=== PATIENT | female | born 1940 | race Caucasian/White ===

== ENCOUNTER → 2017-09-18 15:00 | Outpatient (CLI) | payer MEDICARE, SELFPAY | PROVIDERS: Family Provider Family Medicine Geriatric Medicine; PCP Family Medicine Geriatric Medicine; Visit Provider Family Medicine Geriatric Medicine | DX: N39.0 Urinary tract infection, site not specified (principal) | CPT/HCPCS: 87086; 87088; 87186 ==

== ENCOUNTER → 2017-11-28 08:41 | Outpatient (CLI) | payer MEDICARE, SELFPAY ==
[2017-11-28 12:24] LABS: Absolute Lymphocyte Count 1.97 X10^3/ul (0.83-4.51); Absolute Neutrophil Count 4.3 X10^3/uL (2.0-7.7); Basophil# 0.02 X10^3/uL; Basophil% 0.3 % (0-1); Eosinophil# 0.24 X10^3/uL; Eosinophils% 3.5 % (0-5); Hematocrit 35.9 % (37-47); Lymphocyte # 1.97 X10^3/ul (4.0); Lymphocyte % 28.7 % (19-41); Mean Corp Hgb Conc 33.4 g/gl (32-36); Mean Corpuscular Hgb 30.7 pg (27.0-32.0); Mean Corpuscular Volume 91.8 fL (81-99); Mean Platelet Vol. 10.7 fl (6.2-12.0); Monocyte# 0.36 X10^3/uL; Monocyte% 5.2 % (0-10); Neutrophil # 4.27 X10^3/uL (2.7-7.7); Neutrophil % 62.2 % (47-70); Platelet Count 240 K/mm3 (150-450); RBC Distribution Width CV 13.5 % (11.6-14.6); Red Blood Count 3.91 M/mm3 (4.2-5.4); White Blood Count 6.9 K/mm3 (4.4-11.0)
[2017-11-28 12:26] LABS: POSITIVE COUNT NO; POSITIVE DIFFERENTIAL NO; POSITIVE MORPHOLOGY NO
[2017-11-28 12:43] LABS: Vitamin D,25 Hydroxy 25.8 ng/mL (29.95-100.01)
[2017-11-28 12:46] LABS: AST(SGOT) 25 U/L (15-37); Alanine Aminotransfer ALT/SGPT 23 U/L (13-56); Albumin, Serum 3.7 g/dL (3.2-5.0); Alkaline Phosphatase 77 U/L (45-117); Anion Gap 10 (5-15); BUN 25 mg/dL (7-18); BUN/Creat Ratio 19.7 RATIO (10-20); Calcium,Total 9.1 mg/dL (8.5-10.1); Chloride 102 mmol/L (98-107); Creatinine, Serum 1.27 mg/dL (0.55-1.02); EST Glomerular Filtration Rate 43 mL/min (>60); Est Glom Filt Rate - Afr Amer 52 mL/min (>60); Globulin 3.7 g/dL (2.2-4.2); Glucose 150 mg/dL (74-106); Potassium 4.3 mmol/L (3.5-5.1); Protein, Total 7.4 g/dL (6.4-8.2); Sodium Level 138 mmol/L (136-145); Thyroid Stim Hormone (TSH) 1.52 uIU/mL (0.358-3.74); Uric Acid 6.9 mg/dL (2.6-6.0)
== END ==
PROVIDERS: Family Provider Family Medicine Geriatric Medicine; PCP Family Medicine Geriatric Medicine; Visit Provider Family Medicine Geriatric Medicine
DX: E11.9 Type 2 diabetes mellitus without complications (principal); E55.9 Vitamin D deficiency, unspecified; I10 Essential (primary) hypertension; M10.9 Gout, unspecified
CPT/HCPCS: 36415; 80053; 82306; 84443; 84550; 85025

== ENCOUNTER → 2018-01-12 11:11 | Outpatient (CLI) | payer MEDICARE, SELFPAY ==
[2018-01-12 13:06] LABS: Absolute Lymphocyte Count 2.19 X10^3/ul (0.83-4.51); Absolute Neutrophil Count 7.9 X10^3/uL (2.0-7.7); Basophil# 0.03 X10^3/uL; Basophil% 0.3 % (0-1); Eosinophil# 0.33 X10^3/uL; Lymphocyte # 2.19 X10^3/ul (4.0); Lymphocyte % 19.9 % (19-41); Mean Corp Hgb Conc 32.4 g/gl (32-36); Mean Corpuscular Hgb 29.6 pg (27.0-32.0); Mean Corpuscular Volume 91.1 fL (81-99); Mean Platelet Vol. 10.1 fl (6.2-12.0); Monocyte# 0.58 X10^3/uL; Monocyte% 5.3 % (0-10); Neutrophil # 7.85 X10^3/uL (2.7-7.7); Neutrophil % 71.3 % (47-70); POSITIVE COUNT NO; POSITIVE DIFFERENTIAL NO; POSITIVE MORPHOLOGY NO; Platelet Count 304 K/mm3 (150-450); RBC Distribution Width CV 13.4 % (11.6-14.6); RBC Distribution Width SD 44.1 fl (35.1-43.9); Red Blood Count 4.06 M/mm3 (4.2-5.4)
[2018-01-12 13:16] LABS: Erythrocyte Sedimentation Rate 30 mm/hr (0-30)
[2018-01-12 13:27] LABS: Anion Gap 12 (5-15); BUN 25 mg/dL (7-18); BUN/Creat Ratio 20.5 RATIO (10-20); Calcium,Total 9.6 mg/dL (8.5-10.1); Chloride 101 mmol/L (98-107); Creatinine, Serum 1.22 mg/dL (0.55-1.02); EST Glomerular Filtration Rate 45 mL/min (>60); Est Glom Filt Rate - Afr Amer 55 mL/min (>60); Glucose 199 mg/dL (74-106); Potassium 5.1 mmol/L (3.5-5.1); Sodium Level 140 mmol/L (136-145)
== END ==
PROVIDERS: Family Provider Family Medicine Geriatric Medicine; PCP Family Medicine Geriatric Medicine; Visit Provider Family Medicine Geriatric Medicine
DX: N39.0 Urinary tract infection, site not specified (principal); I10 Essential (primary) hypertension
CPT/HCPCS: 36415; 80048; 85025; 85652; 86140; 87086; 87088

== ENCOUNTER → 2018-02-10 11:54 | Outpatient (CLI) | payer MEDICARE, SELFPAY | PROVIDERS: Family Provider Family Medicine Geriatric Medicine; PCP Family Medicine Geriatric Medicine; Visit Provider Family Medicine Geriatric Medicine | DX: R68.83 Chills (without fever) (principal) | CPT/HCPCS: 87633 ==

== ENCOUNTER → 2018-02-23 12:03 | Outpatient (CLI) | payer MEDICARE, SELFPAY | PROVIDERS: Family Provider Family Medicine Geriatric Medicine; PCP Family Medicine Geriatric Medicine; Visit Provider Family Medicine Geriatric Medicine | DX: N39.0 Urinary tract infection, site not specified (principal) ==

== ENCOUNTER → 2018-02-23 14:18 | Outpatient (CLI) | payer MEDICARE, SELFPAY ==
--- NOTE | 2018-02-23 14:22 | CT_ITS ---
STUDY: CT ABDOMEN AND PELVIS WITH CONTRAST REASON FOR EXAM: Female, 77 years old. Mid and upper abdominal pain and vomiting. RADIATION DOSAGE (If Supplied By Facility): CTDIvol = ( 15.405 ) mGy, DLP = ( 903.59 ) mGycm TECHNIQUE: Transaxial images were obtained from the dome of the diaphragm to the symphysis pubis with oral contrast. 100 ml of Isovue 300 contrast was administered. Sagittal and coronal images were reconstructed. Individualized dose optimization techniques were used for this CT. COMPARISON: None. FINDINGS: Mild degree of increased linear markings at the lung bases suggestive of atelectasis and/or scarring. Coronary artery calcification. There is a 1.4 cm x 1.2 cm cyst in the caudate lobe of the liver. There are multiple small gallstones. Normal spleen. There is diffuse atrophy of the pancreas. Normal bilateral adrenal glands. Normal right kidney. Normal left kidney. There is a small hiatal hernia. There is evidence of a circumferential wall thickening of the distal portion of the body of the stomach extending into the antrum. Increased markings are seen in the surrounding fat. Gastric ulceration or inflammatory changes should be. Small lymph nodes are seen in the surrounding peritoneal fat. Correlation with endoscopy is recommended. Findings suggestive of a 1.1 cm x 1 cm diverticulum in the second portion of the duodenum. Normal small intestine. There are multiple colonic diverticula consistent with diverticulosis. A moderate amount of fecal material is seen throughout the colon. The appendix is visualized and appears normal. There is diffuse atherosclerotic calcification of the abdominal aorta and its major visceral branches, without a demonstrated aneurysm. Normal inferior vena cava. Normal retroperitoneum. Normal urinary bladder. There is absence of the uterus consistent with a prior hysterectomy. Normal abdominal wall. Facet joint osteoarthritis. CT/Abdomen/Pelvis WITH Contrast IMPRESSION: Circumferential wall thickening with increased markings in the surrounding peritoneal fat involving the distal portion of the stomach in the antrum. This may represent ulceration or inflammatory process. Small lymph nodes are seen within the peritoneal fat. Small gallstones. Electronically Signed: Pj Carrillo MD at 15:19 EDT Tel [phone], Service support ,
[2018-02-23 17:47] LABS: Absolute Lymphocyte Count 1.45 X10^3/ul (0.83-4.51); Absolute Neutrophil Count 15.6 X10^3/uL (2.0-7.7); Basophil# 0.01 X10^3/uL; Basophil% 0.1 % (0-1); Eosinophil# 0.05 X10^3/uL; Eosinophils% 0.3 % (0-5); Hematocrit 42.5 % (37-47); Hemoglobin 13.9 g/dl (12.0-15.0); Lymphocyte # 1.45 X10^3/ul (4.0); Lymphocyte % 7.9 % (19-41); Mean Corp Hgb Conc 32.7 g/gl (32-36); Mean Corpuscular Hgb 30.3 pg (27.0-32.0); Mean Corpuscular Volume 92.8 fL (81-99); Mean Platelet Vol. 10.9 fl (6.2-12.0); Monocyte# 1.26 X10^3/uL; Monocyte% 6.8 % (0-10); Neutrophil # 15.59 X10^3/uL (2.7-7.7); Neutrophil % 84.6 % (47-70); POSITIVE COUNT NO; POSITIVE DIFFERENTIAL NO; POSITIVE MORPHOLOGY NO; Platelet Count 225 K/mm3 (150-450); RBC Distribution Width CV 14.7 % (11.6-14.6); RBC Distribution Width SD 49.4 fl (35.1-43.9); Red Blood Count 4.58 M/mm3 (4.2-5.4); White Blood Count 18.4 K/mm3 (4.4-11.0)
[2018-02-23 18:13] LABS: AST(SGOT) 14 U/L (15-37); Alanine Aminotransfer ALT/SGPT 44 U/L (13-56); Albumin, Serum 3.6 g/dL (3.2-5.0); Alkaline Phosphatase 85 U/L (45-117); Anion Gap 11 (5-15); BUN 25 mg/dL (7-18); BUN/Creat Ratio 17.7 RATIO (10-20); Calcium,Total 9.5 mg/dL (8.5-10.1); Chloride 97 mmol/L (98-107); Creatinine, Serum 1.41 mg/dL (0.55-1.02); EST Glomerular Filtration Rate 38 mL/min (>60); Est Glom Filt Rate - Afr Amer 46 mL/min (>60); Globulin 3.7 g/dL (2.2-4.2); Glucose 418 mg/dL (74-106); Protein, Total 7.3 g/dL (6.4-8.2); Sodium Level 136 mmol/L (136-145)
== END ==
PROVIDERS: Family Provider Family Medicine Geriatric Medicine; PCP Family Medicine Geriatric Medicine; Visit Provider Family Medicine Geriatric Medicine
DX: R10.9 Unspecified abdominal pain (principal)
CPT/HCPCS: 36415; 74177; 80053; 85025; 87086; 87088; Q9967

== ENCOUNTER 2018-02-27 12:26 | Inpatient (IN) | payer MEDICARE, SELFPAY ==
[2018-02-27] VITALS (11 sets, daily range): BP systolic 115–170; BP diastolic 52–85; PULSE 63–73; RESP 14–18; TEMP 36.9–37.8; O2SAT 94–100; BMI 25.4; BMI 25.9
--- NOTE | 2018-02-27 | IMM_PTH ---
PATIENT: ANNE CASTAÑEDA LOC: MS3 U#:[id number] AGE/SX: 77/F ROOM: LA317 RE02/27/[address]: Dr. Marques Hatch MD : [id number] BED: 1 DIS: 03/02/2018 SPEC #: [id number] RECD: 03/03/18 11:59 STATUS: SOUWilfredo REQ #: [id number] JOSEPH: 02/27/18 00:[address]: Marques Hatch DEPT: IMMUNOHISTOCHEMISTRY RECD BY: Shara Denny ENTERED: 03/03/18 12:00 SP TYPE: IMMUNO OTHR DR: MD Dr. Rivera Shaw MD Dr. Tai Chi Kwok, MD Tissues: Stomach, NOS Procedures: H Pylori (initial) PHYSICIAN & INSTITUTION [place] [id number] SPECIMEN INFORMATION: Tissue Source: Gastric antrum, biopsy Clinical Info: Abdominal pain, nausea Specimen Number: [id number] CPT code: 20011 METHODOLOGY: Deparaffinized sections of prefer/formalin-fixed tissue or PAP/DQ stained slides are incubated with monoclonal/polyclonal antibodies/oligonucleotide probes. Localization is made via biotin free immunoperoxidase method. Appropriate controls are performed and reacted as expected. Results on target cell population are indicated in the following table: RESULTS: ANTIBODY / CLONE RESULT H Pylori (polyclonal) negative These tests were developed and their performance characteristics determined by [facility]. They may not have been cleared or approved by the U.S. Food and Drug Administration. The FDA has determined that such clearance or approval is not necessary. INTERPRETATION: Gastric antrum, biopsy: Negative for Helicobacter pylori organisms. SJ:rachel 03/04/18
--- NOTE | 2018-02-27 12:36 | EKG12_ITS ---
Test Reason : DYSRHYTHMIA Blood Pressure : / mmHG Vent. Rate : 064 BPM Atrial Rate : 064 BPM P-R Int : 140 ms QRS Dur : 088 ms QT Int : 392 ms P-R-T Axes : 049 016 033 degrees QTc Int : 404 ms Normal sinus rhythm Normal ECG Confirmed by HAKEEM HERRERA, DONAVON ([id number]), editor producer CYNDIE ATKINS ([id number]) on 03/02/2018 3:00:36 PM Referred By: Rere Skinner Confirmed By:DONAVON PALACIO MD
--- NOTE | 2018-02-27 12:41 | ED.DCSUM_ITS ---
- ER Visit Summary Date of Service: 02/27/18 Chief Complaint: Midepigastric abdominal pain History of Present Illness: The patient is a 77 F presents to the emergency department abdominal pain. Patient symptoms began over the weekend. She states that she ate breakfast on Friday morning. On most immediately, she had a burning pain in her midepigastric area that went to her back. She states she was nauseated and had an episode of vomiting. States the pain improved, but then returned on Friday after she ate. She followed up with Dr. Taylor in the office on Friday. She had lab work done and a CT. Her CT demonstrated rather significant gastric edema. The patient was started on antibiotics and a PPI. She states that she was actually doing well until today. States that she had to eat with her morning medications. The pain came back. She states she felt very lightheaded and the pain went into her shoulders. She was nauseated again but does not think that she had vomiting at that time. She denies any systemic symptoms. Physical Examination: Vital signs reviewed General: Well-nourished, well-developed Head: Normocephalic, atraumatic Eyes: Pupils equal and reactive, extraocular muscles intact Neck, supple, no lymphadenopathy Heart: Regular rate and rhythm Respiratory: No distress, clear bilaterally Abdomen: Soft, tender in the midepigastric area with some voluntary guarding, nondistended, no peritoneal signs Back: Nontender Extremities: Nontender, no edema, no cords Skin: Normal color no rash Neuro: Alert and oriented, no focal or lateralizing deficits Test Results: [] Emergency Department Course and Treatment: The patient has rather significant midepigastric pain. I did review her CT a lot of edema in the stomach that is consistent with ulcer versus inflammation. Labs were obtained were unremarkable. She was given fluids, antiemetics, and analgesics. She did have improvement but still had intermittent pain. I am concerned because the patient cannot eat. She states even with drinking, she has worsening pain. Her creatinine was normal, but her lactate was mildly elevated. I did discuss the patient with Dr. Coronado. He is comfortable following the patient consultation for endoscopy. She is given IV Protonix. She was discussed with the hospitalist and will be admitted. Treatment Plan: [] Disposition: Admission Impression: 1. Dehydration 2. Acute gastritis This note was generated with Dragon dictation software. It may contain incorrect words, spelling, and punctuation that were not noted in review of the chart prior to signing ED Disposition - Plan for ED Patient: Disposition: Acute Care Hospital [facility] Chief Complaint: Abd Pain
[2018-02-27] MEDS: Ondansetron 4 MG/2 ML Vial IV (12:48)
[2018-02-27] MEDS: fentaNYL 100 MCG/2 ML Ampul 25 MCG IV (12:48)
[2018-02-27] MEDS: 0.9% Normal Saline 1,000 ML 1000 ML IV (12:49)
[2018-02-27 13:37] LABS: Absolute Lymphocyte Count 1.06 X10^3/ul (0.83-4.51); Absolute Neutrophil Count 8.6 X10^3/uL (2.0-7.7); Basophil# 0.01 X10^3/uL; Basophil% 0.1 % (0-1); Eosinophil# 0.02 X10^3/uL; Eosinophils% 0.2 % (0-5); Hematocrit 35.8 % (37-47); Lymphocyte # 1.06 X10^3/ul (4.0); Lymphocyte % 10.8 % (19-41); Mean Corp Hgb Conc 33.5 g/gl (32-36); Mean Corpuscular Hgb 30.2 pg (27.0-32.0); Mean Corpuscular Volume 90.2 fL (81-99); Mean Platelet Vol. 9.8 fl (6.2-12.0); Monocyte# 0.11 X10^3/uL; Monocyte% 1.1 % (0-10); Neutrophil # 8.62 X10^3/uL (2.7-7.7); Neutrophil % 87.5 % (47-70); POSITIVE COUNT NO; POSITIVE DIFFERENTIAL NO; POSITIVE MORPHOLOGY NO; Platelet Count 172 K/mm3 (150-450); RBC Distribution Width CV 14.2 % (11.6-14.6); RBC Distribution Width SD 47.1 fl (35.1-43.9); Red Blood Count 3.97 M/mm3 (4.2-5.4); White Blood Count 9.9 K/mm3 (4.4-11.0)
[2018-02-27 13:53] LABS: ALB/GLOB Ratio 0.9 RATIO (0.9-2.4); AST(SGOT) 18 U/L (15-37); Alanine Aminotransfer ALT/SGPT 38 U/L (13-56); Alkaline Phosphatase 72 U/L (45-117); Anion Gap 8 (5-15); BUN 19 mg/dL (7-18); BUN/Creat Ratio 16.1 RATIO (10-20); Calcium,Total 8.4 mg/dL (8.5-10.1); Chloride 104 mmol/L (98-107); Creatinine, Serum 1.18 mg/dL (0.55-1.02); EST Glomerular Filtration Rate 47 mL/min (>60); Est Glom Filt Rate - Afr Amer 57 mL/min (>60); Estimated Creatinine Clearance 36.19 ml/min; Globulin 3.5 g/dL (2.2-4.2); Glucose 343 mg/dL (74-106); Lipase 140 U/L (73-393); Potassium 4.1 mmol/L (3.5-5.1); Protein, Total 6.5 g/dL (6.4-8.2); Sodium Level 138 mmol/L (136-145)
--- NOTE | 2018-02-27 14:10 | ED.RN ---
pt lactic 2.0 dr newman
--- NOTE | 2018-02-27 14:19 | PCM.HP.STD ---
History of Present Illness The patient is a 77 year old F [] Past Medical History Allergies Penicillins [PCN] Allergy (Verified 02/27/18 12:30) Hives Home Medications: Ambulatory Orders Medication Instructions Recorded Allopurinol [Zyloprim] 100 mg PO DAILYCM 02/27/18 Ascorbic Acid 500 mg PO DAILY 02/27/18 Aspirin E.C. [Ecotrin] 81 mg PO DAILY 02/27/18 Atenolol [Tenormin] 25 mg PO DAILY 02/27/18 Doxycycline Hyclate 100 mg PO BID 02/27/18 Ergocalciferol [Vitamin D] 50,000 unit PO QMONTH 02/27/18 Furosemide [Lasix] 20 mg PO DAILY 02/27/18 Glimepiride [Amaryl] 2 mg PO DAILY 02/27/18 Ipratropium [place] 2 spray NS DAILY 02/27/18 Lisinopril [Zestril] 5 mg PO DAILY 02/27/18 Methenamine Hippurate 1 gm PO DAILY 02/27/18 Prednisone 5 mg PO BID 02/27/18 Propylene Glycol/Peg 400 [Systane 1 drop EACH EYE PRN PRN 02/27/18 0.3-0.4% Eye Drops] Simvastatin 20 mg PO QHS 02/27/18 Spironolactone 50 mg PO DAILY 02/27/18 Smoking Status: Never smoker - Physical Exam Vital Signs Temp Pulse Resp BP Pulse Ox 98.4 F 63 16 147/71 H 99 02/27/18 12:28 02/27/18 12:28 02/27/18 12:28 02/27/18 12:28 02/27/18 12:28 Oxygen Delivery Method Room Air Weight: 157 lb 10.088 oz Body Mass Index (BMI) 25.4 Laboratory Tests Past 24 Hrs 02/27/18 02/27/18 02/27/18 13:30 13:30 13:30 WBC 9.9 RBC 3.97 L Hgb 12.0 Hct 35.8 L MCV 90.2 MCH 30.2 MCHC 33.5 RDW 14.2 RDW Differential 47.1 H Plt Count 172 MPV 9.8 Immature Gran % (Auto) 0.300 Neut % (Auto) 87.5 H Lymph % (Auto) 10.8 L [place] % (Auto) 1.1 Eos % (Auto) 0.2 Baso % (Auto) 0.1 Absolute Neuts (auto) 8.6 H Absolute Lymphs (auto) 1.06 Total Counted Not Reportable Sodium 138 Potassium 4.1 Chloride 104 Carbon Dioxide 26.0 Anion Gap 8 BUN 19 H Creatinine 1.18 H Estim Creat Clear Calc 36.19 Est GFR (MDRD) Af Amer 57 L Est GFR (MDRD) Non-Af 47 L BUN/Creatinine Ratio 16.1 Glucose 343 H Lactic Acid 2.0 Calcium 8.4 L Total Bilirubin 0.80 AST 18 ALT 38 Alkaline Phosphatase 72 Troponin I 0.023 Total Protein 6.5 Albumin 3.0 L Globulin 3.5 Albumin/Globulin Ratio 0.9 Lipase 140
--- NOTE | 2018-02-27 15:28 | PCM.HP.STD ---
Problem List (1) Abdominal pain Status: Acute History of Present Illness Date of Admission: 02/27/18 Chief Complaint: ABDOMINAL PAIN The patient is a 77 year old F with a PMH of diabetes, hypertension, hyperlipidemia and gout. She was admitted via the ED on 02/27/18 with a complaint of generalised abdominal pain for 3 days prior to presentation. Pain is brought on by eating and last for about 30 minutes. It is very severe about 10 out of 10 and generalized but mainly in the epigastrium, with no relieving factors. Pain is constant and has no relieving factors. She denies any bloating with the pain. Is been going on for the past 3 days and so she went to see her primary care doctor and was given doxycycline presumably for H. pylori. However pain persisted after this so she decided coming to the ED today. She denies any history of ulcer in the past, and denies any weight loss, any symptoms of reflux. She denies any fever, chills, cough, chest pain, or diarrhea but admits to vomiting. In the ED, vitals showed temperature of 98.6 Fahrenheit, blood pressure 170/85, pulse rate of 73 and respiratory rate of 18. CBC was significant for hemoglobin of 12 and platelets of 172 and BMP was significant for creatinine of 1.18. CAT scan done which was ordered by her PCP showed circumferential wall thickening with increased markings in the surrounding peritoneal fat involving the distal portion of the stomach in the antrum, this may represent ulceration or inflammatory process and small lymph nodes are seen within the peritoneal fat. It also showed multiple small gallstones with diffuse atrophy of the pancreas and a 1 cm cyst in the caudate lobe of the liver. She is being admitted to be managed for abdominal pain due to gastritis. [] Past Medical History Allergies Penicillins [PCN] Allergy (Verified 02/27/18 12:30) Hives arthritis medicine Allergy (Uncoded 02/27/18 14:36) Rash Home Medications: Ambulatory Orders Medication Instructions Recorded Allopurinol [Zyloprim] 100 mg PO DAILYCM 02/27/18 Ascorbic Acid 500 mg PO DAILY 02/27/18 Aspirin E.C. [Ecotrin] 81 mg PO DAILY 02/27/18 Atenolol [Tenormin] 25 mg PO DAILY 02/27/18 Doxycycline Hyclate 100 mg PO BID 02/27/18 Ergocalciferol [Vitamin D] 50,000 unit PO QMONTH 02/27/18 Furosemide [Lasix] 20 mg PO DAILY 02/27/18 Glimepiride [Amaryl] 2 mg PO DAILY 02/27/18 Ipratropium [place] 2 spray NS DAILY 02/27/18 Lisinopril [Zestril] 5 mg PO DAILY 02/27/18 Methenamine Hippurate 1 gm PO DAILY 02/27/18 Prednisone 5 mg PO BID 02/27/18 Propylene Glycol/Peg 400 [Systane 1 drop EACH EYE PRN PRN 02/27/18 0.3-0.4% Eye Drops] Simvastatin 20 mg PO QHS 02/27/18 Spironolactone 50 mg PO DAILY 02/27/18 Surgical History: no surgical history Psychiatric History: No pertinent psych hx Lives: Alone Smoking Status: Never smoker Alcohol: None Review of Systems Constitutional: Denies: Chills, Fever, Weight Change Eyes: Denies: Blurred vision HEENT: Denies: Head Aches, Sinus Congestion, Sinus Drainage Cardiovascular: Denies: Chest Pain, Chest Pressure, Edema, Light Headedness, Orthopnea, Palpitations, Paroxysmal Noc. Dyspnea, Syncope Respiratory: Denies: Cough, Pleuritic Pain, Shortness of Breath, Shortness of breath at rest, Sputum production Gastrointestinal: Reports: Abdominal Pain, Nausea, Vomiting. Denies: Constipation, Dyspepsia, Melena Genitourinary: Denies: Dysuria Musculoskeletal: Denies: Joint Pain, Joint Tenderness Skin: Denies: Rash, Wounds Neurological: Denies: Numbness, Tingling, Focal weakness Psychiatric: Denies: Anxiety, Depression, Homicidal Ideations, Suicidal Ideations Hematologic/ Lymphatic: Denies: Easy Bruising, Easy Bleeding VTE Information - Inpt Only VTE Present on Admission: No VTE Mechan Device Prophylaxis: SCD's VTE Pharm Prophylaxis ordered?: Yes Reason prophylaxis not ordered:: Medical Contraindication - severe gastritis Patient Problems: Active and Suspected Problems Abdominal pain (Acute) - Physical Exam General: Alert, Oriented x3, Cooperative HEENT: Atraumatic, PERRLA, EOMI, Normocephalic Oral: Moist Mucosa Neck: Supple, No JVD, Negative Carotid Bruits Lungs: Clear to auscultation, Normal air movement, No rhonchi, No wheeze, No rales Cardiovascular: Regular rate, Regular Rhythm, Normal S1, Normal S2, No murmurs Abdomen: Bowel Sounds Present, Soft, - - moderate generalised tenderness, mainly in the epigastrum, with no guarding or rebound tenderness. Young's sign is negative. Extremities: No clubbing, No cyanosis, No edema, Capillary Refill Less than 3 Seconds Skin: No rashes, No breakdown Musculoskeletal: No Tenderness to Palpation of Joints or Extremities Lymphatic: No Cervical, Supraclavicular, or Inguinal Adenopathy Neurological: Cranial nerves II-XII grossly intact, Neuro grossly intact, Motor Exam 5/5 strength throughout Psych/Mental Status: Normal Affect, Appropriate, Alert and oriented to time, place, person, mood and affect Vital Signs Temp Pulse Resp BP Pulse Ox 98.6 F 73 18 170/85 H 99 02/27/18 15:11 02/27/18 15:11 02/27/18 15:11 02/27/18 15:11 02/27/18 15:11 Oxygen Delivery Method Room Air Weight: 160 lb 14.999 oz Body Mass Index (BMI) 25.9 Laboratory Tests Past 24 Hrs 02/27/18 02/27/18 02/27/18 13:30 13:30 13:30 WBC 9.9 RBC 3.97 L Hgb 12.0 Hct 35.8 L MCV 90.2 MCH 30.2 MCHC 33.5 RDW 14.2 RDW Differential 47.1 H Plt Count 172 MPV 9.8 Immature Gran % (Auto) 0.300 Neut % (Auto) 87.5 H Lymph % (Auto) 10.8 L [place] % (Auto) 1.1 Eos % (Auto) 0.2 Baso % (Auto) 0.1 Absolute Neuts (auto) 8.6 H Absolute Lymphs (auto) 1.06 Total Counted Not Reportable Sodium 138 Potassium 4.1 Chloride 104 Carbon Dioxide 26.0 Anion Gap 8 BUN 19 H Creatinine 1.18 H Estim Creat Clear Calc 36.19 Est GFR (MDRD) Af Amer 57 L Est GFR (MDRD) Non-Af 47 L BUN/Creatinine Ratio 16.1 Glucose 343 H Lactic Acid 2.0 Calcium 8.4 L Total Bilirubin 0.80 AST 18 ALT 38 Alkaline Phosphatase 72 Troponin I 0.023 Total Protein 6.5 Albumin 3.0 L Globulin 3.5 Albumin/Globulin Ratio 0.9 Lipase 140 Assessment/Plan All Active Problems Abdominal pain (Acute) 77 y/o female admitted with a 3 day history of abdominal pain. 1. Abdominal pain likely due to severe gastritis pain brought on by eating, and is constant, lasting for ~ 30 mins after meals denies any weight loss, previous history of ulcer symptoms can be indicative of symptomatic cholelithiasis also, but Young's sign is negative. will get a RUQ USG admit to [facility] Hb is 12; platelets 172 keep NPO; consult general surgery IV pantoprazole 40mg bid IVF NS ~ 125cc/hr 2. Hypertension: poorly controlled. on atenolol and furosemide as well as spironolactone. Continue 3. Diabetes: on glimepiride. WIll hold for now due to NPO status, and start ISS. Accuchecks q6 4. Gout: stable. On allopurinol 5. Hyperlipidemia: on statin. DVT prophylaxis;SCDs GI prophylaxis: on IV PPI Code status; full code. patient counselled about differences between full code, DNRCC and DNRCCA. Total face to face time- 16 mins. Code Visit Inpatient E&M: 67699 Init Hosp L3 Procedures: 44439 Advncd Care Plan 30 Min
--- NOTE | 2018-02-27 15:30 | NURSING ---
Off unit to AC to prepare for ENDO.
--- NOTE | 2018-02-27 15:35 | HP.PCM_ITS ---
Problem List (1) Abdominal pain Status: Acute History of Present Illness Date of Admission: 02/27/18 Chief Complaint: ABDOMINAL PAIN The patient is a 77 year old F with a PMH of diabetes, hypertension, hyperlipidemia and gout. She was admitted via the ED on 02/27/18 with a complaint of generalised abdominal pain for 3 days prior to presentation. Pain is brought on by eating and last for about 30 minutes. It is very severe about 10 out of 10 and generalized but mainly in the epigastrium, with no relieving factors. Pain is constant and has no relieving factors. She denies any bloating with the pain. Is been going on for the past 3 days and so she went to see her primary care doctor and was given doxycycline presumably for H. pylori. However pain persisted after this so she decided coming to the ED today. She denies any history of ulcer in the past, and denies any weight loss, any symptoms of reflux. She denies any fever, chills, cough, chest pain, or diarrhea but admits to vomiting. In the ED, vitals showed temperature of 98.6 Fahrenheit, blood pressure 170/85, pulse rate of 73 and respiratory rate of 18. CBC was significant for hemoglobin of 12 and platelets of 172 and BMP was significant for creatinine of 1.18. CAT scan done which was ordered by her PCP showed circumferential wall thickening with increased markings in the surrounding peritoneal fat involving the distal portion of the stomach in the antrum, this may represent ulceration or inflammatory process and small lymph nodes are seen within the peritoneal fat. It also showed multiple small gallstones with diffuse atrophy of the pancreas and a 1 cm cyst in the caudate lobe of the liver. She is being admitted to be managed for abdominal pain due to gastritis. [] Past Medical History Allergies Penicillins [PCN] Allergy (Verified 02/27/18 12:30) Hives arthritis medicine Allergy (Uncoded 02/27/18 14:36) Rash Home Medications: Ambulatory Orders Medication Instructions Recorded Allopurinol [Zyloprim] 100 mg PO DAILYCM 02/27/18 Ascorbic Acid 500 mg PO DAILY 02/27/18 Aspirin E.C. [Ecotrin] 81 mg PO DAILY 02/27/18 Atenolol [Tenormin] 25 mg PO DAILY 02/27/18 Doxycycline Hyclate 100 mg PO BID 02/27/18 Ergocalciferol [Vitamin D] 50,000 unit PO QMONTH 02/27/18 Furosemide [Lasix] 20 mg PO DAILY 02/27/18 Glimepiride [Amaryl] 2 mg PO DAILY 02/27/18 Ipratropium [place] 2 spray NS DAILY 02/27/18 Lisinopril [Zestril] 5 mg PO DAILY 02/27/18 Methenamine Hippurate 1 gm PO DAILY 02/27/18 Prednisone 5 mg PO BID 02/27/18 Propylene Glycol/Peg 400 [Systane 1 drop EACH EYE PRN PRN 02/27/18 0.3-0.4% Eye Drops] Simvastatin 20 mg PO QHS 02/27/18 Spironolactone 50 mg PO DAILY 02/27/18 Surgical History: no surgical history Psychiatric History: No pertinent psych hx Lives: Alone Smoking Status: Never smoker Alcohol: None Review of Systems Constitutional: Denies: Chills, Fever, Weight Change Eyes: Denies: Blurred vision HEENT: Denies: Head Aches, Sinus Congestion, Sinus Drainage Cardiovascular: Denies: Chest Pain, Chest Pressure, Edema, Light Headedness, Orthopnea, Palpitations, Paroxysmal Noc. Dyspnea, Syncope Respiratory: Denies: Cough, Pleuritic Pain, Shortness of Breath, Shortness of breath at rest, Sputum production Gastrointestinal: Reports: Abdominal Pain, Nausea, Vomiting. Denies: Constipation, Dyspepsia, Melena Genitourinary: Denies: Dysuria Musculoskeletal: Denies: Joint Pain, Joint Tenderness Skin: Denies: Rash, Wounds Neurological: Denies: Numbness, Tingling, Focal weakness Psychiatric: Denies: Anxiety, Depression, Homicidal Ideations, Suicidal Ideations Hematologic/ Lymphatic: Denies: Easy Bruising, Easy Bleeding VTE Information - Inpt Only VTE Present on Admission: No VTE Mechan Device Prophylaxis: SCD's VTE Pharm Prophylaxis ordered?: Yes Reason prophylaxis not ordered:: Medical Contraindication - severe gastritis Patient Problems: Active and Suspected Problems Abdominal pain (Acute) - Physical Exam General: Alert, Oriented x3, Cooperative HEENT: Atraumatic, PERRLA, EOMI, Normocephalic Oral: Moist Mucosa Neck: Supple, No JVD, Negative Carotid Bruits Lungs: Clear to auscultation, Normal air movement, No rhonchi, No wheeze, No rales Cardiovascular: Regular rate, Regular Rhythm, Normal S1, Normal S2, No murmurs Abdomen: Bowel Sounds Present, Soft, - - moderate generalised tenderness, mainly in the epigastrum, with no guarding or rebound tenderness. Young's sign is negative. Extremities: No clubbing, No cyanosis, No edema, Capillary Refill Less than 3 Seconds Skin: No rashes, No breakdown Musculoskeletal: No Tenderness to Palpation of Joints or Extremities Lymphatic: No Cervical, Supraclavicular, or Inguinal Adenopathy Neurological: Cranial nerves II-XII grossly intact, Neuro grossly intact, Motor Exam 5/5 strength throughout Psych/Mental Status: Normal Affect, Appropriate, Alert and oriented to time, place, person, mood and affect Vital Signs Temp Pulse Resp BP Pulse Ox 98.6 F 73 18 170/85 H 99 02/27/18 15:11 02/27/18 15:11 02/27/18 15:11 02/27/18 15:11 02/27/18 15:11 Oxygen Delivery Method Room Air Weight: 160 lb 14.999 oz Body Mass Index (BMI) 25.9 Laboratory Tests Past 24 Hrs 02/27/18 02/27/18 02/27/18 13:30 13:30 13:30 WBC 9.9 RBC 3.97 L Hgb 12.0 Hct 35.8 L MCV 90.2 MCH 30.2 MCHC 33.5 RDW 14.2 RDW Differential 47.1 H Plt Count 172 MPV 9.8 Immature Gran % (Auto) 0.300 Neut % (Auto) 87.5 H Lymph % (Auto) 10.8 L [place] % (Auto) 1.1 Eos % (Auto) 0.2 Baso % (Auto) 0.1 Absolute Neuts (auto) 8.6 H Absolute Lymphs (auto) 1.06 Total Counted Not Reportable Sodium 138 Potassium 4.1 Chloride 104 Carbon Dioxide 26.0 Anion Gap 8 BUN 19 H Creatinine 1.18 H Estim Creat Clear Calc 36.19 Est GFR (MDRD) Af Amer 57 L Est GFR (MDRD) Non-Af 47 L BUN/Creatinine Ratio 16.1 Glucose 343 H Lactic Acid 2.0 Calcium 8.4 L Total Bilirubin 0.80 AST 18 ALT 38 Alkaline Phosphatase 72 Troponin I 0.023 Total Protein 6.5 Albumin 3.0 L Globulin 3.5 Albumin/Globulin Ratio 0.9 Lipase 140 Assessment/Plan All Active Problems Abdominal pain (Acute) 77 y/o female admitted with a 3 day history of abdominal pain. 1. Abdominal pain likely due to severe gastritis * pain brought on by eating, and is constant, lasting for ~ 30 mins after meals * denies any weight loss, previous history of ulcer * symptoms can be indicative of symptomatic cholelithiasis also, but Young's sign is negative. * will get a RUQ USG * admit to [facility] * Hb is 12; platelets 172 * keep NPO; consult general surgery * IV pantoprazole 40mg bid * IVF NS ~ 125cc/hr * 2. Hypertension: * poorly controlled. * on atenolol and furosemide as well as spironolactone. Continue 3. Diabetes: on glimepiride. WIll hold for now due to NPO status, and start ISS. Accuchecks q6 4. Gout: stable. On allopurinol 5. Hyperlipidemia: on statin. DVT prophylaxis;SCDs GI prophylaxis: on IV PPI Code status; full code. * patient counselled about differences between full code, DNRCC and DNRCCA. Total face to face time- 16 mins. Code Visit Inpatient E&M: 72435 Init Hosp L3 Procedures: 06171 Advncd Care Plan 30 Min
--- NOTE | 2018-02-27 16:05 | EGD_PTH ---
PATIENT: ANNE CASTAÑEDA LOC: MS3 U#:[id number] AGE/SX: 77/F ROOM: DE317 RE02/27/[address]: Dr. Marques Hatch MD : 1940 BED: 1 DIS: 03/02/2018 SPEC #: [id number] RECD: 02/27/18 17:02 STATUS: AUGUSTIN REQ #: [id number] JOSEPH: 02/27/18 16:[address]: Rivera Betancourt DEPT: SURGICAL PATHOLOGY RECD BY: Vasyl Palumbo ENTERED: 03/02/18 08:32 SP TYPE: EGD BIOPSY OTHR DR: MD Dr. Marques Shaw MD Dr. Richard Guttman, MD Dr. Tai Chi Kwok, MD Tissues: Gastric mucous membrane Procedures: Surgery Specimen Level IV Comments: @ Ordering doctor for SUIV edited from to DR.RGUTTM Luke by FLOYD at 03/02/18 141 @ Submitting doctor edited from to DR.RGUTTM Ti BARRIENTOS at 03/02/18 1415 HEADER OPERATION[place] [place] DIAGNOSIS: Abdominal pain, nausea TISSUE SUBMITTED: Biopsy gastric antrum MICROSCOPIC DIAGNOSIS Gastric antrum, biopsy: Mild gastritis. See microscopic description and comment. JARED:rachel 03/03/18 COMMENT The results of immunohistochemistry for Helicobacter pylori will be reported separately ([id number]). MICROSCOPIC DESCRIPTION Slides are reviewed. The specimen shows fragments of gastric mucosa with chronic inflammatory cell infiltrates in the lamina propria consisting of lymphocytes and plasma cells, consistent with mild chronic gastritis. GROSS DESCRIPTION Received in fixative is one container labeled with the patient's name and designated biopsy gastric antrum. The specimen consists of one irregular fragment of light hansen soft tissue that measures 0.4 x 0.4 x 0.1 cm. The specimen is totally submitted in one cassette. / JARED:rachel 03/02/18 TC:3 [facility]: [id number]
--- NOTE | 2018-02-27 16:17 | PCM.CONS.GEN ---
Reason for Consult Date of Consultation: 02/27/18 History of Present Illness: The patient is a 77 year old F with a complaint of upper abdominal pain since this weekend. the patient has noted more mild episodes of pain previously. Starting Friday, the patient has noted more sever pain in the epigastrium. She was seen by Dr. Arce and started on doxycycline. She was having presumed gastroenteritis. Today she ate zucchini breast and had severe epigastric pain while eating. She presented to the ER. CT scan demonstrated gastric thickening. patient is also noted to have gallstones. She takes aspirin. She had been on steroids. I understand recently. She does not smoke, drink, or note significant stress. she notes she has diabetes but does not check her blood sugars. She has what she describes as stage III renal failure. Past Medical History Allergies Penicillins [PCN] Allergy (Verified 02/27/18 12:30) Hives arthritis medicine Allergy (Uncoded 02/27/18 14:36) Rash Home Medications: Ambulatory Orders Medication Instructions Recorded Allopurinol [Zyloprim] 100 mg PO DAILYCM 02/27/18 Ascorbic Acid 500 mg PO DAILY 02/27/18 Aspirin E.C. [Ecotrin] 81 mg PO DAILY 02/27/18 Atenolol [Tenormin] 25 mg PO DAILY 02/27/18 Doxycycline Hyclate 100 mg PO BID 02/27/18 Ergocalciferol [Vitamin D] 50,000 unit PO QMONTH 02/27/18 Furosemide [Lasix] 20 mg PO DAILY 02/27/18 Glimepiride [Amaryl] 2 mg PO DAILY 02/27/18 Ipratropium [place] 2 spray NS DAILY 02/27/18 Lisinopril [Zestril] 5 mg PO DAILY 02/27/18 Methenamine Hippurate 1 gm PO DAILY 02/27/18 Prednisone 5 mg PO BID 02/27/18 Propylene Glycol/Peg 400 [Systane 1 drop EACH EYE PRN PRN 02/27/18 0.3-0.4% Eye Drops] Simvastatin 20 mg PO QHS 02/27/18 Spironolactone 50 mg PO DAILY 02/27/18 Surgical History: no surgical history Psychiatric History: No pertinent psych hx Lives: Alone Smoking Status: Never smoker Alcohol: None Review of Systems Constitutional: Denies: Chills, Fever, Weight Change HEENT: Denies: Head Aches, Sinus Congestion, Sinus Drainage Cardiovascular: Denies: Chest Pain, Palpitations Respiratory: Denies: Cough, Shortness of breath at rest, Sputum production Gastrointestinal: Reports: Abdominal Pain. Denies: Nausea, Vomiting Genitourinary: Denies: Dysuria Musculoskeletal: Denies: Joint Pain, Joint Tenderness Skin: Denies: Rash, Wounds Neurological: Denies: Numbness, Tingling, Focal weakness Psychiatric: Denies: Anxiety, Depression, Homicidal Ideations, Suicidal Ideations Hematologic/ Lymphatic: Denies: Easy Bruising, Easy Bleeding Patient Problems: Active and Suspected Problems Abdominal pain (Acute) - Physical Exam General: Alert, Oriented x3, Cooperative HEENT: Atraumatic, PERRLA, EOMI, Normocephalic Neck: Supple, No JVD, Negative Carotid Bruits Lungs: Clear to auscultation, Normal air movement Cardiovascular: Regular rate, No murmurs Abdomen: Bowel Sounds Present, Soft, Hypoactive Bowel Sounds, Tender - in the RUQ and epigastric areas Extremities: No edema, Capillary Refill Less than 3 Seconds Skin: No rashes, No breakdown Musculoskeletal: No Tenderness to Palpation of Joints or Extremities Neurological: Cranial nerves II-XII grossly intact Psych/Mental Status: Normal Affect, Appropriate Vital Signs Temp Pulse Resp BP Pulse Ox 98.6 F 73 18 170/85 H 99 02/27/18 15:11 02/27/18 15:11 02/27/18 15:11 02/27/18 15:11 02/27/18 15:11 Oxygen Delivery Method Room Air Weight: 73 kg Body Mass Index (BMI) 25.9 Laboratory Tests Past 24 Hrs 02/27/18 02/27/18 02/27/18 13:30 13:30 13:30 WBC 9.9 RBC 3.97 L Hgb 12.0 Hct 35.8 L MCV 90.2 MCH 30.2 MCHC 33.5 RDW 14.2 RDW Differential 47.1 H Plt Count 172 MPV 9.8 Immature Gran % (Auto) 0.300 Neut % (Auto) 87.5 H Lymph % (Auto) 10.8 L Riley % (Auto) 1.1 Eos % (Auto) 0.2 Baso % (Auto) 0.1 Absolute Neuts (auto) 8.6 H Absolute Lymphs (auto) 1.06 Total Counted Not Reportable Sodium 138 Potassium 4.1 Chloride 104 Carbon Dioxide 26.0 Anion Gap 8 BUN 19 H Creatinine 1.18 H Estim Creat Clear Calc 36.19 Est GFR (MDRD) Af Amer 57 L Est GFR (MDRD) Non-Af 47 L BUN/Creatinine Ratio 16.1 Glucose 343 H Lactic Acid 2.0 Calcium 8.4 L Total Bilirubin 0.80 AST 18 ALT 38 Alkaline Phosphatase 72 Troponin I 0.023 Total Protein 6.5 Albumin 3.0 L Globulin 3.5 Albumin/Globulin Ratio 0.9 Lipase 140 Assessment/Plan All Active Problems Abdominal pain (Acute) epigastric pain - clinically, likely peptic ulcer disease I plan to perform an EGD. the risks, benefits, complications, and possible alternatives been explained the patient. She's been nothing by mouth for at least a few hours. We will plan for monitored anesthetic care for sedation and upper endoscopy. If endoscopy is unremarkable, then would consider reevaluation for biliary colic./cholecystitis
--- NOTE | 2018-02-27 16:42 | OP.ENDO_ITS ---
Patient Name: Niurka Dorsey Procedure Date: 02/27/2018 4:09 PM Date of : 1940 Age: 77 Procedure: Upper GI endoscopy Indications: Epigastric abdominal pain Providers: Rivera Betancourt MD Referring MD: Rere Skinner Medicines: Monitored Anesthesia Care Patient Profile: This is a 77 year old female. Refer to note in patient chart for documentation of history and physical. Complications: No immediate complications. Procedure: Pre-Anesthesia Assessment: - Prior to the procedure, a History and Physical was performed, and patient medications and allergies were reviewed. The patient is competent. The risks and benefits of the procedure and the sedation options and risks were discussed with the patient. All questions were answered and informed consent was obtained. Patient identification and proposed procedure were verified by the physician, the nurse and the typing checker in the procedure room. Mental Status Examination: alert and oriented. Airway Examination: normal oropharyngeal airway and neck mobility. Respiratory Examination: clear to auscultation. CV Examination: normal. Prophylactic Antibiotics: The patient does not require prophylactic antibiotics. Prior Anticoagulants: The patient has taken aspirin, last dose was 1 day prior to procedure. ASA Grade Assessment: E - Emergency. After reviewing the risks and benefits, the patient was deemed in satisfactory condition to undergo the procedure. The anesthesia plan was to use monitored anesthesia care (MAC). Immediately prior to administration of medications, the patient was re-assessed for adequacy to receive sedatives. The heart rate, respiratory rate, oxygen saturations, blood pressure, adequacy of pulmonary ventilation, and response to care were monitored throughout the procedure. The physical status of the patient was re-assessed after the procedure. After obtaining informed consent, the endoscope was passed under direct vision. Throughout the procedure, the patient's blood pressure, pulse, and oxygen saturations were monitored continuously. The gastroscope was introduced through the mouth, and advanced to the jejunum. The upper GI endoscopy was accomplished without difficulty. The patient tolerated the procedure well. Scope In: 4:27:50 PM Scope Out: 4:32:52 PM Total Procedure Duration Time 0 hours 5 minutes 2 seconds Findings: The examined jejunum was normal. The in the duodenum was normal. One non-bleeding cratered gastric ulcer with a clean ulcer base (Arthur Class III) was found in the prepyloric region of the stomach. The lesion was 10 mm in largest dimension. Segmental moderate inflammation characterized by erosions, erythema and friability was found in the gastric antrum. Biopsies were taken with a cold forceps for Helicobacter pylori testing using PyloriTek test. Biopsies were taken with a cold forceps for histology. A small hiatal hernia was present. Non-severe esophagitis with no bleeding was found. Impression: - Normal examined jejunum. - Normal. - Non-bleeding gastric ulcer with a clean ulcer base (Arthur Class III). - Gastritis. Biopsied. - Small hiatal hernia. - Non-severe reflux esophagitis. Recommendation: - Give Protonix (pantoprazole): initiate therapy with 80 mg IV bolus, then 8 mg/hr IV by continuous infusion. - Continue present medications. Procedure Code(s): --- Professional --- 83892, Esophagogastroduodenoscopy, flexible, transoral; with biopsy, single or multiple CPT copyright 2017 [employer]. All rights reserved. The codes documented in this report are preliminary and upon assembler final review may be revised to meet current compliance requirements. Rivera Betancourt MD 02/27/2018 4:41:26 PM This report has been signed electronically. Number of Addenda: 0 Note Initiated On: 02/27/2018 4:09 PM
[2018-02-27 17:32] LABS: Reflex Lactate? Y
[2018-02-27 17:40] LABS: Bedside Glucose 309 mg/dL (70-110)
[2018-02-27] MEDS: Insulin Lispro 100 UNIT/ML INSULN.PEN SQ ×2 (17:40→23:02)
--- NOTE | 2018-02-27 18:48 | US_ITS ---
STUDY: ABDOMINAL ULTRASOUND - RIGHT UPPER QUADRANT REASON FOR VISIT: Female, 77 years old. Abdominal pain TECHNIQUE: Ultrasound evaluation of the right upper quadrant was performed with real-time and static gaytan-scale imaging. TECHNICAL QUALITY: Adequate. COMPARISON: CT 02.23.18 FINDINGS: Liver: The liver measures 16.6 cm. There is normal echogenicity of the liver. The bile ducts are within normal limits. There is hepatic color flow. The direction of portal flow is hepatopetal. 25 x 16 x 15 mm echogenic mass in the left lobe of the liver. Gallbladder: Normal distended gallbladder. The gallbladder wall measures 3 mm. There is a negative sonographic Young's sign. There is no pericholecystic fluid. There are multiple echogenic structures within the gallbladder, consistent with multiple gallstones. Gallbladder sludge is also visualized. Common Bile Duct (C.B.D.): The common bile duct measures 4 mm. Pancreas: Not visualized due to overlying bowel gas. Right Kidney: Normal size of the right kidney. The right kidney measures 9x4.5x4.1 cm. Normal renal cortex. The right cortex measures 1.1 cm. There is no demonstrated renal mass or cyst. There is no right hydronephrosis. US/Gallbladder IMPRESSION: Pancreas: Not visualized due to overlying bowel gas. Mass in the liver correlates with finding noted on the prior CT scan. Differential includes hepatic adenoma versus hemangioma. MRI with gadolinium can further evaluate. There are multiple echogenic structures within the gallbladder, consistent with multiple gallstones. Gallbladder sludge is also visualized. Electronically Signed: Adrien Barney MD at 20:48 EDT , Service support ,
[2018-02-27 18:49] LABS: Lactic Acid 1.8 mmol/L (0.4-2.0)
[2018-02-27] MEDS: 0.9% Normal Saline 1,000 ML 125 ML IV (22:54)
[2018-02-27 23:11] LABS: Bedside Glucose 256 mg/dL (70-110)
[2018-02-28] VITALS (11 sets, daily range): BP systolic 118–135; BP diastolic 45–62; PULSE 74–92; RESP 14–18; TEMP 36.7–37.8; O2SAT 92–98
[2018-02-28] MEDS: Insulin Lispro 100 UNIT/ML INSULN.PEN SQ ×4 (06:35→21:56)
[2018-02-28 06:50] LABS: Bedside Glucose 231 mg/dL (70-110)
[2018-02-28 07:12] LABS: Absolute Lymphocyte Count 1.52 X10^3/ul (0.83-4.51); Absolute Neutrophil Count 7.9 X10^3/uL (2.0-7.7); Basophil# 0.01 X10^3/uL; Basophil% 0.1 % (0-1); Eosinophil# 0.06 X10^3/uL; Eosinophils% 0.6 % (0-5); Hematocrit 33.5 % (37-47); Hemoglobin 11.1 g/dl (12.0-15.0); Lymphocyte # 1.52 X10^3/ul (4.0); Lymphocyte % 15.7 % (19-41); Mean Corp Hgb Conc 33.1 g/gl (32-36); Mean Corpuscular Hgb 30.1 pg (27.0-32.0); Mean Corpuscular Volume 90.8 fL (81-99); Mean Platelet Vol. 9.9 fl (6.2-12.0); Monocyte# 0.18 X10^3/uL; Monocyte% 1.9 % (0-10); Neutrophil # 7.92 X10^3/uL (2.7-7.7); Neutrophil % 81.5 % (47-70); Platelet Count 170 K/mm3 (150-450); RBC Distribution Width CV 14.8 % (11.6-14.6); RBC Distribution Width SD 48.7 fl (35.1-43.9); Red Blood Count 3.69 M/mm3 (4.2-5.4); White Blood Count 9.7 K/mm3 (4.4-11.0)
[2018-02-28 07:13] LABS: POSITIVE COUNT NO; POSITIVE DIFFERENTIAL NO; POSITIVE MORPHOLOGY NO
[2018-02-28] MEDS: 0.9% Normal Saline 1,000 ML 125 ML IV (07:26)
[2018-02-28 07:39] LABS: Anion Gap 9 (5-15); BUN 15 mg/dL (7-18); BUN/Creat Ratio 16.4 RATIO (10-20); Chloride 108 mmol/L (98-107); Creatinine, Serum 0.91 mg/dL (0.55-1.02); EST Glomerular Filtration Rate 63 mL/min (>60); Est Glom Filt Rate - Afr Amer 76 mL/min (>60); Estimated Creatinine Clearance 46.93 ml/min; Glucose 223 mg/dL (74-106); Potassium 4.3 mmol/L (3.5-5.1); Sodium Level 142 mmol/L (136-145)
[2018-02-28] MEDS: Allopurinol 100 MG Tablet PO (07:56)
[2018-02-28] MEDS: Spironolactone 50 MG Tablet PO (10:28)
[2018-02-28] MEDS: Sucralfate 1 GM Tablet PO ×3 (10:28→21:49)
[2018-02-28] MEDS: Furosemide 20 MG Tablet PO (10:29)
[2018-02-28] MEDS: Ipratropium Bromide 0.06% NASAL SPRAY 2 SPRAY NASAL (10:29)
[2018-02-28] MEDS: Atenolol 25 MG Tablet PO (10:30)
[2018-02-28] MEDS: Lisinopril 5 MG Tablet PO (10:30)
[2018-02-28] MEDS: Ascorbic Acid 500 MG Tablet PO (10:30)
--- NOTE | 2018-02-28 11:11 | PCM.PN.HOSP ---
Patient Problems: Active and Suspected Problems Abdominal pain (Acute) Subjective: Patient seen and examined. She was admitted with a complaint of severe abdominal pain in the epigastrium and is been managed for gastritis. She states pain is improved today but did recur this morning. She has had no vomiting or diarrhea and denies any fever or chills, any chest pain, shortness of breath. 12 point review of systems otherwise negative. General surgery saw her and considering doing EGD by Friday if patient is still in the hospital patient follow-up in a month's time. Labs and vitals reviewed. Vitals/I&O's: Vital Signs Temp Pulse Resp BP Pulse Ox 98.5 F 74 16 118/55 L 96 02/28/18 07:51 02/28/18 07:51 02/28/18 07:51 02/28/18 07:51 02/28/18 07:51 Oxygen Delivery Method Room Air Weight: 160 lb 14.999 oz Body Mass Index (BMI) 25.9 Intake and Output for Last 24 Hours 02/26/18 02/27/18 02/28/18 23:59 23:59 23:59 Intake Total 1251 / 1251 Balance 1251 / 1251 General: Alert, Oriented x3, Cooperative, No apparent distress HEENT: Atraumatic, PERRLA, EOMI, Normocephalic Oral: Moist Mucosa Neck: Supple, No JVD, Negative Carotid Bruits Lungs: Clear to auscultation, Normal air movement, No rhonchi, No wheeze, No rales Cardiovascular: Regular rate, Regular Rhythm, Normal S1, Normal S2, No murmurs Abdomen: Bowel Sounds Present, Soft, Non-Distended, No Hepato-splenomegaly, - - mild epigastric etenderness Extremities: No clubbing, No cyanosis, No edema, Capillary Refill Less than 3 Seconds Skin: No rashes, No breakdown Lymphatic: No Cervical, Supraclavicular, or Inguinal Adenopathy Neurological: Cranial nerves II-XII grossly intact, Neuro grossly intact Psych/Mental Status: Normal Affect, Appropriate, Alert and oriented to time, place, person, mood and affect Laboratory Results 02/27/18 13:30: WBC 9.9, RBC 3.97 L, Hgb 12.0, Hct 35.8 L, MCV 90.2, MCH 30.2, MCHC 33.5, RDW 14.2, RDW Differential 47.1 H, Plt Count 172, MPV 9.8, Immature Gran % (Auto) 0.300, Neut % (Auto) 87.5 H, Lymph % (Auto) 10.8 L, Potter % (Auto) 1.1, Eos % (Auto) 0.2, Baso % (Auto) 0.1, Absolute Neuts (auto) 8.6 H, Absolute Lymphs (auto) 1.06, Total Counted Not Reportable 02/27/18 13:30: Sodium 138, Potassium 4.1, Chloride 104, Carbon Dioxide 26.0, Anion Gap 8, BUN 19 H, Creatinine 1.18 H, Estim Creat Clear Calc 36.19, Est GFR (MDRD) Af Amer 57 L, Est GFR (MDRD) Non-Af 47 L, BUN/Creatinine Ratio 16.1, Glucose 343 H, Calcium 8.4 L, Total Bilirubin 0.80, AST 18, ALT 38, Alkaline Phosphatase 72, Troponin I 0.023, Total Protein 6.5, Albumin 3.0 L, Globulin 3.5, Albumin/Globulin Ratio 0.9, Lipase 140 02/27/18 13:30: Lactic Acid 2.0 02/27/18 17:35: POC Glucose 309 H 02/27/18 18:11: Lactic Acid 1.8 02/27/18 23:01: POC Glucose 256 H 02/28/18 06:18: Sodium 142, Potassium 4.3, Chloride 108 H, Carbon Dioxide 25.0, Anion Gap 9, BUN 15, Creatinine 0.91, Estim Creat Clear Calc 46.93, Est GFR (MDRD) Af Amer 76, Est GFR (MDRD) Non-Af 63, BUN/Creatinine Ratio 16.4, Glucose 223 H, Calcium 8.0 L 02/28/18 06:18: WBC 9.7, RBC 3.69 L, Hgb 11.1 L, Hct 33.5 L, MCV 90.8, MCH 30.1, MCHC 33.1, RDW 14.8 H, RDW Differential 48.7 H, Plt Count 170, MPV 9.9, Immature Gran % (Auto) 0.200, Neut % (Auto) 81.5 H, Lymph % (Auto) 15.7 L, Potter % (Auto) 1.9, Eos % (Auto) 0.6, Baso % (Auto) 0.1, Absolute Neuts (auto) 7.9 H, Absolute Lymphs (auto) 1.52, Total Counted Not Reportable 02/28/18 06:29: POC Glucose 231 H Diagnostic Data Gallbladder Ultrasound 02/27/18 18:48 IMPRESSION: Pancreas: Not visualized due to overlying bowel gas. Mass in the liver correlates with finding noted on the prior CT scan. Differential includes hepatic adenoma versus hemangioma. MRI with gadolinium can further evaluate. There are multiple echogenic structures within the gallbladder, consistent with multiple gallstones. Gallbladder sludge is also visualized. Electronically Signed: Adrien Barney MD at 20:48 EDT , Service support , Current Medications Allopurinol (Zyloprim) 100 mg PO DAILYCM [facility] Last Admin: 02/28/18 07:56 Dose: 100 mg Ascorbic Acid (Vitamin C) 500 mg PO DAILY [facility] Last Admin: 02/28/18 10:30 Dose: 500 mg Atenolol (Tenormin (Beta Kathy)) 25 mg PO DAILY [facility] Last Admin: 02/28/18 10:30 Dose: 25 mg Atorvastatin Calcium (Lipitor) 10 mg PO QHS [facility] Last Admin: 02/27/18 22:54 Dose: Not Given Dextrose (D50w Syringe) 0 gm IV X1 PRN; Protocol PRN Reason: Hypoglycemia Ergocalciferol (Vitamin D) 50,000 unit PO QMONTH [facility] Furosemide (Lasix) 20 mg PO DAILY [facility] Last Admin: 02/28/18 10:29 Dose: 20 mg Glucagon () 1 mg IM .X1 PRN PRN Reason: Hypoglycemia Sodium Chloride () 1,000 mls @ 125 mls/hr IV .Q8H [place] Stop: 02/28/18 15:24 Last Admin: 02/28/18 07:26 Dose: 125 mls/hr Pantoprazole Sodium 40 mg/ (Sodium Chloride) 110 mls @ 330 mls/hr IV Q12 [facility] Last Admin: 02/28/18 10:30 Dose: 330 mls/hr Insulin Human Lispro (Humalog Kwikpen (Bkc)) 0 unit SQ Q6 [facility]; Protocol Last Admin: 02/28/18 06:35 Dose: 2 u Ipratropium [place] (Atrovent Nasal [place] (G)) 2 spray NASAL DAILY [facility] Last Admin: 02/28/18 10:29 Dose: 2 spray Lisinopril (Zestril) 5 mg PO DAILY [facility] Last Admin: 02/28/18 10:30 Dose: 5 mg Magnesium Hydroxide (Milk Of Magnesia) 30 ml PO DAILY PRN PRN PRN Reason: Constipation Nutritional Formula (Lactose Free) (Ensure Clear) 120 ml PO 4X/DAY [facility] Sodium Chloride () 5 - 30 ml IV UD PRN PRN Reason: SALINE FLUSH Spironolactone (Aldactone) 50 mg PO DAILY [facility] Last Admin: 02/28/18 10:28 Dose: 50 mg Sucralfate (Carafate) 1 gm PO 1HR_ACHS [facility] Last Admin: 02/28/18 10:28 Dose: 1 gm Medical Necessity - Tobacco Use Smoking Status: Never smoker Assessment/Plan All Active Problems Abdominal pain (Acute) 77 y/o female admitted with a 3 day history of abdominal pain. 1. Abdominal pain likely due to severe gastritis vs symptomatic cholelithiasis Still had mild abdominal pain overnight. General surgery saw her and according to patient, to do EGD by Friday she is still in the hospital or if she discharged before then to do it in a month's time. Patient still n.p.o. Will transition patient to a clear diet to advance as tolerated. If pain persists or recurs, will keep patient in the hospital until Friday for EGD. Gallbladder ultrasound showed Numerous gallstones in the gallbladder with mild sludge. on IV pantoprazole if she tolerates oral diet, will dc IVF 2. Hypertension: control has improved on atenolol and furosemide as well as spironolactone. 3. Diabetes: on glimepiride. ISS. Resume glimepiride as she is starting oral intake today. Accuchecks ACHS 4. Gout: stable. On allopurinol 5. Hyperlipidemia: on statin. DVT prophylaxis;SCDs GI prophylaxis: on IV PPI Code status; full code. Code Visit Inpatient E&M: 30904 Subs Hosp L3
--- NOTE | 2018-02-28 11:17 | PN_ITS ---
Patient Problems: Active and Suspected Problems Abdominal pain (Acute) Subjective: Patient seen and examined. She was admitted with a complaint of severe abdominal pain in the epigastrium and is been managed for gastritis. She states pain is improved today but did recur this morning. She has had no vomiting or diarrhea and denies any fever or chills, any chest pain, shortness of breath. 12 point review of systems otherwise negative. General surgery saw her and considering doing EGD by Friday if patient is still in the hospital patient follow-up in a month's time. Labs and vitals reviewed. Vitals/I&O's: Vital Signs Temp Pulse Resp BP Pulse Ox 98.5 F 74 16 118/55 L 96 02/28/18 07:51 02/28/18 07:51 02/28/18 07:51 02/28/18 07:51 02/28/18 07:51 Oxygen Delivery Method Room Air Weight: 160 lb 14.999 oz Body Mass Index (BMI) 25.9 Intake and Output for Last 24 Hours 02/26/18 02/27/18 02/28/18 23:59 23:59 23:59 Intake Total 1251 / 1251 Balance 1251 / 1251 General: Alert, Oriented x3, Cooperative, No apparent distress HEENT: Atraumatic, PERRLA, EOMI, Normocephalic Oral: Moist Mucosa Neck: Supple, No JVD, Negative Carotid Bruits Lungs: Clear to auscultation, Normal air movement, No rhonchi, No wheeze, No rales Cardiovascular: Regular rate, Regular Rhythm, Normal S1, Normal S2, No murmurs Abdomen: Bowel Sounds Present, Soft, Non-Distended, No Hepato-splenomegaly, - - mild epigastric etenderness Extremities: No clubbing, No cyanosis, No edema, Capillary Refill Less than 3 Seconds Skin: No rashes, No breakdown Lymphatic: No Cervical, Supraclavicular, or Inguinal Adenopathy Neurological: Cranial nerves II-XII grossly intact, Neuro grossly intact Psych/Mental Status: Normal Affect, Appropriate, Alert and oriented to time, place, person, mood and affect Laboratory Results 02/27/18 13:30: WBC 9.9, RBC 3.97 L, Hgb 12.0, Hct 35.8 L, MCV 90.2, MCH 30.2, MCHC 33.5, RDW 14.2, RDW Differential 47.1 H, Plt Count 172, MPV 9.8, Immature Gran % (Auto) 0.300, Neut % (Auto) 87.5 H, Lymph % (Auto) 10.8 L, [place] % (Auto) 1.1, Eos % (Auto) 0.2, Baso % (Auto) 0.1, Absolute Neuts (auto) 8.6 H, Absolute Lymphs (auto) 1.06, Total Counted Not Reportable 02/27/18 13:30: Sodium 138, Potassium 4.1, Chloride 104, Carbon Dioxide 26.0, Anion Gap 8, BUN 19 H, Creatinine 1.18 H, Estim Creat Clear Calc 36.19, Est GFR (MDRD) Af Amer 57 L, Est GFR (MDRD) Non-Af 47 L, BUN/Creatinine Ratio 16.1, Glucose 343 H, Calcium 8.4 L, Total Bilirubin 0.80, AST 18, ALT 38, Alkaline Phosphatase 72, Troponin I 0.023, Total Protein 6.5, Albumin 3.0 L, Globulin 3.5, Albumin/Globulin Ratio 0.9, Lipase 140 02/27/18 13:30: Lactic Acid 2.0 02/27/18 17:35: POC Glucose 309 H 02/27/18 18:11: Lactic Acid 1.8 02/27/18 23:01: POC Glucose 256 H 02/28/18 06:18: Sodium 142, Potassium 4.3, Chloride 108 H, Carbon Dioxide 25.0, Anion Gap 9, BUN 15, Creatinine 0.91, Estim Creat Clear Calc 46.93, Est GFR (MDRD) Af Amer 76, Est GFR (MDRD) Non-Af 63, BUN/Creatinine Ratio 16.4, Glucose 223 H, Calcium 8.0 L 02/28/18 06:18: WBC 9.7, RBC 3.69 L, Hgb 11.1 L, Hct 33.5 L, MCV 90.8, MCH 30.1, MCHC 33.1, RDW 14.8 H, RDW Differential 48.7 H, Plt Count 170, MPV 9.9, Immature Gran % (Auto) 0.200, Neut % (Auto) 81.5 H, Lymph % (Auto) 15.7 L, [place] % (Auto) 1.9, Eos % (Auto) 0.6, Baso % (Auto) 0.1, Absolute Neuts (auto) 7.9 H, Absolute Lymphs (auto) 1.52, Total Counted Not Reportable 02/28/18 06:29: POC Glucose 231 H Diagnostic Data Gallbladder Ultrasound 02/27/18 18:48 IMPRESSION: Pancreas: Not visualized due to overlying bowel gas. Mass in the liver correlates with finding noted on the prior CT scan. Differential includes hepatic adenoma versus hemangioma. MRI with gadolinium can further evaluate. There are multiple echogenic structures within the gallbladder, consistent with multiple gallstones. Gallbladder sludge is also visualized. Electronically Signed: Adrien Barney MD at 20:48 EDT , Service support , Current Medications Allopurinol (Zyloprim) 100 mg PO DAILYCM [facility] Last Admin: 02/28/18 07:56 Dose: 100 mg Ascorbic Acid (Vitamin C) 500 mg PO DAILY [facility] Last Admin: 02/28/18 10:30 Dose: 500 mg Atenolol (Tenormin (Beta Kathy)) 25 mg PO DAILY [facility] Last Admin: 02/28/18 10:30 Dose: 25 mg Atorvastatin Calcium (Lipitor) 10 mg PO QHS [facility] Last Admin: 02/27/18 22:54 Dose: Not Given Dextrose (D50w Syringe) 0 gm IV X1 PRN; Protocol PRN Reason: Hypoglycemia Ergocalciferol (Vitamin D) 50,000 unit PO QMONTH [facility] Furosemide (Lasix) 20 mg PO DAILY [facility] Last Admin: 02/28/18 10:29 Dose: 20 mg Glucagon () 1 mg IM .X1 PRN PRN Reason: Hypoglycemia Sodium Chloride () 1,000 mls @ 125 mls/hr IV .Q8H [place] Stop: 02/28/18 15:24 Last Admin: 02/28/18 07:26 Dose: 125 mls/hr Pantoprazole Sodium 40 mg/ (Sodium Chloride) 110 mls @ 330 mls/hr IV Q12 [facility] Last Admin: 02/28/18 10:30 Dose: 330 mls/hr Insulin Human Lispro (Humalog Kwikpen (Bkc)) 0 unit SQ Q6 [facility]; Protocol Last Admin: 02/28/18 06:35 Dose: 2 u Ipratropium [place] (Atrovent Nasal [place] (G)) 2 spray NASAL DAILY [facility] Last Admin: 02/28/18 10:29 Dose: 2 spray Lisinopril (Zestril) 5 mg PO DAILY [facility] Last Admin: 02/28/18 10:30 Dose: 5 mg Magnesium Hydroxide (Milk Of Magnesia) 30 ml PO DAILY PRN PRN PRN Reason: Constipation Nutritional Formula (Lactose Free) (Ensure Clear) 120 ml PO 4X/DAY [facility] Sodium Chloride () 5 - 30 ml IV UD PRN PRN Reason: SALINE FLUSH Spironolactone (Aldactone) 50 mg PO DAILY [facility] Last Admin: 02/28/18 10:28 Dose: 50 mg Sucralfate (Carafate) 1 gm PO 1HR_ACHS [facility] Last Admin: 02/28/18 10:28 Dose: 1 gm Medical Necessity - Tobacco Use Smoking Status: Never smoker Assessment/Plan All Active Problems Abdominal pain (Acute) 77 y/o female admitted with a 3 day history of abdominal pain. 1. Abdominal pain likely due to severe gastritis vs symptomatic cholelithiasis * Still had mild abdominal pain overnight. * General surgery saw her and according to patient, to do EGD by Friday she is still in the hospital or if she discharged before then to do it in a month's time. * Patient still n.p.o. Will transition patient to a clear diet to advance as tolerated. If pain persists or recurs, will keep patient in the hospital until Friday for EGD. Gallbladder ultrasound showed Numerous gallstones in the gallbladder with mild sludge. * on IV pantoprazole * if she tolerates oral diet, will dc IVF * * 2. Hypertension: * control has improved * on atenolol and furosemide as well as spironolactone. 3. Diabetes: on glimepiride. ISS. Resume glimepiride as she is starting oral intake today. Accuchecks ACHS 4. Gout: stable. On allopurinol 5. Hyperlipidemia: on statin. DVT prophylaxis;SCDs GI prophylaxis: on IV PPI Code status; full code. Code Visit Inpatient E&M: 37893 Subs Hosp L3
[2018-02-28 13:06] LABS: Bedside Glucose 307 mg/dL (70-110)
[2018-02-28 16:40] LABS: Bedside Glucose 261 mg/dL (70-110)
[2018-02-28 18:50] LABS: Bedside Glucose 215 mg/dL (70-110)
[2018-02-28] MEDS: Atorvastatin Calcium 10 MG Tablet PO (21:50)
[2018-02-28 22:15] LABS: Bedside Glucose 383 mg/dL (70-110)
[2018-03-01] VITALS (7 sets, daily range): BP systolic 98–131; BP diastolic 45–69; PULSE 67–95; RESP 16–18; TEMP 36.9–37.6; O2SAT 93–98; BMI 25.9
[2018-03-01 05:32] LABS: Absolute Lymphocyte Count 0.87 X10^3/ul (0.83-4.51); Absolute Neutrophil Count 7.6 X10^3/uL (2.0-7.7); Basophil# 0.01 X10^3/uL; Basophil% 0.1 % (0-1); Eosinophil# 0.09 X10^3/uL; Hematocrit 30.7 % (37-47); Hemoglobin 10.3 g/dl (12.0-15.0); Lymphocyte # 0.87 X10^3/ul (4.0); Lymphocyte % 9.6 % (19-41); Mean Corp Hgb Conc 33.6 g/gl (32-36); Mean Corpuscular Hgb 30.6 pg (27.0-32.0); Mean Corpuscular Volume 91.1 fL (81-99); Mean Platelet Vol. 9.6 fl (6.2-12.0); Monocyte# 0.44 X10^3/uL; Monocyte% 4.9 % (0-10); Neutrophil # 7.56 X10^3/uL (2.7-7.7); Neutrophil % 83.6 % (47-70); Platelet Count 149 K/mm3 (150-450); RBC Distribution Width CV 14.5 % (11.6-14.6); RBC Distribution Width SD 46.8 fl (35.1-43.9); Red Blood Count 3.37 M/mm3 (4.2-5.4)
[2018-03-01] MEDS: Sucralfate 1 GM Tablet PO ×4 (05:39→22:34)
[2018-03-01 05:42] LABS: POSITIVE COUNT NO; POSITIVE DIFFERENTIAL NO; POSITIVE MORPHOLOGY NO
[2018-03-01 05:52] LABS: Anion Gap 8 (5-15); BUN 12 mg/dL (7-18); BUN/Creat Ratio 12.4 RATIO (10-20); Calcium,Total 8.1 mg/dL (8.5-10.1); Chloride 106 mmol/L (98-107); Creatinine, Serum 0.96 mg/dL (0.55-1.02); EST Glomerular Filtration Rate 59 mL/min (>60); Est Glom Filt Rate - Afr Amer 72 mL/min (>60); Estimated Creatinine Clearance 44.48 ml/min; Glucose 259 mg/dL (74-106); Potassium 3.8 mmol/L (3.5-5.1); Sodium Level 138 mmol/L (136-145)
[2018-03-01] MEDS: Insulin Lispro 100 UNIT/ML INSULN.PEN SQ ×4 (06:47→22:46)
[2018-03-01 06:56] LABS: Bedside Glucose 251 mg/dL (70-110)
[2018-03-01] MEDS: Acetaminophen 325 MG Tablet 650 MG PO ×3 (09:10→22:45)
--- NOTE | 2018-03-01 09:30 | NURSING ---
Pt. stated that doctor told her that diet would be advanced and called dietary with full liquid diet order. Stated that they called her back and notified her that her diet is still clear. This RN spoke with Dr. Skinner this morning and she stated that pt's diet will be advanced. This RN changed order at this time to full liquid per doctor order and pt request. Stephy called in dietary and notified of order change and request for pt's breakfast to be brought. Understanding verbalized.
[2018-03-01] MEDS: Glimepiride 2 MG Tablet PO (09:41)
[2018-03-01] MEDS: Furosemide 20 MG Tablet PO (09:42)
[2018-03-01] MEDS: Spironolactone 50 MG Tablet PO (09:42)
[2018-03-01] MEDS: Allopurinol 100 MG Tablet PO (09:42)
[2018-03-01] MEDS: Ascorbic Acid 500 MG Tablet PO (09:43)
[2018-03-01] MEDS: 0.9% NaCl Peripheral Flush Adult/Peds IV ×3 (09:43→22:34)
[2018-03-01] MEDS: Lisinopril 5 MG Tablet PO (09:43)
[2018-03-01] MEDS: Atenolol 25 MG Tablet PO (09:43)
[2018-03-01] MEDS: Ipratropium Bromide 0.06% NASAL SPRAY 2 SPRAY NASAL (09:44)
--- NOTE | 2018-03-01 11:02 | PCM.PN.HOSP ---
Patient Problems: Active and Suspected Problems Abdominal pain (Acute) Subjective: Patient seen and examined. She had a good night states she had episodic epigastric pain. She denies any nausea, reflux symptoms, any vomiting, any fever or chills, any diarrhea vomiting. 12 point review of systems otherwise negative. She tolerated clear liquids yesterday. Vitals/I&O's: Vital Signs Temp Pulse Resp BP Pulse Ox 99.7 F H 82 18 116/69 97 03/01/18 09:07 03/01/18 09:07 03/01/18 09:07 03/01/18 09:07 03/01/18 09:07 Oxygen Delivery Method Nasal Cannula Weight: 160 lb 14.999 oz Body Mass Index (BMI) 25.9 Intake and Output for Last 24 Hours 02/27/18 02/28/18 03/01/18 23:59 23:59 23:59 Intake Total 2967 / 2967 491 / 491 Balance 2967 / 2967 491 / 491 General: Alert, Oriented x3, Cooperative HEENT: Atraumatic, PERRLA, EOMI, Normocephalic Oral: Moist Mucosa Neck: Supple, No JVD, Negative Carotid Bruits Lungs: Clear to auscultation, Normal air movement, No rhonchi, No wheeze, No rales Cardiovascular: Regular rate, Regular Rhythm, Normal S1, Normal S2, No murmurs Abdomen: Bowel Sounds Present, Soft, No Hepato-splenomegaly, - - Moderate epigastric tenderness on examination with minimal guarding but no rebound tenderness. Extremities: No clubbing, No cyanosis, No edema, Capillary Refill Less than 3 Seconds Skin: No rashes, No breakdown Musculoskeletal: No Tenderness to Palpation of Joints or Extremities Lymphatic: No Cervical, Supraclavicular, or Inguinal Adenopathy Neurological: Cranial nerves II-XII grossly intact, Neuro grossly intact, Motor Exam 5/5 strength throughout Psych/Mental Status: Normal Affect, Appropriate, Alert and oriented to time, place, person, mood and affect Laboratory Results 02/28/18 11:54: POC Glucose 307 H 02/28/18 16:29: POC Glucose 261 H 02/28/18 18:39: POC Glucose 215 H 02/28/18 21:55: POC Glucose 383 H 03/01/18 05:08: WBC 9.0, RBC 3.37 L, Hgb 10.3 L, Hct 30.7 L, MCV 91.1, MCH 30.6, MCHC 33.6, RDW 14.5, RDW Differential 46.8 H, Plt Count 149 L, MPV 9.6, Immature Gran % (Auto) 0.800, Neut % (Auto) 83.6 H, Lymph % (Auto) 9.6 L, [place] % (Auto) 4.9, Eos % (Auto) 1.0, Baso % (Auto) 0.1, Absolute Neuts (auto) 7.6, Absolute Lymphs (auto) 0.87, Total Counted Not Reportable 03/01/18 05:08: Sodium 138, Potassium 3.8, Chloride 106, Carbon Dioxide 24.0, Anion Gap 8, BUN 12, Creatinine 0.96, Estim Creat Clear Calc 44.48, Est GFR (MDRD) Af Amer 72, Est GFR (MDRD) Non-Af 59 L, BUN/Creatinine Ratio 12.4, Glucose 259 H, Calcium 8.1 L 03/01/18 06:45: POC Glucose 251 H Current Medications Acetaminophen (Tylenol) 650 mg PO Q6H PRN PRN PRN Reason: pain Last Admin: 03/01/18 09:10 Dose: 650 mg [facility]) [facility] Last Admin: 03/01/18 09:42 Dose: 100 mg Ascorbic Acid (Vitamin C) 500 mg PO DAILY [facility] Last Admin: 03/01/18 09:43 Dose: 500 mg Atenolol (Tenormin (Beta Kathy)) 25 mg PO DAILY [facility] Last Admin: 03/01/18 09:43 Dose: 25 mg Atorvastatin Calcium (Lipitor) 10 mg PO QHS [facility] Last Admin: 02/28/18 21:50 Dose: 10 mg Dextrose (D50w Syringe) 0 gm IV X1 PRN; Protocol PRN Reason: Hypoglycemia Ergocalciferol (Vitamin D) 50,000 unit PO QMONTH [facility] Furosemide (Lasix) 20 mg PO DAILY [facility] Last Admin: 03/01/18 09:42 Dose: 20 mg Glimepiride (Amaryl) [facility] Last Admin: 03/01/18 09:41 Dose: 2 mg Glucagon () 1 mg IM .X1 PRN PRN Reason: Hypoglycemia Pantoprazole Sodium 40 mg/ (Sodium Chloride) 110 mls @ 330 mls/hr IV Q12 [facility] Last Admin: 02/28/18 21:51 Dose: 330 mls/hr Sodium Chloride () 250 mls @ 15 mls/hr IV .[id number] PRN PRN Reason: SALINE FLUSH Insulin Human Lispro (Humalog Kwikpen (Bkc)) 0 unit SQ ACHS [facility]; Protocol Last Admin: 03/01/18 06:47 Dose: 2 u Ipratropium [place] (Atrovent Nasal [place] (G)) 2 spray NASAL DAILY [facility] Last Admin: 03/01/18 09:44 Dose: 2 spray Lisinopril (Zestril) 5 mg PO DAILY [facility] Last Admin: 03/01/18 09:43 Dose: 5 mg Magnesium Hydroxide (Milk Of Magnesia) 30 ml PO DAILY PRN PRN PRN Reason: Constipation Nutritional Formula (Lactose Free) (Glucerna Shake) 120 ml PO TIDCM [facility] Sodium Chloride () 5 - 30 ml IV UD PRN PRN Reason: SALINE FLUSH Last Admin: 03/01/18 09:43 Dose: 10 ml Spironolactone (Aldactone) 50 mg PO DAILY [facility] Last Admin: 03/01/18 09:42 Dose: 50 mg Sucralfate (Carafate) 1 gm PO 1HR_ACHS [facility] Last Admin: 03/01/18 05:39 Dose: 1 gm Medical Necessity - Tobacco Use Smoking Status: Never smoker Assessment/Plan All Active Problems Abdominal pain (Acute) 77 y/o female admitted with a 3 day history of abdominal pain. 1. Severe gastritis vs symptomatic cholelithiasis Has some abdominal pain overnight and physical examination is significant for moderate epigastric tenderness with minimal guarding. Patient transitioned to clear liquid diet yesterday and tolerated it well. Discussed with general surgery. They are willing to do EGD in about 3-4 weeks in outpatient basis if patient is okay with going home. However I am not comfortable discharging patient home as she still has the symptoms that brought her at all. Abdominal pain has improved a bit. She still did have epigastric tenderness with minimal guarding on examination today. I have counseled patient that I would rather prefer that she stays 1 more day and has the EGD rather than wait 3-4 weeks as I strongly believe that patient will come back to the hospital with the symptoms before she is scheduled to have the EGD. Gallbladder ultrasound showed numerous gallstones in the gallbladder with mild sludge. Liver enzymes were however normal On IV pantoprazole. We will keep n.p.o. past midnight for EGD tomorrow If EGD is negative, may benefit from biliary workup 2. Fever of unknown origin patient has had episodes of fever since admissio PEaked at 100F yesternight, is 99.7 today She denies any cough or shortness of breath or urinary symptoms. I am therefore not very certain what the source of this fever is as she does not really have any symptoms. will get blood cultures and urinalysis tyelenol prn for fever. 3. Hypertension: fairly controlled on atenolol and furosemide as well as spironolactone. 4. Diabetes: on glimepiride. ISS. Accuchecks ACHS 5. Gout: stable. On allopurinol 6. Hyperlipidemia: on statin. DVT prophylaxis;SCDs GI prophylaxis: on IV PPI Code status; full code. Code Visit Inpatient E&M: 33935 Subs Hosp L3
--- NOTE | 2018-03-01 11:11 | PN_ITS ---
Patient Problems: Active and Suspected Problems Abdominal pain (Acute) Subjective: Patient seen and examined. She had a good night states she had episodic epigastric pain. She denies any nausea, reflux symptoms, any vomiting, any fever or chills, any diarrhea vomiting. 12 point review of systems otherwise negative. She tolerated clear liquids yesterday. Vitals/I&O's: Vital Signs Temp Pulse Resp BP Pulse Ox 99.7 F H 82 18 116/69 97 03/01/18 09:07 03/01/18 09:07 03/01/18 09:07 03/01/18 09:07 03/01/18 09:07 Oxygen Delivery Method Nasal Cannula Weight: 160 lb 14.999 oz Body Mass Index (BMI) 25.9 Intake and Output for Last 24 Hours 02/27/18 02/28/18 03/01/18 23:59 23:59 23:59 Intake Total 2967 / 2967 491 / 491 Balance 2967 / 2967 491 / 491 General: Alert, Oriented x3, Cooperative HEENT: Atraumatic, PERRLA, EOMI, Normocephalic Oral: Moist Mucosa Neck: Supple, No JVD, Negative Carotid Bruits Lungs: Clear to auscultation, Normal air movement, No rhonchi, No wheeze, No rales Cardiovascular: Regular rate, Regular Rhythm, Normal S1, Normal S2, No murmurs Abdomen: Bowel Sounds Present, Soft, No Hepato-splenomegaly, - - Moderate epigastric tenderness on examination with minimal guarding but no rebound tenderness. Extremities: No clubbing, No cyanosis, No edema, Capillary Refill Less than 3 Seconds Skin: No rashes, No breakdown Musculoskeletal: No Tenderness to Palpation of Joints or Extremities Lymphatic: No Cervical, Supraclavicular, or Inguinal Adenopathy Neurological: Cranial nerves II-XII grossly intact, Neuro grossly intact, Motor Exam 5/5 strength throughout Psych/Mental Status: Normal Affect, Appropriate, Alert and oriented to time, place, person, mood and affect Laboratory Results 02/28/18 11:54: POC Glucose 307 H 02/28/18 16:29: POC Glucose 261 H 02/28/18 18:39: POC Glucose 215 H 02/28/18 21:55: POC Glucose 383 H 03/01/18 05:08: WBC 9.0, RBC 3.37 L, Hgb 10.3 L, Hct 30.7 L, MCV 91.1, MCH 30.6, MCHC 33.6, RDW 14.5, RDW Differential 46.8 H, Plt Count 149 L, MPV 9.6, Immature Gran % (Auto) 0.800, Neut % (Auto) 83.6 H, Lymph % (Auto) 9.6 L, [place] % (Auto) 4.9, Eos % (Auto) 1.0, Baso % (Auto) 0.1, Absolute Neuts (auto) 7.6, Absolute Lymphs (auto) 0.87, Total Counted Not Reportable 03/01/18 05:08: Sodium 138, Potassium 3.8, Chloride 106, Carbon Dioxide 24.0, Anion Gap 8, BUN 12, Creatinine 0.96, Estim Creat Clear Calc 44.48, Est GFR (MDRD) Af Amer 72, Est GFR (MDRD) Non-Af 59 L, BUN/Creatinine Ratio 12.4, Glucose 259 H, Calcium 8.1 L 03/01/18 06:45: POC Glucose 251 H Current Medications Acetaminophen (Tylenol) 650 mg PO Q6H PRN PRN PRN Reason: pain Last Admin: 03/01/18 09:10 Dose: 650 mg [facility]) [facility] Last Admin: 03/01/18 09:42 Dose: 100 mg Ascorbic Acid (Vitamin C) 500 mg PO DAILY [facility] Last Admin: 03/01/18 09:43 Dose: 500 mg Atenolol (Tenormin (Beta Kathy)) 25 mg PO DAILY [facility] Last Admin: 03/01/18 09:43 Dose: 25 mg Atorvastatin Calcium (Lipitor) 10 mg PO QHS [facility] Last Admin: 02/28/18 21:50 Dose: 10 mg Dextrose (D50w Syringe) 0 gm IV X1 PRN; Protocol PRN Reason: Hypoglycemia Ergocalciferol (Vitamin D) 50,000 unit PO QMONTH [facility] Furosemide (Lasix) 20 mg PO DAILY [facility] Last Admin: 03/01/18 09:42 Dose: 20 mg [facility]imepir[facility] (Amaryl) [facility] Last Admin: 03/01/18 09:41 Dose: 2 mg Glucagon () 1 mg IM .X1 PRN PRN Reason: Hypoglycemia Pantoprazole Sodium 40 mg/ (Sodium Chloride) 110 mls @ 330 mls/hr IV Q12 [facility] Last Admin: 02/28/18 21:51 Dose: 330 mls/hr Sodium Chloride () 250 mls @ 15 mls/hr IV .[id number] PRN PRN Reason: SALINE FLUSH Insulin Human Lispro (Humalog Kwikpen (Bkc)) 0 unit SQ ACHS [facility]; Protocol Last Admin: 03/01/18 06:47 Dose: 2 u Ipratropium [place] (Atrovent Nasal [place] (G)) 2 spray NASAL DAILY [facility] Last Admin: 03/01/18 09:44 Dose: 2 spray Lisinopril (Zestril) 5 mg PO DAILY [facility] Last Admin: 03/01/18 09:43 Dose: 5 mg Magnesium Hydroxide (Milk Of Magnesia) 30 ml PO DAILY PRN PRN PRN Reason: Constipation Nutritional Formula (Lactose Free) (Glucerna Shake) 120 ml PO TIDCM [facility] Sodium Chloride () 5 - 30 ml IV UD PRN PRN Reason: SALINE FLUSH Last Admin: 03/01/18 09:43 Dose: 10 ml Spironolactone (Aldactone) 50 mg PO DAILY [facility] Last Admin: 03/01/18 09:42 Dose: 50 mg Sucralfate (Carafate) 1 gm PO 1HR_ACHS [facility] Last Admin: 03/01/18 05:39 Dose: 1 gm Medical Necessity - Tobacco Use Smoking Status: Never smoker Assessment/Plan All Active Problems Abdominal pain (Acute) 77 y/o female admitted with a 3 day history of abdominal pain. 1. Severe gastritis vs symptomatic cholelithiasis * Has some abdominal pain overnight and physical examination is significant for moderate epigastric tenderness with minimal guarding. * Patient transitioned to clear liquid diet yesterday and tolerated it well. * Discussed with general surgery. They are willing to do EGD in about 3-4 weeks in outpatient basis if patient is okay with going home. However I am not comfortable discharging patient home as she still has the symptoms that brought her at all. Abdominal pain has improved a bit. She still did have epigastric tenderness with minimal guarding on examination today. I have cou nseled patient that I would rather prefer that she stays 1 more day and has the EGD rather than wait 3-4 weeks as I strongly believe that patient will come back to the hospital with the symptoms before she is scheduled to have the EGD. * Gallbladder ultrasound showed numerous gallstones in the gallbladder with mild sludge. Liver enzymes were however normal * On IV pantoprazole. We will keep n.p.o. past midnight for EGD tomorrow * If EGD is negative, may benefit from biliary workup * * 2. Fever of unknown origin * patient has had episodes of fever since admissio * PEaked at 100F yesternight, is 99.7 today * She denies any cough or shortness of breath or urinary symptoms. I am therefore not very certain what the source of this fever is as she does not really have any symptoms. * will get blood cultures and urinalysis * tyelenol prn for fever. * 3. Hypertension: * fairly controlled * on atenolol and furosemide as well as spironolactone. 4. Diabetes: * on glimepiride. * ISS. * Accuchecks ACHS 5. Gout: stable. On allopurinol 6. Hyperlipidemia: on statin. DVT prophylaxis;SCDs GI prophylaxis: on IV PPI Code status; full code. Code Visit Inpatient E&M: 85499 Subs Hosp L3
--- NOTE | 2018-03-01 11:16 | PCM.PN.SRG ---
Patient Problems: Active and Suspected Problems Abdominal pain (Acute) Subjective: missed note -02/28 still abdominal pain - hungry - Physical Exam General: Alert, Oriented x3, Cooperative Lungs: Clear to auscultation, Normal air movement Cardiovascular: Regular rate, No murmurs Abdomen: Bowel Sounds Present, Soft, Tender - epigastrium and RUQ Vital Signs Temp Pulse Resp BP Pulse Ox 99.7 F H 82 18 116/69 97 03/01/18 09:07 03/01/18 09:07 03/01/18 09:07 03/01/18 09:07 03/01/18 09:07 Oxygen Delivery Method Nasal Cannula Weight: 73 kg Body Mass Index (BMI) 25.9 Intake and Output for Last 24 Hours 02/27/18 02/28/18 03/01/18 23:59 23:59 23:59 Intake Total 2967 / 2967 491 / 491 Balance 2967 / 2967 491 / 491 Laboratory Tests Past 24 Hrs 03/01/18 03/01/18 05:08 05:08 WBC 9.0 RBC 3.37 L Hgb 10.3 L Hct 30.7 L MCV 91.1 MCH 30.6 MCHC 33.6 RDW 14.5 RDW Differential 46.8 H Plt Count 149 L MPV 9.6 Immature Gran % (Auto) 0.800 Neut % (Auto) 83.6 H Lymph % (Auto) 9.6 L [place] % (Auto) 4.9 Eos % (Auto) 1.0 Baso % (Auto) 0.1 Absolute Neuts (auto) 7.6 Absolute Lymphs (auto) 0.87 Total Counted Not Reportable Sodium 138 Potassium 3.8 Chloride 106 Carbon Dioxide 24.0 Anion Gap 8 BUN 12 Creatinine 0.96 Estim Creat Clear Calc 44.48 Est GFR (MDRD) Af Amer 72 Est GFR (MDRD) Non-Af 59 L BUN/Creatinine Ratio 12.4 Glucose 259 H Calcium 8.1 L POC Glucose 03/01/18 02/28/18 02/28/18 06:45 21:55 18:39 POC Glucose 251 H 383 H 215 H 02/28/18 02/28/18 16:29 11:54 POC Glucose 261 H 307 H Medical Necessity - Tobacco Use Smoking Status: Never smoker Assessment/Plan All Active Problems Abdominal pain (Acute) epigastric pain - clinically, likely peptic ulcer disease EGD demonstrated a prepyloric ulcer. patient still with pain. will start clears, add carafate
--- NOTE | 2018-03-01 11:21 | PCM.PN.SRG ---
Patient Problems: Active and Suspected Problems Abdominal pain (Acute) Subjective: less pain, tolerating clears - Physical Exam General: Alert, Oriented x3, Cooperative Lungs: Clear to auscultation, Normal air movement Cardiovascular: Regular rate, No murmurs Abdomen: Bowel Sounds Present, Soft, Non Tender Vital Signs Temp Pulse Resp BP Pulse Ox 99.7 F H 82 18 116/69 97 03/01/18 09:07 03/01/18 09:07 03/01/18 09:07 03/01/18 09:07 03/01/18 09:07 Oxygen Delivery Method Nasal Cannula Weight: 73 kg Body Mass Index (BMI) 25.9 Intake and Output for Last 24 Hours 02/27/18 02/28/18 03/01/18 23:59 23:59 23:59 Intake Total 2967 / 2967 491 / 491 Balance 2967 / 2967 491 / 491 Laboratory Tests Past 24 Hrs 03/01/18 03/01/18 05:08 05:08 WBC 9.0 RBC 3.37 L Hgb 10.3 L Hct 30.7 L MCV 91.1 MCH 30.6 MCHC 33.6 RDW 14.5 RDW Differential 46.8 H Plt Count 149 L MPV 9.6 Immature Gran % (Auto) 0.800 Neut % (Auto) 83.6 H Lymph % (Auto) 9.6 L [place] % (Auto) 4.9 Eos % (Auto) 1.0 Baso % (Auto) 0.1 Absolute Neuts (auto) 7.6 Absolute Lymphs (auto) 0.87 Total Counted Not Reportable Sodium 138 Potassium 3.8 Chloride 106 Carbon Dioxide 24.0 Anion Gap 8 BUN 12 Creatinine 0.96 Estim Creat Clear Calc 44.48 Est GFR (MDRD) Af Amer 72 Est GFR (MDRD) Non-Af 59 L BUN/Creatinine Ratio 12.4 Glucose 259 H Calcium 8.1 L POC Glucose 03/01/18 02/28/18 02/28/18 06:45 21:55 18:39 POC Glucose 251 H 383 H 215 H 02/28/18 02/28/18 16:29 11:54 POC Glucose 261 H 307 H Medical Necessity - Tobacco Use Smoking Status: Never smoker Assessment/Plan All Active Problems Abdominal pain (Acute) epigastric pain - clinically, likely peptic ulcer disease EGD demonstrated a prepyloric ulcer. patient still with painbut improved. tolerating clears, carafate may have helped. Will plan for repeat upper endoscopy tomorrow
--- NOTE | 2018-03-01 11:38 | CM.UR ---
Met face to face with patient. Son lives in [place]. Talked about coming home to help her out but he is holding off to see what her needs are, first. States she has living will and power of trust and estates attorney. Asked her to bring a copy in and she was hesitant. I clarified what they were and she said she is not sure. States they are whatever they felt I needed at the time. Recommended she follow up on that when she goes home and lets us know. Verb understanding. No needs anticipated at discharge but patient and this manual writer at this time. Instructed case management will remain available should any needs arise. verb understanding. Boni Liang RN, CCM.
[2018-03-01 12:11] LABS: Bedside Glucose 274 mg/dL (70-110)
[2018-03-01 16:55] LABS: Bedside Glucose 220 mg/dL (70-110)
[2018-03-01 18:47] LABS: Mucous, Urine 0 SEEN /hpf (<or=2+); Red Blood Cells-Urine 0 SEEN /hpf (0-5)
--- NOTE | 2018-03-01 18:47 | NURSING ---
Reviewed and agree with charting completed by PRESLEY Land.
[2018-03-01 18:50] LABS: Color, Urine Yellow (Yellow); Glucose, Dipstick Normal (Normal); Ketone-Dipstick Negative (Negative); Leukocyte Esterase-Dipstick 500 /ul (Negative); Nitrite-Dipstick Negative (Negative); Occult Blood-Urine 10 /ul (Negative); Protein-Dipstick 15 mg/dl (Negative); Urine Bilirubin Dipstick Negative (Negative); Urine Clarity Sl. Cloudy (Clear); Urine Urobilinogen Normal (Normal)
[2018-03-01 18:56] LABS: Bacteria 2+ /hpf (None Seen); Squamous Epithelial Cells - UA 10-25 SEEN /hpf (5-10); White Blood Cells 50-100 SEEN /hpf (0-5)
[2018-03-01 18:57] LABS: Yeast-Urine 3+ /hpf (None Seen)
[2018-03-01] MEDS: Atorvastatin Calcium 10 MG Tablet PO (22:34)
[2018-03-01 22:55] LABS: Bedside Glucose 256 mg/dL (70-110)
[2018-03-02] VITALS (10 sets, daily range): BP systolic 104–143; BP diastolic 46–61; PULSE 73–85; RESP 14–20; TEMP 36.6–37.7; O2SAT 94–97; BMI 25.9
[2018-03-02] MEDS: 0.9% NaCl Peripheral Flush Adult/Peds IV ×2 (06:13→09:54)
[2018-03-02] MEDS: Insulin Lispro 100 UNIT/ML INSULN.PEN SQ ×2 (07:02→12:11)
[2018-03-02 07:06] LABS: Bedside Glucose 216 mg/dL (70-110)
[2018-03-02 07:09] LABS: International Normalized Ratio 1.1; Prothrombin Time (Protime)PT. 14.2 SECONDS (11.7-14.9)
[2018-03-02 07:12] LABS: Anion Gap 10 (5-15); BUN 14 mg/dL (7-18); BUN/Creat Ratio 12.8 RATIO (10-20); Calcium,Total 8.3 mg/dL (8.5-10.1); Chloride 105 mmol/L (98-107); Creatinine, Serum 1.09 mg/dL (0.55-1.02); EST Glomerular Filtration Rate 51 mL/min (>60); Est Glom Filt Rate - Afr Amer 62 mL/min (>60); Estimated Creatinine Clearance 39.18 ml/min; Glucose 207 mg/dL (74-106); Potassium 3.4 mmol/L (3.5-5.1); Sodium Level 139 mmol/L (136-145)
[2018-03-02 07:13] LABS: Absolute Lymphocyte Count 0.89 X10^3/ul (0.83-4.51); Absolute Neutrophil Count 6.6 X10^3/uL (2.0-7.7); Basophil# 0.01 X10^3/uL; Basophil% 0.1 % (0-1); Eosinophil# 0.11 X10^3/uL; Eosinophils% 1.4 % (0-5); Hematocrit 30.8 % (37-47); Hemoglobin 10.6 g/dl (12.0-15.0); Lymphocyte # 0.89 X10^3/ul (4.0); Mean Corp Hgb Conc 34.4 g/gl (32-36); Mean Corpuscular Hgb 31.1 pg (27.0-32.0); Mean Corpuscular Volume 90.3 fL (81-99); Mean Platelet Vol. 9.8 fl (6.2-12.0); Monocyte# 0.39 X10^3/uL; Monocyte% 4.8 % (0-10); Neutrophil % 81.8 % (47-70); Platelet Count 170 K/mm3 (150-450); RBC Distribution Width CV 14.1 % (11.6-14.6); RBC Distribution Width SD 45.7 fl (35.1-43.9); Red Blood Count 3.41 M/mm3 (4.2-5.4); White Blood Count 8.1 K/mm3 (4.4-11.0)
[2018-03-02 07:16] LABS: POSITIVE COUNT NO; POSITIVE DIFFERENTIAL NO; POSITIVE MORPHOLOGY NO
--- NOTE | 2018-03-02 07:48 | PCM.PN.HOSP ---
Patient Problems: Active and Suspected Problems Abdominal pain (Acute) Vitals/I&O's: Vital Signs Temp Pulse Resp BP Pulse Ox 98.6 F 75 20 H 143/55 H 97 03/02/18 06:18 03/02/18 06:18 03/02/18 06:18 03/02/18 06:18 03/02/18 06:18 Oxygen Delivery Method Room Air Weight: 160 lb 14.999 oz Body Mass Index (BMI) 25.9 Intake and Output for Last 24 Hours 02/28/18 03/01/18 03/02/18 23:59 23:59 23:59 Intake Total 2967 / 2967 1428 / 1428 410 / 410 Balance 2967 / 2967 1428 / 1428 410 / 410 Laboratory Results 03/01/18 11:36: POC Glucose 274 H 03/01/18 16:35: POC Glucose 220 H 03/01/18 18:25: Urine Color Yellow, Urine Clarity Sl. Cloudy, Urine pH 5.0, Ur Specific [place] 1.010, Urine Protein 15 H, Urine Glucose (UA) Normal, Urine Ketones Negative, Urine Occult Blood 10 H, Urine Nitrite Negative, Urine Bilirubin Negative, Urine Urobilinogen Normal, Ur Leukocyte Esterase 500 H, Urine RBC 0 SEEN, Urine WBC 50-100 SEEN, Ur Squamous Epith Cells 10-25 SEEN, Urine Bacteria 2+, Urine Mucus 0 SEEN, Urine Yeast 3+ 03/01/18 22:44: POC Glucose 256 H 03/02/18 06:40: WBC 8.1, RBC 3.41 L, Hgb 10.6 L, Hct 30.8 L, MCV 90.3, MCH 31.1, MCHC 34.4, RDW 14.1, RDW Differential 45.7 H, Plt Count 170, MPV 9.8, Immature Gran % (Auto) 0.900, Neut % (Auto) 81.8 H, Lymph % (Auto) 11.0 L, [place] % (Auto) 4.8, Eos % (Auto) 1.4, Baso % (Auto) 0.1, Absolute Neuts (auto) 6.6, Absolute Lymphs (auto) 0.89, Total Counted Not Reportable 03/02/18 06:40: PT 14.2, INR 1.1 03/02/18 06:40: Sodium 139, Potassium 3.4 L, Chloride 105, Carbon Dioxide 24.0, Anion Gap 10, BUN 14, Creatinine 1.09 H, Estim Creat Clear Calc 39.18, Est GFR (MDRD) Af Amer 62, Est GFR (MDRD) Non-Af 51 L, BUN/Creatinine Ratio 12.8, Glucose 207 H, Calcium 8.3 L 03/02/18 06:40: Hemoglobin A1c Pending 03/02/18 06:59: POC Glucose 216 H Current Medications Acetaminophen (Tylenol) 650 mg PO Q6H PRN PRN PRN Reason: pain Last Admin: 03/01/18 22:45 Dose: 650 mg [facility] Last Admin: 03/01/18 09:42 Dose: 100 mg Ascorbic Acid (Vitamin C) 500 mg PO DAILY [facility] Last Admin: 03/01/18 09:43 Dose: 500 mg Atenolol (Tenormin (Beta Kathy)) 25 mg PO DAILY [facility] Last Admin: 03/01/18 09:43 Dose: 25 mg Atorvastatin Calcium (Lipitor) 10 mg PO QHS [facility] Last Admin: 03/01/18 22:34 Dose: 10 mg Dextrose (D50w Syringe) 0 gm IV X1 PRN; Protocol PRN Reason: Hypoglycemia Ergocalciferol (Vitamin D) 50,000 unit PO QMONTH [facility] Furosemide (Lasix) 20 mg PO DAILY [facility] Last Admin: 03/01/18 09:42 Dose: 20 mg [facility] (Amaryl) [facility] Last Admin: 03/01/18 09:41 Dose: 2 mg Glucagon () 1 mg IM .X1 PRN PRN Reason: Hypoglycemia Pantoprazole Sodium 40 mg/ (Sodium Chloride) 110 mls @ 330 mls/hr IV Q12 [place] Last Admin: 03/01/18 22:34 Dose: 330 mls/hr Sodium Chloride () 250 mls @ 15 mls/hr IV .[id number] PRN PRN Reason: SALINE FLUSH Insulin Human Lispro (Humalog Kwikpen (Bkc)) 0 unit SQ ACHS [facility]; Protocol Last Admin: 03/02/18 07:02 Dose: 2 u Ipratropium [place] (Atrovent Nasal [place] (G)) 2 spray NASAL DAILY [facility] Last Admin: 03/01/18 09:44 Dose: 2 spray Lisinopril (Zestril) 5 mg PO DAILY [facility] Last Admin: 03/01/18 09:43 Dose: 5 mg Magnesium Hydroxide (Milk Of Magnesia) 30 ml PO DAILY PRN PRN PRN Reason: Constipation Nutritional Formula (Lactose Free) (Glucerna Shake) 120 ml PO TIDCM [facility] Last Admin: 03/02/18 07:30 Dose: Not Given Sodium Chloride () 5 - 30 ml IV UD PRN PRN Reason: SALINE FLUSH Last Admin: 03/02/18 06:13 Dose: 10 ml Spironolactone (Aldactone) 50 mg PO DAILY [facility] Last Admin: 03/01/18 09:42 Dose: 50 mg Sucralfate (Carafate) 1 gm PO 1HR_ACHS [facility] Last Admin: 03/02/18 07:01 Dose: Not Given Medical Necessity - Tobacco Use Smoking Status: Never smoker Assessment/Plan All Active Problems Abdominal pain (Acute) 77 y/o female admitted with a 3 day history of abdominal pain. 1. Severe gastritis vs symptomatic cholelithiasis Has some abdominal pain overnight and physical examination is significant for moderate epigastric tenderness with minimal guarding. Patient transitioned to clear liquid diet yesterday and tolerated it well. Discussed with general surgery. They are willing to do EGD in about 3-4 weeks in outpatient basis if patient is okay with going home. However I am not comfortable discharging patient home as she still has the symptoms that brought her at all. Abdominal pain has improved a bit. She still did have epigastric tenderness with minimal guarding on examination today. I have counseled patient that I would rather prefer that she stays 1 more day and has the EGD rather than wait 3-4 weeks as I strongly believe that patient will come back to the hospital with the symptoms before she is scheduled to have the EGD. Gallbladder ultrasound showed numerous gallstones in the gallbladder with mild sludge. Liver enzymes were however normal On IV pantoprazole. We will keep n.p.o. past midnight for EGD tomorrow If EGD is negative, may benefit from biliary workup 2. Fever of unknown origin patient has had episodes of fever since admissio PEaked at 100F yesternight, is 99.7 today She denies any cough or shortness of breath or urinary symptoms. I am therefore not very certain what the source of this fever is as she does not really have any symptoms. will get blood cultures and urinalysis tyelenol prn for fever. 3. Hypertension: fairly controlled on atenolol and furosemide as well as spironolactone. 4. Diabetes: on glimepiride. ISS. Accuchecks ACHS 5. Gout: stable. On allopurinol 6. Hyperlipidemia: on statin. DVT prophylaxis;SCDs GI prophylaxis: on IV PPI
[2018-03-02 08:22] LABS: Hemoglobin A1c 10.8 % (4.2-6.3)
[2018-03-02 12:25] LABS: Bedside Glucose 192 mg/dL (70-110)
--- NOTE | 2018-03-02 13:08 | OP.ENDO_ITS ---
Patient Name: Niurka Dorsey Procedure Date: 03/02/2018 12:46 PM Date of : 1940 Age: 77 Procedure: Upper GI endoscopy Indications: Follow-up of acute gastric ulcer Providers: Rivera Betancourt MD Referring MD: Rere Skinner Medicines: Monitored Anesthesia Care Patient Profile: This is a 77 year old female. Refer to note in patient chart for documentation of history and physical. Complications: No immediate complications. Procedure: Pre-Anesthesia Assessment: - Prior to the procedure, a History and Physical was performed, and patient medications and allergies were reviewed. The patient is competent. The risks and benefits of the procedure and the sedation options and risks were discussed with the patient. All questions were answered and informed consent was obtained. Patient identification and proposed procedure were verified by the physician, the nurse and the quantometer operator in the procedure room. Mental Status Examination: alert and oriented. Airway Examination: normal oropharyngeal airway and neck mobility. Respiratory Examination: clear to auscultation. CV Examination: normal. Prophylactic Antibiotics: The patient does not require prophylactic antibiotics. Prior Anticoagulants: The patient has taken no previous anticoagulant or antiplatelet agents. ASA Grade Assessment: II - A patient with mild systemic disease. After reviewing the risks and benefits, the patient was deemed in satisfactory condition to undergo the procedure. The anesthesia plan was to use monitored anesthesia care (MAC). Immediately prior to administration of medications, the patient was re-assessed for adequacy to receive sedatives. The heart rate, respiratory rate, oxygen saturations, blood pressure, adequacy of pulmonary ventilation, and response to care were monitored throughout the procedure. The physical status of the patient was re-assessed after the procedure. After obtaining informed consent, the endoscope was passed under direct vision. Throughout the procedure, the patient's blood pressure, pulse, and oxygen saturations were monitored continuously. The gastroscope was introduced through the mouth, and advanced to the jejunum. The upper GI endoscopy was accomplished without difficulty. The patient tolerated the procedure well. Scope In: 12:59:46 PM Scope Out: 1:03:22 PM Total Procedure Duration Time 0 hours 3 minutes 36 seconds Findings: The examined jejunum was normal. The in the duodenum was normal. One non-bleeding cratered gastric ulcer with no stigmata of bleeding was found in the gastric antrum. The lesion was 8 mm in largest dimension. A medium-sized hiatal hernia was present. The examined esophagus was normal. Impression: - Normal examined jejunum. - Normal. - Non-bleeding gastric ulcer with no stigmata of bleeding. - Medium-sized hiatal hernia. - Normal esophagus. - No specimens collected. Recommendation: - Discharge patient to home. - Advance diet as tolerated. - Continue present medications. - Return to my office in 2 weeks. Procedure Code(s): --- Professional --- 26172, Esophagogastroduodenoscopy, flexible, transoral; diagnostic, including collection of specimen(s) by brushing or washing, when performed (separate procedure) CPT copyright 2017 [employer]. All rights reserved. The codes documented in this report are preliminary and upon tire recapping machine operator review may be revised to meet current compliance requirements. Rivera Betancourt MD 03/02/2018 1:07:55 PM This report has been signed electronically. Number of Addenda: 0 Note Initiated On: 03/02/2018 12:46 PM
--- NOTE | 2018-03-02 13:08 | PCM.PN.SRG ---
Patient Problems: Active and Suspected Problems Abdominal pain (Acute) Subjective: less pain - Physical Exam General: Alert, Oriented x3, Cooperative Lungs: Clear to auscultation, Normal air movement Cardiovascular: Regular rate, No murmurs Abdomen: Bowel Sounds Present, Soft Vital Signs Temp Pulse Resp BP Pulse Ox 98.0 F 81 16 118/47 L 96 03/02/18 12:16 03/02/18 12:16 03/02/18 12:16 03/02/18 12:16 03/02/18 12:16 Oxygen Delivery Method Room Air Weight: 73 kg Body Mass Index (BMI) 25.9 Intake and Output for Last 24 Hours 02/28/18 03/01/18 03/02/18 23:59 23:59 23:59 Intake Total 2967 / 2967 1428 / 1428 665 / 665 Balance 2967 / 2967 1428 / 1428 665 / 665 Laboratory Tests Past 24 Hrs 03/01/18 03/02/18 03/02/18 18:25 06:40 06:40 WBC 8.1 RBC 3.41 L Hgb 10.6 L Hct 30.8 L MCV 90.3 MCH 31.1 MCHC 34.4 RDW 14.1 RDW Differential 45.7 H Plt Count 170 MPV 9.8 Immature Gran % (Auto) 0.900 Neut % (Auto) 81.8 H Lymph % (Auto) 11.0 L [place] % (Auto) 4.8 Eos % (Auto) 1.4 Baso % (Auto) 0.1 Absolute Neuts (auto) 6.6 Absolute Lymphs (auto) 0.89 Total Counted Not Reportable PT 14.2 INR 1.1 Sodium Potassium Chloride Carbon Dioxide Anion Gap BUN Creatinine Estim Creat Clear Calc Est GFR (MDRD) Af Amer Est GFR (MDRD) Non-Af BUN/Creatinine Ratio Glucose Hemoglobin A1c Calcium Urine Color Yellow Urine Clarity Sl. Cloudy Urine pH 5.0 Ur Specific [place] 1.010 Urine Protein 15 H Urine Glucose (UA) Normal Urine Ketones Negative Urine Occult Blood 10 H Urine Nitrite Negative Urine Bilirubin Negative Urine Urobilinogen Normal Ur Leukocyte Esterase 500 H Urine RBC 0 SEEN Urine WBC 50-100 SEEN Ur Squamous Epith Cells 10-25 SEEN Urine Bacteria 2+ Urine Mucus 0 SEEN Urine Yeast 3+ 03/02/18 03/02/18 06:40 06:40 WBC RBC Hgb Hct MCV MCH MCHC RDW RDW Differential Plt Count MPV Immature Gran % (Auto) Neut % (Auto) Lymph % (Auto) [place] % (Auto) Eos % (Auto) Baso % (Auto) Absolute Neuts (auto) Absolute Lymphs (auto) Total Counted PT INR Sodium 139 Potassium 3.4 L Chloride 105 Carbon Dioxide 24.0 Anion Gap 10 BUN 14 Creatinine 1.09 H Estim Creat Clear Calc 39.18 Est GFR (MDRD) Af Amer 62 Est GFR (MDRD) Non-Af 51 L BUN/Creatinine Ratio 12.8 Glucose 207 H Hemoglobin A1c 10.8 H Calcium 8.3 L Urine Color Urine Clarity Urine pH Ur Specific [place] Urine Protein Urine Glucose (UA) Urine Ketones Urine Occult Blood Urine Nitrite Urine Bilirubin Urine Urobilinogen Ur Leukocyte Esterase Urine RBC Urine WBC Ur Squamous Epith Cells Urine Bacteria Urine Mucus Urine Yeast POC Glucose 03/02/18 03/02/18 03/01/18 12:08 06:59 22:44 POC Glucose 192 H 216 H 256 H 03/01/18 16:35 POC Glucose 220 H Medical Necessity - Tobacco Use Smoking Status: Never smoker Assessment/Plan All Active Problems Abdominal pain (Acute) epigastric pain - clinically, likely peptic ulcer disease repeat EGD demonstrated a healing prepyloric ulcer. patient improving pain. tolerating clears, Would Discharge on BID PPI and carafate. Will plan for repeat upper endoscopy in 3-4 weeks to assure healing. have patient follow up in my office in 2 weeks
[2018-03-02] MEDS: Ascorbic Acid 500 MG Tablet PO (15:30)
[2018-03-02] MEDS: Atenolol 25 MG Tablet PO (15:30)
[2018-03-02] MEDS: Allopurinol 100 MG Tablet PO (15:31)
[2018-03-02] MEDS: Ipratropium Bromide 0.06% NASAL SPRAY 2 SPRAY NASAL (15:31)
[2018-03-02] MEDS: Lisinopril 5 MG Tablet PO (15:31)
[2018-03-02] MEDS: Furosemide 20 MG Tablet PO (15:31)
[2018-03-02] MEDS: Spironolactone 50 MG Tablet PO (15:31)
--- NOTE | 2018-03-02 15:37 | CHAPLAIN ---
patient was out of the room at time of attempted visit
--- NOTE | 2018-03-02 15:47 | PCM.DC ---
- Discharge Diagnoses Current Active Problems: Current Active and Chronic Problems Abdominal pain (Acute) You will use the following diet at home:: Other - Liquid diet for 2-3 days and advance to soft diet with low residue. Discharge Activity: May not drive while taking narcotic pain medications. Call your doctor if you observe: Inability to have a bowel movement, Shortness of breath, Fainting spells, Increased palpitations (irregular heartbeat) Allergies/Adverse Reactions: Allergies Penicillins [PCN] Allergy (Verified 02/27/18 12:30) Hives arthritis medicine Allergy (Uncoded 02/27/18 14:36) Rash Medications to take at Discharge Allopurinol [Zyloprim] 100 mg PO DAILYCM 02/27/18 Ascorbic Acid 500 mg PO DAILY 02/27/18 Atenolol [Tenormin] 25 mg PO DAILY 02/27/18 Ergocalciferol [Vitamin D] 50,000 unit PO QMONTH 02/27/18 Furosemide [Lasix] 20 mg PO DAILY 02/27/18 Ipratropium [place] 2 spray NS DAILY 02/27/18 Lisinopril [Zestril] 5 mg PO DAILY 02/27/18 Methenamine Hippurate 1 gm PO DAILY 02/27/18 Propylene Glycol/Peg 400 [Systane 0.3-0.4% Eye Drops] 1 drop EACH EYE PRN PRN 02/27/18 Simvastatin 20 mg PO QHS 02/27/18 Spironolactone 50 mg PO DAILY 02/27/18 Aspirin E.C. [Ecotrin] 81 mg PO DAILY #0 03/02/18 Glimepiride [Amaryl] 2 mg PO BIDCM #0 03/02/18 Pantoprazole Sodium [Protonix] 40 mg PO BID #60 tablet 03/02/18 Sucralfate [Carafate] 1 gm PO 1HR_ACHS #100 tablet 03/02/18 The following prescriptions were given: Sucralfate [Carafate] 1 gm PO 1HR_ACHS #100 tablet Pantoprazole Sodium [Protonix] 40 mg PO BID #60 tablet Primary Care Physician: Tin Arce Chi, MD [Primary Care Provider] - Please follow up with your Primary Care Physician in: In 1-2 weeks Test Results: Test results from this visit will be discussed in further detail at your follow-up appointment, if applicable. Please Follow Up With: Rivera Betancourt MD When: In 2 weeks for prepyloric ulcer
--- NOTE | 2018-03-02 15:50 | PCM.DC.SUM ---
Discharge Date and Diagnosis - Problem List Patient Problems: Active and Suspected Problems Abdominal pain (Acute) Date of Admission: 02/27/18 Date of Discharge: 03/02/18 - Primary Discharge Diagnosis Active and Suspected Problems Abdominal pain (Acute) Hospital Course and Treatment Summary of Care Provided: The patient is a 77 y/o female admitted with a 3 day history of abdominal pain for which general surgery, Dr. Coronado was consulted. Patient had EGD and found to have prepyloric ulcer. Patient was seen and examined today. Abdominal pain is much better and complain of mild soreness in upper abdomen. HEENT: PERRLA, EOMI. Oral mucosa moist Lungs: CTA, air entry bilaterally equal. Heart: S1-S2 regular, no murmur/rub/gallop Abdomen: Soft, nontender nondistended bowel sounds present. Extremity: Mild edema. Neuro: Grossly intact. No FND. 1. abdominal pain secondary to prepyloric ulcer: Patient was admitted to regular [facility] floor. General surgeon was consulted. Patient has EGD which showed prepyloric ulcer. Patient was on PPI and Carafate. Repeat EGD today shows healing prepyloric ulcer. Gallbladder ultrasound showed numerous gallstones in the gallbladder with mild sludge. Liver enzymes were however normal 2. Fever of unknown origin; probably inflammatory patient episodes of low-grade fever since admission, T-max 100.1 Fahrenheit Afebrile for more than 48 hours She denies any cough or shortness of breath or urinary symptoms. UA shows pyuria but significant squamous epithelial cells suggestive of possible contamination, LE 500. Nitrite negative. Bacteria 2+. RBC 0. Blood culture negative for more than 36 hours. Previous urine culture of 02/24/2008 shows contamination with mixed gram-positive organism and similar on multiple occasions. 3. Hypertension: fairly controlled on atenolol and furosemide as well as spironolactone. 4. Diabetes: on glimepiride. ISS. Accuchecks ACHS 5. Gout: stable. On allopurinol 6. Hyperlipidemia: on statin. DVT prophylaxis;SCDs Discussed with Dr. Coronado. He advised continue PPI twice daily for 3 weeks along with Carafate. Follow-up in his office in 2 weeks. Will need repeat EGD in 4 weeks. Discharge meds reconciliation done. Discharge follow-up instructions completed. Total time spent, exact 35 minutes on discharge meds reconciliation, examination, review of imaging and blood test and discussion with the patient on follow-up instructions. Discharge Activity: May not drive while taking narcotic pain medications. Call your doctor if you observe: Inability to have a bowel movement, Shortness of breath, Fainting spells, Increased palpitations (irregular heartbeat) Home Medications: Medications to take at Discharge Allopurinol [Zyloprim] 100 mg PO DAILYCM 02/27/18 Ascorbic Acid 500 mg PO DAILY 02/27/18 Atenolol [Tenormin] 25 mg PO DAILY 02/27/18 Ergocalciferol [Vitamin D] 50,000 unit PO QMONTH 02/27/18 Furosemide [Lasix] 20 mg PO DAILY 02/27/18 Ipratropium [place] 2 spray NS DAILY 02/27/18 Lisinopril [Zestril] 5 mg PO DAILY 02/27/18 Methenamine Hippurate 1 gm PO DAILY 02/27/18 Propylene Glycol/Peg 400 [Systane 0.3-0.4% Eye Drops] 1 drop EACH EYE PRN PRN 02/27/18 Simvastatin 20 mg PO QHS 02/27/18 Spironolactone 50 mg PO DAILY 02/27/18 Aspirin E.C. [Ecotrin] 81 mg PO DAILY #0 03/02/18 Glimepiride [Amaryl] 2 mg PO BIDCM #0 03/02/18 Pantoprazole Sodium [Protonix] 40 mg PO BID #60 tablet 03/02/18 Sucralfate [Carafate] 1 gm PO 1HR_ACHS #100 tablet 03/02/18 Following Prescrptions Were Given to Patient: Sucralfate [Carafate] 1 gm PO 1HR_ACHS #100 tablet Pantoprazole Sodium [Protonix] 40 mg PO BID #60 tablet Primary Care Physician: Tin Arce Chi, MD [Primary Care Provider] - Please follow up with your Primary Care Physician in: In 1-2 weeks Please Follow Up With: Rivera Betancourt MD When: In 2 weeks for prepyloric ulcer Medical Necessity - Tobacco Use Smoking Status: Never smoker Meaningful Use Info Meaningful Use Diagnoses (Choose all that apply): None applicable Code Visit Inpatient E&M: 55509 Disch Hosp
--- NOTE | 2018-03-02 15:59 | DS.PCM_ITS ---
Discharge Date and Diagnosis - Problem List Patient Problems: Active and Suspected Problems Abdominal pain (Acute) Date of Admission: 02/27/18 Date of Discharge: 03/02/18 - Primary Discharge Diagnosis Active and Suspected Problems Abdominal pain (Acute) Hospital Course and Treatment Summary of Care Provided: The patient is a 77 y/o female admitted with a 3 day history of abdominal pain for which general surgery, Dr. Coronado was consulted. Patient had EGD and found to have prepyloric ulcer. Patient was seen and examined today. Abdominal pain is much better and complain of mild soreness in upper abdomen. HEENT: PERRLA, EOMI. Oral mucosa moist Lungs: CTA, air entry bilaterally equal. Heart: S1-S2 regular, no murmur/rub/gallop Abdomen: Soft, nontender nondistended bowel sounds present. Extremity: Mild edema. Neuro: Grossly intact. No FND. 1. abdominal pain secondary to prepyloric ulcer: Patient was admitted to regular [facility] floor. General surgeon was consulted. Patient has EGD which showed prepyloric ulcer. Patient was on PPI and Carafate. Repeat EGD today shows healing prepyloric ulcer. * Gallbladder ultrasound showed numerous gallstones in the gallbladder with mild sludge. Liver enzymes were however normal 2. Fever of unknown origin; probably inflammatory * patient episodes of low-grade fever since admission, T-max 100.1 Fahrenheit * Afebrile for more than 48 hours * She denies any cough or shortness of breath or urinary symptoms. UA shows pyuria but significant squamous epithelial cells suggestive of possible contamination, LE 500. Nitrite negative. Bacteria 2+. RBC 0. Blood culture negative for more than 36 hours. Previous urine culture of 02/24/2008 shows contamination with mixed gram-positive organism and similar on multiple occasions. * 3. Hypertension: * fairly controlled * on atenolol and furosemide as well as spironolactone. 4. Diabetes: * on glimepiride. * ISS. * Accuchecks ACHS 5. Gout: stable. On allopurinol 6. Hyperlipidemia: on statin. DVT prophylaxis;SCDs Discussed with Dr. Coronado. He advised continue PPI twice daily for 3 weeks along with Carafate. Follow-up in his office in 2 weeks. Will need repeat EGD in 4 weeks. Discharge meds reconciliation done. Discharge follow-up instructions completed. Total time spent, exact 35 minutes on discharge meds reconciliation, examination , review of imaging and blood test and discussion with the patient on follow-up instructions. Discharge Activity: May not drive while taking narcotic pain medications. Call your doctor if you observe: Inability to have a bowel movement, Shortness of breath, Fainting spells, Increased palpitations (irregular heartbeat) Home Medications: Medications to take at Discharge Allopurinol [Zyloprim] 100 mg PO DAILYCM 02/27/18 Ascorbic Acid 500 mg PO DAILY 02/27/18 Atenolol [Tenormin] 25 mg PO DAILY 02/27/18 Ergocalciferol [Vitamin D] 50,000 unit PO QMONTH 02/27/18 Furosemide [Lasix] 20 mg PO DAILY 02/27/18 Ipratropium Mitchell 2 spray NS DAILY 02/27/18 Lisinopril [Zestril] 5 mg PO DAILY 02/27/18 Methenamine Hippurate 1 gm PO DAILY 02/27/18 Propylene Glycol/Peg 400 [Systane 0.3-0.4% Eye Drops] 1 drop EACH EYE PRN PRN 02/27/18 Simvastatin 20 mg PO QHS 02/27/18 Spironolactone 50 mg PO DAILY 02/27/18 Aspirin E.C. [Ecotrin] 81 mg PO DAILY #0 03/02/18 Glimepiride [Amaryl] 2 mg PO BIDCM #0 03/02/18 Pantoprazole Sodium [Protonix] 40 mg PO BID #60 tablet 03/02/18 Sucralfate [Carafate] 1 gm PO 1HR_ACHS #100 tablet 03/02/18 Following Prescrptions Were Given to Patient: Sucralfate [Carafate] 1 gm PO 1HR_ACHS #100 tablet Pantoprazole Sodium [Protonix] 40 mg PO BID #60 tablet Primary Care Physician: Tin Arce Chi, MD [Primary Care Provider] - Please follow up with your Primary Care Physician in: In 1-2 weeks Please Follow Up With: Rivrea Betancourt MD When: In 2 weeks for prepyloric ulcer Medical Necessity - Tobacco Use Smoking Status: Never smoker Meaningful Use Info Meaningful Use Diagnoses (Choose all that apply): None applicable Code Visit Inpatient E&M: 63242 Disch Hosp
[2018-03-02] MEDS: Sucralfate 1 GM Tablet PO (16:14)
[2018-03-02 16:25] LABS: Bedside Glucose 138 mg/dL (70-110)
== END 2018-03-02 17:36 | disposition home or self-care (01) | DRG 384 ==
LOC: ED 13:53 → MS3 14:36
PROVIDERS: Anesthesiology; Surgery; Admitting Provider Student in an Organized Health Care Education/Training Program; Emergency Provider Emergency Medicine; Family Provider Family Medicine Geriatric Medicine; PCP Family Medicine Geriatric Medicine; Referring Provider Student in an Organized Health Care Education/Training Program; Visit Provider Internal Medicine
PROC: 0DJ08ZZ Inspection of Upper Intestinal Tract, Via Natural or Artificial Opening Endoscopic (ICD-10-PCS; CPT 43235; principal; 2018-02-27 16:00)
DX: K25.9 Gastric ulcer, unspecified as acute or chronic, without hemorrhage or perforation (principal); I10 Essential (primary) hypertension; M10.9 Gout, unspecified; E11.9 Type 2 diabetes mellitus without complications; E78.5 Hyperlipidemia, unspecified; K44.9 Diaphragmatic hernia without obstruction or gangrene; R50.9 Fever, unspecified; Z79.84 Long term (current) use of oral hypoglycemic drugs; K80.80 Other cholelithiasis without obstruction
CPT/HCPCS: 36415; 76705; 80048; 80053; 81001; 82962; 83036; 83605; 83690; 84484; 85025; 85610; 87040; 88305; 88342; 93005; 97116; 97161; 97166; 97530; 97535; 97802; 99281; J7030; A4216; J2405

== ENCOUNTER → 2018-03-19 12:39 | Outpatient (CLI) | payer MEDICARE, SELFPAY ==
--- NOTE | 2018-03-19 12:41 | VDLE_ITS ---
Reason For Study: LEG SWELLING RIGHT LEFT GSV is normal. GSV is normal. CFV is compressible, spontaneous, phasic, CFV is compressible, spontaneous, phasic, competent and demonstrates normal competent, and demonstrates normal augmentation. augmentation. FV, POP V, T/P trunk, Gastrocs, PTV and PER FV is compressible, spontaneous, phasic, V are dilated and non-compressible with competent and demonstrates normal intraluminal echoes. augmentation. Procedure POP V , T/P trunk, and PTV are dilated and Exam performed in department. non-compressible with intraluminal echoes. A preliminary report was called and/or faxed LT PerV is compressible. to Dr. Arce. Interpretation Summary Acute deep vein thrombosis is noted in the right femoral vein. Acute deep vein thrombosis is noted in the right popliteal vein. Acute deep vein thrombosis is noted in the right tibio-peroneal trunk. Acute deep vein thrombosis is noted in the right posterior tibial vein. Acute deep vein thrombosis is noted in the right peroneal vein. Acute deep vein thrombosis is noted in the right gastrocnemius vein. The right common femoral vein is patent, compressible, and competent. Acute deep vein thrombosis is noted in the left popliteal vein. Acute deep vein thrombosis is noted in the left tibio-peroneal trunk. Acute deep vein thrombosis is noted in the left posterior tibial vein. The left common femoral vein, femoral vein, and peroneal vein are patent and compressible. The left common femoral vein and femoral vein are competent. Great saphenous veins are patent and compressible bilaterally. Ordering Physician: Tin Arce Referring Physician: Tin Arce Chi Performed By: Angeli Farfan RVT
== END ==
PROVIDERS: Family Provider Family Medicine Geriatric Medicine; PCP Family Medicine Geriatric Medicine; Referring Provider Family Medicine Geriatric Medicine; Visit Provider Family Medicine Geriatric Medicine
DX: R60.0 Localized edema (principal)
CPT/HCPCS: 93970

== ENCOUNTER 2018-03-30 05:49 | Day surgery (SDC) | payer MEDICARE, SELFPAY ==
[2018-03-30] VITALS (7 sets, daily range): BP systolic 98–122; BP diastolic 54–83; PULSE 64–68; RESP 14–16; TEMP 36–36.3; O2SAT 90–99; BMI 27.1
[2018-03-30 06:41] LABS: Bedside Glucose 55 mg/dL (70-110)
--- NOTE | 2018-03-30 07:00 | IMM_PTH ---
PATIENT: NANE CASTAÑEDA LOC: EN U#:[id number] AGE/SX: 77/F ROOM: RE03/30/[address]: Dr. Rivera Betancourt MD : 1940 BED: DIS: 03/30/2018 SPEC #: [id number] RECD: 03/30/18 10:25 STATUS: AUGUSTIN REQ #: [id number] JOSEPH: 03/30/18 07:[address]: Rivera Betancourt DEPT: IMMUNOHISTOCHEMISTRY RECD BY: Shara Denny ENTERED: 03/30/18 10:26 SP TYPE: IMMUNO OTHR DR: Dr. Tin Arce MD Tissues: Stomach, NOS Procedures: H Pylori (initial) PHYSICIAN & INSTITUTION [place] [id number] SPECIMEN INFORMATION: Tissue Source: Antral biopsy Clinical Info: Recheck ulcer Specimen Number: [id number] CPT code: 05194 METHODOLOGY: Deparaffinized sections of prefer/formalin-fixed tissue or PAP/DQ stained slides are incubated with monoclonal/polyclonal antibodies/oligonucleotide probes. Localization is made via biotin free immunoperoxidase method. Appropriate controls are performed and reacted as expected. Results on target cell population are indicated in the following table: RESULTS: ANTIBODY / CLONE RESULT H Pylori (polyclonal) negative These tests were developed and their performance characteristics determined by [facility]. They may not have been cleared or approved by the U.S. Food and Drug Administration. The FDA has determined that such clearance or approval is not necessary. INTERPRETATION: Antral biopsy: Negative for Helicobacter pylori organisms. JARED:rachel 03/31/18
--- NOTE | 2018-03-30 07:00 | EGD_PTH ---
PATIENT: ANNE CASTAÑEDA LOC: EN U#:[id number] AGE/SX: 77/F ROOM: RE03/30/[address]: Dr. Rivera Betancourt MD : 1940 BED: DIS: 03/30/2018 SPEC #: [id number] RECD: 03/30/18 09:04 STATUS: AUGUSTIN DELANO #: [id number] JOSEPH: 03/30/18 07:[address]: Rivera Betancourt DEPT: SURGICAL PATHOLOGY RECD BY: Vasyl Palumbo ENTERED: 03/30/18 10:15 SP TYPE: EGD BIOPSY OTHR DR: Dr. Tin Arce MD Tissues: Gastric mucous membrane Procedures: Surgery Specimen Level IV HEADER OPERATION: EGD ([facility]) PRE-OP DIAGNOSIS: Recheck ulcer TISSUE SUBMITTED: Antral biopsy for histo and H. pylori MICROSCOPIC DIAGNOSIS Antral biopsy: Mild gastritis. A minute lymphoid aggregate, favor benign. SJ:rachel 03/31/18 COMMENT The results of immunohistochemistry for Helicobacter pylori will be reported separately ([id number]). Please make reference to previous specimen ([id number]) gastric antrum, biopsy with diagnosis of mild gastritis. MICROSCOPIC DESCRIPTION Slides are reviewed. The specimen shows fragments of gastric mucosa with chronic inflammatory cell infiltrates in the lamina propria consisting of lymphocytes and plasma cells, consistent with mild chronic gastritis. A minute lymphoid aggregate is also noted, favor benign. GROSS DESCRIPTION Received in fixative is one container labeled with the patient's name and designated antral biopsy. The specimen consists of one irregular fragment of light hansen soft tissue that measures 0.4 x 0.3 x 0.1 cm. The specimen is totally submitted in one cassette. / JARED:rachel 03/30/18 TC:3 CPT: 78834
--- NOTE | 2018-03-30 07:14 | HP.PCM_ITS ---
History and Physical Date of Admission: 03/30/18 HISTORY AND PHYSICAL ? Niurka Dorsey 1940 ? REFERRING PHYSICIAN: ??Hospital[facility]* ? CHIEF COMPLAINT: ??Post Op/schedule repeat EGD ? HPI: The patient is a 77 year old female referred for endoscopy. ?Patient was recently seen in consultation by Dr. Betancourt at [facility] for suspected peptic ulcer disease, was also found to have cholelithiasis. ?She underwent upper endoscopy by Dr. Betancourt on 03/02/18. ??Patient was found to have a non-bleeding cratered gastric ulcer, medium-sized hiatal hernia, normal esophagus. ?She was initiated on PPI and carafate and is taking these as instructed. ?Niurka notes she is feeling much better than she was a few weeks ago, though still notes some mild abdominal soreness and belching. ?Notes not eating much due to early satiety and lack of appetite. ?She states she feels weak and occasionally shaky. ?Has been back to see Dr. Arce since her hospital discharge and was started on insulin, has another follow-up this week. ? ? ? PAST MEDICAL HISTORY PAST MEDICAL HISTORY Diagnosis Date ? DM (diabetes mellitus) (HCC) ? ? Gout ? ? HTN (hypertension) ? ? Hyperlipidemia ? ? ? PAST SURGICAL HISTORY PAST SURGICAL HISTORY Procedure Laterality Date ? EGD W/O OR W/BRUSH/WASH ? 02/27/2018 ? EGD ? ? CURRENT MEDICATIONS ? Current Outpatient Prescriptions: insulin NPH hum/reg insulin hm (INSULIN 70/30 SUBCUTANE.) Inject subcutaneously. allopurinol (ZYLOPRIM) 100 mg tablet Take 100 mg by mouth once daily. atenolol (TENORMIN) 25 mg tablet Take 25 mg by mouth once daily. cefdinir (OMNICEF) 300 mg capsule Take 300 mg by mouth twice daily. doxycycline (VIBRA-TABS) 100 mg tablet Take 100 mg by mouth twice daily. furosemide (LASIX) 20 mg tablet Take 20 mg by mouth once daily. glimepiride (AMARYL) 2 mg tablet Take 2 mg by mouth twice daily. Ipratropium Mcfarland (ATROVENT) 0.03 % nasal spray PLACE 2 SPRAYS IN EACH NOSTRIL TWICE DAILY lisinopril (ZESTRIL, PRINIVIL) 5 mg tablet Take 5 mg by mouth once daily. magnesium oxide (MAG-OX) 400 mg (241.3 mg magnesium) tablet TAKE 1 TABLET BY MOUTH TWICE A DAY NEEDED FOR CRAMPS simvastatin (ZOCOR) 20 mg tablet Take 20 mg by mouth once daily. spironolactone (ALDACTONE) 50 mg tablet TAKE 1 TABLET EVERY DAY NEEDED FOR EDEMA pantoprazole DR (PROTONIX) 40 mg tablet Take 1 tablet by mouth twice daily. sucralfate (CARAFATE) 100 mg/mL suspension Take 10 mL by mouth four times daily. TAKE (2) TEASPOONS BEFORE EACH MEAL AND (2) TEASPOONS AT BEDTIME (MAY USE GENERIC) ? No current facility-administered medications for this visit. ? ALLERGIES: Patient has no known allergies. ? PERSONAL HISTORY: SOCIAL HISTORY Social History ??Marital status: ?Spouse name: ?Years of education: ?Number of children: ? Social History Main Topics ??Smoking status: Never Smoker ?Smokeless tobacco: Never Used ?Alcohol use: No ? FAMILY HISTORY: FAMILY HISTORY History reviewed. No pertinent family history. ? REVIEW OF SYMPTOMS: ??The review of systems data was entered by the nurse and reviewed by me ? Nursing Notes: Suzanne Riojas LPN ?03/16/2018 10:02 AM ?Signed REVIEW OF SYSTEMS: ?General:???The patient denies fatigue, denies weight loss, denies weight gain, denies feeling hot, and denies feelings of cold. ?Eyes: ?The patient denies glaucoma, denies eye injury/surgery, does not wear glasses or contacts. ?Ear/Nose/Throat: ?The patient denies allergies, denies hayfever, denies ear infections, and denies bloody noses. ?Cardiovascular: ?The patient denies chest pain, denies heart disease, NOTES high blood pressure,denies cardiac stent, denies prior heart attack, denies irregular heart beat, NOTES high cholesterol, ?denies poor circulation, denies heart failure, other cardiac issues, denies claudication, denies cold feet, denies peripheral arterial stent. ?Respiratory: ?The patient denies tuberculosis, denies pneumonia, denies frequent cough, denies pulmonary embolism, denies shortness of breath, and denies coughing up blood. ?Gastrointestinal: ?The patient denies difficulty swallowing, denies acid reflux, denies ulcers, denies vomiting, denies jaundice/hepatitis, NOTES gallbladder problems, denies black or tarry stools, denies hemorrhoids, denies bleeding from rectum, denies diverticulitis, denies constipation, denies diarrhea, denies loss of stool control, and denies hernias. ?Kidney/Bladder: ?The patient denies kidney stones, denies urine infections, and denies bloody urine. ?Skin: ?The patient denies a history of skin cancer, denies bleeding/changi ng moles, and denies a history of skin rash. ?Neurologic: ?The patient denies a history of epilepsy/convulsions, denies headaches, denies head/spinal injuries, and denies stroke/TIA. ?Psychiatric: ?The patient denies psychiatric medications, denies depression, and denies voices, denies substance abuse. ?Endocrine: ?The patient denies thyroid disorders, NOTES diabetes, and denies hormonal problems. ?Hematologic: ?The patient denies a history of bruising, denies bleeding, and denies anemia, denies blood clots. ?Infections: ?The patient denies a history of measles and mumps, denies rheumatic fever, and denies sexually transmitted diseases. ?Musculoskeletal: ?The patient denies back pain/injury, denies back problems, denies sciatica, denies knee/foot trouble, denies arthritis, or NOTES gout. ? ? When was patient's last Mammogram screening? N/A ? ?Last Colonoscopy: ?None ? Suzanne Riojas LPN? I have confirmed and edited as necessary, the PFSH and ROS obtained by others. ? ? PHYSICAL EXAMINATION: ? General: ?The patient is 77 year old female, well nourished, well hydrated in no acute distress. ?The patient is oriented to time, place, and person. ? VITALS: There were no vitals taken for this visit.?There is no height or weight on file to calculate BMI.? ? HEENT: ?Normal cephalic, ataumatic, pupils are equally round, sclera are anicteric, mucous membranes are moist, oropharynx is clear. ?Neck has no masses, asymmetry or lymphadenopathy. ? ? Respiratory: ?Clear to auscultation and percussion. ?Normal respiratory excursion and pattern. ? Cardiac: ?Examination is regular rate and rhythm. ? Abdominal exam: ?Soft, nontender, ?with no palpable masses. ?No hepatosplenomegaly. ?No palpable hernias. ? Rectal exam: exam deferred ? Extremities: ?no clubbing, cyanosis or edema. ?No adenopathy. ? Other: ? LABORATORY VALUES: As Noted ? RADIOLOGIC STUDIES: ?As Noted ? ? Assessment ? IMPRESSION: gastric ulcer, need for follow-up EGD ? PLAN: ?Will set patient up for repeat EGD with MAC.???We discussed the risks and benefits of the planned endoscopy. ?I have informed the patient that complications can occur including failure to complete the endoscopy and perforation. ?The patient had the opportunity to ask questions concerning the planned endoscopy. ?My staff has also explained the procedure to the patient in understandable terms and has given the patient printed material concerning the procedure. ?The patient freely consents to surgery. ? Recommended supplementing diet with Boost/Ensure/similar shakes and/or nutrition bars until appetite improving ? I have instructed the patient to contact her PCP regarding her diabetic medications, which may require dosage adjustments during bowel preparation and the day of the procedure ? I plan for monitored anesthetic care. ? Diagnoses: (K25.3) Acute gastric ulcer without hemorrhage or perforation ?(primary encounter diagnosis) (R68.81) Early satiety ? My findings have been communicated to Dr. ?Tin Arce MD?via shared medical record. ?This note will be forwarded to Dr. Tin Arce MD. ?? Return to Clinic: The patient is instructed to follow-up with me 1 week post operatively. ? Viki Colin PA-C ?
--- NOTE | 2018-03-30 07:28 | OP.ENDO_ITS ---
Patient Name: Niurka Dorsey Procedure Date: 03/30/2018 7:07 AM Date of : 1940 Age: 77 Procedure: Upper GI endoscopy Indications: Follow-up of acute gastric ulcer Providers: Rivera Betancourt MD Referring MD: Rivera Betancourt MD Medicines: Monitored Anesthesia Care Patient Profile: This is a 77 year old female. Refer to note in patient chart for documentation of history and physical. Complications: No immediate complications. Procedure: Pre-Anesthesia Assessment: - Prior to the procedure, a History and Physical was performed, and patient medications and allergies were reviewed. The patient is competent. The risks and benefits of the procedure and the sedation options and risks were discussed with the patient. All questions were answered and informed consent was obtained. Patient identification and proposed procedure were verified by the physician, the nurse and the blue line trimmer in the procedure room. Mental Status Examination: alert and oriented. Airway Examination: normal oropharyngeal airway and neck mobility. Respiratory Examination: clear to auscultation. CV Examination: normal. Prophylactic Antibiotics: The patient does not require prophylactic antibiotics. Prior Anticoagulants: The patient has taken no previous anticoagulant or antiplatelet agents. ASA Grade Assessment: III - A patient with severe systemic disease. After reviewing the risks and benefits, the patient was deemed in satisfactory condition to undergo the procedure. The anesthesia plan was to use monitored anesthesia care (MAC). Immediately prior to administration of medications, the patient was re-assessed for adequacy to receive sedatives. The heart rate, respiratory rate, oxygen saturations, blood pressure, adequacy of pulmonary ventilation, and response to care were monitored throughout the procedure. The physical status of the patient was re-assessed after the procedure. After obtaining informed consent, the endoscope was passed under direct vision. Throughout the procedure, the patient's blood pressure, pulse, and oxygen saturations were monitored continuously. The gastroscope was introduced through the mouth, and advanced to the jejunum. The upper GI endoscopy was accomplished without difficulty. The patient tolerated the procedure well. Scope In: 7:18:42 AM Scope Out: 7:22:41 AM Total Procedure Duration Time 0 hours 3 minutes 59 seconds Findings: The examined jejunum was normal. Patchy mildly erythematous mucosa without active bleeding and with no stigmata of bleeding was found in the duodenal bulb. One non-bleeding superficial gastric ulcer with no stigmata of bleeding was found in the prepyloric region of the stomach. The lesion was 3 mm in largest dimension. Scattered mild inflammation characterized by erythema, friability and granularity was found in the gastric antrum. Biopsies were taken with a cold forceps for Helicobacter pylori testing using PyloriTek test. Biopsies were taken with a cold forceps for histology. A small hiatal hernia was present. The examined esophagus was normal. Impression: - Normal examined jejunum. - Erythematous duodenopathy. - Non-bleeding gastric ulcer with no stigmata of bleeding. - Gastritis. Biopsied. - Small hiatal hernia. - Normal esophagus. Recommendation: - Use Prilosec (omeprazole) 40 mg PO BID. - Use sucralfate tablets 1 gram PO QID. - Continue present medications. Procedure Code(s): --- Professional --- 60481, Esophagogastroduodenoscopy, flexible, transoral; with biopsy, single or multiple CPT copyright 2017 [employer]. All rights reserved. The codes documented in this report are preliminary and upon manager of exhibitions and collections review may be revised to meet current compliance requirements. Rivera Betancourt MD 03/30/2018 7:28:12 AM This report has been signed electronically. Number of Addenda: 0 Note Initiated On: 03/30/2018 7:07 AM
== END 2018-03-30 08:23 | disposition home or self-care (01) ==
LOC: EN 05:49 → AC 05:51
PROVIDERS: Family Provider Family Medicine Geriatric Medicine; PCP Family Medicine Geriatric Medicine; Referring Provider Surgery; Visit Provider Surgery
PROC: 0DJ08ZZ Inspection of Upper Intestinal Tract, Via Natural or Artificial Opening Endoscopic (ICD-10-PCS; CPT 43235; principal; 2018-03-30 06:55)
DX: K25.9 Gastric ulcer, unspecified as acute or chronic, without hemorrhage or perforation (principal); K29.70 Gastritis, unspecified, without bleeding; K44.9 Diaphragmatic hernia without obstruction or gangrene; E11.22 Type 2 diabetes mellitus with diabetic chronic kidney disease; I13.0 Hypertensive heart and chronic kidney disease with heart failure and stage 1 through stage 4 chronic kidney disease, or unspecified chronic kidney disease; N18.3 Chronic kidney disease, stage 3 (moderate); I50.9 Heart failure, unspecified; E78.00 Pure hypercholesterolemia, unspecified; M10.9 Gout, unspecified; K21.9 Gastro-esophageal reflux disease without esophagitis; Z78.0 Asymptomatic menopausal state; Z87.19 Personal history of other diseases of the digestive system; Z86.718 Personal history of other venous thrombosis and embolism; Z79.4 Long term (current) use of insulin; Z79.84 Long term (current) use of oral hypoglycemic drugs; Z79.82 Long term (current) use of aspirin; Z79.01 Long term (current) use of anticoagulants; Z79.899 Other long term (current) drug therapy
CPT/HCPCS: 43239; 82962; 88305; 88342; J7120

== ENCOUNTER → 2018-07-21 11:03 | Outpatient (CLI) | payer MEDICARE, SELFPAY ==
[2018-03-30 06:20] VITALS: BMI 27.1
--- NOTE | 2018-07-21 11:13 | RAD_ITS ---
STUDY: X-RAY - RIGHT KNEE REASON FOR EXAM: Female, 78 years old. Pain TECHNIQUE: Four view(s) of the knee were obtained. COMPARISON: None. FINDINGS: There are small osteophytes on the distal femur. There are small osteophytes on the tibial plateau. There is moderate narrowing of the medial femorotibial compartment. There is mild narrowing of the lateral femorotibial compartment. There is chondrocalcinosis in both femorotibial compartments. There is moderate degenerative arthrosis of the patellofemoral articulation. There is minimal fullness above the patella. The soft tissue structures are unremarkable. RAD/Knee 4 or More Views IMPRESSION: There is tricompartmental osteoarthrosis of the right knee with a small joint effusion. Electronically Signed: Eloise Chang MD at 14:42 EST , Service support ,
--- NOTE | 2018-07-21 11:13 | RAD_ITS ---
STUDY: X-RAY - LEFT KNEE REASON FOR EXAM: Female, 78 years old. Pain, osteoarthritis. TECHNIQUE: 4 view(s) of the knee. COMPARISON: None. FINDINGS: Osteopenia. No apparent effusion. There are coarse calcifications at the suprapatellar recess of the joint space, and in the posterior recess of the joint space, most consistent with synovial and/or chondral calcifications. There are calcifications of menisci. There is mild joint margin osteophytic lipping of the medial and lateral compartments. There is marked narrowing of the medial and lateral facet articulations of the patellofemoral joint, with joint margin osteophytic lipping, consistent with underlying chondral degeneration/chondromalacia patella. Periarticular soft tissues exhibit No acute abnormality. RAD/Knee 4 or More Views IMPRESSION: Miniscule calcifications, and small calcified bodies within the suprapatellar and posterior joint space recesses. 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 There is no evidence of loose body within the articulations themselves. There are prominent degenerative features of the patellofemoral articulation, and otherwise mild degenerative features of the medial and lateral compartment. There is no effusion. Electronically Signed: Rivera Carcamo MD at 9:42 EST Tel , Service support ,
== END ==
PROVIDERS: Family Provider Family Medicine Geriatric Medicine; PCP Family Medicine Geriatric Medicine; Referring Provider Family Medicine Geriatric Medicine; Visit Provider Family Medicine Geriatric Medicine
DX: M17.0 Bilateral primary osteoarthritis of knee (principal); N39.0 Urinary tract infection, site not specified
CPT/HCPCS: 73564; 87077; 87086; 87088; 87186

== ENCOUNTER 2018-08-17 09:30 | Outpatient (RCR) | payer MEDICARE, SELFPAY ==
--- NOTE | 2018-07-28 08:56 | HP.PTEVAL_ITS ---
Patient's Visit Information ANNE CASTAÑEDA is a 78 year old F referred to Physical Therapy by Tin Arce MD with a diagnosis of B knee OA. Date of Evaluation: 07/28/18 Physical Therapist: KONRAD Grayson - Visit Plan Frequency: 2x /Week Duration: 6 Weeks Plan: 2X/ week for 3-6 weeks for LE strengthening, gait training, functional activities, balance activities, with HEP - Subjective Findings: Pt reports today she feels pretty good. She has had difficulty walking since December and has been sick with one thing or another. She said that back of legs and bottom of hips and down to the knees. X-rays of knees R knee has OA and L knee. Back was also bothering her and also had a UTI. SHe also was referred to a Chiropractor also but has not gone. Pt reports that her R arm bothers her and got a cortizone shot last week. SHe has been really weak and hard to get in and out of bed and sit to stand and her R arm got all the weight on it. Her shoulder is good since the shot last week. Doesn't walk much exvept for ADL's and groceries. Pt rarely has pain in B knees. She has touble going up and down the steps ( due to pain in the knees). She can do the steps but needs railing to go up and down. Pt reports that once in awhile she will veer and not sure how much is age and how much is a balance issue. She has not fallen for 3 years. Pt has had fainting spells in the past but its been 4 or 5 years. Pt has been sick since December with stomach ulcers, blood clots, Polymyalgia Rhumatica, UTI. - Objective Gait: walks with Wider STANLEY and knees almost together. Decreased DF with gait. FGA: 12 ( pt goes slow to turn around, almost stops when walking with head turns, pulls self up on the stairs). LE MMT: B hip flex 3+/5, B knee ext 4-/5, B knee flex 4-/5, B hip abd 3+/5, Bridges (1/2 normal ROM bridge). Pt is able to raise heels up about 1/2 normal ROM and can not raise toes up as far. Full Knee flex and extension Knee AROM - Balance Scores Functional Gait Assessment Score: 12 % Disability: 60.0000 - Goals Goal 1:: I HEP Goal Time Frame: 4-6 Weeks Goal 2:: Increase LE strength to be able to go up and down steps without having to pull self up with UE's Goal Time Frame: 4-6 Weeks Goal 3:: Be able to sit to stand without UE support 3/5 attempts Goal Time Frame: 4-6 Weeks Goal 4:: Be able to go up a curb step with no UE supoort and SBA Goal Time Frame: 4-6 Weeks Goal 5:: Increase FGA by 5 points to decrease fall risk ( at time of eval score was 12) Goal Time Frame: 4-6 Weeks - Rehabilitation Potential Rehabilitation Potential: Good - Anticipated Interventions Patient/Client Instruction: Educate patient on: Condition, Plan of Care For the Purpose of:: To improve muscle performance and motor function, To improve ability to perform ADL's, To increase tolerance to activity/condition/position, To improve performance and independence with ADL's, To improve ability of physical actions for home/community/work/leisure, To imp rove gait and locomotor functions, To improve balance, To improve safety with gait Therapeutic Exercise to Include: Strength training, Endurance training, Balance training, Flexibilty training, Gait and locomotor training, Active ROM For the Purpose of:: To improve muscle performance and motor function, To improve ability to perform ADL's, To increase tolerance to activity/condition/position, To improve performance and independence with ADL's, To improve ability of physical actions for home/community/work/leisure, To improve gait and locomotor functions, To improve endurance, To improve balance Functional Training to Include: Gait training For the Purpose of:: To improve safety with gait Thank you for the opportunity to evaluate your patient. For Medicare and Medicare HMO plans, please review the plan of care and approve it. It will need to be FAXED BACK to us at [phone] for Medicare purposes. For Medicare only, by signing this I certify the plan of care. Please let me know if there are questions or concerns regarding this plan of care. Physician Signature: Date:
--- NOTE | 2018-08-17 10:01 | HP.PTDCSUM ---
HP - PT D/C Summary It has been my pleasure to treat ANNE CASTAÑEDA under orders from Tin Arce MD, for the diagnosis of B knee OA for a total of 6 visit(s). Discharge Date: 08/17/18 Please see the following information for a summary of their discharge status. - Subjective Subjective: Pt reports that she can now get out of a chair with a cushion on it without arms. She reports that she does not have knee pain unless she is using them. She feels that PT has helped and that her hips are not hurting like they did. She is doing her HEP and even started to walk sideways without a band at home. - Overall Improvement % Improvement: 75 - Objective Objective/Function: FGA 17. Sit to stands 1/3. Stairs up and down recip with 2 hand rails but does not have to pull self upstairs - Goals Goal 1:: I HEP Goal Progress: yes Goal 2:: Increase LE strength to be able to go up and down steps without having to pull self up with UE's Goal Progress: Goal Met Goal 3:: Be able to sit to stand without UE support 3/5 attempts Goal Progress: Progressing Goal 4:: Be able to go up a curb step with no UE supoort and SBA Goal Progress: Goal Met Goal 5:: Increase FGA by 5 points to decrease fall risk ( at time of eval score was 12) - Plan Plan: DC PT to HEP - D/C Information Discharge Comments: DC PT to HEP If there are questions or concerns regarding this patient's physical therapy, please feel free to call me at [phone]. Thank you for the referral of this patient. Sincerely, Collette Chavira, MPT
== END 2018-08-17 15:25 | disposition home or self-care (01) ==
LOC: PT 09:30
PROVIDERS: Family Provider Family Medicine Geriatric Medicine; PCP Family Medicine Geriatric Medicine; Referring Provider Family Medicine Geriatric Medicine; Visit Provider Family Medicine Geriatric Medicine
DX: M17.0 Bilateral primary osteoarthritis of knee (principal)
CPT/HCPCS: 97110; 97162; 97530

== ENCOUNTER → 2018-09-01 14:06 | Outpatient (CLI) | payer MEDICARE, SELFPAY ==
[2018-09-01 15:43] LABS: Absolute Lymphocyte Count 2.21 X10^3/ul (0.83-4.51); Absolute Neutrophil Count 7.2 X10^3/uL (2.0-7.7); Basophil# 0.02 X10^3/uL; Basophil% 0.2 % (0-1); Eosinophil# 0.08 X10^3/uL; Eosinophils% 0.8 % (0-5); Hematocrit 36.6 % (37-47); Lymphocyte # 2.21 X10^3/ul (4.0); Mean Corp Hgb Conc 32.8 g/gl (32-36); Mean Corpuscular Hgb 28.8 pg (27.0-32.0); Mean Corpuscular Volume 87.8 fL (81-99); Mean Platelet Vol. 10.9 fl (6.2-12.0); Monocyte# 0.53 X10^3/uL; Monocyte% 5.3 % (0-10); Neutrophil % 71.5 % (47-70); POSITIVE COUNT NO; POSITIVE DIFFERENTIAL NO; POSITIVE MORPHOLOGY NO; Platelet Count 262 K/mm3 (150-450); RBC Distribution Width CV 15.8 % (11.6-14.6); RBC Distribution Width SD 50.3 fl (35.1-43.9); Red Blood Count 4.17 M/mm3 (4.2-5.4); White Blood Count 10.1 K/mm3 (4.4-11.0)
[2018-09-01 15:58] LABS: Vitamin D,25 Hydroxy 42.7 ng/mL (29.95-100.01)
[2018-09-01 16:03] LABS: ALB/GLOB Ratio 1.1 RATIO (0.9-2.4); AST(SGOT) 28 U/L (15-37); Alanine Aminotransfer ALT/SGPT 33 U/L (13-56); Albumin, Serum 3.8 g/dL (3.2-5.0); Alkaline Phosphatase 90 U/L (45-117); Anion Gap 5 (5-15); BUN 19 mg/dL (7-18); BUN/Creat Ratio 19.1 RATIO (10-20); Chloride 106 mmol/L (98-107); EST Glomerular Filtration Rate 57 mL/min (>60); Est Glom Filt Rate - Afr Amer 69 mL/min (>60); Globulin 3.4 g/dL (2.2-4.2); Glucose 80 mg/dL (74-106); Potassium 3.9 mmol/L (3.5-5.1); Protein, Total 7.2 g/dL (6.4-8.2); Sodium Level 140 mmol/L (136-145); Thyroid Stim Hormone (TSH) 2.35 uIU/mL (0.358-3.74); Uric Acid 5.8 mg/dL (2.6-6.0)
== END ==
PROVIDERS: Family Provider Family Medicine Geriatric Medicine; PCP Family Medicine Geriatric Medicine; Visit Provider Family Medicine Geriatric Medicine
DX: E11.9 Type 2 diabetes mellitus without complications (principal); E55.9 Vitamin D deficiency, unspecified; I10 Essential (primary) hypertension; M10.9 Gout, unspecified
CPT/HCPCS: 36415; 80053; 82306; 84443; 84550; 85025

== ENCOUNTER → 2018-11-26 | Outpatient (CLI) | payer MEDICARE, SELFPAY ==
[2018-03-30 06:20] VITALS: BMI 27.1
== END | disposition home or self-care (01) ==
LOC: LABSPEC 11:21
PROVIDERS: Family Provider Family Medicine Geriatric Medicine; PCP Family Medicine Geriatric Medicine; Visit Provider Family Medicine Geriatric Medicine
DX: N39.0 Urinary tract infection, site not specified (principal)
CPT/HCPCS: 87077; 87086; 87088; 87186

== ENCOUNTER → 2018-12-08 | Outpatient (CLI) | payer MEDICARE, SELFPAY ==
[2018-03-30 06:20] VITALS: BMI 27.1
[2018-12-08 12:56] LABS: Absolute Lymphocyte Count 1.79 X10^3/ul (0.83-4.51); Absolute Neutrophil Count 4.2 X10^3/uL (2.0-7.7); Basophil# 0.02 X10^3/uL; Basophil% 0.3 % (0-1); Eosinophil# 0.13 X10^3/uL; Hematocrit 37.8 % (37-47); Hemoglobin 12.5 g/dl (12.0-15.0); Lymphocyte # 1.79 X10^3/ul (4.0); Lymphocyte % 27.6 % (19-41); Mean Corp Hgb Conc 33.1 g/gl (32-36); Mean Corpuscular Hgb 28.7 pg (27.0-32.0); Mean Corpuscular Volume 86.9 fL (81-99); Mean Platelet Vol. 10.2 fl (6.2-12.0); Monocyte# 0.32 X10^3/uL; Monocyte% 4.9 % (0-10); Neutrophil # 4.23 X10^3/uL (2.7-7.7); Neutrophil % 65.2 % (47-70); Platelet Count 261 K/mm3 (150-450); RBC Distribution Width CV 13.6 % (11.6-14.6); RBC Distribution Width SD 43.6 fl (35.1-43.9); Red Blood Count 4.35 M/mm3 (4.2-5.4); White Blood Count 6.5 K/mm3 (4.4-11.0)
[2018-12-08 12:58] LABS: Vitamin D,25 Hydroxy 25.1 ng/mL (29.95-100.01)
[2018-12-08 13:08] LABS: POSITIVE COUNT NO; POSITIVE DIFFERENTIAL NO; POSITIVE MORPHOLOGY NO
[2018-12-08 13:10] LABS: ALB/GLOB Ratio 1.1 RATIO (0.9-2.4); AST(SGOT) 25 U/L (15-37); Alanine Aminotransfer ALT/SGPT 21 U/L (13-56); Albumin, Serum 3.6 g/dL (3.2-5.0); Alkaline Phosphatase 96 U/L (45-117); Anion Gap 9 (5-15); BUN 14 mg/dL (7-18); BUN/Creat Ratio 15.7 RATIO (10-20); Calcium,Total 8.7 mg/dL (8.5-10.1); Chloride 104 mmol/L (98-107); Creatinine, Serum 0.89 mg/dL (0.55-1.02); EST Glomerular Filtration Rate 65 mL/min (>60); Est Glom Filt Rate - Afr Amer 78 mL/min (>60); Globulin 3.2 g/dL (2.2-4.2); Glucose 100 mg/dL (74-106); Potassium 3.3 mmol/L (3.5-5.1); Protein, Total 6.8 g/dL (6.4-8.2); Sodium Level 141 mmol/L (136-145); Thyroid Stim Hormone (TSH) 1.78 uIU/mL (0.358-3.74); Uric Acid 5.1 mg/dL (2.6-6.0)
== END | disposition home or self-care (01) ==
LOC: POLAB3 10:50
PROVIDERS: Family Provider Family Medicine Geriatric Medicine; PCP Family Medicine Geriatric Medicine; Visit Provider Family Medicine Geriatric Medicine
DX: E11.9 Type 2 diabetes mellitus without complications (principal); E55.9 Vitamin D deficiency, unspecified; I10 Essential (primary) hypertension; M10.9 Gout, unspecified
CPT/HCPCS: 36415; 80053; 82306; 84443; 84550; 85025

== ENCOUNTER → 2018-12-17 | Outpatient (CLI) | payer MEDICARE, SELFPAY ==
[2018-03-30 06:20] VITALS: BMI 27.1
[2018-12-17 12:45] LABS: Anion Gap 7 (5-15); BUN 19 mg/dL (7-18); BUN/Creat Ratio 19.1 RATIO (10-20); Calcium,Total 8.8 mg/dL (8.5-10.1); Chloride 104 mmol/L (98-107); EST Glomerular Filtration Rate 57 mL/min (>60); Est Glom Filt Rate - Afr Amer 69 mL/min (>60); Glucose 161 mg/dL (74-106); Potassium 3.5 mmol/L (3.5-5.1); Sodium Level 141 mmol/L (136-145)
== END | disposition home or self-care (01) ==
LOC: LAB.FUTURE 10:17
PROVIDERS: Family Provider Family Medicine Geriatric Medicine; PCP Family Medicine Geriatric Medicine; Visit Provider Family Medicine Geriatric Medicine
DX: E87.6 Hypokalemia (principal)
CPT/HCPCS: 36415; 80048

== ENCOUNTER → 2019-04-12 15:31 | Outpatient (CLI) | payer MEDICARE, SELFPAY | PROVIDERS: Family Provider Family Medicine Geriatric Medicine; PCP Family Medicine Geriatric Medicine; Visit Provider Family Medicine Geriatric Medicine | DX: N39.0 Urinary tract infection, site not specified (principal) | CPT/HCPCS: 87086; 87088; 87186 ==

== ENCOUNTER → 2019-06-08 13:08 | Outpatient (CLI) | payer MEDICARE, SELFPAY ==
[2018-03-30 06:20] VITALS: BMI 27.1
[2019-06-08 14:05] LABS: Absolute Lymphocyte Count 2.31 X10^3/uL (0.83-4.51); Absolute Neutrophil Count 5.2 X10^3/uL (2.0-7.7); Basophil# 0.03 X10^3/uL; Basophil% 0.4 % (0-1); Eosinophil# 0.32 X10^3/uL; Eosinophils% 3.9 % (0-5); Hematocrit 39.3 % (37-47); Hemoglobin 12.8 g/dL (12.0-15.0); Lymphocyte # 2.31 X10^3/ul (4.0); Mean Corp Hgb Conc 32.6 g/dL (32-36); Mean Corpuscular Hgb 28.1 pg (27.0-32.0); Mean Corpuscular Volume 86.4 fL (81-99); Mean Platelet Vol. 10.5 fl (6.2-12.0); Monocyte% 4.8 % (0-10); NRBC Flagged by Analyzer 0 % (0-5); Neutrophil # 5.18 X10^3/uL (2.7-7.7); Neutrophil % 62.8 % (47-70); Platelet Count 298 K/mm3 (150-450); RBC Distribution Width CV 13.9 % (11.6-14.6); RBC Distribution Width SD 43.7 fl (35.1-43.9); Red Blood Count 4.55 M/mm3 (4.2-5.4); White Blood Count 8.3 K/mm3 (4.4-11.0)
[2019-06-08 14:26] LABS: Vitamin D,25 Hydroxy 21.4 ng/mL (29.95-100.01)
[2019-06-08 14:33] LABS: ALB/GLOB Ratio 1.1 RATIO (0.9-2.4); AST(SGOT) 17 U/L (15-37); Alanine Aminotransfer ALT/SGPT 22 U/L (13-56); Albumin, Serum 3.9 g/dL (3.2-5.0); Alkaline Phosphatase 122 U/L (45-117); Anion Gap 5 (5-15); BUN 19 mg/dL (7-18); BUN/Creat Ratio 17.8 RATIO (10-20); Calcium,Total 9.5 mg/dL (8.5-10.1); Chloride 106 mmol/L (98-107); Creatinine, Serum 1.07 mg/dL (0.55-1.02); EST Glomerular Filtration Rate 52 mL/min (>60); Est Glom Filt Rate - Afr Amer 63 mL/min (>60); Globulin 3.6 g/dL (2.2-4.2); Glucose 105 mg/dL (74-106); Potassium 3.7 mmol/L (3.5-5.1); Protein, Total 7.5 g/dL (6.4-8.2); Sodium Level 140 mmol/L (136-145); Thyroid Stim Hormone (TSH) 2.44 uIU/mL (0.358-3.74); Uric Acid 5.3 mg/dL (2.6-6.0)
== END ==
PROVIDERS: Family Provider Family Medicine Geriatric Medicine; PCP Family Medicine Geriatric Medicine; Visit Provider Family Medicine Geriatric Medicine
DX: E11.9 Type 2 diabetes mellitus without complications (principal); E55.9 Vitamin D deficiency, unspecified; I10 Essential (primary) hypertension; M10.9 Gout, unspecified
CPT/HCPCS: 36415; 80053; 82306; 84443; 84550; 85025

== ENCOUNTER → 2019-06-15 09:35 | Outpatient (CLI) | payer MEDICARE, SELFPAY ==
--- NOTE | 2019-06-15 09:38 | VDLE_ITS ---
Reason For Study: swelling RIGHT LEFT CFV is compressible, spontaneous, phasic, CFV, FV, POP V, and T/P Trunk are partially competent and demonstrates normal compressible with bright intraluminal echoes augmentation. consistent with chronic DVT. FV, POP V, and T/P Trunk are partially GSV is normal. compressible with bright intraluminal echoes PTV is compressible. consistent with chronic DVT. LT PerV is compressible. GSV is normal. PTV is compressible. RT PerV is compressible. Procedure Exam performed in department. The exam was diagnostic. A preliminary report was called and/or faxed to Dr. Arce's office. Interpretation Summary Chronic venous changes are noted in the right femoral vein, popliteal vein, and tibio-peroneal trunk, which are partially compressible and demonstrate bright intraluminal echogenicity. The remainder of the right lower extremity deep venous system is patent and compressible. The right common femoral vein is competent. Chronic venous changes are noted in the left common femoral vein, femoral vein, popliteal vein, and tibio-peroneal trunk, which are partially compressible and demonstrate bright intraluminal echogenicity. The remainder of the left lower extremity deep venous system is patent and compressible. The great saphenous veins appear bilaterally patent and compressible segmentally. Ordering Physician: Tin Arce Performed By: Joel Hutton RVWilfredo
== END ==
PROVIDERS: Family Provider Family Medicine Geriatric Medicine; PCP Family Medicine Geriatric Medicine; Referring Provider Family Medicine Geriatric Medicine; Visit Provider Family Medicine Geriatric Medicine
DX: M79.89 Other specified soft tissue disorders (principal)
CPT/HCPCS: 93970

== ENCOUNTER → 2019-07-14 09:08 | Outpatient (CLI) | payer MEDICARE, SELFPAY ==
--- NOTE | 2019-07-13 16:30 | LES_PTH ---
PATIENT: ANNE CASTAÑEDA LOC: [facility] U#:[id number] AGE/SX: 84/F ROOM: RE07/14/[address]: Dr. Tin Arce MD : 1940 BED: DIS: SPEC #: [id number] RECD: 07/14/19 13:35 STATUS: AUGUSTIN WICK #: [id number] JOSEPH: 07/13/19 16:[address]: Tin Arce Chi DEPT: SURGICAL PATHOLOGY RECD BY: Vasyl Palumbo Tissues: Skin of forehead Procedures: Surgery Specimen Level IV HEADER OPERATION: Shave biopsy PRE-OP DIAGNOSIS: L98.9 TISSUE SUBMITTED: Forehead MICROSCOPIC DIAGNOSIS Skin lesion of forehead, shave biopsy: Seborrheic keratosis, mildly inflamed. Solar elastosis. AM:rachel 07/15/19 MICROSCOPIC DESCRIPTION Slides are reviewed. GROSS DESCRIPTION Received in fixative is one container labeled with the patient's name and designated forehead. The specimen consists of a shave biopsy of hansen-brown skin measuring 0.7 x 0.5 x 0.1 cm. The specimen is inked and submitted entirely in one cassette. It will be sectioned at the time of embedding. / JARED:rachel 07/14/19 TC:5 CPT: 16150
== END ==
LOC: POLAB3 09:09 → LABSPEC 09:10
PROVIDERS: PCP Family Medicine Geriatric Medicine; Visit Provider Family Medicine Geriatric Medicine
DX: L98.9 Disorder of the skin and subcutaneous tissue, unspecified (principal)
CPT/HCPCS: 88305

== ENCOUNTER → 2019-08-16 13:57 | Outpatient (CLI) | payer MEDICARE, SELFPAY ==
--- NOTE | 2019-08-16 14:00 | RAD_ITS ---
We are attempting to reach an attending provider to discuss findings. An addendum with communication details will be sent when the communication is complete. STUDY: X-RAY - PELVIS AND RIGHT HIP REASON FOR EXAM: Female, 79 years old. FALL, CONTINUED RT HIP PAIN TECHNIQUE: 3 views of the pelvis and hip. COMPARISON: None. FINDINGS: There is a non-specific bowel gas pattern. Normal visualized soft tissue structures. Normal bilateral iliac wings, sacroiliac joints and visualized sacrum. Normal bilateral superior and inferior pubic rami. Normal pubic symphysis. Normal bilateral ischial tuberosities. There is a foreshortened appearance of the right femoral neck on one view with increased band of density. On the internally rotated view there is a visualized step-off within the lateral cortex of the femoral neck at the level of the subcapital femoral neck. RAD/HIP, UNI W/ Pelvis 2-3 Views IMPRESSION: Findings are highly suspicious for subcapital femoral neck fracture. There is soft tissue edema. There is mild narrowing of the bilateral left greater than right hip joints. Electronically Signed: Dorie Robert MD at 0:01 EDT Tel , Service support ,
== END ==
PROVIDERS: PCP Family Medicine Geriatric Medicine; Referring Provider Family Medicine Geriatric Medicine; Visit Provider Family Medicine Geriatric Medicine
DX: M25.551 Pain in right hip (principal)
CPT/HCPCS: 73502

== ENCOUNTER 2019-08-17 09:57 | Inpatient (IN) | payer MEDICARE, SELFPAY ==
[2019-08-17] VITALS (11 sets, daily range): BP systolic 163–184; BP diastolic 7–87; PULSE 73–95; RESP 16–18; TEMP 36.3–36.9; O2SAT 96–100; BMI 26.1
--- NOTE | 2019-08-17 10:21 | RAD_ITS ---
STUDY: X-RAY CHEST REASON FOR EXAM: Female, 79 years old. SUSPECTED HIP FX TECHNIQUE: Single AP portable view of the chest. COMPARISON: Comparison is made with prior examination dated September 20, 2015. FINDINGS: The lungs are clear and expanded. There is no demonstrated pleural abnormality. Normal size heart. Normal mediastinum and renetta. Normal visualized pulmonary arteries. There is atherosclerotic calcification of the aortic arch with tortuosity. Normal visualized thoracic spine. Normal visualized ribs, clavicles, and shoulders. There is no demonstrated abnormality of the visualized soft tissue structures of the upper abdomen. RAD/Chest 1 View (Portable) IMPRESSION: No acute abnormality is seen. Electronically Signed: Pj Carrillo, at 10:51 EDT , Service support ,
--- NOTE | 2019-08-17 10:22 | EKG12_ITS ---
Test Reason : LOWER EXTR Blood Pressure : / mmHG Vent. Rate : 077 BPM Atrial Rate : 077 BPM P-R Int : 166 ms QRS Dur : 096 ms QT Int : 392 ms P-R-T Axes : 063 010 030 degrees QTc Int : 443 ms Normal sinus rhythm Nonspecific ST abnormality Abnormal ECG Confirmed by CLIFF HERRERA, NUNO ([id number]), communications editor JESSICA GUERRA ([id number]) on 08/23/2019 11:15:22 AM Referred By: CHAYO Confirmed By:STEPHAINE CORONADO MD
--- NOTE | 2019-08-17 10:23 | ED.DCSUM_ITS ---
- ER Visit Summary Date of Service: 08/17/19 Chief Complaint: Right hip fracture History of Present Illness: The patient is a 79 F who presents with a right hip fracture that was diagnosed yesterday. Patient fell 3 weeks ago and landed on her right hip. Patient states she has been able to ambulate but has been having pain with ambulation since the fall. Patient saw her primary care physician yesterday who did an outpatient x-ray. The x-ray showed a nondisplaced fracture of the right femoral neck. Patient was then referred to the emergency department. Patient denies any paresthesias or weakness. Patient denies any other injuries. Physical Examination: Vital signs are stable. Patient is afebrile. Patient is in no acute distress. Musculoskeletal exam reveals tenderness over the right hip. There is no deformity noted. There is no shortening or external rotation. There is some pain with internal and external rotation. Pedal pulses are equal bilaterally. Sensation was intact to light touch in all digits. Strength is 5/5 bilaterally in the lower extremities. Heart was regular rate and rhythm. Lungs are clear and equal bilaterally. Abdomen is soft and nontender. Cranial nerves II through XII are intact. Test Results: Outpatient x-rays from yesterday were reviewed and showed a nondisplaced basicervical fracture of the right femoral neck. EKG showed a normal sinus rhythm with a rate of 77. There are no acute ST or T wave changes. This was unchanged compared to previous EKG dated 02/27/2018. CBC, comprehensive metabolic profile, PT with INR and PTT were obtained and are pending. Portable chest x-ray was obtained and is pending. Emergency Department Course and Treatment: Case was discussed with Dr. Marin who is on-call for orthopedics. He recommended admitting the patient to the hospitalist so that she could be cleared for surgery tomorrow. Case was discussed with the hospitalist. He will admit the patient to his service. Patient understands and is agreeable with the plan. All questions were answered. Disposition: Admit to hospital Impression: Right femoral neck fracture This note was generated with [employer] dictation software. It may contain incorrect words, spelling, and punctuation that were not noted in review of the chart prior to signing ED Disposition - Plan for ED Patient: Disposition: Acute Care Hospital [facility] Diagnosis: Fracture of femoral neck, right, closed Referrals: Tin Arce Chi, MD [Primary Care Provider] -
[2019-08-17 10:37] LABS: Absolute Neutrophil Count 11.6 X10^3/uL (2.0-7.7); Basophil# 0.01 X10^3/uL; Basophil% 0.1 % (0-1); Hematocrit 36.5 % (37-47); Hemoglobin 12.5 g/dL (12.0-15.0); Lymphocyte % 8.3 % (19-41); Mean Corp Hgb Conc 34.2 g/dL (32-36); Mean Corpuscular Hgb 29.6 pg (27.0-32.0); Mean Corpuscular Volume 86.3 fL (81-99); Mean Platelet Vol. 9.3 fl (6.2-12.0); Monocyte# 0.47 X10^3/uL; Monocyte% 3.6 % (0-10); NRBC Flagged by Analyzer 0 % (0-5); Neutrophil # 11.59 X10^3/uL (2.7-7.7); Neutrophil % 87.7 % (47-70); Platelet Count 276 K/mm3 (150-450); RBC Distribution Width SD 43.4 fl (35.1-43.9); Red Blood Count 4.23 M/mm3 (4.2-5.4); White Blood Count 13.2 K/mm3 (4.4-11.0)
[2019-08-17 10:44] LABS: Prothrombin Time (Protime)PT. 13.2 SECONDS (11.7-14.9)
[2019-08-17 10:45] LABS: Partial Thromboplast Time 25.7 Seconds (24.1-36.2)
[2019-08-17 10:51] LABS: ALB/GLOB Ratio 1.1 RATIO (0.9-2.4); AST(SGOT) 16 U/L (15-37); Alanine Aminotransfer ALT/SGPT 21 U/L (13-56); Albumin, Serum 3.8 g/dL (3.2-5.0); Alkaline Phosphatase 126 U/L (45-117); Anion Gap 9 (5-15); BUN 25 mg/dL (7-18); BUN/Creat Ratio 22.3 RATIO (10-20); Calcium,Total 9.2 mg/dL (8.5-10.1); Chloride 104 mmol/L (98-107); Creatinine, Serum 1.12 mg/dL (0.55-1.02); EST Glomerular Filtration Rate 50 mL/min (>60); Est Glom Filt Rate - Afr Amer 60 mL/min (>60); Estimated Creatinine Clearance 36.88 ml/min; Globulin 3.4 g/dL (2.2-4.2); Glucose 270 mg/dL (74-106); Potassium 3.7 mmol/L (3.5-5.1); Protein, Total 7.2 g/dL (6.4-8.2); Sodium Level 140 mmol/L (136-145)
--- NOTE | 2019-08-17 12:20 | HP.PCM_ITS ---
Problem List (1) Gout Status: Chronic (2) Hyperlipidemia Status: Chronic (3) Hypertension Status: Chronic (4) Type 2 diabetes mellitus Status: Chronic (5) Fracture of femoral neck, right, closed Status: Acute History of Present Illness Date of Admission: 08/17/19 Chief Complaint: Right hip pain. The patient is a 79 year old F with past medical history as mentioned above was referred to the emergency department by her PCPs office after she was found to have subcapital right femoral neck fracture. Patient stated that she had mechanical fall back on July 23, 2019 at home, started having mild right hip pain but she was able to ambulate and her daughter brought her a walker to help her ambulating. Since that time, she continued to have mild right hip pain, constant, dull aching pain, sometimes sharp, highest was 1-2 out of 10 in severity, aggravated by walking, minimal relief with rest and without aggravating or relieving factors. Last week, she saw her PCP and she received steroid shots in both hip joints and x-ray of the right hip was ordered. X-ray of the right hip was done yesterday and showed findings suggestive of subcapital right femoral neck fracture. Today, patient's PCPs office called her and asked her to come to the emergency department for admission for surgical repair of this fracture. Patient lives alone at home and she does have a daily activities without restrictions. She denied chest pain or shortness of breath. She denied dizziness or lightheadedness. She denied cough or sputum production. She denied abdominal pain, nausea or vomiting. Denied urinary symptoms. In the emergency department, her blood pressure was slight elevated, other vital signs were stable. Her routine blood work was remarkable for mild leukocytosis, otherwise unremarkable. LFT was unremarkable. X-ray of the pelvis and right hip was highly suspicious for subcapital right femoral neck fracture. EKG revealed normal sinus rhythm, normal ME interval, normal QRS, normal QTC, no acute changes. Chest x-ray showed no acute findings. She is being admitted for acute traumatic right subcapital femoral neck fracture for surgical repair. Past Medical History Past Medical History (Chronic Problems): Chronic Problems Gout (Chronic) Hyperlipidemia (Chronic) Hypertension (Chronic) Type 2 diabetes mellitus (Chronic) Allergies celecoxib [From Celebrex] Allergy (Verified 08/17/19 10:17) Rash Penicillins [PCN] Allergy (Verified 08/17/19 09:59) Hives rofecoxib [From Vioxx] Allergy (Verified 08/17/19 10:17) Rash Home Medications: Ambulatory Orders Medication Instructions Recorded Allopurinol 100 mg PO DAILY 08/17/19 Famotidine 40 mg PO DAILY 08/17/19 Furosemide [Lasix] 20 mg PO DAILY 08/17/19 Glimepiride 2 mg PO BID 08/17/19 Magnesium Oxide 400 mg PO DAILY 08/17/19 Potassium Chloride 10 meq PO DAILY 08/17/19 Surgical History: no surgical history Psychiatric History: No pertinent psych hx T[employer] 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 Lives: Alone Smoking Status: Never smoker Alcohol: None Drugs: None - *Family History Maternal History Items: No pertinent history Paternal History Items: No pertinent history Review of Systems Constitutional: Denies: Anorexia, Chills, Fever, Weakness Eyes: Denies: Blurred vision, Double vision, Drainage, Redness HEENT: Denies: Difficulty Hearing, Ear Pain, Eye Pain, Nasal Congestion, Sore Throat Cardiovascular: Denies: Chest Pain, Chest Pressure, Chest Tightness, Heaviness, Light Headedness, Palpitations, Syncope Respiratory: Denies: Cough, Pleuritic Pain, Shortness of Breath, Sputum production, Wheezing Gastrointestinal: Denies: Abdominal Pain, Constipation, Diarrhea, Nausea, Vomiting Genitourinary: Denies: Dysuria, Frequency, Hematuria Musculoskeletal: Reports: Joint Pain. Denies: Arm Pain, Back Pain, Foot Pain Skin: Denies: Dryness, Rash Neurological: Denies: Balance problems, Double vision, Change in Speech, Slurred speech, Confusion, Focal weakness, Headaches, Incoordination, Numbness Psychiatric: Denies: Anxiety, Depression Endocrine: Denies: Change in Body Habitus, Polydipsia, Polyuria VTE Information - Inpt Only VTE Present on Admission: No VTE Mechan Device Prophylaxis: None VTE Pharm Prophylaxis ordered?: Yes Patient Problems: Active and Suspected Problems Fracture of femoral neck, right, closed (Acute) - Physical Exam Vitals/I&O's: Vital Signs Temp Pulse Resp BP Pulse Ox 97.4 F L 74 18 172/7 H 97 08/17/19 11:15 08/17/19 11:15 08/17/19 11:15 08/17/19 11:15 08/17/19 11:15 Oxygen Delivery Method Room Air Weight: 162 lb Body Mass Index (BMI) 26.1 General: Alert, Oriented x3, Cooperative, No apparent distress HEENT: Atraumatic, PERRLA, EOMI, Normocephalic Oral: Moist Mucosa, No Gingival or Mucosal Lesions/ Ulcerations Neck: Supple, No JVD, Negative Carotid Bruits, Trachea Midline, Thyroid Normal Size and Texture Lungs: Clear to auscultation, Normal air movement, No rhonchi, No wheeze, No rales, Diminished Cardiovascular: Regular rate, Regular Rhythm, Normal S1, Normal S2, No murmurs Abdomen: Bowel Sounds Present, Soft, Non Tender, Non-Distended, No Hepato-sple nomegaly Extremities: No clubbing, No cyanosis, No edema Skin: No rashes, No breakdown Lymphatic: No Cervical, Supraclavicular, or Inguinal Adenopathy Neurological: Cranial nerves II-XII grossly intact, Motor Exam 5/5 strength throughout Psych/Mental Status: Normal Affect, Appropriate, Alert and oriented to time, place, person, mood and affect Laboratory Results 08/17/19 10:30: WBC 13.2 H, RBC 4.23, Hgb 12.5, Hct 36.5 L, MCV 86.3, MCH 29.6, MCHC 34.2, RDW Std Deviation 43.4, RDW Coeff of Alexander 14.0, Plt Count 276, MPV 9.3, Immature Gran % (Auto) 0.300, Neut % (Auto) 87.7 H, Lymph % (Auto) 8.3 L, Dickinson % (Auto) 3.6, Eos % (Auto) 0.0, Baso % (Auto) 0.1, Absolute Neuts (auto) 11.6 H, Absolute Lymphs (auto) 1.10, Nucleated RBC % 0 08/17/19 10:30: PT 13.2, INR 1.0, APTT 25.7 08/17/19 10:30: Sodium 140, Potassium 3.7, Chloride 104, Carbon Dioxide 27.0, Anion Gap 9, BUN 25 H, Creatinine 1.12 H, Estim Creat Clear Calc 36.88, Est GFR (MDRD) Af Amer 60, Est GFR (MDRD) Non-Af 50 L, BUN/Creatinine Ratio 22.3 H, Glucose 270 H, Calcium 9.2, Total Bilirubin 0.40, AST 16, ALT 21, Alkaline Phosphatase 126 H, Total Protein 7.2, Albumin 3.8, Globulin 3.4, Albumin/Globulin Ratio 1.1 Clinical Impression(s) from Imaging Studies Chest X-Ray 08/17/19 10:21 IMPRESSION: No acute abnormality is seen. Electronically Signed: Pj Carrillo, at 10:51 EDT , Service support , Current Medications Acetaminophen (Tylenol) 650 mg PO Q6H PRN PRN PRN Reason: Pain Score 1-10/Temp > 100.7 F Allopurinol (Zyloprim) 100 mg PO DAILY COUNT INCLUDES THE [facility] Dextrose (D50w Syringe) 0 gm IV X1 PRN; Protocol PRN Reason: Hypoglycemia Famotidine (Pepcid) 20 mg PO BID [place] Glimepiride (Amaryl) 2 mg PO BIDCM COUNT INCLUDES THE [facility] Glucagon () 1 mg IM .X1 PRN PRN Reason: Hypoglycemia Heparin Sodium (Porcine) (Heparin Na) 5,000 unit SC Q8 [place] Hydralazine HCl (Apresoline Iv) 5 mg IV Q4H PRN PRN PRN Reason: for SBP>160 Sodium Chloride () 1,000 mls @ 75 mls/hr IV .[id number] COUNT INCLUDES THE [facility] Insulin Human Lispro (Humalog Kwikpen (Bkc)) 0 unit SC ACHS [place]; Protocol Morphine Sulfate () 1 mg IV Q3H PRN PRN PRN Reason: Pain Score 6-10/10 Ondansetron HCl (Zofran) 4 mg IV Q8H PRN PRN PRN Reason: NAUSEA/VOMITING Oxycodone HCl (Oxyir) 5 mg PO Q4H PRN PRN PRN Reason: Pain Score 4-5/10 Senna/Docusate Sodium (Senokot-S, Monse-Colace) 2 tablet PO BID PRN PRN PRN Reason: Constipation Sodium Chloride () 10 - 40 ml IV UD PRN PRN Reason: SALINE FLUSH Zolpidem Tartrate (Ambien (Generic)) 5 mg PO QHS PRN PRN PRN Reason: INSOMNIA Assessment/Plan All Active Problems Fracture of femoral neck, right, closed (Acute) This is an 79 years old female patient was referred to the ED by her PCPs office for right subcapital femoral neck fracture that was seen on x-ray of the right pelvis and hip which was done for right hip pain that has been going on for almost 3 weeks and she is being admitted for treatment. #1 acute traumatic right subcapital femoral neck fracture: X-ray of the hip reviewed. Routine blood work was remarkable for mild leukocytosis, BUN of 25 and creatinine of 1.1, otherwise unremarkable. [facility] complete bedrest, gentle IV fluids for hydration, IV morphine PRN for pain, OxyIR PRN for pain, Tylenol PRN, IV antiemetics PRN, insert Wood catheter, orthopedic surgery consult, repeat CBC and BMP tomorrow morning, PT OT evaluation and treatment when appropriate. #2 preoperative evaluation: This is an 79 years old female patient with past medical history as mentioned above. Patient lives at home alone, doing her daily activities without restrictions. Denied chest pain or shortness of breath. Chest x-ray reviewed as well as EKG and both were unremarkable. Based on her age, serum creatinine, past medical history and functional status, her estimated risk for perioperative myocardial infarction or cardiac arrest is 0.21%. Based on ACS NSQIP surgical risk calculator, this patient is at below average risk for serious complications and her predicted length of hospital stay is 4.5 days. At this time, no indication for any further testing. This patient will be at moderate risk for intraoperative and postoperative complications. We can proceed with surgery. #3 type 2 diabetes mellitus: ADA diet, Accu-Cheks, insulin sliding scale, continue glimepiride twice daily. #4 hypertension: Blood pressure slightly related, continue home medications with home medication list updated, IV hydralazine PRN. #5 hyperlipidemia: Continue statins when home medications list updated. #6 gout: Stable, continue allopurinol. #7 DVT prophylaxis: Subcu heparin. This note was generated with [employer] software. It may contain incorrect words, spelling, and punctuation that were not noted in checking the note before signing. Inpatient E&M: 95738 Init Hosp L3
[2019-08-17] MEDS: 0.9% Normal Saline 1,000 ML 75 ML IV (12:50)
[2019-08-17] MEDS: hydrALAZINE 20 MG/ML Vial 5 MG IV ×2 (12:55→18:24)
[2019-08-17] MEDS: 0.9% Saline Lock 10 ML Syringe IV (12:56)
[2019-08-17 12:57] LABS: Bacteria 0 SEEN /hpf (None Seen); Mucous, Urine 0 SEEN /hpf (<or=2+); Red Blood Cells-Urine 0 SEEN /hpf (0-5); Squamous Epithelial Cells - UA 0 SEEN /hpf (5-10)
[2019-08-17 13:10] LABS: Color, Urine Yellow (Yellow); Glucose, Dipstick 100 mg/dl (Normal); Ketone-Dipstick Negative (Negative); Leukocyte Esterase-Dipstick 25 /ul (Negative); Nitrite-Dipstick Negative (Negative); Occult Blood-Urine Negative /ul (Negative); Protein-Dipstick Negative (Negative); Urine Bilirubin Dipstick Negative (Negative); Urine Clarity Clear (Clear); Urine Urobilinogen Normal (Normal)
[2019-08-17 13:19] LABS: White Blood Cells 0-5 SEEN /hpf (0-5)
[2019-08-17 13:26] LABS: Bedside Glucose 185 mg/dL (70-110)
--- NOTE | 2019-08-17 14:11 | CON.PCM_ITS ---
Reason for Consult Date of Consultation: 08/17/19 Reason for Consultation: Right hip pain. Requested by Dr. Becerra History of Present Illness: The patient is a 79 year old F who lives independently in her own apartment and has minimal medical comorbidities as well as takes care of all her own ADLs presents today with right hip pain. Patient previously had a mechanical fall in her own home on July 23. She notes severe pain immediately. She has had continued pain which has diminished somewhat since that time. She currently reports 3 out of 10 pain while in bed. Worse with weightbearing, better with bed rest and medications. She presented to the emergency department with a walker. She received what she reports as 2 injections in bilateral hips around the trochanteric area yesterday. X-rays were taken and she was found to have a minimally displaced valgus impacted right femoral neck fracture. She presented emergency department today and was admitted for further evaluation and possible surgical intervention. The pain is been located in her groin and lateral thigh as well as down the anterior thigh. Past Medical History Past Medical History (Chronic Problems): Chronic Problems Gout (Chronic) Hyperlipidemia (Chronic) Hypertension (Chronic) Type 2 diabetes mellitus (Chronic) Allergies celecoxib [From Celebrex] Allergy (Verified 08/17/19 10:17) Rash Penicillins [PCN] Allergy (Verified 08/17/19 09:59) Hives rofecoxib [From Vioxx] Allergy (Verified 08/17/19 10:17) Rash Home Medications: Ambulatory Orders Medication Instructions Recorded Allopurinol 100 mg PO DAILY 08/17/19 Famotidine 40 mg PO DAILY 08/17/19 Furosemide [Lasix] 20 mg PO DAILY 08/17/19 Glimepiride 2 mg PO DAILY 08/17/19 Magnesium Oxide 400 mg PO DAILY 08/17/19 Potassium Chloride 10 meq PO DAILY 08/17/19 Surgical History: no surgical history Psychiatric History: No pertinent psych hx 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 ENGINEERING TECHNICIAN history Lives: Alone Smoking Status: Never smoker Alcohol: None Drugs: None - *Family History Maternal History Items: No pertinent history Paternal History Items: No pertinent history Review of Systems Constitutional: Denies: Chills, Fever, Weight Change HEENT: Denies: Head Aches, Sinus Congestion, Sinus Drainage Cardiovascular: Denies: Chest Pain, Palpitations Respiratory: Denies: Cough, Shortness of breath at rest, Sputum production Gastrointestinal: Denies: Abdominal Pain, Nausea, Vomiting Genitourinary: Denies: Dysuria Musculoskeletal: Reports: Joint Pain, Joint Tenderness Skin: Denies: Rash, Wounds Neurological: Denies: Numbness, Tingling, Focal weakness Psychiatric: Denies: Anxiety, Depression, Homicidal Ideations, Suicidal Ideations Hematologic/ Lymphatic: Denies: Easy Bruising, Easy Bleeding Patient Problems: Active and Suspected Problems Fracture of femoral neck, right, closed (Acute) Objective: Right hip x-rays show a hallux impacted minimally displaced subcapital femoral neck fracture. - Physical Exam Vitals/I&O's: Vital Signs Temp Pulse Resp BP Pulse Ox 97.8 F 73 16 179/84 H 100 08/17/19 12:00 08/17/19 12:55 08/17/19 12:00 08/17/19 12:55 08/17/19 12:00 Oxygen Delivery Method Room Air Weight: 162 lb Body Mass Index (BMI) 26.1 General: Alert, Oriented x3, Cooperative Extremities: - - Right lower extremity: Skin clean, dry, and intact. Is not shortened. Patient does have positive logroll test. Motor is intact dorsiflexion, EHL and plantar flexion. Sensation is intact to light touch saphenous, ave,l superficial peroneal, deep peroneal and tibial distributions. Calves are soft and supple. Laboratory Results 08/17/19 10:30: WBC 13.2 H, RBC 4.23, Hgb 12.5, Hct 36.5 L, MCV 86.3, MCH 29.6, MCHC 34.2, RDW Std Deviation 43.4, RDW Coeff of Alexander 14.0, Plt Count 276, MPV 9.3, Immature Gran % (Auto) 0.300, Neut % (Auto) 87.7 H, Lymph % (Auto) 8.3 L, Humphreys % (Auto) 3.6, Eos % (Auto) 0.0, Baso % (Auto) 0.1, Absolute Neuts (auto) 11.6 H, Absolute Lymphs (auto) 1.10, Nucleated RBC % 0 08/17/19 10:30: PT 13.2, INR 1.0, APTT 25.7 08/17/19 10:30: Sodium 140, Potassium 3.7, Chloride 104, Carbon Dioxide 27.0, Anion Gap 9, BUN 25 H, Creatinine 1.12 H, Estim Creat Clear Calc 36.88, Est GFR (MDRD) Af Amer 60, Est GFR (MDRD) Non-Af 50 L, BUN/Creatinine Ratio 22.3 H, Glucose 270 H, Calcium 9.2, Total Bilirubin 0.40, AST 16, ALT 21, Alkaline Phosphatase 126 H, Total Protein 7.2, Albumin 3.8, Globulin 3.4, Albumin/Globulin Ratio 1.1 08/17/19 10:30: Magnesium 2.0 08/17/19 12:45: Urine Color Yellow, Urine Clarity Clear, Urine pH 6.0, Ur Specific [place] 1.010, Urine Protein Negative, Urine Glucose (UA) 100 H, Urine Ketones Negative, Urine Occult Blood Negative, Urine Nitrite Negative, Urine Bilirubin Negative, Urine Urobilinogen Normal, Ur Leukocyte Esterase 25 H, Urine RBC 0 SEEN, Urine WBC 0-5 SEEN, Ur Squamous Epith Cells 0 SEEN, Urine Bacteria 0 SEEN, Urine Mucus 0 SEEN 08/17/19 13:18: POC Glucose 185 H Current Medications Acetaminophen (Tylenol) 650 mg PO Q6H PRN PRN PRN Reason: Pain Score 1-10/Temp > 100.7 F Allopurinol (Zyloprim) 100 mg PO DAILY [facility] Dextrose (D50w Syringe) 0 gm IV X1 PRN; Protocol PRN Reason: Hypoglycemia Famotidine (Pepcid) 20 mg PO BID [facility] Glimepiride (Amaryl) 2 mg PO BIDCM [facility] Glucagon () 1 mg IM .X1 PRN PRN Reason: Hypoglycemia Heparin Sodium (Porcine) (Heparin Na) 5,000 unit SC Q8 [facility] Hydralazine HCl (Apresoline Iv) 5 mg IV Q4H PRN PRN PRN Reason: for SBP>160 Last Admin: 08/17/19 12:55 Dose: 5 mg Documented by: Sodium Chloride () 1,000 mls @ 75 mls/hr IV .[id number] [facility] Last Admin: 08/17/19 12:50 Dose: 75 mls/hr Documented by: Insulin Human Lispro (Humalog Kwikpen (Bkc)) 0 unit SC ACHS [facility]; Protocol Morphine Sulfate () 1 mg IV Q3H PRN PRN PRN Reason: Pain Score 6-10/10 Ondansetron HCl (Zofran) 4 mg IV Q8H PRN PRN PRN Reason: NAUSEA/VOMITING Oxycodone HCl (Oxyir) 5 mg PO Q4H PRN PRN PRN Reason: Pain Score 4-5/10 Senna/Docusate Sodium (Senokot-S, Monse-Colace) 2 tablet PO BID PRN PRN PRN Reason: Constipation Sodium Chloride () 10 - 40 ml IV UD PRN PRN Reason: SALINE FLUSH Last Admin: 08/17/19 12:56 Dose: 10 ml Documented by: Zolpidem Tartrate (Ambien (Generic)) 5 mg PO QHS PRN PRN PRN Reason: INSOMNIA Assessment/Plan All Active Problems Fracture of femoral neck, right, closed (Acute) Right subcapital femoral neck fracture valgus impaction with minimal displacement. At this time I discussed the natural history of the disease process with the patient and her daughter. Due to the recent pandemic I spoke with the daughter over the phone on speaker phone with the patient present. We discussed 3 different treatment options one would be nonoperative treatment with protected weightbearing pros being limited risk of surgery cons being that with protected weightbearing she may decondition depending on her ability to do the protected weightbearing. We discussed close reduction percutaneous pinning pros being we can proceed with the medial weightbearing and the extent of the surgery and risks are decreased from mariam-versus total hip replacement. The constipating the risk of surgery. Finally we discussed hemiarthroplasty versus total hip replacement with associated risks, the benefit being a likely more predictable outcome. At this time based on the patient stated goal of wanting to return to independence as quickly as possible and avoid as much risk with surgery as well as the fracture pattern we have elected to proceed with close reduction percutaneous pinning. Patient understands risks of the surgery include but not limited to blood loss, DVTs, PEs, nervous damage, infection, the risk of a nesthesia include loss of life. Patient has had previous DVTs. We also discussed the possibility of nonunion, malunion or further displacement with any falls that could occur as well as the risk of avascular necrosis. Patient demonstrated understanding as well as her family and would like to proceed with close adduction percutaneous pinning of the right hip. Patient will be n.p.o. for surgery. Consent will need to be signed antibiotics will be ordered on-call to the operating room. She is to remain nonweightbearing on bedrest at this time. [facility] Office:
[2019-08-17] MEDS: Insulin Lispro 100 UNIT/ML INSULN.PEN SC ×2 (14:51→18:31)
[2019-08-17] MEDS: Heparin Injection (Vial) 5,000 UNIT/ML VIAL 5000 UNIT SC ×2 (14:51→21:34)
[2019-08-17 18:31] LABS: Bedside Glucose 172 mg/dL (70-110)
[2019-08-17] MEDS: Glimepiride 2 MG Tablet PO (18:31)
[2019-08-17] MEDS: Famotidine 20 MG Tablet PO (21:34)
[2019-08-17 21:45] LABS: Bedside Glucose 108 mg/dL (70-110)
[2019-08-18] VITALS (18 sets, daily range): BP systolic 135–191; BP diastolic 53–83; PULSE 46–87; RESP 16–18; TEMP 36.3–37.1; O2SAT 96–100; BMI 26.1
[2019-08-18] MEDS: 0.9% Normal Saline 1,000 ML 75 ML IV ×2 (00:44→08:32)
[2019-08-18 04:53] LABS: Absolute Lymphocyte Count 2.71 X10^3/uL (0.83-4.51); Absolute Neutrophil Count 7.1 X10^3/uL (2.0-7.7); Basophil# 0.03 X10^3/uL; Basophil% 0.3 % (0-1); Eosinophil# 0.07 X10^3/uL; Eosinophils% 0.7 % (0-5); Hematocrit 32.1 % (37-47); Hemoglobin 10.9 g/dL (12.0-15.0); Lymphocyte # 2.71 X10^3/ul (4.0); Lymphocyte % 26.1 % (19-41); Mean Corpuscular Hgb 29.9 pg (27.0-32.0); Mean Corpuscular Volume 87.9 fL (81-99); Mean Platelet Vol. 9.6 fl (6.2-12.0); Monocyte# 0.48 X10^3/uL; Monocyte% 4.6 % (0-10); NRBC Flagged by Analyzer 0 % (0-5); Neutrophil # 7.09 X10^3/uL (2.7-7.7); Neutrophil % 68.1 % (47-70); Platelet Count 232 K/mm3 (150-450); RBC Distribution Width CV 14.5 % (11.6-14.6); RBC Distribution Width SD 45.9 fl (35.1-43.9); Red Blood Count 3.65 M/mm3 (4.2-5.4); White Blood Count 10.4 K/mm3 (4.4-11.0)
[2019-08-18 05:04] LABS: Anion Gap 6 (5-15); BUN 23 mg/dL (7-18); BUN/Creat Ratio 25.2 RATIO (10-20); Calcium,Total 8.4 mg/dL (8.5-10.1); Chloride 110 mmol/L (98-107); Creatinine, Serum 0.91 mg/dL (0.55-1.02); EST Glomerular Filtration Rate 63 mL/min (>60); Est Glom Filt Rate - Afr Amer 76 mL/min (>60); Estimated Creatinine Clearance 45.39 ml/min; Glucose 87 mg/dL (74-106); Potassium 3.5 mmol/L (3.5-5.1); Sodium Level 142 mmol/L (136-145)
--- NOTE | 2019-08-18 05:50 | PCM.PN.BLA ---
Progress Note Notified of a.m. blood glucose of 77. Patient is n.p.o. preop for surgery. Stop Amaryl. Potassium is 3.5. Start patient on half normal saline D5W with 40 of potassium going a 75 mL's per hour. STROKE Vital Signs/Narrative: Vital Signs Temp Pulse Resp BP Pulse Ox 08/18/19 05:39 98.5 F 74 16 144/57 H 98 08/18/19 03:44 66 08/18/19 02:00 98.7 F 71 16 135/60 H 98
[2019-08-18 05:51] LABS: Bedside Glucose 77 mg/dL (70-110)
[2019-08-18] MEDS: Potassium Chloride 40 MEQ in Dext 5%-0.45% NS 1,000 ML 75 MEQ IV (06:09)
[2019-08-18] MEDS: Cefazolin 2 GM in 0.9% Normal Saline 100 ML IV (07:12)
--- NOTE | 2019-08-18 07:15 | RAD_ITS ---
STUDY: X-RAY - PELVIS AND RIGHT HIP REASON FOR EXAM: Female, 79 years old. orf in o.r. 61.2 sec. Fl, 3 images. No pelvis image taken/saved TECHNIQUE: 2 views of the pelvis and hip. COMPARISON: None. FINDINGS: 2 intraoperative views were obtained for nailing of the subcapital femoral fracture. RAD/Hip Min 2 Views (Portable) IMPRESSION: Intraoperative imaging provided for nailing of the subcapital femoral fracture Electronically Signed: Pj Carrillo, at 10:44 EDT , Service support ,
[2019-08-18 07:40] LABS: Hemoglobin A1c 7.8 % (4.2-6.3)
--- NOTE | 2019-08-18 08:00 | OP.PCM_ITS ---
Report of Operation Date of Procedure: 08/18/19 Pre-Operative Diagnosis: Right hip valgus impacted femoral neck fracture Post-Operative Diagnosis: Right hip valgus impacted femoral neck fracture Surgery/Procedure Performed:: Reduction percutaneous pinning right hip Description of Surgical Findings:: Stable reduction well fixed fracture photographic supervisor: None Type of Anesthesia:: General Anesthesiologist: Colt Sanderson Special Medications: Ancef Estimated Blood Loss (mL): 10 Fluids Replaced: 350 mL crystalloid Description of Procedure: On the date of procedure patient's right lower extremity is was marked in the preoperative area. The patient was then taken back to the operating room where they were placed on the fracture table in the supine position. All bony prominences were identified a well-padded. Anesthesia assumed control of the C- spine and airway and remained controlled throughout the remainder of the procedure. A perineal post was placed and the pts legs were positioned for appropriate fluoroscopic views. The left lower extremity was prepped in a st erile fashion using chlorhexidine. The surgeon scrubbed at this time. Upon reentering the room the right extremity was draped in a standard orthopedic fashion. A timeout was then called and everyone agreed upon the side, the site, the procedure to be performed, patient's identity and antibiotics given. Fluoroscopy was used to verify the starting position of the initial pin which was above the level of the lesser trochanter. The initial pin was inserted percutaneously placed and the pin ambulance driver was used to drive the inferior pin using fluoroscopic guidance into the appropriate position. The appropriate position was verified on the AP we then confirmed it on the lateral. Once we're happy with the position of our initial pin an incision was made in line with the pin and the parallel pin guide were used to place the 2 superior pins along the anterior and posterior cortex of the femoral neck. Once all 3 pins were placed just beneath the subchondral bone of the femoral head the depth gauge was used to measure the length. The inferior screw was 90 mm, the anterior-superior screws was 75 mm and the posterior-superior screws was 75 mm . The drill was then used to perforate the lateral cortex. All 3 screws were then placed under fluoroscopic guidance and final tightening was done by hand. Final x-rays were then taken to verify the position of the screws and the final reduction. Copious irrigation was then used to irrigate out the wound. The wound was closed using 2-0 Vicryl and 4-0 Monocryl with Steri-Strips. A sterile dressing was placed with Xeroform. Patient was then awakened by anesthesia and transferred to the PACU for recovery. Post op plan PT: WBAT DVT ppx: Recommend Lovenox for 2 weeks postop upon discharge Follow up: 2 weeks for wound check Grafts/Implants Used: Synthes - Complications none - Admit VTE Documentation VTE Present on Admission: No VTE Mechan Device Prophylaxis: SCD's VTE Pharm Prophylaxis ordered?: Yes
[2019-08-18 08:16] LABS: Bedside Glucose 153 mg/dL (70-110)
--- NOTE | 2019-08-18 11:00 | CASEMGMT ---
RN LYNDSAY Face to Face with patient for initial transition planning/care coordination assessment. RN CM introduced self and role at [facility]. Patient lying in bed, alert and oriented. Patient willing to participate in assessment and is able to answer all questions appropriately. Care providers, pharmacy, and demographics verified. Patient unsure of discharge disposition, will see how she does with therapy. Patient states she has no further needs or concerns at this time. CM to follow for discharge planning needs that may arise. PCP: Claude Specialists: none Preferred Pharmacy: [facility] Insurance: [employer] Prescription Benefit: yes Living Will/HPOA: yes, son Luis Dorsey HPOA LNOK: son, granddaughter Living Arrangements: Patient lives alone in single story apartment with 2 steps to enter. Patient independent at home. Transportation: self/granddaughter DME/HHC: Patient states she has walker and raised toilet. Patient to work with therapy, discussed SNF vs HHC. Disposition Plan: TBD by course of treatment. Graciela LAU, RN, CM
--- NOTE | 2019-08-18 11:06 | PCM.PROGNOTE ---
Patient Problems: Active and Suspected Problems Fracture of femoral neck, right, closed (Acute) Subjective: Chief complaint: Follow-up after admission for right hip valgus impacted femoral neck fracture status post reduction and percutaneous pinning. Patient seen and examined. She just came back from OR. At this time, she denied any pain. Denied chest pain or shortness of breath. Denied nausea or vomiting. Her blood pressure has been slightly elevated, other vital signs are stable. - Physical Exam Vitals/I&O's: Vital Signs Temp Pulse Resp BP Pulse Ox 97.5 F L 55 L 16 176/61 H 100 08/18/19 09:40 08/18/19 09:40 08/18/19 09:40 08/18/19 09:40 08/18/19 09:40 Oxygen Flow Rate (L/min) 3 Oxygen Delivery Method Venturi Mask Weight: 161 lb 15.931 oz Body Mass Index (BMI) 26.1 Finger Stick Blood Glucose 153 Intake and Output for Last 24 Hours 08/16/19 08/17/19 08/18/19 23:59 23:59 23:59 Intake Total 1693.75 / 1693.75 Output Total 700 / 700 900 / 900 Balance -700 / -700 793.75 / 793.75 General: Alert, Cooperative, No apparent distress, - - Intermittently drowsy but following commands. HEENT: Atraumatic, PERRLA, EOMI, Normocephalic Oral: Moist Mucosa, No Gingival or Mucosal Lesions/ Ulcerations Neck: Supple, No JVD, Negative Carotid Bruits, Trachea Midline, Thyroid Normal Size and Texture Lungs: Clear to auscultation, Normal air movement, No rhonchi, No wheeze, No rales, Diminished Cardiovascular: Regular rate, Regular Rhythm, Normal S1, Normal S2, PMI Normal Abdomen: Bowel Sounds Present, Soft, Non Tender, Non-Distended, No Hepato-splenomegaly Extremities: No clubbing, No cyanosis, No edema Skin: No rashes, No breakdown Lymphatic: No Cervical, Supraclavicular, or Inguinal Adenopathy Neurological: Cranial nerves II-XII grossly intact, Motor Exam 5/5 strength throughout Psych/Mental Status: Normal Affect, Appropriate Laboratory Results 08/17/19 10:30: Magnesium 2.0 08/17/19 12:45: Urine Color Yellow, Urine Clarity Clear, Urine pH 6.0, Ur Specific [place] 1.010, Urine Protein Negative, Urine Glucose (UA) 100 H, Urine Ketones Negative, Urine Occult Blood Negative, Urine Nitrite Negative, Urine Bilirubin Negative, Urine Urobilinogen Normal, Ur Leukocyte Esterase 25 H, Urine RBC 0 SEEN, Urine WBC 0-5 SEEN, Ur Squamous Epith Cells 0 SEEN, Urine Bacteria 0 SEEN, Urine Mucus 0 SEEN 08/17/19 13:18: POC Glucose 185 H 08/17/19 18:28: POC Glucose 172 H 08/17/19 21:41: POC Glucose 108 08/18/19 04:40: WBC 10.4, RBC 3.65 L, Hgb 10.9 L, Hct 32.1 L, MCV 87.9, MCH 29.9, MCHC 34.0, RDW Std Deviation 45.9 H, RDW Coeff of Alexander 14.5, Plt Count 232, MPV 9.6, Immature Gran % (Auto) 0.200, Neut % (Auto) 68.1, Lymph % (Auto) 26.1, [place] % (Auto) 4.6, Eos % (Auto) 0.7, Baso % (Auto) 0.3, Absolute Neuts (auto) 7.1, Absolute Lymphs (auto) 2.71, Nucleated RBC % 0 08/18/19 04:40: Sodium 142, Potassium 3.5, Chloride 110 H, Carbon Dioxide 26.0, Anion Gap 6, BUN 23 H, Creatinine 0.91, Estim Creat Clear Calc 45.39, Est GFR (MDRD) Af Amer 76, Est GFR (MDRD) Non-Af 63, BUN/Creatinine Ratio 25.2 H, Glucose 87, Calcium 8.4 L 08/18/19 04:40: Blood Type A POSITIVE, Antibody Screen NEGATIVE 08/18/19 04:40: Hemoglobin A1c 7.8 H 08/18/19 05:44: POC Glucose 77 08/18/19 08:12: POC Glucose 153 H Current Medications Acetaminophen (Tylenol) 650 mg PO Q6H PRN PRN PRN Reason: Pain Score 1-10/Temp > 100.7 F Allopurinol (Zyloprim) 100 mg PO DAILY [facility] Dextrose (D50w Syringe) 0 gm IV X1 PRN; Protocol PRN Reason: Hypoglycemia Famotidine (Pepcid) 20 mg PO BID [facility] Last Admin: 08/17/19 21:34 Dose: 20 mg Documented by: Glucagon () 1 mg IM .X1 PRN PRN Reason: Hypoglycemia Heparin Sodium (Porcine) (Heparin Na) 5,000 unit SC Q8 [facility] Last Admin: 08/18/19 04:56 Dose: Not Given Documented by: Hydralazine HCl (Apresoline Iv) 5 mg IV Q4H PRN PRN PRN Reason: for SBP>160 Last Admin: 08/17/19 18:24 Dose: 5 mg Documented by: Potassium Chloride 40 meq/ (Dextrose/Sodium Chloride) 1,020 mls @ 75 mls/hr IV .[id number] [facility] Last Infusion: 08/18/19 09:41 Dose: 75 mls/hr Documented by: Cefazolin Sodium () 1 gm in 50 mls @ 150 mls/hr IV Q8H [facility] Stop: 08/18/19 23:19 Insulin Human Lispro (Humalog Kwikpen (Bkc)) 0 unit SC ACHS [facility]; Protocol Last Admin: 08/18/19 06:00 Dose: Not Given Documented by: Morphine Sulfate () 1 mg IV Q3H PRN PRN PRN Reason: Pain Score 6-10/10 Ondansetron HCl (Zofran) 4 mg IV Q8H PRN PRN PRN Reason: NAUSEA/VOMITING Oxycodone HCl (Oxyir) 5 mg PO Q4H PRN PRN PRN Reason: Pain Score 4-5/10 Senna/Docusate Sodium (Senokot-S, Monse-Colace) 2 tablet PO BID PRN PRN PRN Reason: Constipation Sodium Chloride () 10 - 40 ml IV UD PRN PRN Reason: SALINE FLUSH Last Admin: 08/17/19 12:56 Dose: 10 ml Documented by: Zolpidem Tartrate (Ambien (Generic)) 5 mg PO QHS PRN PRN PRN Reason: INSOMNIA Medical Necessity - Tobacco Use Smoking Status: Never smoker Assessment/Plan All Active Problems Fracture of femoral neck, right, closed (Acute) This is an 79 years old female patient was referred to the ED by her PCPs office for right hip fracture that was seen on x-ray of the right pelvis and hip which was done for right hip pain that has been going on for almost 3 weeks. #1 acute traumatic right hip valgus impacted femoral neck fracture: Status post reduction and percutaneous pinning of the right hip, postop day 0. She just came back from the OR. Blood pressure is not elevated, other vital signs are stable. He is on IV cefazolin for perioperative prophylaxis. Repeat routine blood work from today reviewed, was unremarkable. Orthopedic surgery on the case. Plan to continue IV fluids, resume diet if okay with orthopedic surgery, repeat CBC and BMP tomorrow morning, PT OT evaluation and treatment when appropriate, patient may need placement to SNF. #2 Perioperative course: Patient underwent surgery today with reduction and pinning of the right hip. Blood pressure slightly elevated, other vital signs are stable. No significant complaints. Repeat routine blood work from today reviewed as above. So far, no intraoperative or postoperative complications. Plan to monitor. #3 type 2 diabetes mellitus: Blood sugar has been stable, continue ADA diet, Accu-Cheks, insulin sliding scale, continue glimepiride twice daily. ADA diet when patient is fully awake and okay with orthopedic surgery. #4 hypertension: Blood pressure slightly related, continue IV hydralazine PRN. #5 hyperlipidemia: She is not on statins. #6 gout: Stable, continue allopurinol. #7 DVT prophylaxis: Subcu heparin. This note was generated with [employer]p dictation software. It may contain incorrect words, spelling, and punctuation that were not noted in checking the note before signing. Inpatient E&M: 44871 Subs Hosp L2
[2019-08-18] MEDS: Insulin Lispro 100 UNIT/ML INSULN.PEN SC ×3 (11:52→20:55)
[2019-08-18 12:21] LABS: Bedside Glucose 239 mg/dL (70-110)
[2019-08-18] MEDS: Allopurinol 100 MG Tablet PO (13:48)
[2019-08-18] MEDS: Famotidine 20 MG Tablet PO ×2 (13:48→20:55)
[2019-08-18] MEDS: Cefazolin 1 GM/50 ML BAG IV ×2 (15:18→22:34)
[2019-08-18] MEDS: Acetaminophen 325 MG Tablet 650 MG PO ×2 (15:50→22:33)
[2019-08-18 16:35] LABS: Bedside Glucose 191 mg/dL (70-110)
[2019-08-18 21:11] LABS: Bedside Glucose 184 mg/dL (70-110)
[2019-08-19 01:42] VITALS: PULSE 75
[2019-08-19] MEDS: Acetaminophen 325 MG Tablet 650 MG PO ×2 (05:01→11:13)
[2019-08-19 05:14] VITALS: BP 150/62; PULSE 73; RESP 18; TEMP 36.8; O2SAT 97
[2019-08-19 06:09] LABS: Absolute Lymphocyte Count 1.37 X10^3/uL (0.83-4.51); Absolute Neutrophil Count 6.1 X10^3/uL (2.0-7.7); Basophil# 0.03 X10^3/uL; Basophil% 0.4 % (0-1); Eosinophil# 0.13 X10^3/uL; Eosinophils% 1.6 % (0-5); Hematocrit 33.6 % (37-47); Hemoglobin 10.9 g/dL (12.0-15.0); Lymphocyte # 1.37 X10^3/ul (4.0); Lymphocyte % 16.7 % (19-41); Mean Corp Hgb Conc 32.4 g/dL (32-36); Mean Corpuscular Hgb 29.2 pg (27.0-32.0); Mean Corpuscular Volume 90.1 fL (81-99); Mean Platelet Vol. 9.3 fl (6.2-12.0); Monocyte% 7.3 % (0-10); NRBC Flagged by Analyzer 0 % (0-5); Neutrophil # 6.06 X10^3/uL (2.7-7.7); Neutrophil % 73.9 % (47-70); Platelet Count 196 K/mm3 (150-450); RBC Distribution Width SD 49.1 fl (35.1-43.9); Red Blood Count 3.73 M/mm3 (4.2-5.4); White Blood Count 8.2 K/mm3 (4.4-11.0)
[2019-08-19 06:41] LABS: Anion Gap 6 (5-15); BUN 16 mg/dL (7-18); BUN/Creat Ratio 17.4 RATIO (10-20); Calcium,Total 8.7 mg/dL (8.5-10.1); Chloride 108 mmol/L (98-107); Creatinine, Serum 0.92 mg/dL (0.55-1.02); EST Glomerular Filtration Rate 62 mL/min (>60); Est Glom Filt Rate - Afr Amer 75 mL/min (>60); Glucose 121 mg/dL (74-106); Potassium 4.1 mmol/L (3.5-5.1); Sodium Level 142 mmol/L (136-145)
[2019-08-19 06:45] LABS: Bedside Glucose 124 mg/dL (70-110)
[2019-08-19] MEDS: Allopurinol 100 MG Tablet PO (09:24)
[2019-08-19] MEDS: Famotidine 20 MG Tablet PO (09:24)
[2019-08-19 09:25] VITALS: BP 153/75; PULSE 89; RESP 16; TEMP 36.7; O2SAT 98
--- NOTE | 2019-08-19 10:04 | PCM.PN.ORT ---
Patient Problems: Active and Suspected Problems Fracture of femoral neck, right, closed (Acute) Subjective: The patient was sitting in bedside chair upon examination. Patient denies any chest pain, shortness of breath, dizziness, lightheadedness, nausea or vomiting, or calf pain. Pain is controlled on medications. No adverse overnight events. Patient is only required Tylenol for pain control. She has been on heparin. Patient does complain of some knee pain but states most of her pain is primarily in the hip. Objective: Vital signs stable and afebrile. Patient is able to plantarflex and dorsiflex actively. Sensation is intact to light touch to saphenous, sural, superficial and deep peroneal, and tibial distribution. Dressing is clean dry and intact. Negative Homans bilaterally, negative signs and symptoms of DVT. Patient currently is nontender to palpation to the right knee. She has no tenderness along the medial or lateral joint line, nontender to palpation posterior and anterior knee. Patient has no pain on passive range of motion of the right knee. - Physical Exam Vitals/I&O's: Vital Signs Temp Pulse Resp BP Pulse Ox 98.2 F 73 18 150/62 H 97 08/19/19 05:14 08/19/19 05:14 08/19/19 05:14 08/19/19 05:14 08/19/19 05:14 Oxygen Flow Rate (L/min) 2 Oxygen Delivery Method Room Air Weight: 73.48 kg Body Mass Index (BMI) 26.1 Finger Stick Blood Glucose 153 Intake and Output for Last 24 Hours 08/17/19 08/18/19 08/19/19 23:59 23:59 23:59 Intake Total 3246.50 / 3246.50 90.75 / 90.75 Output Total 700 / 700 1750 / 1750 1000 / 1000 Balance -700 / -700 1496.50 / 1496.50 -909.25 / -909.25 General: Alert, Oriented x3, Cooperative, No apparent distress Laboratory Results 08/18/19 11:50: POC Glucose 239 H 08/18/19 16:28: POC Glucose 191 H 08/18/19 20:54: POC Glucose 184 H 08/19/19 06:00: WBC 8.2, RBC 3.73 L, Hgb 10.9 L, Hct 33.6 L, MCV 90.1, MCH 29.2, MCHC 32.4, RDW Std Deviation 49.1 H, RDW Coeff of Alexander 15.0 H, Plt Count 196, MPV 9.3, Immature Gran % (Auto) 0.100, Neut % (Auto) 73.9 H, Lymph % (Auto) 16.7 L, [place] % (Auto) 7.3, Eos % (Auto) 1.6, Baso % (Auto) 0.4, Absolute Neuts (auto) 6.1, Absolute Lymphs (auto) 1.37, Nucleated RBC % 0 08/19/19 06:00: Sodium 142, Potassium 4.1, Chloride 108 H, Carbon Dioxide 28.0, Anion Gap 6, BUN 16, Creatinine 0.92, Estim Creat Clear Calc 44.90, Est GFR (MDRD) Af Amer 75, Est GFR (MDRD) Non-Af 62, BUN/Creatinine Ratio 17.4, Glucose 121 H, Calcium 8.7 08/19/19 06:36: POC Glucose 124 H Current Medications Acetaminophen (Tylenol) 650 mg PO Q6H PRN PRN PRN Reason: Pain Score 1-10/Temp > 100.7 F Last Admin: 08/19/19 05:01 Dose: 650 mg Documented by: Allopurinol (Zyloprim) 100 mg PO DAILY [facility] Last Admin: 08/19/19 09:24 Dose: 100 mg Documented by: Dextrose (D50w Syringe) 0 gm IV X1 PRN; Protocol PRN Reason: Hypoglycemia Famotidine (Pepcid) 20 mg PO BID [facility] Last Admin: 08/19/19 09:24 Dose: 20 mg Documented by: Glucagon () 1 mg IM .X1 PRN PRN Reason: Hypoglycemia Heparin Sodium (Porcine) (Heparin Na) 5,000 unit SC Q8 [facility] Last Admin: 08/19/19 05:01 Dose: Not Given Documented by: Hydralazine HCl (Apresoline Iv) 5 mg IV Q4H PRN PRN PRN Reason: for SBP>160 Last Admin: 08/17/19 18:24 Dose: 5 mg Documented by: Sodium Chloride () 250 mls @ 15 mls/hr IV .[id number] PRN PRN Reason: Saline Flush Last Infusion: 08/19/19 05:00 Dose: 0 mls/hr Documented by: Insulin Human Lispro (Humalog Kwikpen (Bkc)) 0 unit SC [facility]; Protocol Last Admin: 08/19/19 06:45 Dose: Not Given Documented by: Morphine Sulfate () 1 mg IV Q3H PRN PRN PRN Reason: Pain Score 6-10/10 Ondansetron HCl (Zofran) 4 mg IV Q8H PRN PRN PRN Reason: NAUSEA/VOMITING Oxycodone HCl (Oxyir) 5 mg PO Q4H PRN PRN PRN Reason: Pain Score 4-5/10 Senna/Docusate Sodium (Senokot-S, Monse-Colace) 2 tablet PO BID PRN PRN PRN Reason: Constipation Sodium Chloride () 10 - 40 ml IV UD PRN PRN Reason: SALINE FLUSH Last Admin: 08/17/19 12:56 Dose: 10 ml Documented by: Zolpidem Tartrate (Ambien (Generic)) 5 mg PO QHS PRN PRN PRN Reason: INSOMNIA Medical Necessity - Tobacco Use Smoking Status: Never smoker Assessment/Plan All Active Problems Fracture of femoral neck, right, closed (Acute) 1. S/P reduction percutaneous pinning right hip POD #1 2. Continue Pain Medications: Tylenol. Oxycodone for breakthrough pain 3. DVT Prophylaxis: Currently using heparin. Recommend Lovenox for 2 weeks postoperatively. After 2-week follow-up we will place patient on baby aspirin 81 mg twice daily for an additional 2 weeks 4. PT/OT: Weightbearing as tolerated with walker 5. H & H: 10.9/33.6, asymptomatic 6. Encouraged Incentive Spirometry 7. Continue postoperative medical management per medicine 8. Disposition: Orthopedically stable, okay for discharge to appropriate placement whether prison facility versus home. Patient states she does live home alone. She was asking about driving. I did recommend that she does not drive for 6 weeks postoperatively. Patient will continue with Tylenol primarily for pain control. Patient has oxycodone on board for breakthrough pain. Recommend Lovenox upon discharge for 2 weeks postoperatively. Patient will need 2-week postoperative follow-up with [facility] for x-rays and wound check. At 2-week follow-up patient will discontinue the Lovenox and be placed on baby aspirin 81 mg twice daily for an additional 2 weeks. Please contact Ortho with any concerns or questions. Appreciate referral and assistance with patient. Case management should be involved with appropriate placement whether patient will require prison facility. She will be getting physical therapy and evaluation today.
--- NOTE | 2019-08-19 10:59 | CASEMGMT ---
Addendum entered by Graciela Brooks 08/19/19 12:02: KATHARINA, RN LYNDSAY and physician in to speak with pt regarding discharge plans. Pt updated that PT/OT are recommending pt go to [facility] to get stronger and then return home. Pt dialed her granddaughter Muriel and PRESLEY UMANA spoke with Muriel regarding discharge plans for pt. Muriel updated on [facility]. Both pt and Muriel are agreeable to submitting [facility] referral. Pt then stated she is agreeable to [facility]. KATHARINA placed a call to Jenifer at [facility]. Jenifer approves for pt to admit to [facility]. KATHARINA placed a call to Clarisa with [facility] and updated her. [facility] is able to accept pt today. SW updated pt on approval to [facility]. Pt agreeable to [facility]. Physician updated. Plan: [facility] today Graciela JIM, KELLY Original Note: Social Work Note SW reviewed PT/OT, pt walked 30ft contact guard. KATHARINA placed a call to Clarisa with [facility]. Clarisa states [facility] would be able to accept pt pending insurance approval. KATHARINA in to speak with pt. KATHARINA introduced self and role at [facility]. Pt is alert and orientated x3. KATHARINA discuss discharge plans with pt including [facility], SNF, Home. Pt states I feel I am back to my baseline and prefer to go home. Pt states that she has two steps to enter her home but her granddaughter was assisting her with the steps before her hip fracture and her granddaughter will continue to assist with the steps at home. Pt states she has all one floor set up at home and she will remain on one floor while at home. Pt states that she feels safe and strong enough to return home. Pt also states with all of these viruses going around, I want to just return home. Pt states she also spoke with her granddaughter about returning home as well. Pt states she will have no one available to stay 24/7 but her granddaughter and daughter will be checking in daily with her and assisting with meal prepping when pt returns home. KATHARINA spoke with pt regarding HHC. Pt agreeable to [facility] for therapy. Pt states she will also need a shower chair. KATHARINA updated PRESLEY UMANA. Plan: Pt wishes to discharge home with HHC Graciela JIM, KELLY
[2019-08-19] MEDS: Insulin Lispro 100 UNIT/ML INSULN.PEN SC (11:14)
[2019-08-19 11:41] LABS: Bedside Glucose 248 mg/dL (70-110)
--- NOTE | 2019-08-19 11:50 | PCM.PROGNOTE ---
Patient Problems: Active and Suspected Problems Fracture of femoral neck, right, closed (Acute) - Physical Exam Vitals/I&O's: Vital Signs Temp Pulse Resp BP Pulse Ox 98.1 F 89 16 153/75 H 98 08/19/19 09:25 08/19/19 09:25 08/19/19 09:25 08/19/19 09:25 08/19/19 09:25 Oxygen Flow Rate (L/min) 2 Oxygen Delivery Method Room Air Weight: 161 lb 15.931 oz Body Mass Index (BMI) 26.1 Finger Stick Blood Glucose 153 Intake and Output for Last 24 Hours 08/17/19 08/18/19 08/19/19 23:59 23:59 23:59 Intake Total 3246.50 / 3246.50 390.75 / 390.75 Output Total 700 / 700 1750 / 1750 1000 / 1000 Balance -700 / -700 1496.50 / 1496.50 -609.25 / -609.25 General: Alert, Oriented x3, Cooperative, No apparent distress HEENT: Atraumatic, PERRLA, EOMI, Normocephalic Oral: Moist Mucosa, No Gingival or Mucosal Lesions/ Ulcerations Laboratory Results 08/18/19 11:50: POC Glucose 239 H 08/18/19 16:28: POC Glucose 191 H 08/18/19 20:54: POC Glucose 184 H 08/19/19 06:00: WBC 8.2, RBC 3.73 L, Hgb 10.9 L, Hct 33.6 L, MCV 90.1, MCH 29.2, MCHC 32.4, RDW Std Deviation 49.1 H, RDW Coeff of Alexander 15.0 H, Plt Count 196, MPV 9.3, Immature Gran % (Auto) 0.100, Neut % (Auto) 73.9 H, Lymph % (Auto) 16.7 L, [place] % (Auto) 7.3, Eos % (Auto) 1.6, Baso % (Auto) 0.4, Absolute Neuts (auto) 6.1, Absolute Lymphs (auto) 1.37, Nucleated RBC % 0 08/19/19 06:00: Sodium 142, Potassium 4.1, Chloride 108 H, Carbon Dioxide 28.0, Anion Gap 6, BUN 16, Creatinine 0.92, Estim Creat Clear Calc 44.90, Est GFR (MDRD) Af Amer 75, Est GFR (MDRD) Non-Af 62, BUN/Creatinine Ratio 17.4, Glucose 121 H, Calcium 8.7 08/19/19 06:36: POC Glucose 124 H 08/19/19 11:13: POC Glucose 248 H Current Medications Acetaminophen (Tylenol) 650 mg PO Q6H PRN PRN PRN Reason: Pain Score 1-10/Temp > 100.7 F Last Admin: 08/19/19 11:13 Dose: 650 mg Documented by: Allopurinol (Zyloprim) 100 mg PO DAILY [facility] Last Admin: 08/19/19 09:24 Dose: 100 mg Documented by: Dextrose (D50w Syringe) 0 gm IV X1 PRN; Protocol PRN Reason: Hypoglycemia Famotidine (Pepcid) 20 mg PO BID [facility] Last Admin: 08/19/19 09:24 Dose: 20 mg Documented by: Glucagon () 1 mg IM .X1 PRN PRN Reason: Hypoglycemia Heparin Sodium (Porcine) (Heparin Na) 5,000 unit SC Q8 [facility] Last Admin: 08/19/19 05:01 Dose: Not Given Documented by: Hydralazine HCl (Apresoline Iv) 5 mg IV Q4H PRN PRN PRN Reason: for SBP>160 Last Admin: 08/17/19 18:24 Dose: 5 mg Documented by: Sodium Chloride () 250 mls @ 15 mls/hr IV .[id number] PRN PRN Reason: Saline Flush Last Infusion: 08/19/19 05:00 Dose: 0 mls/hr Documented by: Insulin Human Lispro (Humalog Kwikpen (Bkc)) 0 unit SC A[facility]S [facility]; Protocol Last Admin: 08/19/19 11:14 Dose: 3 u Documented by: Morphine Sulfate () 1 mg IV Q3H PRN PRN PRN Reason: Pain Score 6-10/10 Ondansetron HCl (Zofran) 4 mg IV Q8H PRN PRN PRN Reason: NAUSEA/VOMITING Oxycodone HCl (Oxyir) 5 mg PO Q4H PRN PRN PRN Reason: Pain Score 4-5/10 Senna/Docusate Sodium (Senokot-S, Monse-Colace) 2 tablet PO BID PRN PRN PRN Reason: Constipation Sodium Chloride () 10 - 40 ml IV UD PRN PRN Reason: SALINE FLUSH Last Admin: 08/17/19 12:56 Dose: 10 ml Documented by: Zolpidem Tartrate (Ambien (Generic)) 5 mg PO QHS PRN PRN PRN Reason: INSOMNIA Medical Necessity - Tobacco Use Smoking Status: Never smoker Assessment/Plan All Active Problems Fracture of femoral neck, right, closed (Acute)
--- NOTE | 2019-08-19 11:51 | DCINST_ITS ---
- Discharge Diagnoses Current Active Problems: Current Active and Chronic Problems Gout (Chronic) Hyperlipidemia (Chronic) Hypertension (Chronic) Type 2 diabetes mellitus (Chronic) Fracture of femoral neck, right, closed (Acute) You will use the following diet at home:: Calorie/Carbohydrate Controlled (specify 1200, 1400, etc) - 1800 leticia., Cardiac Your food should be the consistency of: Regular Discharge Activity: Return to Normal Activity Weight Bearing Status: Weight bearing as tolerated Allergies/Adverse Reactions: Allergies celecoxib [From Celebrex] Allergy (Verified 08/17/19 10:17) Rash Penicillins [PCN] Allergy (Verified 08/17/19 09:59) Hives rofecoxib [From Vioxx] Allergy (Verified 08/17/19 10:17) Rash Medications to take at Discharge Allopurinol 100 mg PO DAILY 08/17/19 Famotidine 40 mg PO DAILY 08/17/19 Furosemide [Lasix] 20 mg PO DAILY 08/17/19 Glimepiride 2 mg PO DAILY 08/17/19 Magnesium Oxide 400 mg PO DAILY 08/17/19 Potassium Chloride 10 meq PO DAILY 08/17/19 Acetaminophen [Tylenol Tablet] 650 mg PO Q6H PRN PRN #1 tablet 08/19/19 Enoxaparin Sodium [Lovenox] 40 mg SQ DAILY #14 syringe 08/19/19 Oxycodone [Oxyir] 5 mg PO Q8H PRN PRN 3 Days #10 tab 08/19/19 Senna/Docusate Sodium [Senokot-S] 2 tablet PO BID PRN PRN #1 tablet 08/19/19 The following prescriptions were given: Enoxaparin Sodium [Lovenox] 40 mg SQ DAILY #14 syringe Prescription Printed Oxycodone [Oxyir] 5 mg PO Q8H PRN PRN 3 Days #10 tab PRN Reason: Pain Score 6-10/10 Prescription Printed Senna/Docusate Sodium [Senokot-S] 2 tablet PO BID PRN PRN #1 tablet PRN Reason: Constipation Acetaminophen [Tylenol Tablet] 650 mg PO Q6H PRN PRN #1 tablet PRN Reason: Pain Score 1-10/Temp > 100.7 F Primary Care Physician: Tin Arce Chi, MD [Primary Care Provider] - Please follow up with your Primary Care Physician in: 1 week. Test Results: Test results from this visit will be discussed in further detail at your follow- up appointment, if applicable. Please Follow Up With: Nicholas Marin MD When: 2 weeks.
--- NOTE | 2019-08-19 12:50 | DS.PCM_ITS ---
Discharge Date and Diagnosis - Problem List Patient Problems: Active and Suspected Problems Fracture of femoral neck, right, closed (Acute) Date of Admission: 08/17/19 Date of Discharge: 08/19/19 - Primary Discharge Diagnosis Active and Suspected Problems Acute traumatic right hip valgus impacted femoral neck fracture, status post reduction and percutaneous pinning of the right hip. - Secondary Discharge Diagnosis Chronic Problems Gout (Chronic) Hyperlipidemia (Chronic) Hypertension (Chronic) Type 2 diabetes mellitus (Chronic) Hospital Course and Treatment Imaging Results: Clinical Impression(s) from Imaging Studies Chest X-Ray 08/17/19 10:21 IMPRESSION: No acute abnormality is seen. Electronically Signed: Pj Carrillo, at 10:51 EDT , Service support , Hip X-Ray 08/18/19 07:15 IMPRESSION: Intraoperative imaging provided for nailing of the subcapital femoral fracture Electronically Signed: Pj Carrillo, at 10:44 EDT , Service support , Dr. Marin, orthopedic surgery. Operations: - - reduction and percutaneous pinning of the right hip. Procedures: None Summary of Care Provided: Patient seen and examined on the day of discharge and appeared to be stable to be discharged to inpatient rehabilitation unit. Right hip pain is manageable, requiring only Tylenol and sometimes OxyIR. Her vital signs are stable. She ambulates to physical therapy and she did well. She lives alone at home. The patient is a 79 year old F was referred to the emergency department by her PCP office for right hip valgus impacted femoral neck fracture that was seen on an x-ray of the pelvis and right hip which was done for right hip pain that has been going on for 3 weeks. X-ray of the pelvis and right hip done on August 16, 2019 and revealed high suspicion of subcapital right femoral neck fracture. Patient was admitted and she underwent surgical repair. She underwent reduction and percutaneous pinning of the right hip on August 18, 2019. Her postoperative course went smoothly without significant complications. Her preoperative and postoperative routine blood work was unremarkable. Postoperatively, patient ambulated on her feet with minimal pain to the right hip. She was seen by PT OT and we recommended that patient should go to inpatient rehabilitation unit for further physical and occupational therapy for quick recovery. Patient discharged to inpatient rehabilitation unit in a stable medical condition, discharged on Lovenox 40 mg subcu daily for DVT prophylaxis for 2 weeks, discharged on Tylenol PRN for pain, OxyIR pain for pain, plan to follow-up with orthopedic surgery in 2 weeks and recommended follow-up with PCP in 1 week. Patient Problems: Active and Suspected Problems Fracture of femoral neck, right, closed (Acute) - Physical Exam Vitals/I&O's: Vital Signs Temp Pulse Resp BP Pulse Ox 98.1 F 89 16 153/75 H 98 08/19/19 09:25 08/19/19 09:25 08/19/19 09:25 08/19/19 09:25 08/19/19 09:25 Oxygen Flow Rate (L/min) 2 Oxygen Delivery Method Room Air Weight: 161 lb 15.931 oz Body Mass Index (BMI) 26.1 Finger Stick Blood Glucose 153 Intake and Output for Last 24 Hours 08/17/19 08/18/19 08/19/19 23:59 23:59 23:59 Intake Total 3246.50 / 3246.50 390.75 / 390.75 Output Total 700 / 700 1750 / 1750 1000 / 1000 Balance -700 / -700 1496.50 / 1496.50 -609.25 / -609.25 General: Alert, Oriented x3, Cooperative, No apparent distress HEENT: Atraumatic, PERRLA, EOMI, Normocephalic Oral: Moist Mucosa, No Gingival or Mucosal Lesions/ Ulcerations Neck: Supple, No JVD, Negative Carotid Bruits, Trachea Midline, Thyroid Normal Size and Texture Lungs: Clear to auscultation, Normal air movement, No rhonchi, No wheeze, No rales Cardiovascular: Regular rate, Regular Rhythm, Normal S1, Normal S2, PMI Normal Abdomen: Bowel Sounds Present, Soft, Non Tender, Non-Distended, No Hepato- splenomegaly Extremities: No clubbing, No cyanosis, No edema Skin: No rashes, No breakdown Lymphatic: No Cervical, Supraclavicular, or Inguinal Adenopathy Neurological: Cranial nerves II-XII grossly intact, Neuro grossly intact Psych/Mental Status: Normal Affect, Appropriate Laboratory Results 08/18/19 16:28: POC Glucose 191 H 08/18/19 20:54: POC Glucose 184 H 08/19/19 06:00: WBC 8.2, RBC 3.73 L, Hgb 10.9 L, Hct 33.6 L, MCV 90.1, MCH 29.2, MCHC 32.4, RDW Std Deviation 49.1 H, RDW Coeff of Alexander 15.0 H, Plt Count 196, MPV 9.3, Immature Gran % (Auto) 0.100, Neut % (Auto) 73.9 H, Lymph % (Auto) 16.7 L, [place] % (Auto) 7.3, Eos % (Auto) 1.6, Baso % (Auto) 0.4, Absolute Neuts (auto) 6.1, Absolute Lymphs (auto) 1.37, Nucleated RBC % 0 08/19/19 06:00: Sodium 142, Potassium 4.1, Chloride 108 H, Carbon Dioxide 28.0, Anion Gap 6, BUN 16, Creatinine 0.92, Estim Creat Clear Calc 44.90, Est GFR (MDRD) Af Amer 75, Est GFR (MDRD) Non-Af 62, BUN/Creatinine Ratio 17.4, Glucose 121 H, Calcium 8.7 08/19/19 06:36: POC Glucose 124 H 08/19/19 11:13: POC Glucose 248 H Current Medications Acetaminophen (Tylenol) 650 mg PO Q6H PRN PRN PRN Reason: Pain Score 1-10/Temp > 100.7 F Last Admin: 08/19/19 11:13 Dose: 650 mg Documented by: Allopurinol (Zyloprim) 100 mg PO DAILY [facility] Last Admin: 08/19/19 09:24 Dose: 100 mg Documented by: Dextrose (D50w Syringe) 0 gm IV X1 PRN; Protocol PRN Reason: Hypoglycemia Famotidine (Pepcid) 20 mg PO BID [facility] Last Admin: 08/19/19 09:24 Dose: 20 mg Documented by: Glucagon () 1 mg IM .X1 PRN PRN Reason: Hypoglycemia Heparin Sodium (Porcine) (Heparin Na) 5,000 unit SC Q8 [facility] Last Admin: 08/19/19 05:01 Dose: Not Given Documented by: Hydralazine HCl (Apresoline Iv) 5 mg IV Q4H PRN PRN PRN Reason: for SBP>160 Last Admin: 08/17/19 18:24 Dose: 5 mg Documented by: Sodium Chloride () 250 mls @ 15 mls/hr IV .[id number] PRN PRN Reason: Saline Flush Last Infusion: 08/19/19 05:00 Dose: 0 mls/hr Documented by: Insulin Human Lispro (Humalog Kwikpen (Bkc)) 0 unit SC [facility]; Protocol Last Admin: 08/19/19 11:14 Dose: 3 u Documented by: Morphine Sulfate () 1 mg IV Q3H PRN PRN PRN Reason: Pain Score 6-10/10 Ondansetron HCl (Zofran) 4 mg IV Q8H PRN PRN PRN Reason: NAUSEA/VOMITING Oxycodone HCl (Oxyir) 5 mg PO Q4H PRN PRN PRN Reason: Pain Score 4-5/10 Senna/Docusate Sodium (Senokot-S, Monse-Colace) 2 tablet PO BID PRN PRN PRN Reason: Constipation Sodium Chloride () 10 - 40 ml IV UD PRN PRN Reason: SALINE FLUSH Last Admin: 08/17/19 12:56 Dose: 10 ml Documented by: Zolpidem Tartrate (Ambien (Generic)) 5 mg PO QHS PRN PRN PRN Reason: INSOMNIA Discharge Activity: Return to Normal Activity Weight Bearing Status: Weight bearing as tolerated Home Medications: Medications to take at Discharge Allopurinol 100 mg PO DAILY 08/17/19 Famotidine 40 mg PO DAILY 08/17/19 Furosemide [Lasix] 20 mg PO DAILY 08/17/19 Glimepiride 2 mg PO DAILY 08/17/19 Magnesium Oxide 400 mg PO DAILY 08/17/19 Potassium Chloride 10 meq PO DAILY 08/17/19 Acetaminophen [Tylenol Tablet] 650 mg PO Q6H PRN PRN #1 tab 08/19/19 Enoxaparin Sodium [Lovenox] 40 mg SQ DAILY #14 syringe 08/19/19 Oxycodone [Oxyir] 5 mg PO Q8H PRN PRN 3 Days #10 tab 08/19/19 Senna/Docusate Sodium [Senokot-S] 2 tab PO BID PRN PRN #1 tab 08/19/19 Following Prescrptions Were Given to Patient: Enoxaparin Sodium [Lovenox] 40 mg SQ DAILY #14 syringe Prescription Printed Oxycodone [Oxyir] 5 mg PO Q8H PRN PRN 3 Days #10 tab PRN Reason: Pain Score 6-10/10 Prescription Printed Senna/Docusate Sodium [Senokot-S] 2 tab PO BID PRN PRN #1 tab PRN Reason: Constipation Acetaminophen [Tylenol Tablet] 650 mg PO Q6H PRN PRN #1 tab PRN Reason: Pain Score 1-10/Temp > 100.7 F Primary Care Physician: Tin Arce Chi, MD [Primary Care Provider] - Please follow up with your Primary Care Physician in: 1 week. Please Follow Up With: Nicholas Marin MD When: 2 weeks. Disposition: Inpt Rehab Unit/Facility Minutes spent on discharge:: 28 Patient Condition:: Stable Medical Necessity - Tobacco Use Smoking Status: Never smoker Meaningful Use Info Meaningful Use Diagnoses (Choose all that apply): None applicable Inpatient E&M: 68108 Disch Hosp
[2019-08-19 12:55] VITALS: BP 154/73; PULSE 88; RESP 16; TEMP 36.7; O2SAT 99
--- NOTE | 2019-08-19 13:01 | NURSING ---
report called to PRESLEY Escobar on [facility] for discharge.
== END 2019-08-19 14:35 | DRG 482 ==
LOC: ED 10:46 → MS3 11:09
PROVIDERS: Anesthesiology; Specialist; Admitting Provider Hospitalist; Emergency Provider Emergency Medicine; PCP Family Medicine Geriatric Medicine; Visit Provider Hospitalist
PROC: 0QS634Z Reposition Right Upper Femur with Internal Fixation Device, Percutaneous Approach (ICD-10-PCS; principal; 2019-08-18 06:45)
DX: S72.011A Unspecified intracapsular fracture of right femur, initial encounter for closed fracture (principal); W19.XXXA Unspecified fall, initial encounter; Y92.039 Unspecified place in apartment as the place of occurrence of the external cause; E11.9 Type 2 diabetes mellitus without complications; Z79.84 Long term (current) use of oral hypoglycemic drugs; I10 Essential (primary) hypertension; M10.9 Gout, unspecified; E78.5 Hyperlipidemia, unspecified
CPT/HCPCS: 36415; 71045; 73502; 76000; 80048; 80053; 81001; 82962; 83036; 83735; 85025; 85610; 85730; 86850; 86900; 86901; 93005; 97110; 97162; 97166; 97530; 99251; 99284; C1713; J7030; J7050; A4216; G0463; J2405; J7799

== ENCOUNTER 2019-08-19 14:47 | Inpatient (IN) | payer MEDICARE, SELFPAY ==
[2019-08-17 12:00] VITALS: BMI 26.1
[2019-08-19 15:04] VITALS: BMI 26.1
[2019-08-19 15:11] VITALS: BMI 26.1
[2019-08-19 15:44] VITALS: BP 165/94; PULSE 84; RESP 18; TEMP 36.8; O2SAT 98
[2019-08-19 17:01] LABS: Bedside Glucose 118 mg/dL (70-110)
[2019-08-19] MEDS: Acetaminophen 325 MG Tablet 650 MG PO (19:01)
[2019-08-19 21:40] LABS: Bedside Glucose 190 mg/dL (70-110)
[2019-08-19] MEDS: Insulin Lispro 100 UNIT/ML INSULN.PEN SC (21:49)
[2019-08-19] MEDS: Senna/Docusate Sodium 1 Tablet 2 TABLET PO (21:49)
[2019-08-19 22:00] VITALS: BP 165/93; PULSE 84; RESP 18; TEMP 37.2; O2SAT 100
[2019-08-20 06:00] VITALS: RESP 16; O2SAT 93
[2019-08-20] MEDS: Enoxaparin 40 MG/0.4 ML Syringe SC (06:34)
[2019-08-20 06:46] LABS: Bedside Glucose 148 mg/dL (70-110)
[2019-08-20 07:58] VITALS: BP 163/86; PULSE 91; RESP 18; TEMP 36.8; O2SAT 94
[2019-08-20] MEDS: Glimepiride 2 MG Tablet PO (07:59)
[2019-08-20] MEDS: Famotidine 20 MG Tablet PO (08:00)
[2019-08-20] MEDS: Magnesium Oxide 400 MG Tablet PO (08:00)
[2019-08-20] MEDS: Senna/Docusate Sodium 1 Tablet 2 TABLET PO ×2 (08:00→20:51)
[2019-08-20] MEDS: Furosemide 20 MG Tablet PO (08:00)
[2019-08-20] MEDS: Allopurinol 100 MG Tablet PO (08:00)
[2019-08-20] MEDS: Acetaminophen 325 MG Tablet 650 MG PO (08:03)
--- NOTE | 2019-08-20 10:53 | CASEMGMT ---
Social Work Reviewed and agreed with social work music internship documentation on this date. Jacque Pro, [employer]
[2019-08-20 11:31] LABS: Bedside Glucose 182 mg/dL (70-110)
[2019-08-20] MEDS: Insulin Lispro 100 UNIT/ML INSULN.PEN SC ×2 (11:44→20:51)
--- NOTE | 2019-08-20 12:18 | PCM.HP.STD ---
Problem List (1) S/P ORIF (open reduction internal fixation) fracture Status: Acute (2) Vitamin D deficiency Status: Acute (3) History of peptic ulcer disease Status: Acute (4) Acute blood loss as cause of postoperative anemia Status: Acute Comment: mild anemia post ORIF of the right hip (5) Fracture of femoral neck, right, closed Status: Acute Qualifiers: Encounter type: subsequent encounter (6) Gout Status: Chronic (7) Hyperlipidemia Status: Chronic (8) Hypertension Status: Chronic (9) Type 2 diabetes mellitus Status: Chronic (10) Chronic deep vein thrombosis (DVT) Status: Chronic Qualifiers: DVT location: lower extremity Laterality: bilateral Comment: CFV, FV, POP V and T/P trunk on the left and FV, POP V and the T/P trunk on the R History of Present Illness Date of Admission: 08/19/19 Chief Complaint: debility due to fracture of the R hip and subsequent ORIF The patient is a 79 year old F with a past medical history of hypertension, hyperlipidemia, diabetes mellitus type 2, gout, remote history of peptic ulcer disease due to aspirin, vitamin D deficiency and a recent fracture of the R hip (due to a fall on 07/23/19) with subsequent ORIF on 08/18/[address] Marin. She is admitted to the inpatient rehab unit at [facility] on 08/19/2019 for greater than 3 hours of therapy daily to restore her at or near her prior level of independence. The patient ambulated without a cane, performed her ADLs and was driving prior to the fracture. She lives by herself. Prior to coming to the hospital she ambulated with a walker at home because she thought she had just pulled a muscle when she fell. She saw her PCP on 08/16 and had an XRAY that showed a subcapital closed fracture of the R hip. She had an abnormal venous ultrasound of the lower extremities on 06/17/2019 and this was prior to the fall/fracture. There was evidence of chronic deep vein thrombosis in the femoral vein, popliteal vein and tibial peroneal trunk bilaterally. Mobility was limited by the untreated fracture and both ankles are currently swollen, right greater than left. Her only complaint is constipation. Pain is not really pain ...it is uncomfortable. Sleeping well. No N/V/Abd pain. NO CP and no SOB. Past Medical History Past Medical History (Chronic Problems): Chronic Problems Chronic deep vein thrombosis (DVT) (Chronic) CFV, FV, POP V and T/P trunk on the left and FV, POP V and the T/P trunk on the R Gout (Chronic) Hyperlipidemia (Chronic) Hypertension (Chronic) Type 2 diabetes mellitus (Chronic) Allergies celecoxib [From Celebrex] Allergy (Verified 08/17/19 10:17) Rash Penicillins [PCN] Allergy (Verified 08/17/19 09:59) Hives rofecoxib [From Vioxx] Allergy (Verified 08/17/19 10:17) Rash Home Medications: Ambulatory Orders Medication Instructions Recorded Allopurinol 100 mg PO DAILY 08/17/19 Famotidine 40 mg PO DAILY 08/17/19 Furosemide [Lasix] 20 mg PO DAILY 08/17/19 Glimepiride 2 mg PO DAILY 08/17/19 Magnesium Oxide 400 mg PO DAILY 08/17/19 Potassium Chloride 10 meq PO DAILY 08/17/19 Acetaminophen [Tylenol Tablet] 650 mg PO Q6H PRN PRN #1 tab 08/19/19 Enoxaparin Sodium [Lovenox] 40 mg SQ DAILY 08/19/19 Oxycodone [Oxyir] 5 mg PO Q8H PRN PRN 3 Days #10 tab 08/19/19 Senna/Docusate Sodium [Senokot-S] 2 tab PO BID 08/19/19 Surgical History: no surgical history, - - ORIF of the right hip by Dr. 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 Denies: Chest Pain, Light Headedness, Palpitations Respiratory: Denies: Cough, Pleuritic Pain, Shortness of Breath, Shortness of breath at rest, Shortness of breath upon exertion, Sputum production Gastrointestinal: Reports: Constipation. Denies: Abdominal Pain, Diarrhea, Dyspepsia, Nausea, Vomiting Genitourinary: Denies: Dysuria, Frequency, Hesitancy Gynecological: Denies: Vaginal discharge Musculoskeletal: Reports: Joint Pain - R hip due to fracture and then ORIF on 08/18/19. Denies: Joint Tenderness Skin: Denies: Jaundice, Rash, Wounds Neurological: Denies: Blurred vision, Slurred speech, Confusion, Difficulty swallowing, Focal weakness, Numbness, Tingling, Tremor, Seizures Psychiatric: Denies: Anxiety, Depression, Homicidal Ideations, Suicidal Ideations Endocrine: Denies: Change in Body Habitus Hematologic/ Lymphatic: Denies: Easy Bruising, Easy Bleeding, Hx of blood clot VTE Information - Inpt Only VTE Present on Admission: Yes - chronic DVT's of both Legs VTE Mechan Device Prophylaxis: Knee High VANDA Hose VTE Pharm Prophylaxis ordered?: Yes VTE Suspected: Suspected DVT - abnormal venous US of the LE's about a month prior to the fracture with chronic DVT in the FV, POP V and the tibial peroneal trunk BL Patient Problems: Active and Suspected Problems S/P ORIF (open reduction internal fixation) fracture (Acute) Vitamin D deficiency (Acute) History of peptic ulcer disease (Acute) Acute blood loss as cause of postoperative anemia (Acute) mild anemia post ORIF of the right hip - Physical Exam Vitals/I&O's: Vital Signs Temp Pulse Resp BP Pulse Ox 98.3 F 91 18 163/86 H 94 08/20/19 07:58 08/20/19 07:58 08/20/19 07:58 08/20/19 07:58 08/20/19 07:58 Oxygen Delivery Method Room Air Weight: 162 lb 4 oz Body Mass Index (BMI) 26.1 Finger Stick Blood Glucose 153 Intake and Output for Last 24 Hours 08/18/19 08/19/19 08/20/19 23:59 23:59 23:59 Intake Total 120 / 120 Balance 120 / 120 General: Alert, Oriented x3, Cooperative, No apparent distress, Well developed, Well nourished, - - Sitting in the recliner at the bedside eating her lunch. HEENT: Atraumatic, PERRLA, EOMI, Normocephalic Oral: No Gingival or Mucosal Lesions/ Ulcerations, Dry Mucosa Neck: Supple, No JVD, Negative Carotid Bruits, No Nodes, Trachea Midline Lungs: Clear to auscultation, Normal air movement, No rhonchi, No wheeze, No rales Cardiovascular: Regular rate, Regular Rhythm, Normal S1, Normal S2, No murmurs, No Ectopic Activity, No rub noted, No Gallop Abdomen: Bowel Sounds Present, Soft, Non Tender, Non-Distended, - - No guarding with palpation Extremities: No clubbing, No cyanosis, Capillary Refill Less than 3 Seconds, Diminished Peripheral Pulses - may be due to the edema, Tenderness - in the calves Skin: No rashes, No breakdown, - - she has an incision R hip which is intact and without periwound erythema or DC Musculoskeletal: No Tenderness to Palpation of Joints or Extremities, No Muscle Wasting, Arthritic Changes Neurological: Cranial nerves II-XII grossly intact, Neuro grossly intact Psych/Mental Status: Normal Affect, Appropriate Laboratory Results 08/19/19 16:53: POC Glucose 118 H 08/19/19 21:34: POC Glucose 190 H 08/20/19 06:30: POC Glucose 148 H 08/20/19 11:18: POC Glucose 182 H Current Medications Acetaminophen (Tylenol) 650 mg PO Q6H PRN PRN PRN Reason: Pain Score 1-10/Temp > 100.7 F Last Admin: 08/20/19 08:03 Dose: 650 mg Documented by: Allopurinol (Zyloprim) 100 mg PO DAILY [facility] Last Admin: 08/20/19 08:00 Dose: 100 mg Documented by: Bisacodyl (Dulcolax) 10 mg RECTAL .PRN X 1 PRN PRN Reason: Constipation Enoxaparin Sodium (Lovenox) 40 mg SC DAILY@0600 [facility] Last Admin: 08/20/19 06:34 Dose: 40 mg Documented by: Famotidine (Pepcid) 20 mg PO DAILY [facility] Last Admin: 08/20/19 08:00 Dose: 20 mg Documented by: Furosemide (Lasix) 20 mg PO DAILY [facility] Last Admin: 08/20/19 08:00 Dose: 20 mg Documented by: [facility] Admin: 08/20/19 07:59 Dose: 2 mg Documented by: Insulin Human Lispro (Humalog Kwikpen (Bkc)) 0 unit SC ACHS [facility]; Protocol Last Admin: 08/20/19 11:44 Dose: 1 u Documented by: Magnesium Hydroxide (Milk Of Magnesia) 30 ml PO .PRN X 1 PRN PRN Reason: Constipation Magnesium Oxide (Mag-Ox 400) 400 mg PO DAILY [facility] Last Admin: 08/20/19 08:00 Dose: 400 mg Documented by: Oxycodone HCl (Oxyir) 5 mg PO Q8H PRN PRN PRN Reason: Pain Score 6-10/10 Potassium Chloride (K-Dur) 10 meq PO DAILY [facility] Last Admin: 08/20/19 08:00 Dose: 10 meq Documented by: Senna/Docusate Sodium (Senokot-S, Monse-Colace) 2 tablet PO BID [facility] Last Admin: 08/20/19 08:00 Dose: 2 tablet Documented by: Assessment/Plan All Active Problems S/P ORIF (open reduction internal fixation) fracture (Acute) Vitamin D deficiency (Acute) History of peptic ulcer disease (Acute) Acute blood loss as cause of postoperative anemia (Acute) Fracture of femoral neck, right, closed (Acute) Impressions 1. Physical debility secondary to recent right subcapital hip fracture due to a fall and subsequent ORIF on 08/18/[address] Nicholas Marin. 2. Subsequent encounter for right subcapital hip fracture with ORIF on 08/18/2019 3. Abnormal bilateral lower extremity venous ultrasound on 06/21/2019 with chronic DVT in the right femoral vein, popliteal vein and T/P trunk and the left common femoral vein, femoral vein, popliteal vein and T/P trunk Why would she have chronic DVT? occult malignancy? this will need to be investigated following DC from rehab. Will discuss with Dr. Arce. Since she had chronic DVT prior to the fracture AND she was immobile due to the fracture for 1 month + prior to ORIF I will order a venous US to look for extension of the clot. May need to fully anticoagulate......will discuss with either Dr. Mg or Dr. Turk. 4. mild acute blood loss anemia secondary to surgery 5. Chronic medical conditions: Hypertension/diabetes mellitus type 2/hyperlipidemia/gout/vitamin D deficiency PLAN PT for gait stability OT for ADL's ST for evaluation Analgesics as needed Bowel protocol Fall precautions Assess for Anxiety/Depression GI prophylaxis Pepcid 20 mg p.o. daily DVT prophylaxis with Lovenox..... May need to convert to full anticoagulation depending on the results of the bilateral venous ultrasounds Follow up with Dr. Arce and Dr. Marin following DC from Rehab Will inquire about her last PAP, MMG, colonoscopy. Her last mammogram recorded at [facility] was in 2014 and it was negative. Check a hemoccult stool. Try and get a better FH - alec for malignancies.
--- NOTE | 2019-08-20 12:34 | VDLE_ITS ---
Reason For Study: Swelling RIGHT LEFT GSV is normal. GSV is normal. CFV is compressible, spontaneous, phasic, CFV is compressible, spontaneous, phasic, competent and demonstrates normal competent, and demonstrates normal augmentation. augmentation. Prox FV is compressible, spontaneous, phasic, MID/Distal FV & POP V are partially competent and demonstrates normal compressible with intraluminal echoes noted augmentation. in vessels, C/W chronic DVT. MID, Distal FV is non compressible, appears PTV is compressible. chronic with minimal flow noted. LT PerV is compressible. POP V is dilated and non compressible C/W acute DVT. PTV is dilated and non compressible C/W acute DVT. PERV is compressible. Procedure Exam performed portable in patient room. The study was technically difficult. A preliminary report was called and/or faxed to Dr. Turk @ 2:30pm. Interpretation Summary Acute deep vein thrombosis is noted in the right popliteal vein. Acute deep vein thrombosis is noted in the right posterior tibial vein. Chronic venous changes are noted in the right mid- and distal femoral vein. The remainder of the right lower extremity deep venous system is patent and compressible. The right common femoral vein and proximal femoral vein are competent. Chronic venous changes are noted in the left mid- and distal femoral vein and popliteal vein, which are partially compressible and demonstrate bright intraluminal echogenicity. The remainder of the left lower extremity deep venous system is patent and compressible. The left common femoral vein is competent. The great saphenous veins appear bilaterally patent and compressible segmentally. Ordering Physician: Jessy Mcnulty Referring Physician: Yadira Arce Performed By: Genevieve Richard, RDCS, RVT
--- NOTE | 2019-08-20 13:26 | REHABEVAL_ITS ---
Admission Information Primary Diagnosis:: LAD secondary to right hip fracture with subsequent ORIF on 08/18/2019 Actual Problem List:: DVT, Falls, Bowel, Constipation, Mobility Impaired, Diabetes, Hyperglycemia, BP, Hypertension, Alteration-Leisure Activ. Potential Problem List:: DVT, Bleeding, Infection, UTI, Aspiration, Falls, Skin Integrity, Depression Risk of Complications DVT: LMWH, VANDA Hose Bleeding: Monitor Lab Values, Nursing to Teach Precautions for anti-coagulation therapy., Wound, if applicable, to be assessed every shift., Stroke patients assessed for lethargy or change in status. Infection: Clinical Staff to Monitor for S/S of infection:, S/S of infection include fever, redness, warmth, etc. Urinary Tract Infection: Monitor for frequency, burning, discomfort, or incontinence., Nursing will obtain urine sample for urinalysis and C&S when ordered. Aspiration: Clinical staff will monitor for coughing, drooling, congestion., Speech will evaluate swallowing and dsyphasia., Nursing will monitor patient swallowing during meals. Falls: Patient will be evaluated for Fall Precautions, Patient will be placed on Fall Precautions as indicated per protocol. Skin Breakdown: Nursing will assess skin daily using assessment tool., Nursing will place on Skin Breakdown Precautions as indicated. Pain: Clinical staff will assess patient's pain level per protocol., Medications will be given, if needed, and the pain level reassessed., Other methods: Massage, distraction, decrease stimulus, etc. used PRN. Plan of Care Patient requires physician specializing in physical medicine and rehab oversight to provide close medical supervision of rehab issues including: Pain Management, Sleep Problems, Bowel and Bladder, Medical and co-morbidity Management, DVT prophylaxis, Rehabilitation Leadership, Coordination of treatment team Patient needs Physical Therapy: For a minimum of 1 hour, At least 5 out of 7 days Patient needs Physical Therapy to improve:: Mobility, Mobility, Mobility, Strengthening, Transfers, Stretching, ROM, Endurance, Stairs, Gait, Balance Patient needs Occupational Therapy: For a minimum of 1 hour, At least 5 out of 7 days Patient needs Occupational Therapy to improve ADL's incl.: Eating, Grooming, Bathing, Dressing, Toileting, Toilet transfers, Community Reintegration, Higher functioning activities, Household tasks, Adaptive Equipment, Splinting, Other activities as determined Patient requires 24/ Rehabilitation Nursing for: Pain Issues, Identifying and preventing risk factors, Monitoring and reporting current medical conditions, Assisting with ambulation, transfer, and all ADL's, Teaching patients about disease process and medications, Family teaching, Providing safe environment, Bowel and Bladder Issues, Skin integrity, Medication Management Patient needs Walking Dragline Operator/ Case Management for: Discharge Planning, Arranging Home Equipment or Services, Family Interventions Patient needs Dietary and Nutrition Services for: Adequate Nutrition, Nutritional Supplements, Nutritional Education Goals Patient will remain: free from falls, or injury at time of discharge. Patient will perform bed mobility at: MOD I level of assist. Patient will complete transfers from bed to chair at: MOD I level of assist. Patient will ambulate: 100 feet, with MOD I assist, with LRD Patient will complete upper body dressing at: MOD I level of assist. Patient will complete lower body dressing at: MOD I level of assist. Patient will complete toileting at: MOD I level of assist. Patient will perform bathing at: MOD I level of assist. Patient will complete grooming at: MOD I level of assist. Patient will complete home management skills at: MOD I level of assist. Patient will achieve: 12 stairs, at MOD I assist Patient will have pain level of: of 3 or less Patient's skin will: remain intact, free from infection. Patient will receive: adequate nutrition. Discharge Planning Pt Prognosis for Sig. Practical Improv. w/in Reasonable Time: Good Estimated Length of stay (days): 7 Anticipated D/C Destination: Home Was Preadmission Assessment Accurate?: Yes
[2019-08-20 17:36] LABS: Bedside Glucose 90 mg/dL (70-110)
[2019-08-20 19:40] VITALS: BP 178/98; PULSE 88; RESP 18; TEMP 36.6; O2SAT 95
[2019-08-20] MEDS: APIXABAN 5 MG TABLET PO (20:51)
[2019-08-20 21:16] LABS: Bedside Glucose 201 mg/dL (70-110)
[2019-08-20] MEDS: Lisinopril 5 MG Tablet PO (22:19)
[2019-08-20 23:09] VITALS: BP 156/78
[2019-08-21 06:56] LABS: Bedside Glucose 126 mg/dL (70-110)
[2019-08-21] MEDS: Acetaminophen 325 MG Tablet 650 MG PO (07:50)
[2019-08-21 07:51] LABS: Absolute Lymphocyte Count 1.73 X10^3/uL (0.83-4.51); Absolute Neutrophil Count 5.3 X10^3/uL (2.0-7.7); Basophil# 0.03 X10^3/uL; Basophil% 0.4 % (0-1); Eosinophil# 0.27 X10^3/uL; Eosinophils% 3.5 % (0-5); Hematocrit 35.8 % (37-47); Hemoglobin 11.8 g/dL (12.0-15.0); Lymphocyte # 1.73 X10^3/ul (4.0); Lymphocyte % 22.4 % (19-41); Mean Corpuscular Hgb 29.7 pg (27.0-32.0); Mean Corpuscular Volume 90.2 fL (81-99); Mean Platelet Vol. 9.9 fl (6.2-12.0); Monocyte# 0.43 X10^3/uL; Monocyte% 5.6 % (0-10); NRBC Flagged by Analyzer 0 % (0-5); Neutrophil # 5.25 X10^3/uL (2.7-7.7); Neutrophil % 67.7 % (47-70); Platelet Count 219 K/mm3 (150-450); RBC Distribution Width CV 14.4 % (11.6-14.6); RBC Distribution Width SD 47.1 fl (35.1-43.9); Red Blood Count 3.97 M/mm3 (4.2-5.4); White Blood Count 7.7 K/mm3 (4.4-11.0)
[2019-08-21] MEDS: Glimepiride 2 MG Tablet PO (07:51)
[2019-08-21] MEDS: APIXABAN 5 MG TABLET PO ×2 (07:51→21:59)
[2019-08-21] MEDS: Famotidine 20 MG Tablet PO (07:52)
[2019-08-21] MEDS: Allopurinol 100 MG Tablet PO (07:52)
[2019-08-21] MEDS: Polyethylene Glycol 3350 17 GM PACKET PO (07:52)
[2019-08-21] MEDS: Furosemide 20 MG Tablet PO (07:53)
[2019-08-21] MEDS: Magnesium Oxide 400 MG Tablet PO (07:53)
[2019-08-21 08:09] LABS: Anion Gap 6 (5-15); BUN 18 mg/dL (7-18); BUN/Creat Ratio 20.8 RATIO (10-20); Calcium,Total 8.8 mg/dL (8.5-10.1); Chloride 106 mmol/L (98-107); Creatinine, Serum 0.87 mg/dL (0.55-1.02); EST Glomerular Filtration Rate 67 mL/min (>60); Est Glom Filt Rate - Afr Amer 81 mL/min (>60); Estimated Creatinine Clearance 47.48 ml/min; Glucose 151 mg/dL (74-106); Magnesium 2.1 mg/dL (1.6-2.6); Potassium 3.9 mmol/L (3.5-5.1); Sodium Level 140 mmol/L (136-145)
[2019-08-21 08:35] VITALS: BP 137/88; PULSE 81; RESP 16; TEMP 36.8; O2SAT 95
[2019-08-21] MEDS: Insulin Lispro 100 UNIT/ML INSULN.PEN SC ×2 (12:05→22:00)
[2019-08-21 12:11] LABS: Bedside Glucose 190 mg/dL (70-110)
[2019-08-21 17:15] LABS: Bedside Glucose 126 mg/dL (70-110)
[2019-08-21 19:20] VITALS: BP 139/78; PULSE 78; RESP 16; TEMP 36.8; O2SAT 99
[2019-08-21 21:26] LABS: Bedside Glucose 171 mg/dL (70-110)
[2019-08-21 22:00] VITALS: RESP 16
[2019-08-21] MEDS: Lisinopril 5 MG Tablet PO (22:00)
[2019-08-22 07:10] LABS: Bedside Glucose 156 mg/dL (70-110)
[2019-08-22] MEDS: Insulin Lispro 100 UNIT/ML INSULN.PEN SC (07:47)
[2019-08-22] MEDS: APIXABAN 5 MG TABLET PO ×2 (07:48→21:11)
[2019-08-22] MEDS: Glimepiride 2 MG Tablet PO (07:48)
[2019-08-22] MEDS: Magnesium Oxide 400 MG Tablet PO (07:48)
[2019-08-22] MEDS: Furosemide 20 MG Tablet PO (07:48)
[2019-08-22] MEDS: Famotidine 20 MG Tablet PO (07:49)
[2019-08-22] MEDS: Allopurinol 100 MG Tablet PO (07:49)
[2019-08-22] MEDS: Acetaminophen 325 MG Tablet 650 MG PO (07:53)
[2019-08-22 10:00] VITALS: BP 147/62; PULSE 94; RESP 16; TEMP 36.8; O2SAT 100
[2019-08-22 11:36] LABS: Bedside Glucose 136 mg/dL (70-110)
--- NOTE | 2019-08-22 14:05 | PCM.PN.BLA ---
Progress Note Afebile VSS-blood pressure is coming under better control with adjustments in the medications. Lisinopril 5 mg daily was added to her drug regimen. Maintaining appropriate oxygen saturation on RA Oral intake is good Discussed with nursing - no problems that need addressed Reviewed the PT/OT notes Medication list reviewed. Blood sugar record was reviewed and blood sugars are under good control. No hypoglycemia. She is complaining of diarrhea today. She had complained of persistent constipation on senna only and MiraLAX was added to her drug regimen. She has not required oxycodone for pain relief. She has been taking Tylenol 650 mg each a.m. to prophylax for pain caused by physical therapy. Alert, oriented x3, no apparent distress, sitting in the recliner at the bedside. Lungs-clear to auscultation Heart-regular rate and rhythm, no gallop, no rub, no murmur, no ectopy Abdomen-soft, nontender, nondistended, no guarding with palpation, bowel sounds heard No peripheral edema Impressions 1. Debility secondary to recent ORIF of the hip secondary to fracture from a fall 2. constipation 3. Diabetes mellitus type 2-blood sugars are very well controlled. DC the sliding insulin scale Continue lisinopril 5 mg daily for hypertension Continue Eliquis 5 mg twice daily for acute on chronic DVT in the right lower extremity DC senna and continue MiraLAX. Continue Mag-Ox 400 mg daily. MiraLAX and senna were held today. Recheck a BMP and a CBC in a few days since she is on Eliquis and started on lisinopril as well. Inpatient E&M: [id number] Subs Hosp L2
[2019-08-22 17:21] LABS: Bedside Glucose 122 mg/dL (70-110)
[2019-08-22 19:32] VITALS: BP 152/70; PULSE 79; RESP 16; TEMP 37.1; O2SAT 100
[2019-08-22 20:39] VITALS: BP 152/70; PULSE 79; RESP 16; TEMP 37.1; O2SAT 100
[2019-08-22 20:59] VITALS: RESP 17
[2019-08-22] MEDS: Lisinopril 5 MG Tablet PO (21:11)
[2019-08-22 21:36] LABS: Bedside Glucose 176 mg/dL (70-110)
[2019-08-23 07:05] LABS: Bedside Glucose 117 mg/dL (70-110)
[2019-08-23 07:24] VITALS: BP 134/66; PULSE 76; RESP 17; TEMP 36.8; O2SAT 97
[2019-08-23] MEDS: Polyethylene Glycol 3350 17 GM PACKET PO (08:04)
[2019-08-23] MEDS: Glimepiride 2 MG Tablet PO (08:05)
[2019-08-23] MEDS: Allopurinol 100 MG Tablet PO (08:06)
[2019-08-23] MEDS: Furosemide 20 MG Tablet PO (08:06)
[2019-08-23] MEDS: Famotidine 20 MG Tablet PO (08:06)
[2019-08-23] MEDS: APIXABAN 5 MG TABLET PO (08:06)
[2019-08-23] MEDS: Magnesium Oxide 400 MG Tablet PO (08:06)
[2019-08-23] MEDS: Acetaminophen 325 MG Tablet 650 MG PO (08:09)
--- NOTE | 2019-08-23 08:56 | NURSING ---
Dressing to rt hip surgical incision removed, no new drainage, old, dry drainage to dressing, 5 anderson intact, left CONCESSION MANAGER, will continue to monitor.
--- NOTE | 2019-08-23 10:40 | CASEMGMT ---
Social Work IDT met with pt and pt grand dtr via a conference call for Team meeting. Pt is transferring at SBA to CGA and is walking 100 ft with FWW at CGA to A. Pt is able to do 3 steps with 2 HR at CGA. Pt is set up supervised for bathing, dressing and toileting and OT is recommending shower chair. Pt is stating no pain and had her dressing changed on this date. Explained insurance to pt with NRD 08/19. Pt requesting to DC on this date. Pt prefers no HHC or OP therapy, but to do home exercises given by therapy. Pt appreciative of care and staff. Physician recommending Eliquis, Xarelto or Warfarin depending on insurance. Plan: DC 08/22, no DME needs, no therapy needs Clair Gomes, social work international logistics analyst Jacque Pro, PEDODONTIST FIELD CONTACT PERSON
[2019-08-23 12:16] LABS: Bedside Glucose 103 mg/dL (70-110)
--- NOTE | 2019-08-23 12:25 | DCINST_ITS ---
- Discharge Diagnoses Current Active Problems: Current Active and Chronic Problems S/P ORIF (open reduction internal fixation) fracture (Acute) Vitamin D deficiency (chronic) History of peptic ulcer disease (chronic) Acute blood loss as cause of postoperative anemia (Acute) mild anemia post ORIF of the right hip Chronic deep vein thrombosis (DVT) (Chronic) CFV, FV, POP V and T/P trunk on the left and FV, POP V and the T/P trunk on the R Acute DVT of the R popliteal vein and the right posterior tibial vein. You will use the following diet at home:: Calorie/Carbohydrate Controlled (specify 1200, 1400, etc), Cardiac - 1800 calorie diet with low salt and low fats Your food should be the consistency of: Regular Your liquids should be the consistency of: Regular/Thin Discharge Activity: May Not Drive - You are not allowed to drive for 6 weeks after the surgery and that brings us to September 28. You can start driving again on September 28., September Shower, Use Walker Weight Bearing Status: Full weight bearing Keep extremity elevated above heart level: Right Leg Call your doctor if your incision/area has: Continuous Slow Oozing, Sudden Increased Bleeding, Increased Pain/ Swelling, Increased Redness, Foul Smelling Discharge, Swelling at the incision site Call your doctor if you observe: Fever of 101 or Higher, Coldness, Increased Pain, Numbness or Tingling, Inability to have a bowel movement, Shortness of breath, Dizziness, Fainting spells, Swelling in the ankles, Chest pain, - - Call your family doctor if any unusual bleeding such as bleeding from the gums, blood from the anus, blood in the urine, nose bleeds, large bruises or bleeding from the vagina if female. Cleanse incision/area with: Soap & Water Instructions: MyPlate Worksheet: 1,800 Calories Additional Instructions: 1. You have evidence of chronic deep vein clots in both legs. I spke with your granddaughter Muriel and she told me that she has Factor 5 Leiden deficiency and this makes the blood clot more easily than normal. This is often inherited and I suspect you proably have the Factor 5 Leiden deficiency as well and this is what is causinng the blood clots in the deep and superficial veins in your legs. You now have ACUTE blood clots in the deep veins of the R leg and we have started you on Xarelto which you will continue indefinitely. I am recommending that you follow up with a aboriginal education teacher at some [facility] so you can be evaluated for Factor 5 Leiden deficiency. 2. You are deficient in Vitamin D. Vitamin D is necessary to absorb calcium from the gastrointestinal tract. You will need to take 1,000 mg of Vitamin D twice a day....this can be purchased over the counter at the pharmacy OR Dr. Arce can give you a prescription for 3 months to send to the insurance company. 3. When you were admitted to the hospital you did not tell them gui you were on a BP pill. You had not been getting anything for BP when you came to the rehab unit. This is probably why your BP's have been increased. I talked to Dr. Arce's office and they do not have you being on a BP pill on their medication list either. you have been started on a BP pill called Lisinopril and you will take this every night at bedtime. 4. If you have never had a bone density test I recommend you discuss with Dr. Arce obtaining a DEXA to evaluate the bone density.......we can do that test here at the hospital. You may need more than just calcium and Vitamin D if you have osteoporosis. 5. It was a pleasure meeting you Esta. You are quite a strong woman. If you have any questions after DC please do not hesitate to call the rehab unit at [phone] and we will do our best to help you. You should follow up with Dr. Arce in the next 1- 2 weeks to have the BP rechecked to make sure that it is adequately controlled. You will also need to follow up at Dr. Marin's office on 09/01/19 to have the anderson removed and get an XRAY of the R hip to make sure that everything is in alignment and that the bone is starting to heal. 6. You can not babysit for at least 6-8 weeks until the bone is completely healed because it will be too much strain on you......she can visit with her mom but, you can not babysit. Allergies/Adverse Reactions: Allergies celecoxib [From Celebrex] Allergy (Verified 08/17/19 10:17) Rash Penicillins [PCN] Allergy (Verified 08/17/19 09:59) Hives rofecoxib [From Vioxx] Allergy (Verified 08/17/19 10:17) Rash Medications to take at Discharge Allopurinol 100 mg PO DAILY 08/17/19 Famotidine 40 mg PO DAILY 08/17/19 Furosemide [Lasix] 20 mg PO DAILY 08/17/19 Glimepiride 2 mg PO DAILY 08/17/19 Magnesium Oxide 400 mg PO DAILY 08/17/19 Potassium Chloride 10 meq PO DAILY 08/17/19 Acetaminophen [Tylenol Tablet] 650 mg PO Q6H PRN PRN #1 tab 08/19/19 Senna/Docusate Sodium [Senokot-S] 2 tab PO BID 08/19/19 Lisinopril [Zestril] 5 mg PO QHS #30 tab 08/23/19 Magnesium Hydroxide [Milk Of Magnesia] 30 ml PO .PRN X 1 PRN udc 08/23/19 Rivaroxaban [Xarelto] 1 tab PO UD #51 tab 08/23/19 The following prescriptions were given: Rivaroxaban [Xarelto] 1 tab PO UD #51 tab Prescription Printed Lisinopril [Zestril] 5 mg PO QHS #30 tab Transmission Status: Received by [employer] #[id number] Primary Care Physician: Tin Arce Chi, MD [Primary Care Provider] - Please follow up with your Primary Care Physician in: 1-2 weeks Test Results: Test results from this visit will be discussed in further detail at your follow- up appointment, if applicable. Please Follow Up With: Perez Andres When: Friday Proposed Discharge Date: 08/23/19
--- NOTE | 2019-08-23 14:52 | PCM.DC.SUM ---
Discharge Date and Diagnosis - Problem List Patient Problems: Active and Suspected Problems Factor 5 Leiden mutation, heterozygous (Suspected) Acute deep vein thrombosis (DVT) (Acute) S/P ORIF (open reduction internal fixation) fracture (Acute) Vitamin D deficiency (Acute) Acute blood loss as cause of postoperative anemia (Acute) mild anemia post ORIF of the right hip Date of Admission: 08/19/19 Date of Discharge: 08/23/19 - Primary Discharge Diagnosis Active and Suspected Problems Factor 5 Leiden mutation, heterozygous (Suspected) Her dtr and GD have this Acute deep vein thrombosis R leg (DVT) (Acute) S/P ORIF (open reduction internal fixation) R hip fracture on 08/18/[address] Marin (Acute) Acute blood loss as cause of postoperative anemia (Acute) mild anemia post ORIF of the right hip Hypomagnesemia - Secondary Discharge Diagnosis Chronic Problems History of peptic ulcer disease (Chronic) - remote due to ASA Chronic deep vein thrombosis (DVT) (Chronic) - more likely than not due to Factor 5 Leidin deficiency CFV, FV, POP V and T/P trunk on the left and FV, POP V and the T/P trunk on the R Gout (Chronic) Hyperlipidemia (Chronic) Hypertension (Chronic) Type 2 diabetes mellitus (Chronic) Vitamin D deficiency (Acute) Hospital Course and Treatment Imaging Results: BL venous US Interpretation Summary Acute deep vein thrombosis is noted in the right popliteal vein. Acute deep vein thrombosis is noted in the right posterior tibial vein. Chronic venous changes are noted in the right mid- and distal femoral vein. The remainder of the right lower extremity deep venous system is patent and compressible. The right common femoral vein and proximal femoral vein are competent. Chronic venous changes are noted in the left mid- and distal femoral vein and popliteal vein, which are partially compressible and demonstrate bright intraluminal echogenicity. The remainder of the left lower extremity deep venous system is patent and compressible. The left common femoral vein is competent. The great saphenous veins appear bilaterally patent and compressible segmentally. Laboratory Tests 08/23/19 08/23/19 08/22/19 Range/Units 12:13 06:31 21:17 WBC (4.4-11.0) K/mm3 RBC (4.2-5.4) M/mm3 Hgb (12.0-15.0) g/dL Hct (37-47) % MCV (81-99) fL MCH (27.0-32.0) pg MCHC (32-36) g/dL RDW Std Deviation (35.1-43.9) fl RDW Coeff of Alexander (11.6-14.6) % Plt Count (150-450) K/mm3 MPV (6.2-12.0) fl Immature Gran % (Auto) (0.0-0.9) % Neut % (Auto) (47-70) % Lymph % (Auto) (19-41) % [place] % (Auto) (0-10) % Eos % (Auto) (0-5) % Baso % (Auto) (0-1) % Absolute Neuts (auto) (2.0-7.7) X10^3/uL Absolute Lymphs (auto) (0.83-4.51) X10^3/uL Nucleated RBC % (0-5) % Sodium (136-145) mmol/L Potassium (3.5-5.1) mmol/L Chloride (98-107) mmol/L Carbon Dioxide (21.0-32.0) mmol/L Anion Gap (5-15) BUN (7-18) mg/dL Creatinine (0.55-1.02) mg/dL Estim Creat Clear Calc ml/min Est GFR (MDRD) Af Amer (>60) mL/min Est GFR (MDRD) Non-Af (>60) mL/min BUN/Creatinine Ratio (10-20) RATIO Glucose (74-106) mg/dL Calcium (8.5-10.1) mg/dL Magnesium (1.6-2.6) mg/dL POC Glucose 103 117 H 176 H (70-110) mg/dL 08/22/19 08/22/19 08/22/19 Range/Units 17:13 11:14 07:05 WBC (4.4-11.0) K/mm3 RBC (4.2-5.4) M/mm3 Hgb (12.0-15.0) g/dL Hct (37-47) % MCV (81-99) fL MCH (27.0-32.0) pg MCHC (32-36) g/dL RDW Std Deviation (35.1-43.9) fl RDW Coeff of Alexander (11.6-14.6) % Plt Count (150-450) K/mm3 MPV (6.2-12.0) fl Immature Gran % (Auto) (0.0-0.9) % Neut % (Auto) (47-70) % Lymph % (Auto) (19-41) % [place] % (Auto) (0-10) % Eos % (Auto) (0-5) % Baso % (Auto) (0-1) % Absolute Neuts (auto) (2.0-7.7) X10^3/uL Absolute Lymphs (auto) (0.83-4.51) X10^3/uL Nucleated RBC % (0-5) % Sodium (136-145) mmol/L Potassium (3.5-5.1) mmol/L Chloride (98-107) mmol/L Carbon Dioxide (21.0-32.0) mmol/L Anion Gap (5-15) BUN (7-18) mg/dL Creatinine (0.55-1.02) mg/dL Estim Creat Clear Calc ml/min Est GFR (MDRD) Af Amer (>60) mL/min Est GFR (MDRD) Non-Af (>60) mL/min BUN/Creatinine Ratio (10-20) RATIO Glucose (74-106) mg/dL Calcium (8.5-10.1) mg/dL Magnesium (1.6-2.6) mg/dL POC Glucose 122 H 136 H 156 H (70-110) mg/dL 08/21/19 08/21/19 08/21/19 Range/Units 21:17 16:46 12:03 WBC (4.4-11.0) K/mm3 RBC (4.2-5.4) M/mm3 Hgb (12.0-15.0) g/dL Hct (37-47) % MCV (81-99) fL MCH (27.0-32.0) pg MCHC (32-36) g/dL RDW Std Deviation (35.1-43.9) fl RDW Coeff of Alexander (11.6-14.6) % Plt Count (150-450) K/mm3 MPV (6.2-12.0) fl Immature Gran % (Auto) (0.0-0.9) % Neut % (Auto) (47-70) % Lymph % (Auto) (19-41) % [place] % (Auto) (0-10) % Eos % (Auto) (0-5) % Baso % (Auto) (0-1) % Absolute Neuts (auto) (2.0-7.7) X10^3/uL Absolute Lymphs (auto) (0.83-4.51) X10^3/uL Nucleated RBC % (0-5) % Sodium (136-145) mmol/L Potassium (3.5-5.1) mmol/L Chloride (98-107) mmol/L Carbon Dioxide (21.0-32.0) mmol/L Anion Gap (5-15) BUN (7-18) mg/dL Creatinine (0.55-1.02) mg/dL Estim Creat Clear Calc ml/min Est GFR (MDRD) Af Amer (>60) mL/min Est GFR (MDRD) Non-Af (>60) mL/min BUN/Creatinine Ratio (10-20) RATIO Glucose (74-106) mg/dL Calcium (8.5-10.1) mg/dL Magnesium (1.6-2.6) mg/dL POC Glucose 171 H 126 H 190 H (70-110) mg/dL 08/21/19 08/21/19 08/21/19 Range/Units 07:27 07:27 06:42 WBC 7.7 (4.4-11.0) K/mm3 RBC 3.97 L (4.2-5.4) M/mm3 Hgb 11.8 L (12.0-15.0) g/dL Hct 35.8 L (37-47) % MCV 90.2 (81-99) fL MCH 29.7 (27.0-32.0) pg MCHC 33.0 (32-36) g/dL RDW Std Deviation 47.1 H (35.1-43.9) fl RDW Coeff of Alexander 14.4 (11.6-14.6) % Plt Count 219 (150-450) K/mm3 MPV 9.9 (6.2-12.0) fl Immature Gran % (Auto) 0.400 (0.0-0.9) % Neut % (Auto) 67.7 (47-70) % Lymph % (Auto) 22.4 (19-41) % [place] % (Auto) 5.6 (0-10) % Eos % (Auto) 3.5 (0-5) % Baso % (Auto) 0.4 (0-1) % Absolute Neuts (auto) 5.3 (2.0-7.7) X10^3/uL Absolute Lymphs (auto) 1.73 (0.83-4.51) X10^3/uL Nucleated RBC % 0 (0-5) % Sodium 140 (136-145) mmol/L Potassium 3.9 (3.5-5.1) mmol/L Chloride 106 (98-107) mmol/L Carbon Dioxide 28.0 (21.0-32.0) mmol/L Anion Gap 6 (5-15) BUN 18 (7-18) mg/dL Creatinine 0.87 (0.55-1.02) mg/dL Estim Creat Clear Calc 47.48 ml/min Est GFR (MDRD) Af Amer 81 (>60) mL/min Est GFR (MDRD) Non-Af 67 (>60) mL/min BUN/Creatinine Ratio 20.8 H (10-20) RATIO Glucose 151 H (74-106) mg/dL Calcium 8.8 (8.5-10.1) mg/dL Magnesium 2.1 (1.6-2.6) mg/dL POC Glucose 126 H (70-110) mg/dL 08/20/19 08/20/19/ Range/Units 20:50 16:27 11:18 WBC (4.4-11.0) K/mm3 RBC (4.2-5.4) M/mm3 Hgb (12.0-15.0) g/dL Hct (37-47) % MCV (81-99) fL MCH (27.0-32.0) pg MCHC (32-36) g/dL RDW Std Deviation (35.1-43.9) fl RDW Coeff of Alexander (11.6-14.6) % Plt Count (150-450) K/mm3 MPV (6.2-12.0) fl Immature Gran % (Auto) (0.0-0.9) % Neut % (Auto) (47-70) % Lymph % (Auto) (19-41) % [place] % (Auto) (0-10) % Eos % (Auto) (0-5) % Baso % (Auto) (0-1) % Absolute Neuts (auto) (2.0-7.7) X10^3/uL Absolute Lymphs (auto) (0.83-4.51) X10^3/uL Nucleated RBC % (0-5) % Sodium (136-145) mmol/L Potassium (3.5-5.1) mmol/L Chloride (98-107) mmol/L Carbon Dioxide (21.0-32.0) mmol/L Anion Gap (5-15) BUN (7-18) mg/dL Creatinine (0.55-1.02) mg/dL Estim Creat Clear Calc ml/min Est GFR (MDRD) Af Amer (>60) mL/min Est GFR (MDRD) Non-Af (>60) mL/min BUN/Creatinine Ratio (10-20) RATIO Glucose (74-106) mg/dL Calcium (8.5-10.1) mg/dL Magnesium (1.6-2.6) mg/dL POC Glucose 201 H 90 182 H (70-110) mg/dL 08/20/19 08/19/19 08/19/19 Range/Units 06:30 21:34 16:53 WBC (4.4-11.0) K/mm3 RBC (4.2-5.4) M/mm3 Hgb (12.0-15.0) g/dL Hct (37-47) % MCV (81-99) fL MCH (27.0-32.0) pg MCHC (32-36) g/dL RDW Std Deviation (35.1-43.9) fl RDW Coeff of Alexander (11.6-14.6) % Plt Count (150-450) K/mm3 MPV (6.2-12.0) fl Immature Gran % (Auto) (0.0-0.9) % Neut % (Auto) (47-70) % Lymph % (Auto) (19-41) % [place] % (Auto) (0-10) % Eos % (Auto) (0-5) % Baso % (Auto) (0-1) % Absolute Neuts (auto) (2.0-7.7) X10^3/uL Absolute Lymphs (auto) (0.83-4.51) X10^3/uL Nucleated RBC % (0-5) % Sodium (136-145) mmol/L Potassium (3.5-5.1) mmol/L Chloride (98-107) mmol/L Carbon Dioxide (21.0-32.0) mmol/L Anion Gap (5-15) BUN (7-18) mg/dL Creatinine (0.55-1.02) mg/dL Estim Creat Clear Calc ml/min Est GFR (MDRD) Af Amer (>60) mL/min Est GFR (MDRD) Non-Af (>60) mL/min BUN/Creatinine Ratio (10-20) RATIO Glucose (74-106) mg/dL Calcium (8.5-10.1) mg/dL Magnesium (1.6-2.6) mg/dL POC Glucose 148 H 190 H 118 H (70-110) mg/dL none Operations: None, - - reduction and percutaneous pinning of the right hip. Procedures: - - BL venous US of the legs Summary of Care Provided: Niurka Dorsey is a 79 year old F with a past medical history of hypertension, hyperlipidemia, diabetes mellitus type 2, gout, remote history of peptic ulcer disease due to aspirin, vitamin D deficiency and a recent fracture of the R hip (due to a fall on 07/23/19) with subsequent ORIF on 08/18/[address] Marin. She was admitted to the inpatient rehab unit at [facility] on 08/19/2019 for greater than 3 hours of therapy daily to restore her at or near her prior level of independence. She ambulated without an AD prior to the fall, performed her ADLs independently and was driving prior to the fracture. She lives by herself but, she watches her 4 1/2 YO great granddaughter for 2 days each week. Prior to coming to the hospital she was ambulating with a WW because the pain was so bad...she thought she had just pulled a muscle. She saw her PCP on 08/16 because the pain was intolerable and had an XRAY that showed a subcapital closed fracture of the R hip. She was admitted to the hospital and taken to surgery for pinning in the OR. I viewed recent radiology reports and noted that she had an abnormal venous ultrasound of the lower extremities on 06/17/2019 showing evidence of chronic deep vein thrombosis in the femoral vein, popliteal vein and tibial peroneal trunk bilaterally. Mobility was limited by the untreated fracture for 4 weeks prior to repair and both ankles were swollen at admission to the rehab unit. BL venous US was ordered. Acute deep vein thrombosis was noted in the right popliteal vein and also the right posterior tibial vein. She was started on Eliquis after clearing it with Dr. Marin. Lab during her admission to the rehab unit showed a normal white blood cell count, mildly decreased hemoglobin at 11.8 and normal platelet count. The differential was normal. Chemistry showed a normal BMP with a creatinine of 0.87 and a GFR of 67. Magnesium was normal and so was the calcium. Hemoglobin A1c was elevated at 7.8%. Vitamin D level was decreased at 21.4 on 06/08/2019. She was on no blood pressure medication at arrival to the inpatient rehab unit and her blood pressures ranged from 163/86-170 8/98 the first 48 hours she was here. She was started on lisinopril 5 mg p.o. daily and on the day of discharge her blood pressure was 134/60 6 in the AM. I was very concerned about the chronic DVT in both legs and wondered why she was having DVT's? Colonoscopy 9 years prior to admission showed no serious findings. Last MMG was in 2014 and it was normal. Her last PAP was many years ago and she denied any vaginal bleeding. I was discussing the DVT's with her granddaughter Muriel and she revealed that she has a Factor V Leidin deficiency. So does Niurka's dtr. I suspect Niurka likely has a Factor V leidin deficiency as well. She did very well in therapy and she was discharged home on 08/23/19. She refused Home PT but, she agreed to call us if she changed her mind after she got home. She was discharged home on Xarelto 15 mg p.o. twice daily x3 weeks and then 20 mg daily. She should continue this for at least 3 months. I recommended to her that she follow-up with either Dr. Boland or Dr. Lorenz from hematology regarding the suspected factor V Leiden deficiency. She was also given a prescription for lisinopril 5 mg and instructed to take 1 p.o. nightly. She will follow-up with Dr. Arce in 1 to 2 weeks to have her blood pressure rechecked. She has an appointment with [facility] on August 31 to have her anderson removed and an x-ray done. In addition I recommend that she have a DEXA done to evaluate her bone density and if she is osteoporotic that she be started on a bisphosphonate. The patient will discuss this with Dr. Arce at her next visit. Alert, oriented x3, pleasant, appropriate, no apparent distress Lungs-clear to auscultation throughout with excellent air exchange Heart-regular rate and rhythm, no murmur, no ectopy, no gallop, no rub Abdomen-soft, nontender, nondistended, normal bowel sounds heard in all 4 quadrants, no guarding with palpation She has edema of the right ankle which is pitting. No significant edema in the left ankle. She denies calf pain. No clubbing, no cyanosis, the right lower extremity is warm with intact sensation. No rashes and no breakdown. The incision of the right lateral thigh is intact and well coapted with anderson. There is no abelardo-incisional erythema or purulent discharge. This note was generated with [employer] dictation software. It may contain incorrect words, spelling, and punctuation that were not noted in checking the note before signing. Patient Problems: Active and Suspected Problems Factor 5 Leiden mutation, heterozygous (Suspected) Acute deep vein thrombosis (DVT) (Acute) S/P ORIF (open reduction internal fixation) fracture (Acute) Vitamin D deficiency (Acute) Acute blood loss as cause of postoperative anemia (Acute) mild anemia post ORIF of the right hip - Physical Exam Vitals/I&O's: Vital Signs Temp Pulse Resp BP Pulse Ox 98.2 F 76 17 134/66 H 97 08/23/19 07:24 08/23/19 07:24 08/23/19 07:24 08/23/19 07:24 08/23/19 07:24 Oxygen Delivery Method Room Air Weight: 162 lb 4 oz Body Mass Index (BMI) 26.1 Finger Stick Blood Glucose 153 Intake and Output for Last 24 Hours 08/21/19 08/22/19 08/23/19 23:59 23:59 23:59 Intake Total 1040 / 1040 1600 / 1600 1000 / 1000 Output Total 1175 / 1175 250 / 250 250 / 250 Balance -135 / -135 1350 / 1350 750 / 750 Laboratory Results 08/22/19 17:13: POC Glucose 122 H 08/22/19 21:17: POC Glucose 176 H 08/23/19 06:31: POC Glucose 117 H 08/23/19 12:13: POC Glucose 103 Current Medications Acetaminophen (Tylenol) 650 mg PO Q6H PRN PRN PRN Reason: Pain Score 1-10/Temp > 100.7 F Last Admin: 08/23/19 08:09 Dose: 650 mg Documented by: Allopurinol (Zyloprim) 100 mg PO DAILY [facility] Last Admin: 08/23/19 08:06 Dose: 100 mg Documented by: Apixaban (Eliquis) 5 mg PO BID [facility] Last Admin: 08/23/19 08:06 Dose: 5 mg Documented by: Bisacodyl (Dulcolax) 10 mg RECTAL .PRN X 1 PRN PRN Reason: Constipation Famotidine (Pepcid) 20 mg PO DAILY [facility] Last Admin: 08/23/19 08:06 Dose: 20 mg Documented by: Furosemide (Lasix) 20 mg PO DAILY [facility] Last Admin: 08/23/19 08:06 Dose: 20 mg Documented by: Glimepiride (Amaryl) 2 mg PO DAILYCM [facility] Last Admin: 08/23/19 08:05 Dose: 2 mg Documented by: Lisinopril (Zestril) 5 mg PO QHS [facility] Last Admin: 08/22/19 21:11 Dose: 5 mg Documented by: Magnesium Hydroxide (Milk Of Magnesia) 30 ml PO .PRN X 1 PRN PRN Reason: Constipation Magnesium Oxide (Mag-Ox 400) 400 mg PO DAILY [facility] Last Admin: 08/23/19 08:06 Dose: 400 mg Documented by: Oxycodone HCl (Oxyir) 5 mg PO Q8H PRN PRN PRN Reason: Pain Score 6-10/10 Polyethylene Glycol (Miralax) 17 gm PO DAILY [facility] Last Admin: 08/23/19 08:04 Dose: 17 gm Documented by: Potassium Chloride (K-Dur) 10 meq PO DAILY [facility] Last Admin: 08/23/19 08:06 Dose: 10 meq Documented by: Discharge Activity: May Not Drive - You are not allowed to drive for 6 weeks after the surgery and that brings us to September 28. You can start driving again on September 28., September Shower, Use Walker Weight Bearing Status: Full weight bearing Keep extremity elevated above heart level: Right Leg Call your doctor if your incision/area has: Continuous Slow Oozing, Sudden Increased Bleeding, Increased Pain/ Swelling, Increased Redness, Foul Smelling Discharge, Swelling at the incision site Call your doctor if you observe: Fever of 101 or Higher, Coldness, Increased Pain, Numbness or Tingling, Inability to have a bowel movement, Shortness of breath, Dizziness, Fainting spells, Swelling in the ankles, Chest pain, - - Call your family doctor if any unusual bleeding such as bleeding from the gums, blood from the anus, blood in the urine, nose bleeds, large bruises or bleeding from the vagina if female. Cleanse incision/area with: Soap & Water Home Medications: Medications to take at Discharge Allopurinol 100 mg PO DAILY 08/17/19 Famotidine 40 mg PO DAILY 08/17/19 Furosemide [Lasix] 20 mg PO DAILY 08/17/19 Glimepiride 2 mg PO DAILY 08/17/19 Magnesium Oxide 400 mg PO DAILY 08/17/19 Potassium Chloride 10 meq PO DAILY 08/17/19 Acetaminophen [Tylenol Tablet] 650 mg PO Q6H PRN PRN #1 tab 08/19/19 Senna/Docusate Sodium [Senokot-S] 2 tab PO BID 08/19/19 Lisinopril [Zestril] 5 mg PO QHS #30 tab 08/23/19 Magnesium Hydroxide [Milk Of Magnesia] 30 ml PO .PRN X 1 PRN udc 08/23/19 Rivaroxaban [Xarelto] 1 tab PO UD #51 tab 08/23/19 Following Prescrptions Were Given to Patient: Rivaroxaban [Xarelto] 1 tab PO UD #51 tab Prescription Printed Lisinopril [Zestril] 5 mg PO QHS #30 tab Transmission Status: Received by [employer] #30 Primary Care Physician: Tin Arce Chi, MD [Primary Care Provider] - Please follow up with your Primary Care Physician in: 1-2 weeks Please Follow Up With: Perez Andres When: Friday Patient Instructions: MyPlate Worksheet: 1,800 Calories Disposition: Home Minutes spent on discharge:: 35 Patient Condition:: Good Medical Necessity - Tobacco Use Smoking Status: Never smoker Tobacco Use: Non-smoker Meaningful Use Info Meaningful Use Diagnoses (Choose all that apply): None applicable Inpatient E&M: 90542 Disch Hosp
[2019-08-23 16:05] VITALS: BP 134/66; PULSE 76; RESP 17; TEMP 36.8; O2SAT 97
--- NOTE | 2019-08-23 16:05 | NURSING ---
Discharge to home, granddaughter taking patient home. Patient verbalized understanding to discharge instructions and new med xarelto. Patient agreed to make her appointments.
--- NOTE | 2019-08-23 16:47 | CASEMGMT ---
Social Work Reviewed and agreed with social work help desk internship documentation on this date. Jacque Pro, EXPORT FREIGHT MANAGER OCCUPATIONAL THERAPY MANAGER
--- NOTE | 2019-08-23 16:49 | CHAPLAIN ---
brief visit as she is getting ready to go home; patient is pleased about progress and discharge
== END 2019-08-23 16:05 | disposition home or self-care (01) | DRG 560 ==
PROVIDERS: Admitting Provider Internal Medicine; PCP Family Medicine Geriatric Medicine; Referring Provider Internal Medicine; Visit Provider Internal Medicine
DX: S72.011D Unspecified intracapsular fracture of right femur, subsequent encounter for closed fracture with routine healing (principal); I82.511 Chronic embolism and thrombosis of right femoral vein; I82.441 Acute embolism and thrombosis of right tibial vein; X58.XXXD Exposure to other specified factors, subsequent encounter; E78.5 Hyperlipidemia, unspecified; I10 Essential (primary) hypertension; M1A.9XX0 Chronic gout, unspecified, without tophus (tophi); E11.9 Type 2 diabetes mellitus without complications; Z79.01 Long term (current) use of anticoagulants
CPT/HCPCS: 36415; 80048; 82962; 83735; 85025; 93970; 97110; 97116; 97162; 97166; 97530; 97535; 97802; 99251; G0463

== ENCOUNTER → 2019-12-14 11:16 | Outpatient (CLI) | payer MEDICARE, SELFPAY ==
[2019-12-14 12:13] LABS: Absolute Neutrophil Count 5.3 X10^3/uL (2.0-7.7); Basophil# 0.04 X10^3/uL; Basophil% 0.5 % (0-1); Eosinophils% 3.7 % (0-5); Hematocrit 38.1 % (37-47); Hemoglobin 12.6 g/dL (12.0-15.0); Lymphocyte % 25.9 % (19-41); Mean Corp Hgb Conc 33.1 g/dL (32-36); Mean Corpuscular Hgb 30.4 pg (27.0-32.0); Monocyte# 0.36 X10^3/uL; Monocyte% 4.4 % (0-10); NRBC Flagged by Analyzer 0 % (0-5); Neutrophil # 5.28 X10^3/uL (2.7-7.7); Neutrophil % 65.3 % (47-70); Platelet Count 281 K/mm3 (150-450); RBC Distribution Width CV 13.2 % (11.6-14.6); RBC Distribution Width SD 43.7 fl (35.1-43.9); Red Blood Count 4.14 M/mm3 (4.2-5.4); White Blood Count 8.1 K/mm3 (4.4-11.0)
[2019-12-14 12:27] LABS: Vitamin D,25 Hydroxy 27.7 ng/mL
[2019-12-14 12:33] LABS: ALB/GLOB Ratio 1.1 RATIO (0.9-2.4); AST(SGOT) 14 U/L (15-37); Alanine Aminotransfer ALT/SGPT 18 U/L (13-56); Albumin, Serum 3.9 g/dL (3.2-5.0); Alkaline Phosphatase 93 U/L (45-117); Anion Gap 6 (5-15); BUN 15 mg/dL (7-18); BUN/Creat Ratio 16.4 RATIO (10-20); Chloride 107 mmol/L (98-107); Creatinine, Serum 0.91 mg/dL (0.55-1.02); EST Glomerular Filtration Rate 63 mL/min (>60); Est Glom Filt Rate - Afr Amer 76 mL/min (>60); Globulin 3.5 g/dL (2.2-4.2); Glucose 146 mg/dL (74-106); Potassium 3.6 mmol/L (3.5-5.1); Protein, Total 7.4 g/dL (6.4-8.2); Sodium Level 142 mmol/L (136-145); Thyroid Stim Hormone (TSH) 2.17 uIU/mL (0.358-3.74); Uric Acid 5.5 mg/dL (2.6-6.0)
== END ==
PROVIDERS: PCP Family Medicine Geriatric Medicine; Visit Provider Family Medicine Geriatric Medicine
DX: E11.9 Type 2 diabetes mellitus without complications (principal); E55.9 Vitamin D deficiency, unspecified; I10 Essential (primary) hypertension; M10.9 Gout, unspecified
CPT/HCPCS: 36415; 80053; 82306; 84443; 84550; 85025

== ENCOUNTER → 2020-02-25 | Outpatient (CLI) | payer MEDICARE, SELFPAY | END | disposition home or self-care (01) | LOC: POLAB3 12:01 → LABSPEC 12:02 | PROVIDERS: PCP Family Medicine Geriatric Medicine; Visit Provider Family Medicine Geriatric Medicine | DX: N39.0 Urinary tract infection, site not specified (principal) | CPT/HCPCS: 87086 ==

== ENCOUNTER → 2020-03-13 09:19 | Outpatient (CLI) | payer MEDICARE, SELFPAY ==
[2020-03-13 12:45] LABS: Absolute Lymphocyte Count 1.67 X10^3/uL (0.83-4.51); Absolute Neutrophil Count 4.7 X10^3/uL (2.0-7.7); Basophil# 0.03 X10^3/uL; Basophil% 0.4 % (0-1); Eosinophil# 0.13 X10^3/uL; Eosinophils% 1.9 % (0-5); Hematocrit 39.1 % (37-47); Hemoglobin 12.7 g/dL (12.0-15.0); Lymphocyte # 1.67 X10^3/ul (4.0); Lymphocyte % 24.2 % (19-41); Mean Corp Hgb Conc 32.5 g/dL (32-36); Mean Corpuscular Hgb 28.8 pg (27.0-32.0); Mean Corpuscular Volume 88.7 fL (81-99); Mean Platelet Vol. 10.5 fl (6.2-12.0); Monocyte% 5.8 % (0-10); NRBC Flagged by Analyzer 0 % (0-5); Neutrophil # 4.67 X10^3/uL (2.7-7.7); Neutrophil % 67.6 % (47-70); Platelet Count 258 K/mm3 (150-450); RBC Distribution Width CV 13.2 % (11.6-14.6); RBC Distribution Width SD 42.8 fl (35.1-43.9); Red Blood Count 4.41 M/mm3 (4.2-5.4); White Blood Count 6.9 K/mm3 (4.4-11.0)
[2020-03-13 13:14] LABS: Vitamin D,25 Hydroxy 34.2 ng/mL
[2020-03-13 13:15] LABS: AST(SGOT) 15 U/L (15-37); Alanine Aminotransfer ALT/SGPT 25 U/L (13-56); Albumin, Serum 3.7 g/dL (3.2-5.0); Alkaline Phosphatase 101 U/L (45-117); Anion Gap 7 (5-15); BUN 17 mg/dL (7-18); BUN/Creat Ratio 16.2 RATIO (10-20); Calcium,Total 8.9 mg/dL (8.5-10.1); Chloride 106 mmol/L (98-107); Creatinine, Serum 1.05 mg/dL (0.55-1.02); EST Glomerular Filtration Rate 53 mL/min (>60); Est Glom Filt Rate - Afr Amer 65 mL/min (>60); Globulin 3.6 g/dL (2.2-4.2); Glucose 197 mg/dL (74-106); Potassium 3.2 mmol/L (3.5-5.1); Protein, Total 7.3 g/dL (6.4-8.2); Sodium Level 141 mmol/L (136-145); Thyroid Stim Hormone (TSH) 2.34 uIU/mL (0.358-3.74); Uric Acid 5.1 mg/dL (2.6-6.0)
== END ==
PROVIDERS: PCP Family Medicine Geriatric Medicine; Visit Provider Family Medicine Geriatric Medicine
DX: E11.9 Type 2 diabetes mellitus without complications (principal); I10 Essential (primary) hypertension; M10.9 Gout, unspecified; E55.9 Vitamin D deficiency, unspecified
CPT/HCPCS: 36415; 80053; 82306; 84443; 84550; 85025

== ENCOUNTER → 2020-03-30 11:18 | Outpatient (CLI) | payer MEDICARE, SELFPAY ==
[2020-03-30 12:35] LABS: Anion Gap 5 (5-15); BUN 19 mg/dL (7-18); BUN/Creat Ratio 16.4 RATIO (10-20); Chloride 106 mmol/L (98-107); Creatinine, Serum 1.16 mg/dL (0.55-1.02); EST Glomerular Filtration Rate 48 mL/min (>60); Est Glom Filt Rate - Afr Amer 58 mL/min (>60); Glucose 343 mg/dL (74-106); Potassium 3.8 mmol/L (3.5-5.1); Sodium Level 138 mmol/L (136-145)
== END ==
PROVIDERS: PCP Family Medicine Geriatric Medicine; Visit Provider Family Medicine Geriatric Medicine
DX: E87.6 Hypokalemia (principal)
CPT/HCPCS: 36415; 80048

== ENCOUNTER → 2020-05-11 15:34 | Outpatient (CLI) | payer MEDICARE, SELFPAY | PROVIDERS: PCP Family Medicine Geriatric Medicine; Visit Provider Family Medicine Geriatric Medicine | DX: N39.0 Urinary tract infection, site not specified (principal) | CPT/HCPCS: 87077; 87086; 87088; 87186 ==

== ENCOUNTER → 2020-06-12 09:05 | Outpatient (CLI) | payer MEDICARE, SELFPAY ==
--- NOTE | 2020-06-12 10:42 | VDLE_ITS ---
Reason For Study: Edema RIGHT LEFT GSV is normal. GSV is normal. CFV is compressible, spontaneous, phasic, CFV is compressible, spontaneous, phasic, competent and demonstrates normal competent, and demonstrates normal augmentation. augmentation. FV is compressible, spontaneous, phasic, FV is compressible, spontaneous, phasic, competent and demonstrates normal competent and demonstrates normal augmentation. augmentation. POP V is compressible, spontaneous, phasic, POP V is compressible, spontaneous, phasic, competent and demonstrates normal competent and demonstrates normal augmentation. augmentation. T/P Trunk is compressible. T/P Trunk is compressible. PTV is compressible. PTV is compressible. RT PerV is compressible. LT PerV is compressible. FV and PopV are partially compressible FV and PopV are partially compressible throughout with bright intraluminal echoes throughout with bright intraluminal echoes consistent with Chronic DVT. consistent with Chronic DVT. Procedure This is a venous duplex using B-mode, color flow and spectral Doppler. Exam performed in department. A preliminary report was called and/or faxed to Claude. Interpretation Summary Chronic venous changes are noted in the femoral veins and popliteal veins bilaterally, which are partially compressible and demonstrate bright intraluminal echogenicity. The remainder of the deep venous system is patent and compressible bilaterally. Valvular competence appears intact within the proximal deep venous systems bilaterally. The great saphenous veins appear bilaterally patent and compressible segmentally. Ordering Physician: Tin Arce Referring Physician: Tin Arce Chi Performed By: Graciela Brown RVT
[2020-06-12 11:55] LABS: Absolute Lymphocyte Count 1.76 X10^3/uL (0.83-4.51); Absolute Neutrophil Count 4.4 X10^3/uL (2.0-7.7); Basophil# 0.04 X10^3/uL; Basophil% 0.6 % (0-1); Eosinophil# 0.44 X10^3/uL; Eosinophils% 6.2 % (0-5); Hematocrit 38.5 % (37-47); Hemoglobin 12.8 g/dL (12.0-15.0); Lymphocyte # 1.76 X10^3/ul (4.0); Lymphocyte % 24.9 % (19-41); Mean Corp Hgb Conc 33.2 g/dL (32-36); Mean Corpuscular Hgb 29.8 pg (27.0-32.0); Mean Corpuscular Volume 89.7 fL (81-99); Mean Platelet Vol. 10.5 fl (6.2-12.0); Monocyte# 0.39 X10^3/uL; Monocyte% 5.5 % (0-10); NRBC Flagged by Analyzer 0 % (0-5); Neutrophil # 4.43 X10^3/uL (2.7-7.7); Neutrophil % 62.5 % (47-70); Platelet Count 281 K/mm3 (150-450); RBC Distribution Width CV 13.7 % (11.6-14.6); RBC Distribution Width SD 44.6 fl (35.1-43.9); Red Blood Count 4.29 M/mm3 (4.2-5.4); White Blood Count 7.1 K/mm3 (4.4-11.0)
[2020-06-12 12:17] LABS: ALB/GLOB Ratio 1.1 RATIO (0.9-2.4); AST(SGOT) 15 U/L (15-37); Alanine Aminotransfer ALT/SGPT 16 U/L (13-56); Albumin, Serum 3.9 g/dL (3.2-5.0); Alkaline Phosphatase 92 U/L (45-117); Anion Gap 6 (5-15); BUN 19 mg/dL (7-18); BUN/Creat Ratio 17.8 RATIO (10-20); Calcium,Total 9.2 mg/dL (8.5-10.1); Chloride 105 mmol/L (98-107); Creatinine, Serum 1.07 mg/dL (0.55-1.02); EST Glomerular Filtration Rate 52 mL/min (>60); Est Glom Filt Rate - Afr Amer 63 mL/min (>60); Globulin 3.7 g/dL (2.2-4.2); Glucose 122 mg/dL (74-106); Potassium 3.3 mmol/L (3.5-5.1); Protein, Total 7.6 g/dL (6.4-8.2); Sodium Level 141 mmol/L (136-145); Thyroid Stim Hormone (TSH) 3.63 uIU/mL (0.358-3.74); Uric Acid 5.3 mg/dL (2.6-6.0)
[2020-06-12 13:31] LABS: Vitamin D,25 Hydroxy 24.5 ng/mL
== END ==
PROVIDERS: PCP Family Medicine Geriatric Medicine; Referring Provider Family Medicine Geriatric Medicine; Visit Provider Family Medicine Geriatric Medicine
DX: E11.9 Type 2 diabetes mellitus without complications (principal); I10 Essential (primary) hypertension; M10.9 Gout, unspecified; E55.9 Vitamin D deficiency, unspecified; R60.0 Localized edema
CPT/HCPCS: 36415; 80053; 82306; 84443; 84550; 85025; 93970

== ENCOUNTER → 2020-06-22 11:20 | Outpatient (CLI) | payer MEDICARE, SELFPAY ==
[2020-06-22 12:30] LABS: Anion Gap 7 (5-15); BUN 20 mg/dL (7-18); BUN/Creat Ratio 17.4 RATIO (10-20); Calcium,Total 8.9 mg/dL (8.5-10.1); Chloride 103 mmol/L (98-107); Creatinine, Serum 1.15 mg/dL (0.55-1.02); EST Glomerular Filtration Rate 48 mL/min (>60); Est Glom Filt Rate - Afr Amer 58 mL/min (>60); Glucose 326 mg/dL (74-106); Potassium 3.8 mmol/L (3.5-5.1); Sodium Level 138 mmol/L (136-145)
== END ==
PROVIDERS: PCP Family Medicine Geriatric Medicine; Visit Provider Family Medicine Geriatric Medicine
DX: E87.6 Hypokalemia (principal)
CPT/HCPCS: 36415; 80048

== ENCOUNTER → 2020-07-28 | Outpatient (CLI) | payer MEDICARE, SELFPAY | END | disposition home or self-care (01) | LOC: LABSPEC 11:57 | PROVIDERS: PCP Family Medicine Geriatric Medicine; Visit Provider Family Medicine Geriatric Medicine | DX: N39.0 Urinary tract infection, site not specified (principal) | CPT/HCPCS: 87086; 87088; 87186 ==

== ENCOUNTER → 2020-09-11 10:34 | Outpatient (CLI) | payer MEDICARE, SELFPAY ==
[2020-09-11 12:28] LABS: Absolute Lymphocyte Count 1.73 X10^3/uL (0.83-4.51); Absolute Neutrophil Count 3.9 X10^3/uL (2.0-7.7); Basophil# 0.03 X10^3/uL; Basophil% 0.5 % (0-1); Eosinophil# 0.16 X10^3/uL; Eosinophils% 2.6 % (0-5); Hemoglobin 12.6 g/dL (12.0-15.0); Lymphocyte # 1.73 X10^3/ul (4.0); Lymphocyte % 27.9 % (19-41); Mean Corp Hgb Conc 32.3 g/dL (32-36); Mean Corpuscular Hgb 29.3 pg (27.0-32.0); Mean Corpuscular Volume 90.7 fL (81-99); Mean Platelet Vol. 11.2 fl (6.2-12.0); Monocyte% 6.5 % (0-10); NRBC Flagged by Analyzer 0 % (0-5); Neutrophil # 3.87 X10^3/uL (2.7-7.7); Neutrophil % 62.3 % (47-70); Platelet Count 251 K/mm3 (150-450); RBC Distribution Width CV 13.9 % (11.6-14.6); RBC Distribution Width SD 46.2 fl (35.1-43.9); White Blood Count 6.2 K/mm3 (4.4-11.0)
[2020-09-11 12:51] LABS: ALB/GLOB Ratio 1.1 RATIO (0.9-2.4); AST(SGOT) 20 U/L (15-37); Alanine Aminotransfer ALT/SGPT 18 U/L (13-56); Alkaline Phosphatase 81 U/L (45-117); Anion Gap 5 (5-15); BUN 18 mg/dL (7-18); BUN/Creat Ratio 17.8 RATIO (10-20); Calcium,Total 9.5 mg/dL (8.5-10.1); Chloride 103 mmol/L (98-107); Creatinine, Serum 1.01 mg/dL (0.55-1.02); EST Glomerular Filtration Rate 56 mL/min (>60); Est Glom Filt Rate - Afr Amer 68 mL/min (>60); Globulin 3.6 g/dL (2.2-4.2); Glucose 99 mg/dL (74-106); Potassium 3.2 mmol/L (3.5-5.1); Protein, Total 7.6 g/dL (6.4-8.2); Sodium Level 139 mmol/L (136-145); Thyroid Stim Hormone (TSH) 1.82 uIU/mL (0.358-3.74); Uric Acid 5.4 mg/dL (2.6-6.0)
[2020-09-11 13:03] LABS: Vitamin D,25 Hydroxy 22.8 ng/mL
== END ==
PROVIDERS: PCP Family Medicine Geriatric Medicine; Visit Provider Family Medicine Geriatric Medicine
DX: E11.9 Type 2 diabetes mellitus without complications (principal); I10 Essential (primary) hypertension; M10.9 Gout, unspecified; E55.9 Vitamin D deficiency, unspecified
CPT/HCPCS: 36415; 80053; 82306; 84443; 84550; 85025

== ENCOUNTER → 2020-09-21 11:21 | Outpatient (CLI) | payer MEDICARE, SELFPAY ==
[2020-09-21 12:45] LABS: Anion Gap 4 (5-15); BUN 18 mg/dL (7-18); Calcium,Total 9.1 mg/dL (8.5-10.1); Chloride 106 mmol/L (98-107); Creatinine, Serum 1.06 mg/dL (0.55-1.02); EST Glomerular Filtration Rate 53 mL/min (>60); Est Glom Filt Rate - Afr Amer 64 mL/min (>60); Glucose 179 mg/dL (74-106); Sodium Level 140 mmol/L (136-145)
== END ==
PROVIDERS: PCP Family Medicine Geriatric Medicine; Visit Provider Family Medicine Geriatric Medicine
DX: E87.6 Hypokalemia (principal)
CPT/HCPCS: 36415; 80048

== ENCOUNTER → 2020-12-14 10:04 | Outpatient (CLI) | payer MEDICARE, SELFPAY ==
[2020-12-14 12:23] LABS: Absolute Lymphocyte Count 1.53 X10^3/uL (0.83-4.51); Basophil# 0.04 X10^3/uL; Basophil% 0.8 % (0-1); Eosinophil# 0.15 X10^3/uL; Hematocrit 34.7 % (37-47); Hemoglobin 11.5 g/dL (12.0-15.0); Lymphocyte # 1.53 X10^3/ul (0.83-4.51); Lymphocyte % 30.5 % (19-41); Mean Corp Hgb Conc 33.1 g/dL (32-36); Mean Corpuscular Hgb 30.5 pg (27.0-32.0); Mean Platelet Vol. 11.2 fl (6.2-12.0); NRBC Flagged by Analyzer 0 % (0-5); Neutrophil # 2.98 X10^3/uL (2.7-7.7); Neutrophil % 59.5 % (47-70); Platelet Count 232 K/mm3 (150-450); RBC Distribution Width CV 14.1 % (11.6-14.6); RBC Distribution Width SD 47.6 fl (35.1-43.9); Red Blood Count 3.77 M/mm3 (4.2-5.4)
[2020-12-14 12:41] LABS: Vitamin D,25 Hydroxy 27.9 ng/mL
[2020-12-14 12:45] LABS: ALB/GLOB Ratio 1.2 RATIO (0.9-2.4); AST(SGOT) 24 U/L (15-37); Alanine Aminotransfer ALT/SGPT 16 U/L (13-56); Albumin, Serum 3.8 g/dL (3.2-5.0); Alkaline Phosphatase 91 U/L (45-117); Anion Gap 6 (5-15); BUN 18 mg/dL (7-18); BUN/Creat Ratio 15.4 RATIO (10-20); Calcium,Total 9.1 mg/dL (8.5-10.1); Chloride 104 mmol/L (98-107); Creatinine, Serum 1.17 mg/dL (0.55-1.02); EST Glomerular Filtration Rate 47 mL/min (>60); Est Glom Filt Rate - Afr Amer 57 mL/min (>60); Globulin 3.2 g/dL (2.2-4.2); Glucose 105 mg/dL (74-106); Potassium 3.9 mmol/L (3.5-5.1); Sodium Level 138 mmol/L (136-145); Thyroid Stim Hormone (TSH) 1.97 uIU/mL (0.358-3.74); Uric Acid 5.4 mg/dL (2.6-6.0)
== END ==
PROVIDERS: PCP Family Medicine Geriatric Medicine; Visit Provider Family Medicine Geriatric Medicine
DX: E11.9 Type 2 diabetes mellitus without complications (principal); I10 Essential (primary) hypertension; M10.9 Gout, unspecified; E55.9 Vitamin D deficiency, unspecified
CPT/HCPCS: 36415; 80053; 82306; 84443; 84550; 85025

== ENCOUNTER → 2020-12-14 15:25 | Outpatient (CLI) | payer MEDICARE, SELFPAY ==
--- NOTE | 2020-12-14 10:40 | RAD_ITS ---
STUDY: X-RAY - RIGHT KNEE REASON FOR EXAM: Female, 80 years old. KNEE PAIN TECHNIQUE: 4 view(s) of the knee. COMPARISON: 07/21/2018 FINDINGS: Normal visualized distal femur. Normal visualized proximal tibia and fibula. Normal proximal tibiofibular articulation. There is mild degenerative arthrosis of the medial femorotibial compartment. There is mild degenerative arthrosis of the lateral femorotibial compartment. There is severe degenerative arthrosis of the patellofemoral articulation. The soft tissue structures are unremarkable. RAD/Knee 4 or More Views IMPRESSION: Degenerative arthrosis. Electronically Signed: Rivera Humphrey MD at 9:30 EDT Tel , Service support ,
--- NOTE | 2020-12-14 15:24 | VDLE_ITS ---
Reason For Study: RLE EDEMA RIGHT GSV is normal. CFV is compressible, spontaneous, phasic, competent and demonstrates normal augmentation. FV is compressible, spontaneous, phasic, competent and demonstrates normal augmentation. POP V is compressible, spontaneous, phasic, competent and demonstrates normal augmentation. T/P Trunk is compressible. PTV is compressible. RT PerV is compressible. Procedure This is a venous duplex using B-mode, color flow and spectral Doppler. Exam performed in department. The exam was diagnostic. A preliminary report was called and/or faxed to Dr. Arce @ [phone] @ 3:55 pm. VL/Venous Duplex US, Unilateral Interpretation Summary Deep veins of the right lower extremity are patent and compressible segmentally . There is no evidence of right lower extremity deep vein thrombosis. Valvular competence morgan ears intact within the proximal deep venous system on the right . The right great saphenous vein a ppears patent and compressible segmentally. Ordering Physician: Tin Arce Referring Physician: Tin Arce Chi Performed By: Genevieve Richard, JOSE, RVT
== END ==
PROVIDERS: PCP Family Medicine Geriatric Medicine; Referring Provider Family Medicine Geriatric Medicine; Visit Provider Family Medicine Geriatric Medicine
DX: R60.0 Localized edema (principal); M25.561 Pain in right knee; E11.9 Type 2 diabetes mellitus without complications; I10 Essential (primary) hypertension; M10.9 Gout, unspecified; E55.9 Vitamin D deficiency, unspecified
CPT/HCPCS: 36415; 73564; 80053; 82306; 84443; 84550; 85025; 93971

== ENCOUNTER → 2021-01-30 16:01 | Outpatient (CLI) | payer MEDICARE, SELFPAY ==
[2021-01-30 17:24] LABS: Anion Gap 5 (5-15); BUN 19 mg/dL (7-18); BUN/Creat Ratio 17.9 RATIO (10-20); Calcium,Total 9.1 mg/dL (8.5-10.1); Chloride 103 mmol/L (98-107); Creatinine, Serum 1.06 mg/dL (0.55-1.02); EST Glomerular Filtration Rate 53 mL/min (>60); Est Glom Filt Rate - Afr Amer 64 mL/min (>60); Glucose 159 mg/dL (74-106); Potassium 3.8 mmol/L (3.5-5.1); Sodium Level 138 mmol/L (136-145)
== END ==
PROVIDERS: PCP Family Medicine Geriatric Medicine; Referring Provider Family Medicine Geriatric Medicine; Visit Provider Family Medicine Geriatric Medicine
DX: I10 Essential (primary) hypertension (principal)
CPT/HCPCS: 36415; 80048

== ENCOUNTER → 2021-03-07 10:15 | Outpatient (CLI) | payer MEDICARE, SELFPAY ==
[2021-03-07 13:02] LABS: Anion Gap 8 (5-15); BUN 21 mg/dL (7-18); BUN/Creat Ratio 16.9 RATIO (10-20); Calcium,Total 9.1 mg/dL (8.5-10.1); Chloride 101 mmol/L (98-107); Creatinine, Serum 1.24 mg/dL (0.55-1.02); EST Glomerular Filtration Rate 44 mL/min (>60); Est Glom Filt Rate - Afr Amer 53 mL/min (>60); Glucose 119 mg/dL (74-106); Potassium 4.5 mmol/L (3.5-5.1); Sodium Level 136 mmol/L (136-145)
== END ==
PROVIDERS: PCP Family Medicine Geriatric Medicine; Visit Provider Family Medicine Geriatric Medicine
DX: I10 Essential (primary) hypertension (principal)
CPT/HCPCS: 36415; 80048

== ENCOUNTER → 2021-03-14 10:13 | Outpatient (CLI) | payer MEDICARE, SELFPAY ==
[2021-03-14 12:29] LABS: Absolute Lymphocyte Count 1.64 X10^3/uL (0.83-4.51); Absolute Neutrophil Count 3.1 X10^3/uL (2.0-7.7); Basophil# 0.02 X10^3/uL; Basophil% 0.4 % (0-1); Eosinophil# 0.14 X10^3/uL; Eosinophils% 2.7 % (0-5); Hematocrit 32.7 % (37-47); Hemoglobin 10.9 g/dL (12.0-15.0); Lymphocyte # 1.64 X10^3/ul (0.83-4.51); Lymphocyte % 31.4 % (19-41); Mean Corp Hgb Conc 33.3 g/dL (32-36); Mean Corpuscular Hgb 31.1 pg (27.0-32.0); Mean Corpuscular Volume 93.2 fL (81-99); Mean Platelet Vol. 11.2 fl (6.2-12.0); Monocyte# 0.34 X10^3/uL; Monocyte% 6.5 % (0-10); NRBC Flagged by Analyzer 0 % (0-5); Neutrophil # 3.07 X10^3/uL (2.7-7.7); Neutrophil % 58.8 % (47-70); Platelet Count 207 K/mm3 (150-450); RBC Distribution Width CV 14.2 % (11.6-14.6); RBC Distribution Width SD 48.3 fl (35.1-43.9); Red Blood Count 3.51 M/mm3 (4.2-5.4); White Blood Count 5.2 K/mm3 (4.4-11.0)
[2021-03-14 12:43] LABS: Vitamin D,25 Hydroxy 22.3 ng/mL
[2021-03-14 12:49] LABS: ALB/GLOB Ratio 1.1 RATIO (0.9-2.4); AST(SGOT) 16 U/L (15-37); Alanine Aminotransfer ALT/SGPT 15 U/L (13-56); Albumin, Serum 3.7 g/dL (3.2-5.0); Alkaline Phosphatase 82 U/L (45-117); Anion Gap 3 (5-15); BUN 21 mg/dL (7-18); BUN/Creat Ratio 16.7 RATIO (10-20); Calcium,Total 9.2 mg/dL (8.5-10.1); Chloride 106 mmol/L (98-107); Creatinine, Serum 1.26 mg/dL (0.55-1.02); EST Glomerular Filtration Rate 43 mL/min (>60); Est Glom Filt Rate - Afr Amer 52 mL/min (>60); Globulin 3.4 g/dL (2.2-4.2); Glucose 92 mg/dL (74-106); Potassium 4.2 mmol/L (3.5-5.1); Protein, Total 7.1 g/dL (6.4-8.2); Sodium Level 140 mmol/L (136-145); Thyroid Stim Hormone (TSH) 2.34 uIU/mL (0.358-3.74); Uric Acid 6.1 mg/dL (2.6-6.0)
== END ==
PROVIDERS: PCP Family Medicine Geriatric Medicine; Visit Provider Family Medicine Geriatric Medicine
DX: I10 Essential (primary) hypertension (principal); E55.9 Vitamin D deficiency, unspecified; M10.9 Gout, unspecified
CPT/HCPCS: 36415; 80053; 82306; 84443; 84550; 85025

== ENCOUNTER → 2021-03-20 15:07 | Outpatient (CLI) | payer MEDICARE, SELFPAY ==
[2021-03-20 17:49] LABS: Absolute Lymphocyte Count 1.75 X10^3/uL (0.83-4.51); Absolute Neutrophil Count 2.8 X10^3/uL (2.0-7.7); Basophil# 0.03 X10^3/uL; Basophil% 0.6 % (0-1); Eosinophil# 0.16 X10^3/uL; Eosinophils% 3.1 % (0-5); Hematocrit 33.8 % (37-47); Hemoglobin 10.8 g/dL (12.0-15.0); Lymphocyte # 1.75 X10^3/ul (0.83-4.51); Mean Corpuscular Hgb 30.9 pg (27.0-32.0); Mean Corpuscular Volume 96.6 fL (81-99); Monocyte% 7.8 % (0-10); NRBC Flagged by Analyzer 0 % (0-5); Neutrophil # 2.79 X10^3/uL (2.7-7.7); Neutrophil % 54.3 % (47-70); Platelet Count 230 K/mm3 (150-450); RBC Distribution Width CV 14.5 % (11.6-14.6); RBC Distribution Width SD 50.7 fl (35.1-43.9); RET-HE 35.9 pg (30-35); Reticulocyte Count 1.89 % (0.5-1.5); White Blood Count 5.1 K/mm3 (4.4-11.0)
[2021-03-20 18:21] LABS: Ferritin 37 ng/mL (8-252); Iron 62 ug/dL (50-170); Iron Binding Capacity,Total 400 ug/dL (250-450); PERCENT IRON SATURATION 15.5 % (15.0-55.0)
[2021-03-21 12:45] LABS: Vitamin B12 259 pg/mL (211-911)
== END ==
PROVIDERS: PCP Family Medicine Geriatric Medicine; Visit Provider Family Medicine Geriatric Medicine
DX: D64.9 Anemia, unspecified (principal)
CPT/HCPCS: 36415; 82607; 82728; 82746; 83540; 83550; 85025; 85045

== ENCOUNTER → 2021-04-18 11:47 | Outpatient (CLI) | payer MEDICARE, SELFPAY ==
[2021-04-18 12:54] LABS: Absolute Lymphocyte Count 1.84 X10^3/uL (0.83-4.51); Absolute Neutrophil Count 3.5 X10^3/uL (2.0-7.7); Basophil# 0.03 X10^3/uL; Basophil% 0.5 % (0-1); Eosinophil# 0.16 X10^3/uL; Eosinophils% 2.7 % (0-5); Hematocrit 33.4 % (37-47); Hemoglobin 11.1 g/dL (12.0-15.0); Lymphocyte # 1.84 X10^3/ul (0.83-4.51); Lymphocyte % 31.2 % (19-41); Mean Corp Hgb Conc 33.2 g/dL (32-36); Mean Corpuscular Hgb 31.5 pg (27.0-32.0); Mean Corpuscular Volume 94.9 fL (81-99); Mean Platelet Vol. 11.1 fl (6.2-12.0); Monocyte# 0.36 X10^3/uL; Monocyte% 6.1 % (0-10); NRBC Flagged by Analyzer 0 % (0-5); Neutrophil # 3.51 X10^3/uL (2.7-7.7); Neutrophil % 59.5 % (47-70); Platelet Count 216 K/mm3 (150-450); RBC Distribution Width CV 14.2 % (11.6-14.6); RBC Distribution Width SD 49.1 fl (35.1-43.9); Red Blood Count 3.52 M/mm3 (4.2-5.4); White Blood Count 5.9 K/mm3 (4.4-11.0)
== END ==
PROVIDERS: PCP Family Medicine Geriatric Medicine; Visit Provider Family Medicine Geriatric Medicine
DX: D64.9 Anemia, unspecified (principal)
CPT/HCPCS: 36415; 85025

== ENCOUNTER → 2021-04-23 15:05 | Outpatient (CLI) | payer MEDICARE, SELFPAY ==
[2021-04-23 16:19] LABS: Homocysteine 18.4 umol/L (3.2-10.7)
== END ==
PROVIDERS: PCP Family Medicine Geriatric Medicine; Visit Provider Family Medicine Geriatric Medicine
DX: N39.0 Urinary tract infection, site not specified (principal); E53.8 Deficiency of other specified B group vitamins; E72.11 Homocystinuria
CPT/HCPCS: 36415; 83090; 87086; 87088; 87186

== ENCOUNTER → 2021-04-25 11:46 | Outpatient (CLI) | payer MEDICARE, SELFPAY | PROVIDERS: PCP Family Medicine Geriatric Medicine; Visit Provider Family Medicine Geriatric Medicine | DX: E53.8 Deficiency of other specified B group vitamins (principal); N39.0 Urinary tract infection, site not specified; E72.11 Homocystinuria | CPT/HCPCS: 36415; 83921 ==

== ENCOUNTER → 2021-05-02 10:09 | Outpatient (CLI) | payer MEDICARE, SELFPAY ==
--- NOTE | 2021-05-02 13:18 | NEURO_ITS ---
NCS and/or EMG Patient Report Ordering Doctor: Tin Arce Chi DATE OF SERVICE: 05/02/21 Niurka presents for electrodiagnostic testing of the right upper limb. She reports numbness and tingling in the right hand for the past 7 to 8 months. Electrodiagnostic findings: Right median motor nerve demonstrates prolonged la tency with normal amplitude and conduction velocity normal right ulnar motor response. Prolonged right median F wave. Prolonged right median sensory latency at the wrist. Normal right ulnar and radial sensory responses. On needle EMG, all muscles tested in the right upper limb showed no evidence of denervation with normal motor unit action potentials. Electrodiagnostic assessment: This is an abnormal study in the right upper limb 1. Electrodiagnostic findings demonstrate right-sided median mononeuropathy. This is consistent with a mild right carpal tunnel syndrome.
== END ==
PROVIDERS: PCP Family Medicine Geriatric Medicine; Referring Provider Family Medicine Geriatric Medicine; Visit Provider Family Medicine Geriatric Medicine
DX: R20.9 Unspecified disturbances of skin sensation (principal); R20.2 Paresthesia of skin
CPT/HCPCS: 95886; 95910

== ENCOUNTER 2021-06-12 11:30 | Outpatient (CLI) | payer MEDICARE, SELFPAY ==
[2021-06-12 12:24] LABS: Absolute Lymphocyte Count 2.17 X10^3/uL (0.83-4.51); Absolute Neutrophil Count 4.6 X10^3/uL (2.0-7.7); Basophil# 0.02 X10^3/uL; Basophil% 0.3 % (0-1); Eosinophil# 0.15 X10^3/uL; Hematocrit 35.6 % (37-47); Hemoglobin 11.6 g/dL (12.0-15.0); Lymphocyte # 2.17 X10^3/ul (0.83-4.51); Mean Corp Hgb Conc 32.6 g/dL (32-36); Mean Corpuscular Hgb 30.9 pg (27.0-32.0); Mean Corpuscular Volume 94.7 fL (81-99); Monocyte# 0.56 X10^3/uL; Monocyte% 7.5 % (0-10); NRBC Flagged by Analyzer 0 % (0-5); Neutrophil # 4.55 X10^3/uL (2.7-7.7); Neutrophil % 60.9 % (47-70); Platelet Count 289 K/mm3 (150-450); RBC Distribution Width CV 13.4 % (11.6-14.6); RBC Distribution Width SD 46.8 fl (35.1-43.9); Red Blood Count 3.76 M/mm3 (4.2-5.4); White Blood Count 7.5 K/mm3 (4.4-11.0)
[2021-06-12 12:38] LABS: ALB/GLOB Ratio 1.1 RATIO (0.9-2.4); AST(SGOT) 18 U/L (15-37); Alanine Aminotransfer ALT/SGPT 18 U/L (13-56); Albumin, Serum 3.8 g/dL (3.2-5.0); Alkaline Phosphatase 81 U/L (45-117); Anion Gap 5 (5-15); BUN 29 mg/dL (7-18); BUN/Creat Ratio 23.8 RATIO (10-20); Calcium,Total 9.6 mg/dL (8.5-10.1); Chloride 105 mmol/L (98-107); Creatinine, Serum 1.22 mg/dL (0.55-1.02); EST Glomerular Filtration Rate 45 mL/min (>60); Est Glom Filt Rate - Afr Amer 54 mL/min (>60); Globulin 3.6 g/dL (2.2-4.2); Glucose 105 mg/dL (74-106); Potassium 3.8 mmol/L (3.5-5.1); Protein, Total 7.4 g/dL (6.4-8.2); Sodium Level 140 mmol/L (136-145); Uric Acid 6.1 mg/dL (2.6-6.0)
[2021-06-12 13:04] LABS: Vitamin D,25 Hydroxy 23.5 ng/mL
== END 2021-06-12 23:59 | disposition short-term general hospital (02) ==
LOC: POLAB3 11:31
PROVIDERS: PCP Family Medicine Geriatric Medicine; Visit Provider Family Medicine Geriatric Medicine
DX: E11.9 Type 2 diabetes mellitus without complications (principal); E55.9 Vitamin D deficiency, unspecified; I10 Essential (primary) hypertension; M10.9 Gout, unspecified
CPT/HCPCS: 36415; 80053; 82306; 84550; 85025

== ENCOUNTER 2021-09-12 09:23 | Outpatient (CLI) | payer MEDICARE, SELFPAY ==
[2021-09-12 14:52] LABS: Absolute Lymphocyte Count 1.65 X10^3/uL (0.83-4.51); Absolute Neutrophil Count 3.1 X10^3/uL (2.0-7.7); Basophil# 0.02 X10^3/uL; Basophil% 0.4 % (0-1); Eosinophils% 3.8 % (0-5); Hemoglobin 11.3 g/dL (12.0-15.0); Lymphocyte # 1.65 X10^3/ul (0.83-4.51); Lymphocyte % 31.4 % (19-41); Mean Corp Hgb Conc 32.3 g/dL (32-36); Mean Corpuscular Volume 96.2 fL (81-99); Mean Platelet Vol. 11.4 fl (6.2-12.0); Monocyte% 5.7 % (0-10); NRBC Flagged by Analyzer 0 % (0-5); Neutrophil # 3.08 X10^3/uL (2.7-7.7); Neutrophil % 58.5 % (47-70); Platelet Count 243 K/mm3 (150-450); RBC Distribution Width CV 14.6 % (11.6-14.6); RBC Distribution Width SD 50.9 fl (35.1-43.9); Red Blood Count 3.64 M/mm3 (4.2-5.4); White Blood Count 5.3 K/mm3 (4.4-11.0)
[2021-09-12 15:11] LABS: ALB/GLOB Ratio 1.2 RATIO (0.9-2.4); AST(SGOT) 19 U/L (15-37); Alanine Aminotransfer ALT/SGPT 17 U/L (13-56); Albumin, Serum 3.8 g/dL (3.2-5.0); Alkaline Phosphatase 73 U/L (45-117); Anion Gap 5 (5-15); BUN 17 mg/dL (7-18); BUN/Creat Ratio 13.1 RATIO (10-20); Calcium,Total 9.1 mg/dL (8.5-10.1); Chloride 106 mmol/L (98-107); EST Glomerular Filtration Rate 42 mL/min (>60); Est Glom Filt Rate - Afr Amer 50 mL/min (>60); Globulin 3.2 g/dL (2.2-4.2); Glucose 98 mg/dL (74-106); Potassium 3.8 mmol/L (3.5-5.1); Sodium Level 139 mmol/L (136-145); Thyroid Stim Hormone (TSH) 4.67 uIU/mL (0.358-3.74); Uric Acid 6.1 mg/dL (2.6-6.0)
[2021-09-12 15:23] LABS: Vitamin D,25 Hydroxy 29.1 ng/mL
== END 2021-09-12 23:59 | disposition home or self-care (01) ==
LOC: POLAB3 09:50
PROVIDERS: PCP Family Medicine Geriatric Medicine; Visit Provider Family Medicine Geriatric Medicine
DX: E11.9 Type 2 diabetes mellitus without complications (principal); E55.9 Vitamin D deficiency, unspecified; I10 Essential (primary) hypertension; M10.9 Gout, unspecified
CPT/HCPCS: 36415; 80053; 82306; 84443; 84550; 85025

== ENCOUNTER → 2021-10-10 | Outpatient (CLI) | payer MEDICARE, SELFPAY | END | disposition home or self-care (01) | LOC: LABSPEC 12:05 | PROVIDERS: PCP Family Medicine Geriatric Medicine; Visit Provider Family Medicine Geriatric Medicine | DX: N39.0 Urinary tract infection, site not specified (principal) | CPT/HCPCS: 87077; 87086; 87088; 87186 ==

== ENCOUNTER → 2021-10-24 | Outpatient (CLI) | payer MEDICARE, SELFPAY ==
[2021-10-24 13:07] LABS: Thyroid Stim Hormone (TSH) 1.75 uIU/mL (0.358-3.74)
== END | disposition home or self-care (01) ==
LOC: POLAB3 11:02
PROVIDERS: PCP Family Medicine Geriatric Medicine; Visit Provider Family Medicine Geriatric Medicine
DX: E03.9 Hypothyroidism, unspecified (principal)
CPT/HCPCS: 36415; 84443

== ENCOUNTER → 2021-12-20 | Outpatient (CLI) | payer MEDICARE, SELFPAY ==
[2021-12-20 12:34] LABS: Absolute Lymphocyte Count 1.75 X10^3/uL (0.83-4.51); Absolute Neutrophil Count 3.2 X10^3/uL (2.0-7.7); Basophil# 0.03 X10^3/uL; Basophil% 0.6 % (0-1); Eosinophil# 0.14 X10^3/uL; Eosinophils% 2.6 % (0-5); Hematocrit 32.7 % (37-47); Hemoglobin 11.2 g/dL (12.0-15.0); Lymphocyte # 1.75 X10^3/ul (0.83-4.51); Lymphocyte % 32.4 % (19-41); Mean Corp Hgb Conc 34.3 g/dL (32-36); Mean Corpuscular Hgb 31.5 pg (27.0-32.0); Mean Corpuscular Volume 91.9 fL (81-99); Mean Platelet Vol. 10.8 fl (6.2-12.0); Monocyte# 0.32 X10^3/uL; Monocyte% 5.9 % (0-10); NRBC Flagged by Analyzer 0 % (0-5); Neutrophil # 3.15 X10^3/uL (2.7-7.7); Neutrophil % 58.3 % (47-70); Platelet Count 220 K/mm3 (150-450); RBC Distribution Width CV 13.5 % (11.6-14.6); RBC Distribution Width SD 45.9 fl (35.1-43.9); Red Blood Count 3.56 M/mm3 (4.2-5.4); White Blood Count 5.4 K/mm3 (4.4-11.0)
[2021-12-20 13:09] LABS: ALB/GLOB Ratio 1.2 RATIO (0.9-2.4); AST(SGOT) 17 U/L (15-37); Alanine Aminotransfer ALT/SGPT 18 U/L (13-56); Albumin, Serum 3.7 g/dL (3.2-5.0); Alkaline Phosphatase 76 U/L (45-117); Anion Gap 5 (5-15); BUN 16 mg/dL (7-18); Calcium,Total 9.4 mg/dL (8.5-10.1); Chloride 101 mmol/L (98-107); Creatinine, Serum 1.14 mg/dL (0.55-1.02); EST Glomerular Filtration Rate 48 mL/min (>60); Est Glom Filt Rate - Afr Amer 59 mL/min (>60); Globulin 3.2 g/dL (2.2-4.2); Glucose 140 mg/dL (74-106); Protein, Total 6.9 g/dL (6.4-8.2); Sodium Level 133 mmol/L (136-145); Thyroid Stim Hormone (TSH) 2.89 uIU/mL (0.358-3.74); Uric Acid 5.6 mg/dL (2.6-6.0)
[2021-12-20 13:16] LABS: Vitamin D,25 Hydroxy 33.4 ng/mL
== END | disposition home or self-care (01) ==
LOC: POLAB3 11:37
PROVIDERS: PCP Family Medicine Geriatric Medicine; Visit Provider Family Medicine Geriatric Medicine
DX: I10 Essential (primary) hypertension (principal); E11.9 Type 2 diabetes mellitus without complications; M10.9 Gout, unspecified; E55.9 Vitamin D deficiency, unspecified
CPT/HCPCS: 36415; 80053; 82306; 84443; 84550; 85025

== ENCOUNTER → 2022-06-18 | Outpatient (CLI) | payer MEDICARE, SELFPAY ==
[2022-06-18 13:35] LABS: Absolute Lymphocyte Count 1.92 X10^3/uL (0.83-4.51); Basophil# 0.03 X10^3/uL; Basophil% 0.5 % (0-1); Eosinophil# 0.21 X10^3/uL; Eosinophils% 3.2 % (0-5); Hematocrit 34.8 % (37-47); Hemoglobin 11.5 g/dL (12.0-15.0); Lymphocyte # 1.92 X10^3/ul (0.83-4.51); Lymphocyte % 28.9 % (19-41); Mean Corpuscular Hgb 31.3 pg (27.0-32.0); Mean Corpuscular Volume 94.8 fL (81-99); Monocyte# 0.43 X10^3/uL; Monocyte% 6.5 % (0-10); NRBC Flagged by Analyzer 0 % (0-5); Neutrophil # 4.03 X10^3/uL (2.7-7.7); Neutrophil % 60.6 % (47-70); Platelet Count 252 K/mm3 (150-450); RBC Distribution Width CV 13.9 % (11.6-14.6); RBC Distribution Width SD 47.9 fl (35.1-43.9); Red Blood Count 3.67 M/mm3 (4.2-5.4); White Blood Count 6.6 K/mm3 (4.4-11.0)
[2022-06-18 13:48] LABS: Vitamin D,25 Hydroxy 24.2 ng/mL
[2022-06-18 13:58] LABS: ALB/GLOB Ratio 1.1 RATIO (0.9-2.4); AST(SGOT) 15 U/L (15-37); Alanine Aminotransfer ALT/SGPT 19 U/L (13-56); Albumin, Serum 3.9 g/dL (3.2-5.0); Alkaline Phosphatase 81 U/L (45-117); Anion Gap 8 (5-15); BUN 25 mg/dL (7-18); BUN/Creat Ratio 19.7 RATIO (10-20); Calcium,Total 9.2 mg/dL (8.5-10.1); Chloride 103 mmol/L (98-107); Creatinine, Serum 1.27 mg/dL (0.55-1.02); EST Glomerular Filtration Rate 43 mL/min (>60); Est Glom Filt Rate - Afr Amer 52 mL/min (>60); Globulin 3.6 g/dL (2.2-4.2); Glucose 138 mg/dL (74-106); Potassium 3.9 mmol/L (3.5-5.1); Protein, Total 7.5 g/dL (6.4-8.2); Sodium Level 139 mmol/L (136-145); Thyroid Stim Hormone (TSH) 4.85 uIU/mL (0.358-3.74); Uric Acid 6.5 mg/dL (2.6-6.0)
== END | disposition home or self-care (01) ==
LOC: POLAB3 11:33
PROVIDERS: PCP Family Medicine Geriatric Medicine; Visit Provider Family Medicine Geriatric Medicine
DX: I10 Essential (primary) hypertension (principal); E11.65 Type 2 diabetes mellitus with hyperglycemia; E55.9 Vitamin D deficiency, unspecified
CPT/HCPCS: 36415; 80053; 82306; 84443; 84550; 85025

== ENCOUNTER → 2022-12-23 | Outpatient (CLI) | payer MEDICARE, SELFPAY ==
[2022-12-23 12:09] LABS: Absolute Lymphocyte Count 1.63 X10^3/uL (0.83-4.51); Absolute Neutrophil Count 2.4 X10^3/uL (2.0-7.7); Basophil# 0.02 X10^3/uL; Basophil% 0.4 % (0-1); Eosinophil# 0.15 X10^3/uL; Eosinophils% 3.3 % (0-5); Hematocrit 31.1 % (37-47); Hemoglobin 10.4 g/dL (12.0-15.0); Lymphocyte # 1.63 X10^3/ul (0.83-4.51); Lymphocyte % 36.3 % (19-41); Mean Corp Hgb Conc 33.4 g/dL (32-36); Mean Corpuscular Hgb 31.5 pg (27.0-32.0); Mean Corpuscular Volume 94.2 fL (81-99); Mean Platelet Vol. 11.1 fl (6.2-12.0); Monocyte# 0.26 X10^3/uL; Monocyte% 5.8 % (0-10); NRBC Flagged by Analyzer 0 % (0-5); Neutrophil # 2.39 X10^3/uL (2.7-7.7); Neutrophil % 53.3 % (47-70); Platelet Count 226 K/mm3 (150-450); RBC Distribution Width CV 13.9 % (11.6-14.6); RBC Distribution Width SD 47.6 fl (35.1-43.9); White Blood Count 4.5 K/mm3 (4.4-11.0)
[2022-12-23 12:28] LABS: Vitamin D,25 Hydroxy 28.5 ng/mL
[2022-12-23 12:37] LABS: ALB/GLOB Ratio 1.2 RATIO (0.9-2.4); AST(SGOT) 17 U/L (15-37); Alanine Aminotransfer ALT/SGPT 15 U/L (13-56); Albumin, Serum 3.6 g/dL (3.2-5.0); Alkaline Phosphatase 82 U/L (45-117); Anion Gap 8 (5-15); BUN 17 mg/dL (7-18); BUN/Creat Ratio 13.9 RATIO (10-20); Calcium,Total 8.9 mg/dL (8.5-10.1); Chloride 102 mmol/L (98-107); Creatinine, Serum 1.22 mg/dL (0.55-1.02); EST Glomerular Filtration Rate 45 mL/min (>60); Est Glom Filt Rate - Afr Amer 54 mL/min (>60); Globulin 3.1 g/dL (2.2-4.2); Glucose 146 mg/dL (74-106); Potassium 4.4 mmol/L (3.5-5.1); Protein, Total 6.7 g/dL (6.4-8.2); Sodium Level 134 mmol/L (136-145)
== END | disposition home or self-care (01) ==
LOC: POLAB3 09:37
PROVIDERS: PCP Family Medicine Geriatric Medicine; Visit Provider Family Medicine Geriatric Medicine
DX: I10 Essential (primary) hypertension (principal); E11.65 Type 2 diabetes mellitus with hyperglycemia; E55.9 Vitamin D deficiency, unspecified
CPT/HCPCS: 36415; 80053; 82306; 84443; 85025

== ENCOUNTER → 2022-12-30 | Outpatient (CLI) | payer MEDICARE, SELFPAY ==
[2022-12-30 14:16] LABS: Anion Gap 8 (5-15); BUN 25 mg/dL (7-18); BUN/Creat Ratio 20.8 RATIO (10-20); Calcium,Total 9.4 mg/dL (8.5-10.1); Chloride 100 mmol/L (98-107); EST Glomerular Filtration Rate 45 mL/min (>60); Est Glom Filt Rate - Afr Amer 55 mL/min (>60); Glucose 129 mg/dL (74-106); Potassium 3.9 mmol/L (3.5-5.1); Sodium Level 135 mmol/L (136-145)
== END | disposition home or self-care (01) ==
LOC: POLAB3 11:51
PROVIDERS: PCP Family Medicine Geriatric Medicine; Visit Provider Family Medicine Geriatric Medicine
DX: E11.65 Type 2 diabetes mellitus with hyperglycemia (principal); I10 Essential (primary) hypertension
CPT/HCPCS: 36415; 80048

== ENCOUNTER → 2023-04-08 | Outpatient (CLI) | payer MEDICARE, SELFPAY ==
--- NOTE | 2023-04-08 11:12 | RAD_ITS ---
EXAM: XR RIGHT HIP WITH PELVIS WHEN PERFORMED, 2 OR 3 VIEWS CLINICAL INDICATION: RIGHT HIP PAIN TECHNIQUE: Two or three views of the right hip with pelvis when performed. COMPARISON: 08/18/2019 FINDINGS: BONES/JOINTS: 3 cannulated screws traversing the right femoral neck are again identified. Normal osseous alignment. No evidence of an acute fracture or dislocation. Degenerative changes in the lower lumbar spine, SI joints, and bilateral hips. SOFT TISSUES: No significant abnormality. No soft tissue swelling or gas. VASCULATURE: Vascular calcifications. RAD/HIP, UNI W/ Pelvis 2-3 Views IMPRESSION: 1. 3 cannulated screws traversing the right femoral neck are again identified. Normal osseous alignment. No evidence of an acute fracture or dislocation. 2. Degenerative changes. Electronically Signed: Brendon Rivera DO at 22:54 EST ,
--- NOTE | 2023-04-08 11:13 | RAD_ITS ---
EXAM: XR LUMBOSACRAL SPINE, 4 OR 5 VIEWS CLINICAL INDICATION: MUSCLE SPASM OF BACK TECHNIQUE: Frontal, lateral and bilateral oblique views of the lumbar spine. COMPARISON: CT abdomen and pelvis, 02/23/2018. FINDINGS: VERTEBRAE: Multilevel endplate osteophytosis and facet arthrosis. Trace degenerative anterolisthesis of L4 upon L5 secondary to facet arthrosis. Inferior endplate compression fracture of L1 is new compared to the prior CT. Less than 25% vertebral body height loss is identified. No spondylolisthesis. Preservation of the normal lumbar lordosis. SACRUM/COCCYX: Slight asymmetric sclerosis of the right SI joint correlating with prior CT. OTHER BONES/JOINTS: Partially visualized screws of the right femoral head/neck. DISC SPACES: Multilevel intervertebral disc height loss. VASCULATURE: Vascular calcifications. GASTROINTESTINAL TRACT: Normal as visualized. Included bowel gas pattern is non-obstructive. RAD/L/S Spine Min 4 Views IMPRESSION: Inferior endplate compression fracture of L1 is new compared to the prior CT. Less than 25% vertebral body height loss is identified. Extensive degenerative changes. Electronically Signed: Brendon Rivera DO at 23:21 EST ,
== END | disposition home or self-care (01) ==
LOC: RAD 11:09
PROVIDERS: PCP Family Medicine Geriatric Medicine; Referring Provider Family Medicine Geriatric Medicine; Visit Provider Family Medicine Geriatric Medicine
DX: M62.830 Muscle spasm of back (principal); M25.551 Pain in right hip
CPT/HCPCS: 72110; 73502

== ENCOUNTER → 2023-04-23 | Outpatient (CLI) | payer MEDICARE, SELFPAY | END | disposition home or self-care (01) | LOC: PSN 11:59 | PROVIDERS: PCP Family Medicine Geriatric Medicine; Referring Provider Family Medicine Geriatric Medicine; Visit Provider Family Medicine Geriatric Medicine | DX: R68.83 Chills (without fever) (principal) | CPT/HCPCS: 87635; 87804; 87807; C9803 ==

== ENCOUNTER → 2023-06-26 | Outpatient (CLI) | payer MEDICARE, SELFPAY ==
--- OUTSIDE RECORDS SUMMARY | 2023-06-26 11:27 | XMS RPT_ITS | CCD ---
Author Name Unknown Address [address] [place] [address] Organization [facility] Care Team Providers Care [employer] Worker Name Role Phone BRENDA MILLER (SHOSHANA) Unavailable Unavailable ROCCO PELAEZ Unavailable Unavailable ROCCO PELAEZ Unavailable Unavailable Results Test Name Value Interpretation Reference Range Facil ity Encounters Encounter Date Encounter Type Care Provider Facility Start: 04-07-2018 End: 04-10-2018 Patient encounter procedure ROCCO PELAEZ [facility] Start: 03-16-2018 End: 03-18-2018 Patient encounter procedure BRENDA LEON) [facility] Summary Purpose Family History No Family History Records Found Advance Directives No Advanced Directives Records Found Procedure Findings Note Operative Note (Enc) (GENSWS) ----- ---Progress Notes:Rocco Pelaez MD 04/05/2018 1:10 PM SignedOPERATIVE NOTATION FOR [facility] SURGICAL PROCEDURE.March 30, 2018Niurka Dorsey 1940 [id number] femalePROCEDURE: EGD WITH BIOPSY - [id number]: Thelma Pelaez M.D. FACS HEAD TRACK COACH: NoneDEPT: WStephania PROVIDER: [id number] Pelaez MD POS:[id number]: (K25.3) Acute gastric ulcer without hemorrhage or perforation(primary encounter diagnosis)ASA CLASS: 3 - SevereFINDINGS:COMPLICATIONS: NonePMHx -PAST MEDICAL HISTORYDiagnosis Date- DM (diabetes mellitus) (HCC)- Gout- HTN (hypertension)- HyperlipidemiaCOMORBIDITIES - HTN and NIDDMPost Op Occurrences - NoneWound Classification - Clean ContaminatedOperative note dictated in the [facility] dictation system.Rocco Pelaez MDEncounter Status:Closed by ROCCO PELAEZ MD on 04/05/18Encounter Number: [id number] Additional Source Comments INFORMATION SOURCE (unrecogn ized section and content) FOR RECORDS PERTAINING TO PATIENTS WHO ARE OR HAVE BEEN ENROLLED IN A CHEMICAL DEPENDENCY/SUBSTANCEABUSE PROGRAM, SOME INFORMATION MAY BE OMITTED. This clinical summary was aggregated from multiple sources. Caution should be exercised in using it in the provision of clinical care. This summary normalizes information from multiple sources, and as a consequence, information in this document may materially change the coding, format and clinical context of patient data. In addition, data may be omitted in some cases. CLINICAL DECISIONS SHOULD BE BASED ON THE PRIMARY CLINICAL RECORDS. [employer] [facility]. provides no warranty or guarantee of the accuracy or completeness of information in this document.
[2023-06-26 12:46] LABS: Absolute Lymphocyte Count 2.05 X10^3/uL (0.83-4.51); Absolute Neutrophil Count 4.5 X10^3/uL (2.0-7.7); Basophil# 0.02 X10^3/uL; Basophil% 0.3 % (0-1); Eosinophil# 0.17 X10^3/uL; Eosinophils% 2.4 % (0-5); Hematocrit 34.1 % (37-47); Hemoglobin 10.7 g/dL (12.0-15.0); Lymphocyte # 2.05 X10^3/ul (0.83-4.51); Lymphocyte % 28.8 % (19-41); Mean Corp Hgb Conc 31.4 g/dL (32-36); Mean Corpuscular Hgb 30.8 pg (27.0-32.0); Mean Corpuscular Volume 98.3 fL (81-99); Mean Platelet Vol. 10.9 fl (6.2-12.0); Monocyte% 5.6 % (0-10); NRBC Flagged by Analyzer 0 % (0-5); Neutrophil # 4.47 X10^3/uL (2.7-7.7); Neutrophil % 62.6 % (47-70); Platelet Count 255 K/mm3 (150-450); RBC Distribution Width CV 14.8 % (11.6-14.6); RBC Distribution Width SD 53.8 fl (35.1-43.9); Red Blood Count 3.47 M/mm3 (4.2-5.4); White Blood Count 7.1 K/mm3 (4.4-11.0)
[2023-06-26 13:04] LABS: ALB/GLOB Ratio 1.1 RATIO (0.9-2.4); AST(SGOT) 12 U/L (15-37); Alanine Aminotransfer ALT/SGPT 18 U/L (13-56); Albumin, Serum 3.7 g/dL (3.2-5.0); Alkaline Phosphatase 80 U/L (45-117); Anion Gap 7 (5-15); BUN 28 mg/dL (7-18); BUN/Creat Ratio 21.9 RATIO (10-20); Calcium,Total 9.6 mg/dL (8.5-10.1); Chloride 102 mmol/L (98-107); Creatinine, Serum 1.28 mg/dL (0.55-1.02); EST Glomerular Filtration Rate 42 mL/min (>60); Est Glom Filt Rate - Afr Amer 51 mL/min (>60); Globulin 3.4 g/dL (2.2-4.2); Glucose 174 mg/dL (74-106); Potassium 3.7 mmol/L (3.5-5.1); Protein, Total 7.1 g/dL (6.4-8.2); Sodium Level 136 mmol/L (136-145); Thyroid Stim Hormone (TSH) 2.12 uIU/mL (0.358-3.74); Uric Acid 6.5 mg/dL (2.6-6.0)
[2023-06-26 13:54] LABS: Vitamin D,25 Hydroxy 31.4 ng/mL
== END | disposition home or self-care (01) ==
LOC: POLAB3 10:57
PROVIDERS: PCP Family Medicine Geriatric Medicine; Visit Provider Family Medicine Geriatric Medicine
DX: E11.65 Type 2 diabetes mellitus with hyperglycemia (principal); I10 Essential (primary) hypertension; M10.9 Gout, unspecified; E55.9 Vitamin D deficiency, unspecified
CPT/HCPCS: 36415; 80053; 82306; 84443; 84550; 85025

== ENCOUNTER 2023-07-02 10:30 | Outpatient (RCR) | payer MEDICARE, SELFPAY ==
--- NOTE | 2023-06-04 12:14 | HP.PTEVAL ---
Patient's Visit Information Visit Information Visit Information: ANNE CASTAÑEDA is a 82 year old F referred to Physical Therapy by Dr. Nancie Rico MD with a diagnosis of BACK PAIN. Date of Evaluation: 06/04/23 Physical Therapist: Pacheco Shelton, PT, Cert MDT, OCS Visit Plan Frequency: 2x /Week Duration: 4 Weeks Plan: PT INTERVENTIONS DLS ,POSTURAL EX'S , BLE STRENGTH ( HIPS) ,LUMBAR ROM AND POSTURAL TRAINING Subjective Subjective: This 82 y/o female presents to physical therapy with back pain. Patient has had lumbar pain for ~ 4 months . Noticed pain in lumbar when changing sheets. Patient seen DR had x-rays DDD. Recommended pain management had 2 epidural injections . Patient pain located lumbar pain and no legs symptoms. Aggravating standing ,bending ,walking and lifting. Alleviating factors rest and sitting injections. Coughing/sneezing -.No abnormal night. Denies parestehesia /tingling-. Bowel/bladder -. Sleeping good. Patient pain affects QOL and function . Patient goals to decrease pain and increase strengthening. Patient c/o knee pain. Patient has h/o right hip fracture with ORIF. SOCIAL: Pain Bilateral Back: Pain Intensity (Out of 10): 3 Pain Intensity Range: 10 Objective Objective: POSTURE: mild forward posture GAIT: reciprocal pattern NEURO: denies paresthesia/tingling ,reflexes L3-4,L4-5,L5-S1 1/3 PALAPTION: tender LS EDEMA: 1+ right leg LUMBAR ROM: mod loss flexion .extension mod /severe loss ,side glides mod loss FLEXABILITY: hamstrings min tight ,IR 30 DEGREES HIP MMT: ( peak force) quads R 23.4 ,L 9.8 , hamstrings R 17.7 ,left 12.3 , hip flexion L 0 ,R 6.9 Special Tests L/S Slump test left side: Negative L/S Slump test right side: Negative L/S Left Straight Leg Raise: Negative L/S Right Straight Leg Raise: Negative Balance/Special Test Scores Oswestry Low Back Score: 25 Goals Goal 1:: Patient to be I with HEP for back Goal Time Frame: 4-6 Weeks Goal 2:: Patient to demonstrate 50 % improvement with less pain and improved function Goal Time Frame: 4-6 Weeks Goal 3:: Patient improve lumbar ROM for function of recovery to put on shoes Goal Time Frame: 4-6 Weeks Goal 4:: Patient to improve BLE strengthening by 5# peak force to improve function Goal Time Frame: 4-6 Weeks Goal 5:: Patient to improve back oswestry score by 5 points to improve function. Rehabilitation Potential Physical Therapy Diagnosis: This patient has back pain with pain with motion testing with extension with decrease ROM ,and positioning with standing affects ADLS and housework along weakness in hips thus benefit from skilled PT Rehabilitation Potential: Good Anticipated Interventions Patient/Client Instruction: Educate patient on: Condition and Plan of Care For the Purpose of:: To decrease pain, To increase ROM, To improve muscle performance and motor function, To improve ability to perform ADL's, To increase tolerance to activity/condition/position, To improve ability of physical actions for home/community/work/leisure, To improve health of tissue, To decrease soft tissue restriction, To increase flexibility/ROM and To improve tolerance to ADL's Therapeutic Exercise to Include: Strength training, Endurance training, Body mechanics, Postural training, Flexibilty training and Dynamic Lumbar Stabilization For the Purpose of:: To decrease pain, To increase ROM, To improve muscle performance and motor function, To increase tolerance to activity/condition/position, To improve performance and independence with ADL's, To improve ability of physical actions for home/community/work/leisure, To improve health of tissue, To decrease soft tissue restriction, To increase flexibility/ROM and To improve endurance Text: Thank you for the opportunity to evaluate your patient. For Medicare and Medicare HMO plans, please review the plan of care and approve it. It will need to be FAXED BACK to us at [phone] for Medicare purposes. For Medicare only, by signing this I certify the plan of care. Please let me know if there are questions or concerns regarding this plan of care. Physician Signature: Date:
--- NOTE | 2023-09-15 17:31 | HP.PTDCSUM ---
Discharge Summary D/C summary: It has been my pleasure to treat ANNE CASTAÑEDA referred by Dr. Nancie Rico MD, with the diagnosis of BACK PAIN for a total of 9 visit(s). Discharge Date: Please see the following information for a summary of their discharge status. Subjective Subjective: Pain is worse in leg. Patient had injections help Back only hurts with standing periods of time , difficulty extended distances RTD , Pain Bilateral Back: Pain Intensity (Out of 10): 0 Right Lower Extremity: Pain Intensity (Out of 10): 3 Overall Improvement % Improvement: 80 Objective Objective/Function: POSTURE: mild forward posture GAIT: reciprocal pattern NEURO: denies paresthesia/tingling ,reflexes L3-4,L4-5,L5-S1 1/3 PALAPTION: tender LS EDEMA: 1+ right leg LUMBAR ROM: mod loss flexion .extension mod /severe loss ,side glides mod loss FLEXABILITY: hamstrings min tight ,IR 30 DEGREES HIP MMT: ( peak force) quads R 31.6,L 22.8 , hamstrings 24.7 ,left 21.3 , hip flexion L 21.8 ,R 21.0 Goals Goal 1:: Patient to be I with HEP for back Goal Progress: Goal Met Goal 2:: Patient to demonstrate 50 % improvement with less pain and improved function Goal Progress: Goal Met Goal 3:: Patient improve lumbar ROM for function of recovery to put on shoes Goal Progress: Progressing Goal 4:: Patient to improve BLE strengthening by 5# peak force to improve function Goal Progress: Goal Met Goal 5:: Patient to improve back oswestry score by 5 points to improve function. Goal Progress: Goal Met Plan Plan: RTD D/C Information d/c sentence: If there are questions or concerns regarding this patient's physical therapy, please feel free to call me at [phone]. Thank you for the referral of this patient. Sincerely, Pacheco Shelton, PT, Cert MDT, OCS Balance/Gait/Functional tests Balance/Special Test Scores Oswestry Low Back Score: 13 Improvement % Improvement: 80
== END 2023-07-02 19:00 | disposition home or self-care (01) ==
LOC: PT 10:30
PROVIDERS: PCP Family Medicine Geriatric Medicine; Referring Provider Anesthesiology Pain Medicine; Visit Provider Anesthesiology Pain Medicine
DX: M54.9 Dorsalgia, unspecified (principal)
CPT/HCPCS: 97110; 97162; 97530

== ENCOUNTER → 2023-07-21 | Outpatient (CLI) | payer MEDICARE, SELFPAY ==
--- OUTSIDE RECORDS SUMMARY | 2023-07-21 12:37 | XMS RPT_ITS | CCD ---
Author Name Unknown Address [address] [place] [address] Organization [facility] Care Team Providers Care Take Up Operator Name Role Phone BRENDA MILLER (SHOSHANA) Unavailable Unavailable ROCCO PELAEZ Unavailable Unavailable ROCCO PELAEZ Unavailable Unavailable Results Test Name Value Interpretation Reference Range Facil ity Encounters Encounter Date Encounter Type Care Provider Facility Start: 04-07-2018 End: 04-10-2018 Patient encounter procedure ROCCO PELAEZ [facility] Start: 03-16-2018 End: 03-18-2018 Patient encounter procedure BRENDA LEON) [facility] Summary Purpose Family History No Family History Records Found Advance Directives No Advanced Directives Records Found Procedure Findings Note Operative Note (Enc) (GENSWS) ----- ---Progress Notes:Rocco Pelaez MD 04/05/2018 1:10 PM SignedOPERATIVE NOTATION FOR [facility] SURGICAL PROCEDURE.March 30, 2018Niurka Willian 1940 [id number] femalePROCEDURE: EGD WITH BIOPSY - [id number]: Thelma Pelaez M.D. FACS CONTRACTOR [employer]ORN THRESHING: NoneDEPT: SHIRLEY PROVIDER: [id number] Pelaez MD POS:[id number]: (K25.3) Acute gastric ulcer without hemorrhage or perforation(primary encounter diagnosis)ASA CLASS: 3 - SevereFINDINGS:COMPLICATIONS: NonePMHx -PAST MEDICAL HISTORYDiagnosis Date- DM (diabetes mellitus) (HCC)- Gout- HTN (hypertension)- HyperlipidemiaCOMORBIDITIES - HTN and NIDDMPost Op Occurrences - NoneWound Classification - Clean ContaminatedOperative note dictated in the [facility] dictation system.Rocco Pelaez MDEncounter Status:Closed by ROCCO PELAEZ MD on 04/05/18Encounter Number: [id number] Additional Source Comments INFORMATION SOURCE (unrecogn ized [...] BE BASED ON THE PRIMARY CLINICAL RECORDS. [employer] [facility]. provides no warranty or guarantee of the accuracy or completeness of information in this document.
== END | disposition home or self-care (01) ==
LOC: PSN 12:15
PROVIDERS: PCP Family Medicine Geriatric Medicine; Referring Provider Family Medicine Geriatric Medicine; Visit Provider Family Medicine Geriatric Medicine
DX: R68.83 Chills (without fever) (principal)
CPT/HCPCS: 87631

== ENCOUNTER → 2023-12-26 | Outpatient (CLI) | payer MEDICARE, SELFPAY ==
[2023-12-26 12:06] LABS: Absolute Lymphocyte Count 1.79 X10^3/uL (0.83-4.51); Absolute Neutrophil Count 4.4 X10^3/uL (2.0-7.7); Basophil# 0.03 X10^3/uL; Basophil% 0.4 % (0-1); Eosinophil# 0.04 X10^3/uL; Eosinophils% 0.6 % (0-5); Hematocrit 33.2 % (37-47); Lymphocyte # 1.79 X10^3/ul (0.83-4.51); Lymphocyte % 26.7 % (19-41); Mean Corp Hgb Conc 33.1 g/dL (32-36); Mean Corpuscular Hgb 31.2 pg (27.0-32.0); Mean Corpuscular Volume 94.1 fL (81-99); Mean Platelet Vol. 10.3 fl (6.2-12.0); Monocyte# 0.43 X10^3/uL; Monocyte% 6.4 % (0-10); NRBC Flagged by Analyzer 0 % (0-5); Neutrophil # 4.39 X10^3/uL (2.7-7.7); Neutrophil % 65.6 % (47-70); Platelet Count 211 K/mm3 (150-450); RBC Distribution Width CV 14.3 % (11.6-14.6); RBC Distribution Width SD 49.4 fl (35.1-43.9); Red Blood Count 3.53 M/mm3 (4.2-5.4); White Blood Count 6.7 K/mm3 (4.4-11.0)
[2023-12-26 12:37] LABS: Vitamin D,25 Hydroxy 36.2 ng/mL
[2023-12-26 12:55] LABS: Hemoglobin A1c 10.7 % (3.8-5.6)
[2023-12-26 13:09] LABS: ALB/GLOB Ratio 0.9 RATIO (0.9-2.4); AST(SGOT) 15 U/L (15-37); Alanine Aminotransfer ALT/SGPT 23 U/L (13-56); Albumin, Serum 3.3 g/dL (3.2-5.0); Alkaline Phosphatase 70 U/L (45-117); Anion Gap 8 (5-15); BUN 30 mg/dL (7-18); BUN/Creat Ratio 20.5 RATIO (10-20); Calcium,Total 9.4 mg/dL (8.5-10.1); Chloride 104 mmol/L (98-107); Cholesterol 275 mg/dL (200); Creatinine, Serum 1.46 mg/dL (0.55-1.02); EST Glomerular Filtration Rate 36 mL/min (>60); Est Glom Filt Rate - Afr Amer 44 mL/min (>60); Globulin 3.6 g/dL (2.2-4.2); Glucose 180 mg/dL (74-106); High Density Lipoprotein 59 mg/dL; Protein, Total 6.9 g/dL (6.4-8.2); Sodium Level 139 mmol/L (136-145); Thyroid Stim Hormone (TSH) 2.34 uIU/mL (0.358-3.74); Triglycerides 231 mg/dL; Uric Acid 5.5 mg/dL (2.6-6.0); Very Low Density Lipoprotein 46 mg/dL (5-40)
== END | disposition home or self-care (01) ==
LOC: LAB 11:44
PROVIDERS: PCP Family Medicine Geriatric Medicine; Referring Provider Family Medicine Geriatric Medicine; Visit Provider Family Medicine Geriatric Medicine
DX: I10 Essential (primary) hypertension (principal); E11.9 Type 2 diabetes mellitus without complications; E55.9 Vitamin D deficiency, unspecified; E78.5 Hyperlipidemia, unspecified; M10.9 Gout, unspecified
CPT/HCPCS: 36415; 80053; 80061; 82306; 83036; 84443; 84550; 85025

== ENCOUNTER → 2024-03-29 | Outpatient (CLI) | payer MEDICARE, SELFPAY ==
[2024-03-29 13:04] LABS: Absolute Lymphocyte Count 1.84 X10^3/uL (0.83-4.51); Absolute Neutrophil Count 3.6 X10^3/uL (2.0-7.7); Basophil# 0.03 X10^3/uL; Basophil% 0.5 % (0-1); Eosinophil# 0.13 X10^3/uL; Eosinophils% 2.2 % (0-5); Hematocrit 32.3 % (37-47); Hemoglobin 10.4 g/dL (12.0-15.0); Lymphocyte # 1.84 X10^3/ul (0.83-4.51); Lymphocyte % 30.8 % (19-41); Mean Corp Hgb Conc 32.2 g/dL (32-36); Mean Corpuscular Hgb 31.5 pg (27.0-32.0); Mean Corpuscular Volume 97.9 fL (81-99); Mean Platelet Vol. 10.5 fl (6.2-12.0); Monocyte# 0.36 X10^3/uL; NRBC Flagged by Analyzer 0 % (0-5); Neutrophil % 60.3 % (47-70); Platelet Count 246 K/mm3 (150-450); RBC Distribution Width CV 14.3 % (11.6-14.6); RBC Distribution Width SD 50.8 fl (35.1-43.9)
[2024-03-29 13:21] LABS: Vitamin D,25 Hydroxy 29.6 ng/mL
[2024-03-29 13:28] LABS: Hemoglobin A1c 6.1 % (3.8-5.6)
[2024-03-29 13:39] LABS: ALB/GLOB Ratio 1.2 RATIO (0.9-2.4); AST(SGOT) 13 U/L (15-37); Alanine Aminotransfer ALT/SGPT 16 U/L (13-56); Albumin, Serum 3.8 g/dL (3.2-5.0); Alkaline Phosphatase 66 U/L (45-117); Anion Gap 7 (5-15); BUN 32 mg/dL (7-18); BUN/Creat Ratio 22.9 RATIO (10-20); Calcium,Total 9.4 mg/dL (8.5-10.1); Chloride 105 mmol/L (98-107); Cholesterol 248 mg/dL (200); EST Glomerular Filtration Rate 38 mL/min (>60); Est Glom Filt Rate - Afr Amer 46 mL/min (>60); Globulin 3.1 g/dL (2.2-4.2); Glucose 98 mg/dL (74-106); High Density Lipoprotein 64 mg/dL; Potassium 4.7 mmol/L (3.5-5.1); Protein, Total 6.9 g/dL (6.4-8.2); Sodium Level 139 mmol/L (136-145); Triglycerides 165 mg/dL; Uric Acid 6.2 mg/dL (2.6-6.0); Very Low Density Lipoprotein 33 mg/dL (5-40)
--- OUTSIDE RECORDS SUMMARY | 2024-03-29 14:28 | XMS RPT_ITS | CCD ---
Author Organization [facility] Care Team Providers Care Missile And Missile Checkout Technician Name Role Phone BRENDA COLIN) Unavailable Unavailable RIVERA PELAEZ Unavailable Unavailable RIVERA PELAEZ Unavailable Unavailable Results Test Name Value Interpretation Reference Range Facility CNOVon 04-07-2018 CNOV Office Visit (GENSWS) ANNE DORSEY ([id number]) 1940 FDate Time Provider Ljndqnpzem01/6/18 2:30 PM BRENDA COLIN (PA) GENSWS During your visit today, we recorded the following information about you:Brenda Colin PA-C 04/07/2018 3:21 PM Signed-Call if any recurrent stomach symptoms-Continue PPI and carafate-Follow up with Dr. Archibald following instructions are important for you related to your [facility]itt[facility].INSTRUCTIONS FOR PEPTIC ULCER DISEASE/GASTRITISI discussed with you the findings of your upper endoscopy. Your upperendoscopy demonstrated signs of peptic ulcer disease or irritation. This canbe seen as a range of issues from actual ulcers in the stomach or duodenum(first part of the small bowel) or irritation ranging from redness to moresignificant irritation with erosions of the stomach or duodenum.These conditions are usually caused from a combination of too much acidproduction or too little protective mucus production in the stomach.Factors that increase acid production include smoking and stress. If yousmoke, stopping smoking will often cure these issues without needing othermedications.Factors that decrease the stomach's production of protective mucus includealcohol consumption, smoking, aspirin and other anti-inflammatory use.Over the counter medications including antiacids and acid reducing medicationsincluding H2 blockers (Zantac and the like) and proton pump inhibitors(prilosec, prevacid and the like) neutralize or prevent acid production.Prescription strength proton pump inhibitors (PPIs) may be necessary if yoursymptoms persist. Carafate may be added to PPI treatment in refractory cases.Avoiding smoking, alcohol and antiinflammatory medications are important in thesuccessful treatment of peptic diseases.New or worsening symptoms such are epigastric pain, burning, difficultyswallowing or food sticking should be relayed to your physician. Feeling fullearly after eating, or black, tarry, foul smelling stools are also worrisome.If you have any difficulties or concerns, you should contact our officeimmediately.If you note any additional difficulties, questions, or concerns, you shouldcontact our office immediately @ [phone] and [facility].Brenda Colin PA-C 04/07/2018 3:57 PM SignedFOLLOW UP VISIT - ENDOSCOPYNAME: Anne Hill NO.: [id number] OF SERVICE: 04/07/2018DOB: 1940REFERRING PHYSICIAN: Tin Arce MDAnne is a patient I am following with Dr. Pelaez for an acute peptic ulcer.Patient was recently seen in consultation by Dr. Pelaez at [facility] for suspected peptic ulcer disease, was also found to havecholelithiasis. She underwent upper endoscopy by Dr. Pelaez on 03/02/18.Patient was found to have a non-bleeding cratered gastric ulcer, medium-sizedhiatal hernia, normal esophagus. She was initiated on PPI and carafate and istaking these as instructed.Anne was feeling improved at last visit 03/16, however stil with mild abdominalsoreness and belching. Notes not eating much due to early satiety and lack ofappetite. She has been back to see Dr. Arce since her hospital discharge andwas started on insulin, had follow-up two weeks ago and another appointmentlater this month.?Dr. Pelaez performed follow-up EGD on03/30/18. He noted a superficialnon-bleeding ulcer in the prepyloric region, 3 mm in largest dimension. Hiatalhernia again noted. H. Pylori testing was negative. Patient was instructed byDr. Pelaez to continue carafate and take omeprazole twice daily. She notesshe has just started on the omeprazole.The patient notes no complaints since the procedure. She denies any abdominalpain, reflux, nausea or other complaints. She notes her energy level isgradually improving.VITALS: There were no vitals taken for this visit.General: patient is alert, cooperative, in no acute distressOn examination, the abdomen is benign.AssessmentIMPRESSION: superficial gastric ulcer and gastritis, clinically improvingPLAN: I have reviewed my findings with Dr. Pelaez. If the patient notes anyproblems or changes in bowel function, the patient should contact meimmediately. Otherwise I recommend follow up endoscopy as symptoms dictate.She is instructed to continue the carafate and PPI and contact our office withprogress report in 1 month. Patient verbalized understanding and agreed withthe plan.Diagnoses: (K25.3) Acute gastric ulcer without hemorrhage or perforation(primary encounter diagnosis)(K80.50) Calculus of bile duct without cholecystitis and without obstruction I spent 30 minutes in the visit, with more than 50% of the [id number]-[id number] time of the visit in counseling / coordination of care. _RODRÍGUEZ Kumar-CReferring Provider: RIVERA PELAEZ [[id number]]Allergies As of Date: 04/07/2018(No Known Allergies)Date Reviewed: 04/07/2018Reviewed by: Brenda Colin (Pa) - Fully AssessedReason for Visit: Post Op [174]Primary Visit Diagnosis:Acute gastric ulcer without hemorrhage or perforation [K25.3] Other Visit Diagnosis:Calculus of bile duct without cholecystitis and without obstruction [K80.50]Prescriptions as of 04/07/2018 Sig: SUCRALFATE 1 GRAM TABLET Take 1 tablet by mouth four t* ALLOPURINOL 100 MG TABLET Take 100 mg by mouth once nevin* ATENOLOL 25 MG TABLET Take 25 mg by mouth once kehinde* CEFDINIR 300 MG CAPSULE Take 300 mg by mouth twice da* DOXYCYCLINE HYCLATE 100 MG TA* Take 100 mg by mouth twice da* FUROSEMIDE 20 MG TABLET Take 20 mg by mouth once kehinde* GLIMEPIRIDE 2 MG TABLET Take 2 mg by mouth twice kehinde* IPRATROPIUM BROMIDE 0.03 % NA* PLACE 2 SPRAYS IN EACH NOSTRI* LISINOPRIL 5 MG TABLET Take 5 mg by mouth once daily. MAGNESIUM OXIDE 400 MG (241.3* TAKE 1 TABLET BY MOUTH TWICE * SIMVASTATIN 20 MG TABLET Take 20 mg by mouth once kehinde* SPIRONOLACTONE 50 MG TABLET TAKE 1 TABLET EVERY DAY NE* INSULIN 70/30 SUBCUTANE. Inject subcutaneously. PANTOPRAZOLE 40 MG TABLET,DEL* Take 1 tablet by mouth twice *Problem List As Of Date: 04/07/2018(None) Other instructions from your clinician: -Call if any recurrent stomach symptoms -Continue PPI and carafate -Follow up with Dr. Arce The following instructions are important for you related to your office visit today with the [facility]. INSTRUCTIONS FOR PEPTIC ULCER DISEASE/GASTRITIS I discussed with you the findings of your upper endoscopy. Your upper endoscopy demonstrated signs of peptic ulcer disease or irritation. This can be seen as a range of issues from actual ulcers in the stomach or duodenum (first part of the small bowel) or irritation ranging from redness to more significant irritation with erosions of the stomach or duodenum. These conditions are usually caused from a combination of too much acid production or too little protective mucus production in the stomach. Factors that increase acid production include smoking and stress. If you smoke, stopping smoking will often cure these issues without needing other medications. Factors that decrease the stomach's production of protective mucus include alcohol consumption, smoking, aspirin and other anti-inflammatory use. Over the counter medications including antiacids and acid reducing medications including H2 blockers (Zantac and the like) and proton pump inhibitors (prilosec, prevacid and the like) neutralize or prevent acid production. Prescription strength proton pump inhibitors (PPIs) may be necessary if your symptoms persist. Carafate may be added to PPI treatment in refractory cases. Avoiding smoking, alcohol and antiinflammatory medications are important in the successful treatment of peptic diseases. New or worsening symptoms such are epigastric pain, burning, difficulty swallowing or food sticking should be relayed to your physician. Feeling full early after eating, or black, tarry, foul smelling stools are also worrisome. If you have any difficulties or concerns, you should contact our office immediately. If you note any additional difficulties, questions, or concerns, you should contact our office immediately @ [phone] and ask to be transferred to the General Surgery department.Follow-up and Disposition History RecordedEncounter Number: [id number] Status:Closed by BRENDA COLIN PA-C on 04/07/18 Normal [facility] PROGRESSon 04-07-2018 Protein mass conc HNO ID: [id number]: Brenda (Rodríguez) KimfService: (none)Author Type: Physician AssistantType: Progress NotesFiled: 04/07/2018 3:57 PMNote Text:FOLLOW UP VISIT - ENDOSCOPYNAME: Anne Hill NO.: [id number] OF SERVICE: 04/07/2018DOB: 1940REFERRING PHYSICIAN: Tin Arce MDAnne is a patient I am following with Dr. Pelaez for an acute pepticulcer. [facility], was alsofound to have cholelithiasis. She underwent upper endoscopy by on 03/02/18. Patient was found to have a non-bleeding crateredgastric ulcer, medium-sized hiatal hernia, normal esophagus. She wasinitiated on PPI and carafate and is taking these as instructed.Anne was feeling improved at last visit 03/16, however stil with mildabdominal soreness and belching. Notes not eating much due to earlysatiety and lack of appetite. She has been back to see Dr. Arce since herhospital discharge and was started on insulin, had follow-up two weeks agoand another appointment later this month.?Dr. Pelaez performed follow-up EGD on03/30/18. He noted a superficialnon-bleeding ulcer in the prepyloric region, 3 mm in largest dimension.Hiatal hernia again noted. H. Pylori testing was negative. Patient wasinstructed by Dr. Pelaez to continue carafate and take omeprazole twicedaily. She notes she has just started on the omeprazole.The patient notes no complaints since the procedure. She denies anyabdominal pain, reflux, nausea or other complaints. She notes her energylevel is gradually improving.VITALS: There were no vitals taken for this visit.General: patient is alert, cooperative, in no acute distressOn examination, the abdomen is benign.AssessmentIMPRESSION: superficial gastric ulcer and gastritis, clinically improvingPLAN: I have reviewed my findings with Dr. Pelaez. If the patient notesany problems or changes in bowel function, the patient should contact meimmediately. Otherwise I recommend follow up endoscopy as symptomsdictate. She is instructed to continue the carafate and PPI and contactour office with progress report in 1 month. Patient verbalizedunderstanding and agreed with the plan.Diagnoses: (K25.3) Acute gastric ulcer without hemorrhage or perforation(primary encounter diagnosis)(K80.50) Calculus of bile duct without cholecystitis and withoutobstruction I spent 30 minutes in the visit, with more than 50% of the xlujxiamy-ct-acep time of the visit in counseling / coordination of care. _Brenda Colin PA-C Normal [facility] PROGRESSon 04-05-2018 Protein mass conc HNO ID: [id number]: Rivera Pabloervice: (none)Author Type: PhysicianType: Progress NotesFiled: 04/05/2018 1:10 PMNote Text:OPERATIVE NOTATION FOR [facility] SURGICAL PROCEDURE.March 30, 2018Anne Dorsey 1940 [id number] femalePROCEDURE: EGD WITH BIOPSY - [id number]: Thelma Pelaez M.D. FACS COLLAR STARCHER: NoneDEPT: SHIRLEY PROVIDER: [id number] Pelaez MD POS: [id number]: (K25.3) Acute gastric ulcer without hemorrhage or perforation(primary encounter diagnosis)ASA CLASS: 3 - SevereFINDINGS:COMPLICATIONS: NonePMHx -PAST MEDICAL HISTORYDiagnosis Date- DM (diabetes mellitus) (HCC)- Gout- HTN (hypertension)- HyperlipidemiaCOMORBIDITIES - HTN and NIDDMPost Op Occurrences - NoneWound Classification - Clean ContaminatedOperative note dictated in the [facility] dictationsystem.Rivera Pelaez MD Normal [facility] CNOVon 03-16-2018 CNOV Office Visit (GENSWS) ANNE DORSEY ([id number]) 1940 FDate Time Provider Bytcjygams66/15/18 9:00 AM BRENDA COLIN) GENSWS During your visit today, we recorded the following information about you:Brenda Colin PA-C 03/17/2018 5:03 PM SignedHISTORY AND PHYSICALEsta Willian1940REFERRING PHYSICIAN: [facility]*CHIEF COMPLAINT: Post Op/schedule repeat EGDHPI: The patient is a 77 year old female referred for endoscopy. Patient wasrecently seen in consultation by Dr. Pelaez at [facility] forsuspected peptic ulcer disease, was also found to have cholelithiasis. Sheunderwent upper endoscopy by Dr. Pelaez on 03/02/18. Patient was found tohave a non-bleeding cratered gastric ulcer, medium-sized hiatal hernia, normalesophagus. She was initiated on PPI and carafate and is taking these asinstructed. Anne notes she is feeling much better than she was a few weeksago, though still notes some mild abdominal soreness and belching. Notes noteating much due to early satiety and lack of appetite. She states she feelsweak and occasionally shaky. Has been back to see Dr. Arce since her hospitaldischarge and was started on insulin, has another follow-up this week.PAST MEDICAL HISTORYDiagnosis Date- DM (diabetes mellitus) (HCC)- Gout- HTN (hypertension)- HyperlipidemiaPAST SURGICAL HISTORYProcedure Laterality Date- EGD W/O OR W/BRUSH/WASH 02/27/2018 EGDCurrent Outpatient Prescriptions:insulin NPH hum/reg insulin hm (INSULIN 70/30 SUBCUTANE.) Injectsubcutaneously.allopurino l (ZYLOPRIM) 100 mg tablet Take 100 mg by mouth once daily.atenolol (TENORMIN) 25 mg tablet Take 25 mg by mouth once daily.cefdinir (OMNICEF) 300 mg capsule Take 300 mg by mouth twice daily.doxycycline (VIBRA-TABS) 100 mg tablet Take 100 mg by mouth twice daily.furosemide (LASIX) 20 mg tablet Take 20 mg by mouth once daily.glimepiride (AMARYL) 2 mg tablet Take 2 mg by mouth twice daily.Ipratropium Drummond (ATROVENT) 0.03 % nasal spray PLACE 2 SPRAYS IN EACHNOSTRIL TWICE DAILYlisinopril (ZESTRIL, PRINIVIL) 5 mg tablet Take 5 mg by mouth once daily.magnesium oxide (MAG-OX) 400 mg (241.3 mg magnesium) tablet TAKE 1 TABLET BYMOUTH TWICE A DAY NEEDED FOR CRAMPSsimvastatin (ZOCOR) 20 mg tablet Take 20 mg by mouth once daily.spironolactone (ALDACTONE) 50 mg tablet TAKE 1 TABLET EVERY DAY NEEDED FOREDEMApantoprazole DR (PROTONIX) 40 mg tablet Take 1 tablet by mouth twice daily.sucralfate (CARAFATE) 100 mg/mL suspension Take 10 mL by mouth four timesdaily. TAKE (2) TEASPOONS BEFORE EACH MEAL AND (2) TEASPOONS AT BEDTIME (MAYUSE GENERIC)No current facility-administered medications for this visit.ALLERGIES: Patient has no known allergies.PERSONAL HISTORY: Social History Marital status: Spouse name: Years of education: Number of children:Social History Main Topics Smoking status: Never Smoker Smokeless tobacco: Never Used Alcohol use: NoFAMILY HISTORY: History reviewed. No pertinent family history.REVIEW OF SYMPTOMS: The review of systems data was entered by the nurse and reviewed by Karthikeyan Notes:Suzanne Riojas LPN 03/16/2018 10:02 AM SignedREVIEW OF SYSTEMS: General: The patient denies fatigue, denies weight loss, denies weightgain, denies feeling hot, and denies feelings of cold. Eyes: The patient denies glaucoma, denies eye injury/surgery, does notwear glasses or contacts. Ear/Nose/Throat: The patient denies allergies, denies hayfever, deniesear infections, and denies bloody noses. Cardiovascular: The patient denies chest pain, denies heart disease,NOTES high blood pressure,denies cardiac stent, denies prior heart attack,denies irregular heart beat, NOTES high cholesterol, denies poor circulation,denies heart failure, other cardiac issues, denies claudication, denies coldfeet, denies peripheral arterial stent. Respiratory: The patient denies tuberculosis, denies pneumonia, deniesfrequent cough, denies pulmonary embolism, denies shortness of breath, anddenies coughing up blood. Gastrointestinal: The patient denies difficulty swallowing, denies acidreflux, denies ulcers, denies vomiting, denies jaundice/hepatitis, NOTESgallbladder problems, denies black or tarry stools, denies hemorrhoids, deniesbleeding from rectum, denies diverticulitis, denies constipation, deniesdiarrhea, denies loss of stool control, and denies hernias. Kidney/Bladder: The patient denies kidney stones, denies urineinfections, and denies bloody urine. Skin: The patient denies a history of skin cancer, deniesbleeding/changing moles, and denies a history of skin rash. Neurologic: The patient denies a history of epilepsy/convulsions, deniesheadaches, denies head/spinal injuries, and denies stroke/TIA. Psychiatric: The patient denies psychiatric medications, deniesdepression, and denies voices, denies substance abuse. Endocrine: The patient denies thyroid disorders, NOTES diabetes, anddenies hormonal problems. Hematologic: The patient denies a history of bruising, denies bleeding,and denies anemia, denies blood clots. Infections: The patient denies a history of measles and mumps, deniesrheumatic fever, and denies sexually transmitted diseases. Musculoskeletal: The patient denies back pain/injury, denies backproblems, denies sciatica, denies knee/foot trouble, denies arthritis, or NOTESgout.When was patient's last Mammogram screening? N/A Last Colonoscopy: Margarita DRISCOLL have confirmed and edited as necessary, the PFSH and ROS obtained by others.PHYSICAL EXAMINATION:General: The patient is 77 year old female, well nourished, well hydrated inno acute distress. The patient is oriented to time, place, and person.VITALS: There were no vitals taken for this visit. There is no height or weighton file to calculate BMI.HEENT: Normal cephalic, ataumatic, pupils are equally round, sclera areanicteric, mucous membranes are moist, oropharynx is clear. Neck has nomasses, asymmetry or lymphadenopathy.Respiratory: Clear to auscultation and percussion. Normal respiratoryexcursion and pattern.Cardiac: Examination is regular rate and rhythm.Abdominal exam: Soft, nontender, with no palpable masses. Nohepatosplenomegaly. No palpable hernias.Rectal exam: exam deferredExtremities: no clubbing, cyanosis or edema. No adenopathy.Other:LABORATORY VALUES: As NotedRADIOLOGIC STUDIES: As NotedAssessmentIMPRESSION: gastric ulcer, need for follow-up EGDPLAN: Will set patient up for repeat EGD with MAC. We discussed the risksand benefits of the planned endoscopy. I have informed the patient thatcomplications can occur including failure to complete the endoscopy andperforation. The patient had the opportunity to ask questions concerning theplanned endoscopy. My staff has also explained the procedure to the patient inunderstandable terms and has given the patient printed material concerning theprocedure. The patient freely consents to surgery.Recommended supplementing diet with Boost/Ensure/similar shakes and/ornutrition bars until appetite improvingI have instructed the patient to contact her PCP regarding her diabeticmedications, which may require dosage adjustments during bowel preparation andthe day of the procedureI plan for monitored anesthetic care.Diagnoses: (K25.3) Acute gastric ulcer without hemorrhage or perforation(primary encounter diagnosis)(R68.81) Early satietyMy findings have been communicated to Dr. Tin Arce MD via shared medicalrecord. This note will be forwarded to Dr. Tin Arce MD.Return to Clinic: The patient is instructed to follow-up with me 1 week postoperatively. STEW KumarCJoasadiq Riojas LPN 03/16/2018 10:02 AM SignedREVIEW OF SYSTEMS: General: The patient denies fatigue, denies weight loss, denies weightgain, denies feeling hot, and denies feelings of cold. Eyes: The patient denies glaucoma, denies eye injury/surgery, does notwear glasses or contacts. Ear/Nose/Throat: The patient denies allergies, denies hayfever, deniesear infections, and denies bloody noses. Cardiovascular: The patient denies chest pain, denies heart disease,NOTES high blood pressure,denies cardiac stent, denies prior heart attack,denies irregular heart beat, NOTES high cholesterol, denies poor circulation,denies heart failure, other cardiac issues, denies claudication, denies coldfeet, denies peripheral arterial stent. Respiratory: The patient denies tuberculosis, denies pneumonia, deniesfrequent cough, denies pulmonary embolism, denies shortness of breath, anddenies coughing up blood. Gastrointestinal: The patient denies difficulty swallowing, denies acidreflux, denies ulcers, denies vomiting, denies jaundice/hepatitis, NOTESgallbladder problems, denies black or tarry stools, denies hemorrhoids, deniesbleeding from rectum, denies diverticulitis, denies constipation, deniesdiarrhea, denies loss of stool control, and denies hernias. Kidney/Bladder: The patient denies kidney stones, denies urineinfections, and denies bloody urine. Skin: The patient denies a history of skin cancer, deniesbleeding/changing moles, and denies a history of skin rash. Neurologic: The patient denies a history of epilepsy/convulsions, deniesheadaches, denies head/spinal injuries, and denies stroke/TIA. Psychiatric: The patient denies psychiatric medications, deniesdepression, and denies voices, denies substance abuse. Endocrine: The patient denies thyroid disorders, NOTES diabetes, anddenies hormonal problems. Hematologic: The patient denies a history of bruising, denies bleeding,and denies anemia, denies blood clots. Infections: The patient denies a history of measles and mumps, deniesrheumatic fever, and denies sexually transmitted diseases. Musculoskeletal: The patient denies back pain/injury, denies backproblems, denies sciatica, denies knee/foot trouble, denies arthritis, or NOTESgout.When was patient's last Mammogram screening? N/A Last Colonoscopy: Margarita Riojas LPNReferring Provider: [facility] [[id number]]Allergies As of Date: 03/16/2018(No Known Allergies)Date Reviewed: 03/16/2018Reviewed by: Suzanne Riojas LPN - Fully AssessedReason for Visit: Post Op [174]Primary Visit Diagnosis:Acute gastric ulcer without hemorrhage or perforation [K25.3] Other Visit Diagnosis:Early satiety [R68.81]Prescriptions as of 03/16/2018 Sig: INSULIN 70/30 SUBCUTANE. Inject subcutaneously. ALLOPURINOL 100 MG TABLET Take 100 mg by mouth once nevin* ATENOLOL 25 MG TABLET Take 25 mg by mouth once kehinde* CEFDINIR 300 MG CAPSULE Take 300 mg by mouth twice da* DOXYCYCLINE HYCLATE 100 MG TA* Take 100 mg by mouth twice da* FUROSEMIDE 20 MG TABLET Take 20 mg by mouth once kehinde* GLIMEPIRIDE 2 MG TABLET Take 2 mg by mouth twice kehinde* IPRATROPIUM BROMIDE 0.03 % NA* PLACE 2 SPRAYS IN EACH NOSTRI* LISINOPRIL 5 MG TABLET Take 5 mg by mouth once daily. MAGNESIUM OXIDE 400 MG (241.3* TAKE 1 TABLET BY MOUTH TWICE * SIMVASTATIN 20 MG TABLET Take 20 mg by mouth once kehinde* SPIRONOLACTONE 50 MG TABLET TAKE 1 TABLET EVERY DAY NE* PANTOPRAZOLE 40 MG TABLET,DEL* Take 1 tablet by mouth twice * SUCRALFATE 100 MG/ML ORAL KYE* Take 10 mL by mouth four time*Problem List As Of Date: 03/16/2018(None)Visit Notes:>> Suzanne Riojas LPN Mon Mar 16, 2018 10:01 AM Status: SignedREVIEW OF SYSTEMS: General: The patient denies fatigue, denies weight loss, deniesweight gain, denies feeling hot, and denies feelings of cold. Eyes: The patient denies glaucoma, denies eye injury/surgery, doesnot wear glasses or contacts. Ear/Nose/Throat: The patient denies allergies, denies hayfever,denies ear infections, and denies bloody noses. Cardiovascular: The patient denies chest pain, denies heart disease,NOTES high blood pressure,denies cardiac stent, denies prior heart attack,denies irregular heart beat, NOTES high cholesterol, denies poorcirculation, denies heart failure, other cardiac issues, deniesclaudication, denies cold feet, denies peripheral arterial stent. Respiratory: The patient denies tuberculosis, denies pneumonia,denies frequent cough, denies pulmonary embolism, denies shortness ofbreath, and denies coughing up blood. Gastrointestinal: The patient denies difficulty swallowing, deniesacid reflux, denies ulcers, denies vomiting, denies jaundice/hepatitis,NOTES gallbladder problems, denies black or tarry stools, denieshemorrhoids, denies bleeding from rectum, denies diverticulitis, deniesconstipation, denies diarrhea, denies loss of stool control, and denieshernias. Kidney/Bladder: The patient denies kidney stones, denies urineinfections, and denies bloody urine. Skin: The patient denies a history of skin cancer, deniesbleeding/changing moles, and denies a history of skin rash. Neurologic: The patient denies a history of epilepsy/convulsions,denies headaches, denies head/spinal injuries, and denies stroke/TIA. Psychiatric: The patient denies psychiatric medications, deniesdepression, and denies voices, denies substance abuse. Endocrine: The patient denies thyroid disorders, NOTES diabetes, anddenies hormonal problems. Hematologic: The patient denies a history of bruising, deniesbleeding, and denies anemia, denies blood clots. Infections: The patient denies a history of measles and mumps,denies rheumatic fever, and denies sexually transmitted diseases. Musculoskeletal: The patient denies back pain/injury, denies backproblems, denies sciatica, denies knee/foot trouble, denies arthritis, orNOTES gout.When was patient's last Mammogram screening? N/A Last Colonoscopy: NoneJomario Riojas LPNFollow-up and Disposition History RecordedEncounter Number: [id number] Status:Closed by BRENDA COLIN PA-C on 03/17/18 Normal [facility] PROGRESSon 03-16-2018 Protein mass conc HNO ID: [id number]: Brenda Sy) GrafService: (none)Author Type: Physician AssistantType: Progress NotesFiled: 03/17/2018 5:03 PMNote Text:HISTORY AND PHYSICALEsta Willian1940REFERRING PHYSICIAN: [facility]*CHIEF COMPLAINT: Post Op/schedule repeat EGDHPI: The patient is a 77 year old female referred for endoscopy. Patientwakenzie recently seen in consultation by Dr. Pelaez at [facility] for suspected peptic ulcer disease, was also found to havecholelithiasis. She underwent upper endoscopy by Dr. Pelaez on 03/02/18. Patient was found to have a non-bleeding cratered gastric ulcer,medium-sized hiatal hernia, normal esophagus. She was initiated on PPIand carafate and is taking these as instructed. Anne notes she is feelingmuch better than she was a few weeks ago, though still notes some mildabdominal soreness and belching. Notes not eating much due to earlysatiety and lack of appetite. She states she feels weak and occasionallyshaky. Has been back to see Dr. Arce since her hospital discharge and wasstarted on insulin, has another follow-up this week.PAST MEDICAL HISTORYDiagnosis Date- DM (diabetes mellitus) (HCC)- Gout- HTN (hypertension)- HyperlipidemiaPAST SURGICAL HISTORYProcedure Laterality Date- EGD W/O OR W/BRUSH/WASH 02/27/2018 EGDCurrent Outpatient Prescriptions:insulin NPH hum/reg insulin hm (INSULIN 70/30 SUBCUTANE.) Injectsubcutaneously.allopurino l (ZYLOPRIM) 100 mg tablet Take 100 mg by mouth once daily.atenolol (TENORMIN) 25 mg tablet Take 25 mg by mouth once daily.cefdinir (OMNICEF) 300 mg capsule Take 300 mg by mouth twice daily.doxycycline (VIBRA-TABS) 100 mg tablet Take 100 mg by mouth twice daily.furosemide (LASIX) 20 mg tablet Take 20 mg by mouth once daily.glimepiride (AMARYL) 2 mg tablet Take 2 mg by mouth twice daily.Ipratropium Drummond (ATROVENT) 0.03 % nasal spray PLACE 2 SPRAYS IN EACHNOSTRIL TWICE DAILYlisinopril (ZESTRIL, PRINIVIL) 5 mg tablet Take 5 mg by mouth once daily.magnesium oxide (MAG-OX) 400 mg (241.3 mg magnesium) tablet TAKE 1 TABLETBY MOUTH TWICE A DAY NEEDED FOR CRAMPSsimvastatin (ZOCOR) 20 mg tablet Take 20 mg by mouth once daily.spironolactone (ALDACTONE) 50 mg tablet TAKE 1 TABLET EVERY DAY NEEDEDFOR EDEMApantoprazole DR (PROTONIX) 40 mg tablet Take 1 tablet by mouth twicedaily.sucralfate (CARAFATE) 100 mg/mL suspension Take 10 mL by mouth four timesdaily. TAKE (2) TEASPOONS BEFORE EACH MEAL AND (2) TEASPOONS AT BEDTIME(MAY USE GENERIC)No current facility-administered medications for this visit.ALLERGIES: Patient has no known allergies.PERSONAL HISTORY: Social History Marital status: Spouse name: Years of education: Number of children:Social History Main Topics Smoking status: Never Smoker Smokeless tobacco: Never Used Alcohol use: NoFAMILY HISTORY: History reviewed. No pertinent family history.REVIEW OF SYMPTOMS: The review of systems data was entered by the nurse and reviewed by Karthikeyan Notes:Suzanne Riojas LPN 03/16/2018 10:02 AM SignedREVIEW OF SYSTEMS: General: The patient denies fatigue, denies weight loss, deniesweight gain, denies feeling hot, and denies feelings of cold. Eyes: The patient denies glaucoma, denies eye injury/surgery, doesnot wear glasses or contacts. Ear/Nose/Throat: The patient denies allergies, denies hayfever,denies ear infections, and denies bloody noses. Cardiovascular: The patient denies chest pain, denies heart disease,NOTES high blood pressure,denies cardiac stent, denies prior heart attack,denies irregular heart beat, NOTES high cholesterol, denies poorcirculation, denies heart failure, other cardiac issues, deniesclaudication, denies cold feet, denies peripheral arterial stent. Respiratory: The patient denies tuberculosis, denies pneumonia,denies frequent cough, denies pulmonary embolism, denies shortness ofbreath, and denies coughing up blood. Gastrointestinal: The patient denies difficulty swallowing, deniesacid reflux, denies ulcers, denies vomiting, denies jaundice/hepatitis,NOTES gallbladder problems, denies black or tarry stools, denieshemorrhoids, denies bleeding from rectum, denies diverticulitis, deniesconstipation, denies diarrhea, denies loss of stool control, and denieshernias. Kidney/Bladder: The patient denies kidney stones, denies urineinfections, and denies bloody urine. Skin: The patient denies a history of skin cancer, deniesbleeding/changing moles, and denies a history of skin rash. Neurologic: The patient denies a history of epilepsy/convulsions,denies headaches, denies head/spinal injuries, and denies stroke/TIA. Psychiatric: The patient denies psychiatric medications, deniesdepression, and denies voices, denies substance abuse. Endocrine: The patient denies thyroid disorders, NOTES diabetes, anddenies hormonal problems. Hematologic: The patient denies a history of bruising, deniesbleeding, and denies anemia, denies blood clots. Infections: The patient denies a history of measles and mumps,denies rheumatic fever, and denies sexually transmitted diseases. Musculoskeletal: The patient denies back pain/injury, denies backproblems, denies sciatica, denies knee/foot trouble, denies arthritis, orNOTES gout.When was patient's last Mammogram screening? N/A Last Colonoscopy: Margarita DRISCOLL have confirmed and edited as necessary, the PFSH and ROS obtained byothers.PHYSICAL EXAMINATION:General: The patient is 77 year old female, well nourished, well hydratedin no acute distress. The patient is oriented to time, place, and person.VITALS: There were no vitals taken for this visit. There is no height orweight on file to calculate BMI.HEENT: Normal cephalic, ataumatic, pupils are equally round, sclera areanicteric, mucous membranes are moist, oropharynx is clear. Neck has nomasses, asymmetry or lymphadenopathy.Respiratory: Clear to auscultation and percussion. Normal respiratoryexcursion and pattern.Cardiac: Examination is regular rate and rhythm.Abdominal exam: Soft, nontender, with no palpable masses. Nohepatosplenomegaly. No palpable hernias.Rectal exam: exam deferredExtremities: no clubbing, cyanosis or edema. No adenopathy.Other:LABORATORY VALUES: As NotedRADIOLOGIC STUDIES: As NotedAssessmentIMPRESSION: gastric ulcer, need for follow-up EGDPLAN: Will set patient up for repeat EGD with MAC. We discussed therisks and benefits of the planned endoscopy. I have informed the patientthat complications can occur including failure to complete the endoscopyand perforation. The patient had the opportunity to ask questionsconcerning the planned endoscopy. My staff has also explained theprocedure to the patient in understandable terms and has given the patientprinted material concerning the procedure. The patient freely consents tosurgery.Recommended supplementing diet with Boost/Ensure/similar shakes and/ornutrition bars until appetite improvingI have instructed the patient to contact her PCP regarding her diabeticmedications, which may require dosage adjustments during bowel preparationand the day of the procedureI plan for monitored anesthetic care.Diagnoses: (K25.3) Acute gastric ulcer without hemorrhage or perforation(primary encounter diagnosis)(R68.81) Early satietyMy findings have been communicated to Dr. Tin Arce MD via sharedmedical record. This note will be forwarded to Dr. Tin Arce MD.Return to Clinic: The patient is instructed to follow-up with me 1 weekpost operatively. Brenda Colin PA-C [facility] PROGRESSon 02-28-2018 Protein mass conc HNO ID: [id number]: Rivera Pabloervice: (none)Author Type: PhysicianType: Progress NotesFiled: 02/28/2018 10:31 AMNote Text:OPERATIVE NOTATION FOR [facility] SURGICAL PROCEDURE.February 27, 2018Anne Dorsey 1940 [id number] femalePROCEDURE: EGD WITH BIOPSY - [id number]: Thelma Pelaez M.D. FACS COLLAR STARCHER: NoneDEPT: WStephania PROVIDER: [id number] Pelaez MD POS: [id number]: (K25.3) Acute gastric ulcer without hemorrhage or perforation(primary encounter diagnosis)ASA CLASS: 3 - SevereFINDINGS:COMPLICATIONS: NonePMHx - No past medical history on file.COMORBIDITIES - NIDDMPost Op Occurrences - NoneWound Classification - Clean ContaminatedOperative note dictated in the [facility] dictationsystem.Rivera Pelaez MD [facility] CNOPon 02-27-2018 Protein mass conc Operative Note (Enc) (GENSWS) Progr ess Notes:Rivera Pelaez MD 02/28/2018 10:31 AM SignedOPERATIVE NOTATION FOR [facility]ED[facility].February 27, 2018Anne Willian 1940 [id number] femalePROCEDURE: EGD WITH BIOPSY - [id number]: Thelma Pelaez M.D. FACS COLLAR STARCHER: NoneDEPT: SHIRLEY PROVIDER: [id number] Pelaez MD POS:[id number]: (K25.3) Acute gastric ulcer without hemorrhage or perforation(primary encounter diagnosis)ASA CLASS: 3 - SevereFINDINGS:COMPLICATIONS: NonePMHx - No past medical history on file.COMORBIDITIES - NIDDMPost Op Occurrences - NoneWound Classification - Clean ContaminatedOperative note dictated in the [facility] dictation system.Rivera Pelaez MDEncounter Status:Closed by RIVERA PELAEZ MD on 02/28/18Encounter Number: [id number] Normal [facility] Encounters Encounter Date Encounter Type Care Provider Facility Start: 04-07-2018 End: 04-10-2018 Patient encounter procedure RIVERA PELAEZ [facility] Start: 03-16-2018 End: 03-18-2018 Patient encounter procedure BRENDA COLIN (PA) [facility] Summary Purpose Family History No Family History Records Found Advance Directives No Advanced Directives Records Found Procedure Findings Note Operative Note (Enc) (GENSWS) ----- ---Progress Notes:Rivera Pelaez MD 04/05/2018 1:10 PM SignedOPERATIVE NOTATION FOR [facility] SURGICAL PROCEDURE.March 30, 2018Anne Dorsey 1940 [id number] femalePROCEDURE: EGD WITH BIOPSY - [id number]: Thelma Pelaez M.D. FACS COLLAR STARCHER: NoneDEPT: SHIRLEY PROVIDER: [id number] Pelaez MD POS:[id number]: (K25.3) Acute gastric ulcer without hemorrhage or perforation(primary encounter diagnosis)ASA CLASS: 3 - SevereFINDINGS:COMPLICATIONS: NonePMHx -PAST MEDICAL HISTORYDiagnosis Date- DM (diabetes mellitus) (HCC)- Gout- HTN (hypertension)- HyperlipidemiaCOMORBIDITIES - HTN and NIDDMPost Op Occurrences - NoneWound Classification - Clean ContaminatedOperative note dictated in the [facility] dictation system.Rivera Pelaez MDEncounter Status:Closed by RIVERA PELAEZ MD on 04/05/18Encounter Number: [id number] Additional Source Comments INFORMATION SOURCE (unrecogn ized section and content) DATE CREATED AUTHOR 05/10/2018 [facility] FOR RECORDS PERTAINING TO PATIENTS WHO ARE [...] BE BASED ON THE PRIMARY CLINICAL RECORDS. [facility]. provides no warranty or guarantee of the accuracy or completeness of information in this document.
== END | disposition home or self-care (01) ==
LOC: LAB 12:06
PROVIDERS: PCP Family Medicine Geriatric Medicine; Referring Provider Family Medicine Geriatric Medicine; Visit Provider Family Medicine Geriatric Medicine
DX: E11.65 Type 2 diabetes mellitus with hyperglycemia (principal); E78.5 Hyperlipidemia, unspecified; E55.9 Vitamin D deficiency, unspecified; I10 Essential (primary) hypertension; M10.9 Gout, unspecified
CPT/HCPCS: 36415; 80053; 80061; 82306; 83036; 84443; 84550; 85025

== ENCOUNTER → 2024-04-21 | Outpatient (CLI) | payer MEDICARE, SELFPAY | END | disposition home or self-care (01) | LOC: PSN 10:31 | PROVIDERS: PCP Family Medicine Geriatric Medicine; Referring Provider Family Medicine Geriatric Medicine; Visit Provider Family Medicine Geriatric Medicine | DX: R20.0 Anesthesia of skin (principal) | CPT/HCPCS: 95886; 95909 ==

== ENCOUNTER → 2024-04-27 | Outpatient (CLI) | payer MEDICARE, SELFPAY | END | disposition home or self-care (01) | LOC: POLAB3 10:05 | PROVIDERS: PCP Family Medicine Geriatric Medicine; Visit Provider Family Medicine Geriatric Medicine | DX: N39.0 Urinary tract infection, site not specified (principal) | CPT/HCPCS: 36415; 87077; 87086; 87088; 87186 ==

== ENCOUNTER → 2024-06-01 | Outpatient (CLI) | payer MEDICARE, SELFPAY ==
--- NOTE | 2024-06-01 07:45 | VDLE_ITS ---
Reason For Study: PVD RIGHT LEFT CFV is compressible, phasic, and INCOMPETENT CFV is PARTIALLY COMPRESSIBLE, spontaneous, for greater than 1.0 second. phasic, competent, and demonstrates normal FV is compressible, phasic, and INCOMPETENT augmentation. Bright intraluminal echoes for greater than 1.0 second. noted which are consistent with CHRONIC DVT POP V is PARTIALLY COMPRESSIBLE, phasic, and FV is PARTIALLY COMPRESSIBLE, spontaneous, INCOMPETENT for greater than 1.0 second. phasic, competent, and demonstrates normal Bright intraluminal echoes noted which are augmentation. Bright intraluminal echoes consistent with CHRONIC DVT. noted which are consistent with CHRONIC DVT. T/P Trunk is PARTIALLY COMPRESSIBLE with POP V is compressible, phasic, and bright intraluminal echoes noted which are INCOMPETENT for greater than 1.0 second. consistent with CHRONIC DVT. Bright intraluminal echoes are noted which is PTV is compressible. consistent with CHRONIC DVT. RT PerV is compressible. T/P Trunk is compressible. SFJ is INCOMPETENT and measures 0.87 cm. PTV is compressible. GSV proximal thigh measures 0.52 x 0.54 cm. LT PerV is compressible. GSV at knee measures 0.43 x 0.47 cm. SFJ is competent and measures 0.82 cm. GSV INCOMPETENT throughout for greater than GSV proximal thigh measures 0.34 x 0.32 cm. 0.5 seconds. GSV at knee measures 0.23 x 0.19 cm. ASV proximal thigh is INCOMPETENT for greater GSV INCOMPETENT throughout for greater than than 0.5 seconds and measures 0.90 x 1.04 cm. 0.5 seconds. Bright intraluminal echoes noted ASV mid thigh is INCOMPETENT for greater than within the GSV and multiple Varicose Veins 0.5 seconds and measures 0.60 x 0.86 cm. between ankles and knee. Finding is SSV at junction is competent and measures consistent with CHRONIC SVT. 0.23 x 0.22 cm. ASV proximal thigh is INCOMPETENT for greater SSV mid calf is competent and measures 0.27 x than 0.5 seconds and measures 0.26 x 0.29 cm. 0.29 cm. SSV at junction is competent and measures Procedure 0.38 cm. This is a venous duplex using B-mode, color SSV mid calf is competent and measures 0.22 x flow and spectral Doppler. 0.21 cm. Exam performed in department. The exam was diagnostic. VL/Venous Duplex US - Aneesh Extrem Interpretation Summary Chronic deep vein thrombosis is noted in the right, popliteal vein, tibioperone al trunk vein. Chronic deep vein thrombosis is noted in the left common femoral vein, femoral vein, popliteal vein. 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 Positive for reflux in the right common femoral vein, femoral vein, popliteal v ein, saphenofemoral junction, great saphenous vein throughout, two accessory saphenous veins in mid and proximal thigh. Positive for reflux in the left popliteal vein, great saphenous vein throughout , accessory saphenous vein in the thigh Ordering Physician: Jose Daniel Banks Referring Physician: Tin Arce Chi Performed By: Brant Cardona RVT
== END | disposition home or self-care (01) ==
LOC: CVS 07:44
PROVIDERS: PCP Family Medicine Geriatric Medicine; Referring Provider Podiatrist; Visit Provider Podiatrist
DX: I73.9 Peripheral vascular disease, unspecified (principal); I82.541 Chronic embolism and thrombosis of right tibial vein; I82.551 Chronic embolism and thrombosis of right peroneal vein; I82.512 Chronic embolism and thrombosis of left femoral vein; I82.533 Chronic embolism and thrombosis of popliteal vein, bilateral; I82.812 Embolism and thrombosis of superficial veins of left lower extremity
CPT/HCPCS: 93970

== ENCOUNTER → 2024-06-30 | Outpatient (CLI) | payer MEDICARE, SELFPAY ==
[2024-06-30 11:44] LABS: Absolute Lymphocyte Count 1.97 X10^3/uL (0.83-4.51); Absolute Neutrophil Count 3.5 X10^3/uL (2.0-7.7); Basophil# 0.02 X10^3/uL; Basophil% 0.3 % (0-1); Eosinophil# 0.12 X10^3/uL; Hematocrit 33.3 % (37-47); Hemoglobin 10.8 g/dL (12.0-15.0); Lymphocyte # 1.97 X10^3/ul (0.83-4.51); Lymphocyte % 33.4 % (19-41); Mean Corp Hgb Conc 32.4 g/dL (32-36); Mean Corpuscular Hgb 30.7 pg (27.0-32.0); Mean Corpuscular Volume 94.6 fL (81-99); Mean Platelet Vol. 10.5 fl (6.2-12.0); Monocyte# 0.32 X10^3/uL; Monocyte% 5.4 % (0-10); NRBC Flagged by Analyzer 0 % (0-5); Neutrophil # 3.45 X10^3/uL (2.7-7.7); Neutrophil % 58.7 % (47-70); Platelet Count 235 K/mm3 (150-450); RBC Distribution Width CV 14.6 % (11.6-14.6); RBC Distribution Width SD 50.3 fl (35.1-43.9); Red Blood Count 3.52 M/mm3 (4.2-5.4); White Blood Count 5.9 K/mm3 (4.4-11.0)
[2024-06-30 12:01] LABS: Hemoglobin A1c 6.5 % (3.8-5.6)
[2024-06-30 12:11] LABS: ALB/GLOB Ratio 1.1 RATIO (0.9-2.4); AST(SGOT) 17 U/L (15-37); Alanine Aminotransfer ALT/SGPT 14 U/L (13-56); Albumin, Serum 3.8 g/dL (3.2-5.0); Alkaline Phosphatase 81 U/L (45-117); Anion Gap 8 (5-15); BUN 29 mg/dL (7-18); BUN/Creat Ratio 20.7 RATIO (10-20); Calcium,Total 9.6 mg/dL (8.5-10.1); Chloride 103 mmol/L (98-107); Cholesterol 236 mg/dL (200); EST Glomerular Filtration Rate 38 mL/min (>60); Est Glom Filt Rate - Afr Amer 46 mL/min (>60); Globulin 3.5 g/dL (2.2-4.2); Glucose 104 mg/dL (74-106); High Density Lipoprotein 64 mg/dL; Potassium 3.9 mmol/L (3.5-5.1); Protein, Total 7.3 g/dL (6.4-8.2); Sodium Level 139 mmol/L (136-145); Triglycerides 151 mg/dL; Uric Acid 5.9 mg/dL (2.6-6.0); Very Low Density Lipoprotein 30 mg/dL (5-40)
== END | disposition home or self-care (01) ==
LOC: POLAB3 11:23
PROVIDERS: PCP Family Medicine Geriatric Medicine; Visit Provider Family Medicine Geriatric Medicine
DX: E11.65 Type 2 diabetes mellitus with hyperglycemia (principal); I10 Essential (primary) hypertension; E78.5 Hyperlipidemia, unspecified; M10.9 Gout, unspecified; E55.9 Vitamin D deficiency, unspecified
CPT/HCPCS: 36415; 80053; 80061; 82306; 83036; 84443; 84550; 85025

== ENCOUNTER → 2024-12-28 | Outpatient (CLI) | payer MEDICARE, SELFPAY ==
[2024-12-28 10:59] LABS: Hematocrit 32.2 % (37-47); Hemoglobin 10.6 g/dL (12.0-15.0); Immature Granulocytes Count 0.010 X10^3/uL (0.0-0.0); Mean Corp Hgb Conc 32.9 g/dL (32-36); Mean Corpuscular Volume 95.3 fL (81-99); Mean Platelet Vol. 11.1 fl (6.2-12.0); NRBC Flagged by Analyzer 0 % (0-5); Platelet Count 228 K/mm3 (150-450); RBC Distribution Width CV 14.3 % (11.6-14.6); RBC Distribution Width SD 49.4 fl (35.1-43.9); Red Blood Count 3.38 M/mm3 (4.2-5.4); White Blood Count 5.4 K/mm3 (4.4-11.0)
[2024-12-28 12:10] LABS: AST(SGOT) 22 U/L (<=31); Alanine Aminotransfer ALT/SGPT 10 U/L (<=34); Albumin, Serum 4.3 g/dL (3.4-4.8); Alkaline Phosphatase 81 U/L (35-104); BUN 34 mg/dL (4-19); BUN/Creat Ratio 20.2 RATIO (10-20); Calcium,Total 9.9 mg/dL (7.6-11.0); Carbon Dioxide 21.6 mmol/L (21.0-32.0); Chloride 100 mmol/L (98-108); Cholesterol 248 mg/dL (<=200); Globulin 2.7 g/dL (2.2-4.2); Glucose 86 mg/dL (70-99); Potassium 4.0 mmol/L (3.3-5.1); Triglycerides 175 mg/dL; Uric Acid 6.5 mg/dL (2.6-6.0)
[2024-12-28 12:11] LABS: Anion Gap 18 (5-15); Low Density Lipoprotein Calc. 155 mg/dL; Very Low Density Lipoprotein 35 mg/dL (5-40); Vitamin D,25 Hydroxy 37.3 ng/mL (30-100); cholesterol:hdl ratio screen 4.26
[2024-12-28 12:58] LABS: Creatinine, Urine (random) 71.30 mg/dL (28.00-217.00); Microalbumin,Random Urine 15.1 mg/L (<20 mg/L)
[2024-12-28 18:05] LABS: Xtra Tube Kwok EXTRA TUBE
== END | disposition home or self-care (01) ==
LOC: POLAB3 10:31
PROVIDERS: PCP Family Medicine Geriatric Medicine; Visit Provider Family Medicine Geriatric Medicine
DX: E11.65 Type 2 diabetes mellitus with hyperglycemia (principal); I10 Essential (primary) hypertension; M10.9 Gout, unspecified; E55.9 Vitamin D deficiency, unspecified
CPT/HCPCS: 36415; 80053; 80061; 82043; 82306; 82570; 83036; 84443; 84550; 85025